=== PATIENT | male | born 1930 | race Caucasian/White ===

== ENCOUNTER 2017-01-04 14:17 | Emergency (ER) | payer MEDICARE, BC, OTHER ==
[2017-01-04] MEDS ORDERED: Sodium Chloride 0.9% 10 ML Syringe FLUSH PRN (14:28)
[2017-01-04] MEDS ORDERED: Piperacillin/Tazobactam 4.5 GM in Sodium Chloride 0.9% 100 ML IV ONE (15:30)
--- NOTE | 2017-01-04 15:47 | EDM.PDOC ---
ED HISTORY OF PRESENT ILLNESS - General Chief Complaint: Respiratory Problem Stated Complaint: [facility] Time Seen by Provider: 01/04/17 14:25 Source of Information: Reports: Patient, RN notes reviewed - History of Present Illness INITIAL COMMENTS - FREE TEXT/NARRATIVE: 86-year-old gentleman has been brought in by ambulance for evaluation of cough fever chills hypoxia. He has history of a severe pneumonia back in October 2 months ago did require transferred to [facility]. He was on a ventilator for about 2-1/2 days. He had a bronchoscopy done in [place] last 4 days ago presumably to check for what sounds like abnormal findings still present on chest x-ray. He started coughing 2 days ago. The cough worsening yesterday and today. He started having fever chills shortness of breath just a few hours ago at home. Upon ambulance arrival his sats were only about 83% on 2 L nasal cannula. He was given an albuterol neb treatment in route and that did bring his sats up into the low 90s. Temp on arrival is 100.4. He denies chest pain he states his cough has been mostly nonproductive but at times he does get up some pinkish colored phlegm. Of note he is on home oxygen 24 7 at about 2 L nasal cannula. - Related Data Allergies/ADRs: Allergies Allergy/AdvReac Type Severity Reaction Status Date / Time iodine Allergy Hives Verified 01/04/17 14:32 iopamidol Allergy Rash Verified 01/04/17 14:32 diphenhydramine HCl AdvReac Confusion Verified 01/04/17 14:32 [From Benadryl] Home Meds: Home Meds Acetaminophen [Tylenol] 650 mg PO Q6HR PRN 09/30/14 [History] Aspirin [Adult Low Dose Aspirin EC] 81 mg PO DAILY 09/30/14 [History] Metoprolol Tartrate [Lopressor] 25 mg PO BID 09/30/14 [History] Nitroglycerin [Nitrostat] 0.4 mg SL ASDIRECTED PRN 09/30/14 [History] Furosemide [Lasix] 20 mg PO DAILY 09/27/15 [History] Losartan [Cozaar] 100 mg PO DAILY #30 10/01/15 [Rx] Gabapentin [Neurontin] 1,800 mg PO BEDTIME 04/20/16 [History] Docusate Sodium [Colace] 100 mg PO DAILY PRN 07/17/16 [History] Albuterol/Ipratropium [DuoNeb 3.0-0.5 MG/3 ML] 3 ml NEB TID #120 neb 07/21/16 [ Rx] Benzonatate [Tessalon Perles] 100 mg PO TID PRN #45 cap 07/21/16 [Rx] Lidocaine/Prilocaine [EMLA Crm] 0 gm TOP ASDIRECTED PRN 01/04/17 [History] Rivaroxaban [Xarelto] 20 mg PO DAILY 01/04/17 [History] Viscous Lidocaine 1 dose TOP ASDIRECTED PRN 01/04/17 [History] atorvaSTATin [Lipitor] 10 mg PO BEDTIME 01/04/17 [History] guaiFENesin/D-Methorphan Hb/Pe [Robitussin Cough-Cold Cf Liq] 10 ml PO ASDIRECTED PRN 01/04/17 [History] Past Medical History HEENT History: Reports: Cataract, Impaired vision Cardiovascular History: Reports: Afib, CAD, Hypertension, [place] Respiratory History: Reports: COPD, Pneumonia, recurrent, Sleep apnea Other Respiratory History: lung CA Gastrointestinal History: Reports: Colon polyp, GERD Genitourinary History: Reports: Chronic renal insuffiency Other Genitourinary History: bladder cancer Musculoskeletal History: Reports: Arthritis, Back pain, chronic Neurological History: Reports: Other (see below) Other Neuro History: 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 ), sciatica pain Endocrine/Metabolic History: Reports: None Hematologic History: Reports: None Oncologic (Cancer) History: Reports: Bladder, Lung, Squamous cell carcinoma - Infectious Disease History Infectious Disease History: Reports: Chicken pox, Measles, Shingles - Past Surgical History Head Surgeries/Procedures: Reports: None HEENT Surgical History: Reports: Cataract surgery Cardiovascular Surgical History: Reports: Coronary artery bypass Respiratory Surgical History: Reports: Lung Resection GI Surgical History: Reports: Hernia, inguinal Male Surgical History: Reports: Cystectomy, Prostatectomy Neurological Surgical History: Reports: Lumbar spine Musculoskeletal Surgical History: Reports: Hip replacement, Shoulder surgery Oncologic Surgical History: Reports: Lobectomy, Other (see below) Other Oncologic Surgeries/Procedures: Right lower lobe Dermatological Surgical History: Reports: None Social & Family History - Family History Family Medical History: Noncontributory Cardiac: Reports: Bypass, Heart failure, [place], Pacemaker Other Cardiac Family History: few brothers from [place]. OBGYN: Reports: Oncologic: Reports: Liver, Pancreatic, Prostate Other Oncologic Family History: brother prostate, Brother-pancreatic cancer, sister- liver cancer - Tobacco Use Smoking Status *Q: Former Smoker Years of Tobacco use: 45 Packs/Tins Daily: 1 Used Tobacco, but Quit: No Month Tobacco Last Used: 2007 or 2008 Second Hand Smoke Exposure: No - Caffeine Use Caffeine Use: Reports: None - Alcohol Use Days Per Week of Alcohol Use: 3 Number of Drinks Per Day: 3 Total Drinks Per Week: 9 - Recreational Drug Use Recreational Drug Use: No - Living Situation & Occupation Living situation: Reports: , with spouse, with family (daughter) Occupation: retired ED ROS GENERAL - Review of Systems Review Of Systems: See Below Constitutional: Reports: fever, chills, weakness. Denies: diaphoresis HEENT: Denies: Rhinitis, Sinus problem, Throat pain Respiratory: Reports: Shortness of Breath, Wheezing, Cough, Sputum Cardiovascular: Denies: Chest pain GI/Abdominal: Denies: Abdominal pain, Nausea, Vomiting Musculoskeletal: Denies: shoulder pain, arm pain Skin: Denies: rash Neurological: Reports: Dizziness ED EXAM, GENERAL - Physical Exam Exam: See Below General Appearance: alert, moderate distress Eye Exam: bilateral eye: PERRL Nose: normal inspection Throat/Mouth: Normal inspection, Normal oropharynx Head: atraumatic. No: facial swelling Neck: supple, full range of motion, other (No JVD). No: lymphadenopathy (L), lymphadenopathy (R) Respiratory/Chest: respiratory distress (Moderate tachypnea), rhonchi (Mild right-sided). No: wheezing, retractions Cardiovascular: regular rate, rhythm GI/Abdominal: soft, non tender. No: guarding Back Exam: No: CVA tenderness (L), CVA tenderness (R) Extremities: normal inspection, pedal edema (Right greater than left). No: leg pain, increased warmth, redness Neurological: alert, oriented, no motor/sensory deficits Skin Exam: Warm, Dry, Normal color EKG INTERPRETATION EKG Date: 01/04/17 Rhythm: a-fib Rate (beats/min): 80 ST-T: other (T-wave flattening inferior leads) Course - Vital Signs Last Recorded V/S: Last Vital Signs Temp 100.3 F 01/04/17 14:20 Pulse 83 01/04/17 14:20 Resp 28 H 01/04/17 14:20 BP 139/56 L 01/04/17 14:20 Pulse Ox 93 L 01/04/17 14:20 - Orders/Labs/Meds Orders: Active Orders 24 hr Category Date Time Status EKG 12 Lead [EKG Documentation Completion] [RC] STAT Care 01/04/17 14:29 Active Peripheral IV Care [RC] . DIRECTED Care 01/04/17 14:29 Active RT Aerosol Therapy [RC] ASDIRECTED Care 01/04/17 15:55 Active Chest 1V Frontal [CR] Stat Exams 01/04/17 14:29 Taken CULTURE BLOOD [BC] Stat Lab 01/04/17 14:48 Received CULTURE BLOOD [BC] Stat Lab 01/04/17 14:58 Received Piperacillin/Tazobactam [Zosyn] 4.5 gm Med 01/04/17 15:30 Active Sodium Chloride 0.9% [Normal Saline] 100 ml IV ONETIME Sodium Chloride 0.9% [Saline Flush] Med 01/04/17 14:28 Active 10 ml FLUSH ASDIRECTED PRN Peripheral IV Insertion Adult [OM.PC] Stat Oth 01/04/17 14:29 Ordered Medication Orders Piperacillin Sod/Tazobactam (Sod 4.5 gm/ Sodium Chloride) 100 mls @ 200 mls/hr IV ONETIME ONE Stop: 01/04/17 15:59 Last Admin: 01/04/17 15:45 Dose: 200 mls/hr Sodium Chloride (Saline Flush) 10 ml FLUSH ASDIRECTED PRN PRN Reason: Keep Vein Open Last Admin: 01/04/17 14:45 Dose: 10 ml Labs: Laboratory Tests 01/04/17 01/04/17 01/04/17 Range/Units 14:48 14:48 14:48 WBC 11.92 H (4.23-9.07) K/mm3 RBC 4.21 L (4.63-6.08) M/mm3 Hgb 12.9 L (13.7-17.5) gm/L Hct 42.7 (40.1-51.0) % MCV 101.4 H (79.0-92.2) fl MCH 30.6 (25.7-32.2) pg MCHC 30.2 L (32.2-35.5) g/dl RDW Std Deviation 61.3 H (35.1-43.9) fL Plt Count 243 (163-337) K/mm3 MPV 10.3 (9.4-12.3) fl Neut % (Auto) 74.0 H (34.0-67.9) % Lymph % (Auto) 9.5 L (21.8-53.1) % Stephenson % (Auto) 9.4 (5.3-12.2) % Eos % (Auto) 6.0 (0.8-7.0) Baso % (Auto) 0.8 (0.1-1.2) % Neut # (Auto) 8.82 H (1.78-5.38) K/mm3 Lymph # (Auto) 1.13 L (1.32-3.57) K/mm3 Stephenson # (Auto) 1.12 H (0.30-0.82) K/mm3 Eos # (Auto) 0.72 H (0.04-0.54) K/mm3 Baso # (Auto) 0.09 H (0.01-0.08) K/mm3 Manual Slide Review Abnormal smear Sodium 145 (136-145) mEq/L Potassium 3.9 (3.5-5.1) mEq/L Chloride 104 (98-107) mEq/L Carbon Dioxide 34 H (21-32) mEq/L Anion Gap 10.9 (5-15) BUN 18 (7-18) mg/dL Creatinine 1.2 (0.7-1.3) mg/dL Est Cr Clr Drug Dosing 48.81 mL/min Estimated GFR (MDRD) 58 (>60) mL/min BUN/Creatinine Ratio 15.0 (14-18) Glucose 114 (83-115) mg/dL Lactic Acid 2.3 H (0.4-2.0) mmol/L Calcium 9.2 (8.5-10.1) mg/dL Total Bilirubin 1.1 H (0.2-1.0) mg/dL AST 16 (15-37) U/L ALT 23 (16-63) U/L Alkaline Phosphatase 103 (46-116) U/L C-Reactive Protein 1.6 H* (<1.0) mg/dL B-Natriuretic Peptide (0-100) pg/mL Total Protein 6.7 (6.4-8.2) g/dl Albumin 3.4 (3.4-5.0) g/dl Globulin 3.3 gm/dL Albumin/Globulin Ratio 1.0 (1-2) 01/04/17 Range/Units 14:48 WBC (4.23-9.07) K/mm3 RBC (4.63-6.08) M/mm3 Hgb (13.7-17.5) gm/L Hct (40.1-51.0) % MCV (79.0-92.2) fl MCH (25.7-32.2) pg MCHC (32.2-35.5) g/dl RDW Std Deviation (35.1-43.9) fL Plt Count (163-337) K/mm3 MPV (9.4-12.3) fl Neut % (Auto) (34.0-67.9) % Lymph % (Auto) (21.8-53.1) % Stephenson % (Auto) (5.3-12.2) % Eos % (Auto) (0.8-7.0) Baso % (Auto) (0.1-1.2) % Neut # (Auto) (1.78-5.38) K/mm3 Lymph # (Auto) (1.32-3.57) K/mm3 Stephenson # (Auto) (0.30-0.82) K/mm3 Eos # (Auto) (0.04-0.54) K/mm3 Baso # (Auto) (0.01-0.08) K/mm3 Manual Slide Review Sodium (136-145) mEq/L Potassium (3.5-5.1) mEq/L Chloride (98-107) mEq/L Carbon Dioxide (21-32) mEq/L Anion Gap (5-15) BUN (7-18) mg/dL Creatinine (0.7-1.3) mg/dL Est Cr Clr Drug Dosing mL/min Estimated GFR (MDRD) (>60) mL/min BUN/Creatinine Ratio (14-18) Glucose (83-115) mg/dL Lactic Acid (0.4-2.0) mmol/L Calcium (8.5-10.1) mg/dL Total Bilirubin (0.2-1.0) mg/dL AST (15-37) U/L ALT (16-63) U/L Alkaline Phosphatase (46-116) U/L C-Reactive Protein (<1.0) mg/dL B-Natriuretic Peptide 465 H (0-100) pg/mL Total Protein (6.4-8.2) g/dl Albumin (3.4-5.0) g/dl Globulin gm/dL Albumin/Globulin Ratio (1-2) Meds: Medications Generic Name Dose Route Start Last Admin Trade Name Freq PRN Reason Stop Dose Admin Piperacillin Sod/Tazobactam 100 mls @ 200 mls/hr 01/04/17 15:30 01/04/17 15: 45 Sod 4.5 gm/ Sodium Chloride IV 01/04/17 15:59 200 mls/hr ONETIME ONE Administration Sodium Chloride 10 ml 01/04/17 14:28 01/04/17 14:45 Saline Flush FLUSH 10 ml ASDIRECTED PRN Administration Keep Vein Open Discontinued Medications Generic Name Dose Route Start Last Admin Trade Name Freq PRN Reason Stop Dose Admin Albuterol/Ipratropium 3 ml 01/04/17 15:54 Duoneb 3.0-0.5 Mg/3 Ml NEB 01/04/17 15:55 ONETIME ONE - Re-Assessments/Exams Free Text/Narrative Re-Assessment/Exam: 01/04/17 16:05. Patient has right-sided infiltrate on his chest x-ray. As noted temp on arrival 100.4. He had shaking chills at home prior to arrival. His cough has been worsening over the past 2 days and now productive of occasional in his words pinkish brown sputum, white blood count is elevated at around 12,000. He was cachectic on arrival with respirations of about 28. He was hypoxic upon ambulance arrival at his residence with PO2 of only 83%. With all of that he did need sepsis criteria. Lactic acid is come back at 2.3. But cultures x2 were obtained. He does have history of congestive heart failure, BNP is elevated at 465. Anion gap is only 10.3. He is not seriously dehydrated at this time. He has a good blood pressure, normal heart rate, fluid boluses at this time are not clinically indicated and at this time will not be given. I discussed this with our hospitalist Dr. Loya. She is not comfortable admitting him here to this facility at this time with consideration that in October he progressed very quickly respiratory failure requiring intubation and being on a ventilator for 2-1/2 days. Pulmonology backup not available at our facility. He just had bronchoscopy as noted by his Metal Roofing Mechanic, Dr. Campos 4 days ago. Family has been given a choice and they do choose to go to [facility] at this time. Zosyn 4.5 g IV has been started. I discussed this with Dr. Wayne, Hospitalist for [facility] August[facility], accepting Phys. 01/04/17 16:17 Departure - Departure Time of Disposition: 16:00 Disposition: DC/Tfer to [facility] 02 Condition: serious Clinical Impression: Hypoxia Pneumonia Qualifiers: Pneumonia type: due to unspecified organism Laterality: right Lung location: unspecified part of lung Qualified Code(s): J18.9 - Pneumonia, unspecified organism COPD (chronic obstructive pulmonary disease) Qualifiers: COPD type: unspecified COPD Qualified Code(s): J44.9 - Chronic obstructive pulmonary disease, unspecified Forms: ED Department Discharge - My Orders Last 24 Hours: My Active Orders 01/04/17 14:28 Sodium Chloride 0.9% [Saline Flush] 10 ml FLUSH ASDIRECTED PRN 01/04/17 14:29 EKG 12 Lead [EKG Documentation Completion] [RC] STAT Peripheral IV Care [RC] . DIRECTED Chest 1V Frontal [CR] Stat Peripheral IV Insertion Adult [OM.PC] Stat 01/04/17 14:48 CULTURE BLOOD [BC] Stat 01/04/17 14:58 CULTURE BLOOD [BC] Stat 01/04/17 15:30 Piperacillin/Tazobactam [Zosyn] 4.5 gm Sodium Chloride 0.9% [Normal Saline] 100 ml IV ONETIME 01/04/17 15:55 RT Aerosol Therapy [RC] ASDIRECTED - Assessment/Plan Last 24 Hours: My Active Orders 01/04/17 14:28 Sodium Chloride 0.9% [Saline Flush] 10 ml FLUSH ASDIRECTED PRN 01/04/17 14:29 EKG 12 Lead [EKG Documentation Completion] [RC] STAT Peripheral IV Care [RC] . DIRECTED Chest 1V Frontal [CR] Stat Peripheral IV Insertion Adult [OM.PC] Stat 01/04/17 14:48 CULTURE BLOOD [BC] Stat 01/04/17 14:58 CULTURE BLOOD [BC] Stat 01/04/17 15:30 Piperacillin/Tazobactam [Zosyn] 4.5 gm Sodium Chloride 0.9% [Normal Saline] 100 ml IV ONETIME 01/04/17 15:55 RT Aerosol Therapy [RC] ASDIRECTED
[2017-01-04] MEDS ORDERED: Albuterol/Ipratropium 3.0-0.5 MG/3 ML Neb Soln NEB ONE (15:54)
[2017-01-04 16:31] VITALS: BP 114/49
--- NOTE | 2017-01-05 08:54 | CR ---
Chest: Frontal view of the chest was obtained. Comparison: Previous chest x-ray of 11/02/[address] of 10/19/16. Mass noted within the left side of the chest which is seen on prior chest CT. Pleural thickening/fluid seen around the right chest which is fairly stable from prior chest CT. Increased parenchymal density within the right mid and right lower lung is seen which is more prominent currently than on prior exam and uncertain how much of this represents possible treated neoplasm, chronic change versus superimposed acute pneumonia. Previous CABG is noted. Heart size does not appear enlarged. Previous right shoulder surgery is noted. Impression: 1. Mass within the left side of the chest. This is noted on prior CT exam. 2. Parenchymal density within the right mid and lower lung more prominent than on prior chest CT. Differential as described above. 3. Pleural thickening/fluid around the right chest which appears stable. Diagnostic code #9
== END 2017-01-04 16:28 ==
LOC: JD.ED 14:17
DX: J18.9 Pneumonia, unspecified organism (principal); J44.9 Chronic obstructive pulmonary disease, unspecified; I25.10 Atherosclerotic heart disease of native coronary artery without angina pectoris; I25.2 Old myocardial infarction; I48.91 Unspecified atrial fibrillation; K21.9 Gastro-esophageal reflux disease without esophagitis; N18.9 Chronic kidney disease, unspecified; I12.9 Hypertensive chronic kidney disease with stage 1 through stage 4 chronic kidney disease, or unspecified chronic kidney disease; M19.90 Unspecified osteoarthritis, unspecified site; Z98.49 Cataract extraction status, unspecified eye; Z98.890 Other specified postprocedural states; Z87.891 Personal history of nicotine dependence; Z88.8 Allergy status to other drugs, medicaments and biological substances; Z79.82 Long term (current) use of aspirin; Z79.899 Other long term (current) drug therapy; R06.02 Shortness of breath
CPT/HCPCS: 36415; 71010; 80053; 83605; 83880; 85025; 86140; 87040; 87070; 87205; 93005; 94664; 96365; 99285; J2543; J7030; J7050

== ENCOUNTER 2017-04-05 21:02 | Inpatient (IN) | payer MEDICARE, BC ==
[2017-04-05] MEDS ORDERED: Sodium Chloride 0.9% 10 ML Syringe FLUSH PRN (21:18)
[2017-04-05] MEDS ORDERED: Acetaminophen 325 MG Tab PO ONE (21:20)
[2017-04-05] MEDS ORDERED: Levofloxacin/Dextrose 5%-Water 750 MG in Premix Bag 1 BAG IV ONE (21:21)
[2017-04-05] MEDS ORDERED: Albuterol/Ipratropium 3.0-0.5 MG/3 ML Neb Soln NEB ONE (21:21)
--- NOTE | 2017-04-05 22:08 | EDM.PDOC ---
ED HPI GENERAL MEDICAL PROBLEM - General Chief Complaint: Gastrointestinal Problem Stated Complaint: [facility] ambulance Time Seen by Provider: 04/05/17 21:10 Source of Information: Reports: Patient, EMS, Family History Limitations: Reports: No Limitations - History of Present Illness INITIAL COMMENTS - FREE TEXT/NARRATIVE: The patient presents by ambulance for generalized weakness, fever, cough, chest tightness and abdominal pain. The abdominal pain is generalized. He has no nausea with it or vomiting. He has a urostomy bag. He has a history of frequent UTIs. He also has lung cancer and finished radiation February 24. He had a productive cough. Onset: Gradual Duration: Day(s): Location: Reports: Abdomen Quality: Reports: Ache Severity: Mild Improves with: Reports: None Worsens with: Reports: None Associated Symptoms: Reports: Chest Pain, Cough, Fever/Chills, Shortness of Breath. Denies: Nausea/Vomiting - Related Data Allergies Allergy/AdvReac Type Severity Reaction Status Date / Time iodine Allergy Hives Verified 04/05/17 21:08 iopamidol Allergy Rash Verified 04/05/17 21:08 diphenhydramine HCl AdvReac Confusion Verified 04/05/17 21:08 [From Benadryl] Home Meds: Home Meds Metoprolol Tartrate [Lopressor] 25 mg PO BID 09/30/14 [History] Nitroglycerin [Nitrostat] 0.4 mg SL ASDIRECTED PRN 09/30/14 [History] Furosemide [Lasix] 20 mg PO DAILY 09/27/15 [History] Gabapentin [Neurontin] 3 tab PO BEDTIME 01/08/16 [History] Rivaroxaban [Xarelto] 20 mg PO BEDTIME 01/04/17 [History] atorvaSTATin [Lipitor] 10 mg PO BEDTIME 01/04/17 [History] Albuterol/Ipratropium [DuoNeb 3.0-0.5 MG/3 ML] 3 ml NEB BID 04/05/17 [History] Losartan [Cozaar] 50 mg PO DAILY 04/05/17 [History] Omeprazole 20 mg PO DAILY 04/05/17 [History] Past Medical History HEENT History: Reports: Cataract, Impaired Vision Cardiovascular History: Reports: Afib Respiratory History: Reports: COPD, Pneumonia, Recurrent, Sleep Apnea Other Respiratory History: lung CA Gastrointestinal History: Reports: Colon Polyp, GERD Genitourinary History: Reports: Chronic Renal Insuffiency, Urostomy Other Genitourinary History: bladder cancer Musculoskeletal History: Reports: Arthritis, Back Pain, Chronic 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 ), sciatica pain Endocrine/Metabolic History: Reports: None Hematologic History: Reports: None Oncologic (Cancer) History: Reports: Bladder, Lung, Squamous Cell Carcinoma - Infectious Disease History Infectious Disease History: Reports: Chicken Pox, Measles, Shingles - Past Surgical History Head Surgeries/Procedures: Reports: None HEENT Surgical History: Reports: Cataract Surgery Cardiovascular Surgical History: Reports: Coronary Artery Bypass GI Surgical History: Reports: Hernia, Inguinal Neurological Surgical History: Reports: Lumbar Spine Musculoskeletal Surgical History: Reports: Hip Replacement, Shoulder Surgery Oncologic Surgical History: Reports: Lobectomy Dermatological Surgical History: Reports: None Social & Family History - Family History Family Medical History: Noncontributory Cardiac: Reports: Bypass, Heart Failure, [place], Pacemaker Other Cardiac Family History: few brothers from [place]. OBGYN: Reports: Oncologic: Reports: Liver, Pancreatic, Prostate Other Oncologic Family History: brother prostate, Brother-pancreatic cancer, sister- liver cancer - Tobacco Use Smoking Status *Q: Never Smoker Years of Tobacco use: 45 Packs/Tins Daily: 1 Used Tobacco, but Quit: No Month Tobacco Last Used: 2007 or 2008 Second Hand Smoke Exposure: No - Caffeine Use Caffeine Use: Reports: None - Alcohol Use Days Per Week of Alcohol Use: 3 Number of Drinks Per Day: 3 Total Drinks Per Week: 9 - Recreational Drug Use Recreational Drug Use: No - Living Situation & Occupation Living situation: Reports: , with Spouse, with Family Occupation: Retired ED ROS GENERAL - Review of Systems Review Of Systems: See Below Constitutional: Reports: Fever, Chills HEENT: Reports: No Symptoms Respiratory: Reports: Shortness of Breath, Cough Cardiovascular: Reports: Chest Pain Endocrine: Reports: No Symptoms GI/Abdominal: Reports: Abdominal Pain. Denies: Nausea, Vomiting : Reports: No Symptoms Musculoskeletal: Reports: No Symptoms ED EXAM, GI/ABD - Physical Exam Exam: See Below Exam Limited By: No Limitations General Appearance: Alert, No Apparent Distress Ears: Normal External Exam Nose: Normal Inspection Head: Atraumatic, Normocephalic Neck: Normal Inspection Respiratory/Chest: No Respiratory Distress, Decreased Breath Sounds Cardiovascular: Regular Rate, Rhythm, No Edema, No Murmur GI/Abdominal: Soft, Non-Tender, No Organomegaly, No Mass Back Exam: Normal Inspection Extremities: Normal Inspection Skin Exam: Warm, Dry Course - Vital Signs Last Recorded V/S: Last Vital Signs Temp 98.3 F 04/05/17 21:04 Pulse 78 04/05/17 21:04 Resp 26 H 04/05/17 21:04 BP 173/71 H 04/05/17 21:04 Pulse Ox 97 04/05/17 21:47 - Orders/Labs/Meds Orders: Active Orders 24 hr Category Date Time Status Cardiac Monitoring [RC] . DIRECTED Care 04/05/17 21:19 Active EKG Documentation Completion [RC] STAT Care 04/05/17 21:20 Active Oxygen Therapy [RC] PRN Care 04/05/17 21:19 Active Peripheral IV Care [RC] . DIRECTED Care 04/05/17 21:20 Active RT Aerosol Therapy [RC] ASDIRECTED Care 04/05/17 21:21 Active Chest 1V Frontal [CR] Stat Exams 04/05/17 21:20 Taken CULTURE BLOOD [BC] Stat Lab 04/05/17 20:00 Received CULTURE BLOOD [BC] Stat Lab 04/05/17 21:40 Received CULTURE URINE [RM] Stat Lab 04/05/17 20:08 Received Sodium Chloride 0.9% [Saline Flush] Med 04/05/17 21:18 Active 10 ml FLUSH ASDIRECTED PRN Blood Culture x2 Reflex Set [OM.PC] Stat Oth 04/05/17 21:20 Ordered Peripheral IV Insertion Adult [OM.PC] Stat Oth 04/05/17 21:18 Ordered Medication Orders Acetaminophen (Tylenol) 650 mg PO Q4H PRN PRN Reason: Pain (Mild 1-3)/fever Hydrocodone Bitart/Acetaminophen ([place] 325-5 Mg) 1 tab PO Q4H PRN PRN Reason: Pain (moderate 4-6) Albuterol/Ipratropium (Duoneb 3.0-0.5 Mg/3 Ml) 3 ml NEB Q4H PRN PRN Reason: Shortness Of Breath/wheezing Albuterol/Ipratropium (Duoneb 3.0-0.5 Mg/3 Ml) 3 ml NEB BID [facility] Bisacodyl (Dulcolax) 5 mg PO DAILY PRN PRN Reason: Constipation Docusate Sodium (Colace) 100 mg PO BID PRN PRN Reason: Constipation Furosemide (Lasix) 20 mg PO DAILY [facility] Gabapentin (Neurontin) mg PO BEDTIME [facility] Hydralazine HCl (Apresoline) 20 mg IVPUSH Q4H PRN PRN Reason: Hypertension Levofloxacin/Dextrose 750 mg/ (Premix) 150 mls @ 100 mls/hr IV Q24H [facility] Promethazine HCl 12.5 mg/ (Sodium Chloride) 50.5 mls @ 100 mls/hr IV Q6H PRN PRN Reason: Nausea/Vomiting Vancomycin HCl 1 gm/Vancomycin HCl 500 mg/ Sodium Chloride 500 mls @ 125 mls/ hr IV Q24H [facility] Lorazepam (Ativan) 0.25 mg IV Q6H PRN PRN Reason: Anxiety Magnesium Sulfate (Pharmacy To Dose - Magnesium Replacement) 1 dose .XX ASDIRECTED [facility] Metoprolol Tartrate (Lopressor) 25 mg PO BID [facility] Metoprolol Tartrate (Lopressor) 5 mg IVPUSH Q4H PRN PRN Reason: Tachycardia Morphine Sulfate (Morphine) 1 mg IVPUSH Q4H PRN PRN Reason: Other Stop: 04/09/17 23:03 Nitroglycerin (Nitrostat) 0.4 mg SL ASDIRECTED PRN PRN Reason: Chest Pain Non-Formulary Medication (Losartan) 50 mg PO DAILY [facility] Non-Formulary Medication (Omeprazole) 20 mg PO DAILY [facility] Non-Formulary Medication (Rivaroxaban [Xarelto]) 20 mg PO BEDTIME [facility] Non-Formulary Medication (Atorvastatin) 10 mg PO BEDTIME [facility] Ondansetron HCl (Zofran) 4 mg IV Q6H PRN PRN Reason: Nausea/Vomiting Polyethylene Glycol (Miralax) 17 gm PO DAILY PRN PRN Reason: Constipation Potassium Chloride (Pharmacy To Dose - Potassium Replacement) 1 dose .XX ASDIRECTED [facility] Senna/Docusate Sodium (Senna Plus) 1 tab PO BID PRN PRN Reason: Constipation Sodium Chloride (Saline Flush) 10 ml FLUSH ASDIRECTED PRN PRN Reason: Keep Vein Open Last Admin: 04/05/17 22:08 Dose: 10 ml Temazepam (Restoril) 7.5 mg PO BEDTIME PRN PRN Reason: Sleep Vancomycin HCl (Pharmacy To Dose - Vancomycin) 1 dose .XX ASDIRECTED [facility] Labs: Laboratory Tests 04/05/17 04/05/17 04/05/17 Range/Units 20:08 21:25 21:25 WBC 6.04 (4.23-9.07) K/mm3 RBC 3.57 L (4.63-6.08) M/mm3 Hgb 12.0 L (13.7-17.5) gm/L Hct 36.9 L (40.1-51.0) % MCV 103.4 H (79.0-92.2) fl MCH 33.6 H (25.7-32.2) pg MCHC 32.5 (32.2-35.5) g/dl RDW Std Deviation 60.0 H (35.1-43.9) fL Plt Count 152 L (163-337) K/mm3 MPV 10.4 (9.4-12.3) fl Neut % (Auto) 56.0 (34.0-67.9) % Lymph % (Auto) 12.7 L (21.8-53.1) % Cavalier % (Auto) 19.7 H (5.3-12.2) % Eos % (Auto) 9.9 H (0.8-7.0) Baso % (Auto) 1.0 (0.1-1.2) % Neut # (Auto) 3.38 (1.78-5.38) K/mm3 Lymph # (Auto) 0.77 L (1.32-3.57) K/mm3 [place]alier # (Auto) 1.19 H (0.30-0.82) K/mm3 Eos # (Auto) 0.60 H (0.04-0.54) K/mm3 Baso # (Auto) 0.06 (0.01-0.08) K/mm3 Manual Slide Review Abnormal smear Sodium 140 (136-145) mEq/L Potassium 4.0 (3.5-5.1) mEq/L Chloride 104 (98-107) mEq/L Carbon Dioxide 35 H (21-32) mEq/L Anion Gap 5.0 (5-15) BUN 15 (7-18) mg/dL Creatinine 1.1 (0.7-1.3) mg/dL Est Cr Clr Drug Dosing 52.29 mL/min Estimated GFR (MDRD) > 60 (>60) mL/min BUN/Creatinine Ratio 13.6 L (14-18) Glucose 140 H (83-115) mg/dL Lactic Acid (0.4-2.0) mmol/L Calcium 8.9 (8.5-10.1) mg/dL Total Bilirubin 0.8 (0.2-1.0) mg/dL AST 20 (15-37) U/L ALT 21 (16-63) U/L Alkaline Phosphatase 76 (46-116) U/L Troponin I 0.036 (0.00-0.056) ng/mL Total Protein 6.6 (6.4-8.2) g/dl Albumin 3.2 L (3.4-5.0) g/dl Globulin 3.4 gm/dL Albumin/Globulin Ratio 0.9 L (1-2) Urine Color Yellow (Yellow) Urine Appearance Clear (Clear) Urine pH 7.0 (5.0-8.0) Ur Specific [place] 1.025 (1.005-1.030) Urine Protein 1+ H (Negative) Urine Glucose (UA) Negative (Negative) Urine Ketones Negative (Negative) Urine Occult Blood Trace-intact H (Negative) Urine Nitrite Positive H (Negative) Urine Bilirubin Negative (Negative) Urine Urobilinogen 2.0 H (0.2-1.0) Ur Leukocyte Esterase Trace H (Negative) Urine RBC 0-5 (0-5) /hpf Urine WBC 10-20 H (0-5) /hpf Ur Epithelial Cells 5-10 H (0-5) /hpf Urine Bacteria Moderate H (FEW) /hpf Urine Mucus Not seen (FEW) /hpf 04/05/17 Range/Units 21:40 WBC (4.23-9.07) K/mm3 RBC (4.63-6.08) M/mm3 Hgb (13.7-17.5) gm/L Hct (40.1-51.0) % MCV (79.0-92.2) fl MCH (25.7-32.2) pg MCHC (32.2-35.5) g/dl RDW Std Deviation (35.1-43.9) fL Plt Count (163-337) K/mm3 MPV (9.4-12.3) fl Neut % (Auto) (34.0-67.9) % Lymph % (Auto) (21.8-53.1) % [place]ier % (Auto) (5.3-12.2) % Eos % (Auto) (0.8-7.0) Baso % (Auto) (0.1-1.2) % Neut # (Auto) (1.78-5.38) K/mm3 Lymph # (Auto) (1.32-3.57) K/mm3 [place]ier # (Auto) (0.30-0.82) K/mm3 Eos # (Auto) (0.04-0.54) K/mm3 Baso # (Auto) (0.01-0.08) K/mm3 Manual Slide Review Sodium (136-145) mEq/L Potassium (3.5-5.1) mEq/L Chloride (98-107) mEq/L Carbon Dioxide (21-32) mEq/L Anion Gap (5-15) BUN (7-18) mg/dL Creatinine (0.7-1.3) mg/dL Est Cr Clr Drug Dosing mL/min Estimated GFR (MDRD) (>60) mL/min BUN/Creatinine Ratio (14-18) Glucose (83-115) mg/dL Lactic Acid 0.8 (0.4-2.0) mmol/L Calcium (8.5-10.1) mg/dL Total Bilirubin (0.2-1.0) mg/dL AST (15-37) U/L ALT (16-63) U/L Alkaline Phosphatase (46-116) U/L Troponin I (0.00-0.056) ng/mL Total Protein (6.4-8.2) g/dl Albumin (3.4-5.0) g/dl Globulin gm/dL Albumin/Globulin Ratio (1-2) Urine Color (Yellow) Urine Appearance (Clear) Urine pH (5.0-8.0) Ur Specific [place] (1.005-1.030) Urine Protein (Negative) Urine Glucose (UA) (Negative) Urine Ketones (Negative) Urine Occult Blood (Negative) Urine Nitrite (Negative) Urine Bilirubin (Negative) Urine Urobilinogen (0.2-1.0) Ur Leukocyte Esterase (Negative) Urine RBC (0-5) /hpf Urine WBC (0-5) /hpf Ur Epithelial Cells (0-5) /hpf Urine Bacteria (FEW) /hpf Urine Mucus (FEW) /hpf Meds: Medications Generic Name Dose Route Start Last Admin Trade Name Freq PRN Reason Stop Dose Admin Acetaminophen 650 mg 04/05/17 23:02 Tylenol PO Q4H PRN Pain (Mild 1-3)/fever Hydrocodone Bitart/Acetaminophen 1 tab 04/05/17 23:02 [place] 325-5 Mg PO Q4H PRN Pain (moderate 4-6) Albuterol/Ipratropium 3 ml 04/05/17 23:03 Duoneb 3.0-0.5 Mg/3 Ml NEB Q4H PRN Shortness Of Breath/wheezing Albuterol/Ipratropium 3 ml 04/06/17 09:00 Duoneb 3.0-0.5 Mg/3 Ml NEB BID [facility] Bisacodyl 5 mg 04/05/17 23:03 Dulcolax PO DAILY PRN Constipation Docusate Sodium 100 mg 04/05/17 23:03 Colace PO BID PRN Constipation Furosemide 20 mg 04/06/17 09:00 Lasix PO DAILY [facility] Gabapentin mg 04/06/17 21:00 Neurontin PO BEDTIME [facility] Hydralazine HCl 20 mg 04/05/17 23:10 Apresoline IVPUSH Q4H PRN Hypertension Levofloxacin/Dextrose 750 mg/ 150 mls @ 100 mls/hr 04/06/17 09:00 Premix IV Q24H [facility] Promethazine HCl 12.5 mg/ 50.5 mls @ 100 mls/hr 04/05/17 23:03 Sodium Chloride IV Q6H PRN Nausea/Vomiting Vancomycin HCl 1 gm/ 500 mls @ 125 mls/hr 04/05/17 23:15 Vancomycin HCl 500 mg/ Sodium IV Chloride Q24H [facility] Lorazepam 0.25 mg 04/05/17 23:03 Ativan IV Q6H PRN Anxiety Magnesium Sulfate 1 dose 04/05/17 23:15 Pharmacy To Dose - Magnesium Replacement .XX ASDIRECTED [facility] Metoprolol Tartrate 25 mg 04/06/17 09:00 Lopressor PO BID [facility] Metoprolol Tartrate 5 mg 04/05/17 23:10 Lopressor IVPUSH Q4H PRN Tachycardia Morphine Sulfate 1 mg 04/05/17 23:02 Morphine IVPUSH 04/09/17 23:03 Q4H PRN Other Nitroglycerin 0.4 mg 04/05/17 23:09 Nitrostat SL ASDIRECTED PRN Chest Pain Non-Formulary Medication 50 mg 04/06/17 09:00 Losartan PO DAILY [facility] Non-Formulary Medication 20 mg 04/06/17 09:00 Omeprazole PO DAILY [facility] Non-Formulary Medication 20 mg 04/06/17 21:00 Rivaroxaban [Xarelto] PO BEDTIME [facility] Non-Formulary Medication 10 mg 04/06/17 21:00 Atorvastatin PO BEDTIME [facility] Ondansetron HCl 4 mg 04/05/17 23:03 Zofran IV Q6H PRN Nausea/Vomiting Polyethylene Glycol 17 gm 04/05/17 23:03 Miralax PO DAILY PRN Constipation Potassium Chloride 1 dose 04/05/17 23:15 Pharmacy To Dose - Potassium Replacement .XX ASDIRECTED [facility] Senna/Docusate Sodium 1 tab 04/05/17 23:03 Senna Plus PO BID PRN Constipation Sodium Chloride 10 ml 04/05/17 21:18 04/05/17 22:08 Saline Flush FLUSH 10 ml ASDIRECTED PRN Administration Keep Vein Open Temazepam 7.5 mg 04/05/17 23:03 Restoril PO BEDTIME PRN Sleep Vancomycin HCl 1 dose 04/05/17 23:15 Pharmacy To Dose - Vancomycin .XX ASDIRECTED [facility] Discontinued Medications Generic Name Dose Route Start Last Admin Trade Name Freq PRN Reason Stop Dose Admin Acetaminophen 975 mg 04/05/17 21:20 04/05/17 22:05 Tylenol PO 04/05/17 21:21 975 mg NOW ONE Administration Albuterol/Ipratropium 3 ml 04/05/17 21:21 04/05/17 21:47 Duoneb 3.0-0.5 Mg/3 Ml NEB 04/05/17 21:22 3 ml ONETIME ONE Administration Levofloxacin/Dextrose 750 mg/ 150 mls @ 100 mls/hr 04/05/17 21:21 04/05/17 22 :08 Premix IV 04/05/17 22:50 100 mls/hr ONETIME ONE Administration - Re-Assessments/Exams Free Text/Narrative Re-Assessment/Exam: 04/05/17 23:23 I ordered oxygen, labs, CXR, EKG, duoneb, blood cultures and urine culture. His EKG shows no acute changes. His CXR shows stable changes of a mass on both sides. His WBC was normal. His Hgb was a little low at 12. His CMP was negative. His UA shows a UTI. I ordered urine cultures and I also ordered levaquin 750mg IV. I called Dr Garcia and he agreed to the admission. Departure - Departure Time of Disposition: 23:30 Disposition: Admitted As Inpatient 68 Condition: Fair Clinical Impression: UTI, Urinary tract infectious disease, Pneumonia, Hypoxemia Metastatic lung cancer (metastasis from lung to other site) Qualifiers: Laterality: right Qualified Code(s): C34.91 - Malignant neoplasm of unspecified part of right bronchus or lung - Discharge Information - My Orders Last 24 Hours: My Active Orders 04/05/17 20:00 CULTURE BLOOD [BC] Stat 04/05/17 20:08 CULTURE URINE [RM] Stat 04/05/17 21:18 Sodium Chloride 0.9% [Saline Flush] 10 ml FLUSH ASDIRECTED PRN Peripheral IV Insertion Adult [OM.PC] Stat 04/05/17 21:19 Cardiac Monitoring [RC] . DIRECTED Oxygen Therapy [RC] PRN 04/05/17 21:20 EKG Documentation Completion [RC] STAT Peripheral IV Care [RC] . DIRECTED Chest 1V Frontal [CR] Stat Blood Culture x2 Reflex Set [OM.PC] Stat 04/05/17 21:21 RT Aerosol Therapy [RC] ASDIRECTED 04/05/17 21:40 CULTURE BLOOD [BC] Stat - Assessment/Plan Last 24 Hours: My Active Orders 04/05/17 20:00 CULTURE BLOOD [BC] Stat 04/05/17 20:08 CULTURE URINE [RM] Stat 04/05/17 21:18 Sodium Chloride 0.9% [Saline Flush] 10 ml FLUSH ASDIRECTED PRN Peripheral IV Insertion Adult [OM.PC] Stat 04/05/17 21:19 Cardiac Monitoring [RC] . DIRECTED Oxygen Therapy [RC] PRN 04/05/17 21:20 EKG Documentation Completion [RC] STAT Peripheral IV Care [RC] . DIRECTED Chest 1V Frontal [CR] Stat Blood Culture x2 Reflex Set [OM.PC] Stat 04/05/17 21:21 RT Aerosol Therapy [RC] ASDIRECTED 04/05/17 21:40 CULTURE BLOOD [BC] Stat
--- NOTE | 2017-04-05 22:52 | PCM.HP ---
H&P History of Present Illness - General Date of Service: 04/05/17 Admit Problem/Dx: CAP and UTI Source of Information: Patient, Family, Old Records, Provider, RN Notes Reviewed , Significant Other History Limitations: Reports: No Limitations - History of Present Illness Initial Comments - Free Text/Narative: This is an 87 year old elderly white male with past medical history of coronary artery disease, hypertension, heart failure with reduced EF, COPD, chronic right pleural effusion, GERD, osteoporosis, chronic back pain secondary to lumbar stenosis, history of sciatica, history of PE on xarelto who presents to the emergency department with complaints of generalized weakness associated with fever, chills, cough, chest tightness, and abdominal pain. He denies any nausea or vomiting or any other GI complaints. Patient is known to me from previous admissions. 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 His initial workup in emergency department shows a CBC remarkable for hemoglobin of 12.0, hematocrit of 36.9, MCV of 102.4, MCH of 32.6, and platelet count of 152. His chemistry is remarkable for carbon dioxide of 35, glucose of 140, and albumin of 3.2. Her UA is positive for urinary tract infection. Chest x -ray shows right middle lobe pulmonary opacification with possible right sided pleural effusion. Patient is being admitted for pneumonia and urinary tract infection. He is DNR/ DNI. Pain Pain Score (Numeric/FACES): 7 - Related Data Allergies/Adverse Reactions: Allergies Allergy/AdvReac Type Severity Reaction Status Date / Time iodine Allergy Hives Verified 04/06/17 01:00 iopamidol Allergy Rash Verified 04/06/17 01:00 diphenhydramine HCl AdvReac Confusion Verified 04/06/17 01:00 [From Benadryl] Home Medications: Home Meds Metoprolol Tartrate [Lopressor] 25 mg PO BID 09/30/14 [History] Nitroglycerin [Nitrostat] 0.4 mg SL ASDIRECTED PRN 09/30/14 [History] Furosemide [Lasix] 20 mg PO DAILY 09/27/15 [History] Gabapentin [Neurontin] 3 tab PO BEDTIME 01/08/16 [History] Rivaroxaban [Xarelto] 20 mg PO BEDTIME 01/04/17 [History] atorvaSTATin [Lipitor] 10 mg PO BEDTIME 01/04/17 [History] Albuterol/Ipratropium [DuoNeb 3.0-0.5 MG/3 ML] 3 ml NEB BID 04/05/17 [History] Losartan [Cozaar] 50 mg PO DAILY 04/05/17 [History] Omeprazole 20 mg PO DAILY 04/05/17 [History] Past Medical History HEENT History: Reports: Cataract, Impaired Vision Cardiovascular History: Reports: Afib Respiratory History: Reports: COPD, Pneumonia, Recurrent, Sleep Apnea Other Respiratory History: lung CA Gastrointestinal History: Reports: Colon Polyp, GERD Genitourinary History: Reports: Chronic Renal Insuffiency, Urostomy Other Genitourinary History: bladder cancer Musculoskeletal History: Reports: Arthritis, Back Pain, Chronic 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 ), sciatica pain Endocrine/Metabolic History: Reports: None Hematologic History: Reports: None Oncologic (Cancer) History: Reports: Bladder, Lung, Squamous Cell Carcinoma - Infectious Disease History Infectious Disease History: Reports: Chicken Pox, Measles, Shingles - Past Surgical History Head Surgeries/Procedures: Reports: None HEENT Surgical History: Reports: Cataract Surgery Cardiovascular Surgical History: Reports: Coronary Artery Bypass GI Surgical History: Reports: Hernia, Inguinal Neurological Surgical History: Reports: Lumbar Spine Musculoskeletal Surgical History: Reports: Hip Replacement, Shoulder Surgery Oncologic Surgical History: Reports: Lobectomy Dermatological Surgical History: Reports: None Social & Family History - Family History Family Medical History: Noncontributory Cardiac: Reports: Bypass, Heart Failure, CT, Pacemaker Other Cardiac Family History: few brothers from [place]. OBGYN: Reports: Oncologic: Reports: Liver, Pancreatic, Prostate Other Oncologic Family History: brother prostate, Brother-pancreatic cancer, sister- liver cancer - Tobacco Use Smoking Status *Q: Never Smoker Years of Tobacco use: 45 Packs/Tins Daily: 1 Used Tobacco, but Quit: No Month Tobacco Last Used: 2007 or 2008 Second Hand Smoke Exposure: No - Caffeine Use Caffeine Use: Reports: None - Alcohol Use Days Per Week of Alcohol Use: 3 Number of Drinks Per Day: 3 Total Drinks Per Week: 9 - Recreational Drug Use Recreational Drug Use: No - Living Situation & Occupation Living situation: Reports: , with Spouse, with Family Occupation: Retired H&P Review of Systems - Review of Systems: Review Of Systems: See Below General: Reports: Fever, Chills HEENT: Reports: No Symptoms Pulmonary: Reports: Shortness of Breath, Cough Cardiovascular: Reports: Chest Pain. Denies: Palpitations, Dyspnea on Exertion , Lightheadedness Gastrointestinal: Reports: Abdominal Pain. Denies: Constipation, Diarrhea, Decreased Appetite, Nausea, Vomiting Genitourinary: Reports: No Symptoms Musculoskeletal: Reports: Back Pain Skin: Denies: No Symptoms Psychiatric: Reports: Suicidal Ideation. Denies: Depression, Anxiety, Hallucinations Neurological: Reports: Difficulty Walking, Gait Disturbance. Denies: Confusion , Weakness Hematologic/Lymphatic: Reports: No Symptoms Immunologic: Reports: No Symptoms Exam - Exam Exam: See Below - Vital Signs Vital Signs: Last Vital Signs Temp 36.8 C 04/05/17 21:04 Pulse 78 04/05/17 21:04 Resp 26 H 04/05/17 21:04 BP 173/71 H 04/05/17 21:04 Pulse Ox 97 04/05/17 21:47 Weight: 88.904 kg - Exam Quality Assessment: Supplemental Oxygen General: Alert, Oriented, Cooperative. No: Mild Distress HEENT: Conjunctiva Clear, EACs Clear, EOMI, Hearing Intact, Mucosa Moist & [place] , Nares Patent, Normal Nasal Septum, Posterior Pharynx Clear, Pupils Equal Neck: Supple, Trachea Midline, Full Range of Motion. No: JVD Lungs: Normal Respiratory Effort, Decreased Breath Sounds, Rhonchi Cardiovascular: Irregular Rhythm Abdomen: Normal Bowel Sounds, Soft, Other (Urostomy bag). No: Organomegaly, Peritoneal Signs, Distention, Rigidity, Rebound, Tenderness (Male) Exam: Deferred Rectal (Males) Exam: Deferred Back Exam: Normal Inspection, Decreased Range of Motion Extremities: Normal Inspection, Normal Pulses, Edema (right lower extremity). No: Cyanosis Peripheral Pulses: 1+: Posterior Tibial (R), Dorsalis Pedis (R), 2+: Posterior Tibial (L), Dorsalis Pedis (L) Skin: Warm, Dry, Intact Neuro Extensive - Mental Status: Oriented x3, Normal Cognition, Memory Intact Neuro Extensive - Motor, Sensory, Reflexes: CN II-XII Intact (limited but fairly intact), Abnormal Gait Psychiatric: Alert, Normal Affect, Normal Mood - Patient Data Lab Results Last 24 hrs: Laboratory Results - last 24 hr 04/05/17 04/05/17 04/05/17 Range/Units 20:08 21:25 21:25 WBC 6.04 (4.23-9.07) K/mm3 RBC 3.57 L (4.63-6.08) M/mm3 Hgb 12.0 L (13.7-17.5) gm/L Hct 36.9 L (40.1-51.0) % MCV 103.4 H (79.0-92.2) fl MCH 33.6 H (25.7-32.2) pg MCHC 32.5 (32.2-35.5) g/dl RDW Std Deviation 60.0 H (35.1-43.9) fL Plt Count 152 L (163-337) K/mm3 MPV 10.4 (9.4-12.3) fl Neut % (Auto) 56.0 (34.0-67.9) % Lymph % (Auto) 12.7 L (21.8-53.1) % [place] % (Auto) 19.7 H (5.3-12.2) % Eos % (Auto) 9.9 H (0.8-7.0) Baso % (Auto) 1.0 (0.1-1.2) % Neut # (Auto) 3.38 (1.78-5.38) K/mm3 Lymph # (Auto) 0.77 L (1.32-3.57) K/mm3 [place] # (Auto) 1.19 H (0.30-0.82) K/mm3 Eos # (Auto) 0.60 H (0.04-0.54) K/mm3 Baso # (Auto) 0.06 (0.01-0.08) K/mm3 Manual Slide Review Abnormal smear Sodium 140 (136-145) mEq/L Potassium 4.0 (3.5-5.1) mEq/L Chloride 104 (98-107) mEq/L Carbon Dioxide 35 H (21-32) mEq/L Anion Gap 5.0 (5-15) BUN 15 (7-18) mg/dL Creatinine 1.1 (0.7-1.3) mg/dL Est Cr Clr Drug Dosing 52.29 mL/min Estimated GFR (MDRD) > 60 (>60) mL/min BUN/Creatinine Ratio 13.6 L (14-18) Glucose 140 H (83-115) mg/dL Lactic Acid (0.4-2.0) mmol/L Calcium 8.9 (8.5-10.1) mg/dL Total Bilirubin 0.8 (0.2-1.0) mg/dL AST 20 (15-37) U/L ALT 21 (16-63) U/L Alkaline Phosphatase 76 (46-116) U/L Troponin I 0.036 (0.00-0.056) ng/mL Total Protein 6.6 (6.4-8.2) g/dl Albumin 3.2 L (3.4-5.0) g/dl Globulin 3.4 gm/dL Albumin/Globulin Ratio 0.9 L (1-2) Urine Color Yellow (Yellow) Urine Appearance Clear (Clear) Urine pH 7.0 (5.0-8.0) Ur Specific [place] 1.025 (1.005-1.030) Urine Protein 1+ H (Negative) Urine Glucose (UA) Negative (Negative) Urine Ketones Negative (Negative) Urine Occult Blood Trace-intact H (Negative) Urine Nitrite Positive H (Negative) Urine Bilirubin Negative (Negative) Urine Urobilinogen 2.0 H (0.2-1.0) Ur Leukocyte Esterase Trace H (Negative) Urine RBC 0-5 (0-5) /hpf Urine WBC 10-20 H (0-5) /hpf Ur Epithelial Cells 5-10 H (0-5) /hpf Urine Bacteria Moderate H (FEW) /hpf Urine Mucus Not seen (FEW) /hpf 04/05/17 Range/Units 21:40 WBC (4.23-9.07) K/mm3 RBC (4.63-6.08) M/mm3 Hgb (13.7-17.5) gm/L Hct (40.1-51.0) % MCV (79.0-92.2) fl MCH (25.7-32.2) pg MCHC (32.2-35.5) g/dl RDW Std Deviation (35.1-43.9) fL Plt Count (163-337) K/mm3 MPV (9.4-12.3) fl Neut % (Auto) (34.0-67.9) % Lymph % (Auto) (21.8-53.1) % [place] % (Auto) (5.3-12.2) % Eos % (Auto) (0.8-7.0) Baso % (Auto) (0.1-1.2) % Neut # (Auto) (1.78-5.38) K/mm3 Lymph # (Auto) (1.32-3.57) K/mm3 [place] # (Auto) (0.30-0.82) K/mm3 Eos # (Auto) (0.04-0.54) K/mm3 Baso # (Auto) (0.01-0.08) K/mm3 Manual Slide Review Sodium (136-145) mEq/L Potassium (3.5-5.1) mEq/L Chloride (98-107) mEq/L Carbon Dioxide (21-32) mEq/L Anion Gap (5-15) BUN (7-18) mg/dL Creatinine (0.7-1.3) mg/dL Est Cr Clr Drug Dosing mL/min Estimated GFR (MDRD) (>60) mL/min BUN/Creatinine Ratio (14-18) Glucose (83-115) mg/dL Lactic Acid 0.8 (0.4-2.0) mmol/L Calcium (8.5-10.1) mg/dL Total Bilirubin (0.2-1.0) mg/dL AST (15-37) U/L ALT (16-63) U/L Alkaline Phosphatase (46-116) U/L Troponin I (0.00-0.056) ng/mL Total Protein (6.4-8.2) g/dl Albumin (3.4-5.0) g/dl Globulin gm/dL Albumin/Globulin Ratio (1-2) Urine Color (Yellow) Urine Appearance (Clear) Urine pH (5.0-8.0) Ur Specific [place] (1.005-1.030) Urine Protein (Negative) Urine Glucose (UA) (Negative) Urine Ketones (Negative) Urine Occult Blood (Negative) Urine Nitrite (Negative) Urine Bilirubin (Negative) Urine Urobilinogen (0.2-1.0) Ur Leukocyte Esterase (Negative) Urine RBC (0-5) /hpf Urine WBC (0-5) /hpf Ur Epithelial Cells (0-5) /hpf Urine Bacteria (FEW) /hpf Urine Mucus (FEW) /hpf Result Diagrams: 04/06/17 06:15 04/06/17 06:15 *Q Meaningful Use (ADM) - VTE *Q VTE Criteria *Q: - Stroke *Q Stroke Criteria *Q: - AMI *Q AMI Criteria *Q: Problem List Initiated/Reviewed/Updated: Yes Orders Last 24hrs: Active Orders 24 hr Category Date Time Status Cardiac Monitoring [RC] . DIRECTED Care 04/05/17 21:19 Active EKG Documentation Completion [RC] STAT Care 04/05/17 21:20 Active Oxygen Therapy [RC] PRN Care 04/05/17 21:19 Active Peripheral IV Care [RC] . DIRECTED Care 04/05/17 21:20 Active RT Aerosol Therapy [RC] ASDIRECTED Care 04/05/17 21:21 Active Chest 1V Frontal [CR] Stat Exams 04/05/17 21:20 Taken CULTURE BLOOD [BC] Stat Lab 04/05/17 20:00 Received CULTURE BLOOD [BC] Stat Lab 04/05/17 21:40 Received CULTURE URINE [RM] Stat Lab 04/05/17 22:43 Ordered Sodium Chloride 0.9% [Saline Flush] Med 04/05/17 21:18 Active 10 ml FLUSH ASDIRECTED PRN Blood Culture x2 Reflex Set [OM.PC] Stat Oth 04/05/17 21:20 Ordered Peripheral IV Insertion Adult [OM.PC] Stat Oth 04/05/17 21:18 Ordered Medication Orders Sodium Chloride (Saline Flush) 10 ml FLUSH ASDIRECTED PRN PRN Reason: Keep Vein Open Last Admin: 04/05/17 22:08 Dose: 10 ml Assessment/Plan Comment:: Assessment/Plan: Acute: RML PNA - Risk Factors: Chronic Right Sided Pleural Effusion and Hx/o Lung Resection - Sputum Cx/Sx, Mycoplasma and Strep pneumonia Ag tests - Received IV Levaquin in ED - IS q2 awake - Serial CXR - CT scan w/o contrast Chronic Respiratory Failure-2L NC baseline O2 - 2/2 COPD and 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 Mass (Hx/o Lung Resection: Right Lower Lobe Lobectomy with Radiation Therapy) - Continue Bronchodilators - Supplemental O2 UTI - UA Pos - Hx/o Recurrent UTI - Risk factor: Hx/o Bladder Cancer S/p Cystectomy, Urostomy - UA Hx/o: Staphylococcus simulans, strep pneumonia, pseudomonas aeruginosa, enterococcus faecalis, enterococcus casselifalvus, Proteus mirabilis and Citrobacter koseri - IV Levaquin and Vancomycin for pharmacy to dose Hyperglycemia - Likely 2/2 to chronic steroid use - He is pre diabetes with A1C 6.30 03/27/2016 - Repeat A1C in AM - Accu-check and ISS Abdominal Pain - Has Urostomy - Abdominal/Pelvic CT scan r/o intra-abdominal/peritoneal infections Hx/o Right Sided Pleural Effusion - Likely 2/2 Malignancy - CT scan to assess - Continue diuretic Chronic: HTN HLD CAD w/ Hx/o CT HF with Reduced EF 53% 07/16/2016 GERD Osteoporosis Hx/o Afib CKD Stage 3 Chronic Pain COPD Peripheral Edema Lumbar Stenosis with Radiculopathy Sciatica Hx/o Bladder cancer S/p Cystectomy Recurrent with Urostomy Hx/o PE on xarelto Hx/o Lung CA S/p Lung Resection TEREZA on CPAP Plan: Admit to Med-Surg w/ Tele Routine AM Labs Resume Home Meds PT/OT consult SW/CM for d/c planning Fall Precautions Additional orders as above Code status: DNR/DNI
[2017-04-05] MEDS ORDERED: Morphine 2 MG/ML Syringe IVPUSH PRN (23:02)
[2017-04-05] MEDS ORDERED: Polyethylene Glycol 3350 Powder 17 GM Packet PO PRN (23:03)
[2017-04-05] MEDS ORDERED: Docusate Sodium 100 MG Cap PO PRN (23:03)
[2017-04-05] MEDS ORDERED: Albuterol/Ipratropium 3.0-0.5 MG/3 ML Neb Soln NEB PRN (23:03)
[2017-04-05] MEDS ORDERED: Promethazine 12.5 MG in Sodium Chloride 0.9% 50 ML IV PRN (23:03)
[2017-04-05] MEDS ORDERED: LORazepam 2 MG/ML MDV IV PRN (23:03)
[2017-04-05] MEDS ORDERED: Ondansetron 4 MG/2 ML SDV IV PRN (23:03)
[2017-04-05] MEDS ORDERED: Bisacodyl 5 MG Tab PO PRN (23:03)
[2017-04-05] MEDS ORDERED: Nitroglycerin 0.4 MG Tab.SL SL PRN (23:09)
[2017-04-05] MEDS ORDERED: Metoprolol Tartrate 5 MG/5 ML SDV IVPUSH PRN (23:10)
[2017-04-05] MEDS ORDERED: Vancomycin 1 GM, Vancomycin 500 MG in Sodium Chloride 0.9% 500 ML IV SCH (23:15)
[2017-04-05] MEDS ORDERED: 50% Dextrose in Water 50 ML Syringe IVPUSH PRN (23:28)
[2017-04-06] MEDS ORDERED: Vancomycin 1 GM, Vancomycin 250 MG in Sodium Chloride 0.9% 500 ML IV SCH ×3
[2017-04-06] MEDS ORDERED: Bumetanide 1 MG/4 ML MDV IVPUSH ONE (00:07)
[2017-04-06] MEDS: Temazepam 7.5 MG Cap PO PRN ×2 (01:05→20:56)
[2017-04-06] MEDS: Insulin Aspart 100 Units/ML 3 ML Pen SUBCUT SCH ×3 (01:05→21:03)
[2017-04-06] MEDS ORDERED: Albuterol/Ipratropium 3.0-0.5 MG/3 ML Neb Soln NEB SCH (06:00)
[2017-04-06] MEDS: Pantoprazole 40 MG Tab.CR PO SCH (06:18)
[2017-04-06] MEDS: Acetaminophen 325 MG Tab PO PRN (07:30)
--- NOTE | 2017-04-06 07:53 | PCM.PN ---
- General Info Date of Service: 04/06/17 Admission Dx/Problem (Free Text): CAP and UTI Subjective Update: Follow Up Functional Status: Reports: pain controlled, tolerating diet, ambulating, urinating. Denies: new symptoms - Review of Systems General: Denies: Fever, Weakness, Fatigue, Malaise, Chills HEENT: Reports: no symptoms Pulmonary: Reports: shortness of breath, cough Cardiovascular: Denies: Chest Pain, Palpitations, Dyspnea on Exertion Gastrointestinal: Denies: Abdominal pain, Nausea, Vomiting Genitourinary: Reports: no symptoms Musculoskeletal: Reports: no symptoms Skin: Denies: pruritis, rash Neurological: Denies: Confusion, Difficulty Walking, Weakness, Gait Disturbance Psychiatric: Denies: depression, hallucinations, suicidal ideation Systems Review Comment:: No overnight or acute issues. He feels much better. He has no new complaints. UA is positive for Pseudomonas species and gram-positive cocci. He remains afebrile. - Patient Data Vitals - most recent: Last Vital Signs Temp 36.7 C 04/06/17 03:35 Pulse 80 04/06/17 03:35 Resp 18 04/06/17 03:35 BP 140/82 04/06/17 03:35 Pulse Ox 97 04/06/17 03:35 Weight - most recent: 88.904 kg I&O - last 24 hours: Intake & Output 04/05/17 04/06/17 04/06/17 22:59 06:59 14:59 Intake Total 700 Output Total 1300 Balance -600 Lab Results last 24 hrs: Laboratory Results - last 24 hr 04/06/17 04/06/17 04/06/17 Range/Units 01:04 01:20 06:15 WBC 4.45 (4.23-9.07) K/mm3 RBC 3.39 L (4.63-6.08) M/mm3 Hgb 11.3 L (13.7-17.5) gm/L Hct 35.4 L (40.1-51.0) % MCV 104.4 H (79.0-92.2) fl MCH 33.3 H (25.7-32.2) pg MCHC 31.9 L (32.2-35.5) g/dl RDW Std Deviation 59.3 H (35.1-43.9) fL Plt Count 139 L (163-337) K/mm3 MPV 10.0 (9.4-12.3) fl Neut % (Auto) 53.8 (34.0-67.9) % Lymph % (Auto) 14.4 L (21.8-53.1) % Jackson % (Auto) 20.2 H (5.3-12.2) % Eos % (Auto) 9.9 H (0.8-7.0) Baso % (Auto) 1.3 H (0.1-1.2) % Neut # (Auto) 2.39 (1.78-5.38) K/mm3 Lymph # (Auto) 0.64 L (1.32-3.57) K/mm3 Jackson # (Auto) 0.90 H (0.30-0.82) K/mm3 Eos # (Auto) 0.44 (0.04-0.54) K/mm3 Baso # (Auto) 0.06 (0.01-0.08) K/mm3 Manual Slide Review Abnormal smear Sodium (136-145) mEq/L Potassium (3.5-5.1) mEq/L Chloride (98-107) mEq/L Carbon Dioxide (21-32) mEq/L Anion Gap (5-15) BUN (7-18) mg/dL Creatinine (0.7-1.3) mg/dL Est Cr Clr Drug Dosing mL/min Estimated GFR (MDRD) (>60) mL/min BUN/Creatinine Ratio (14-18) Glucose (83-115) mg/dL POC Glucose 125 H (83-110) mg/dL Hemoglobin A1c (4.50-6.20) % Calcium (8.5-10.1) mg/dL Magnesium (1.8-2.4) mg/dl C-Reactive Protein (<1.0) mg/dL MRSA (PCR) Negative 04/06/17 04/06/17 04/06/17 Range/Units 06:15 06:15 06:16 WBC (4.23-9.07) K/mm3 RBC (4.63-6.08) M/mm3 Hgb (13.7-17.5) gm/L Hct (40.1-51.0) % MCV (79.0-92.2) fl MCH (25.7-32.2) pg MCHC (32.2-35.5) g/dl RDW Std Deviation (35.1-43.9) fL Plt Count (163-337) K/mm3 MPV (9.4-12.3) fl Neut % (Auto) (34.0-67.9) % Lymph % (Auto) (21.8-53.1) % Jackson % (Auto) (5.3-12.2) % Eos % (Auto) (0.8-7.0) Baso % (Auto) (0.1-1.2) % Neut # (Auto) (1.78-5.38) K/mm3 Lymph # (Auto) (1.32-3.57) K/mm3 Jackson # (Auto) (0.30-0.82) K/mm3 Eos # (Auto) (0.04-0.54) K/mm3 Baso # (Auto) (0.01-0.08) K/mm3 Manual Slide Review Sodium 143 (136-145) mEq/L Potassium 3.7 (3.5-5.1) mEq/L Chloride 104 (98-107) mEq/L Carbon Dioxide 37 H (21-32) mEq/L Anion Gap 5.7 (5-15) BUN 13 (7-18) mg/dL Creatinine 1.1 (0.7-1.3) mg/dL Est Cr Clr Drug Dosing 52.29 mL/min Estimated GFR (MDRD) > 60 (>60) mL/min BUN/Creatinine Ratio 11.8 L (14-18) Glucose 117 H (83-115) mg/dL POC Glucose 111 H (83-110) mg/dL Hemoglobin A1c 6.40 H (4.50-6.20) % Calcium 8.9 (8.5-10.1) mg/dL Magnesium 1.8 (1.8-2.4) mg/dl C-Reactive Protein 3.7 H* (<1.0) mg/dL MRSA (PCR) Med Orders - Current: Current Medications Acetaminophen (Tylenol) 650 mg PO Q4H PRN PRN Reason: Pain (Mild 1-3)/fever Last Admin: 04/06/17 07:30 Dose: 650 mg Hydrocodone Bitart/Acetaminophen (Wynne 325-5 Mg) 1 tab PO Q4H PRN PRN Reason: Pain (moderate 4-6) Albuterol/Ipratropium (Duoneb 3.0-0.5 Mg/3 Ml) 3 ml NEB Q4H PRN PRN Reason: Shortness Of Breath/wheezing Albuterol/Ipratropium (Duoneb 3.0-0.5 Mg/3 Ml) 3 ml NEB BIDRT [facility] Bisacodyl (Dulcolax) 5 mg PO DAILY PRN PRN Reason: Constipation Dextrose/Water (Dextrose 50% In Water) 50 ml IVPUSH ASDIRECTED PRN PRN Reason: Hypoglycemia Docusate Sodium (Colace) 100 mg PO BID PRN PRN Reason: Constipation Furosemide (Lasix) 20 mg PO DAILY [facility] Gabapentin (Neurontin) 1,800 mg PO BEDTIME [facility] Hydralazine HCl (Apresoline) 20 mg IVPUSH Q4H PRN PRN Reason: Hypertension Levofloxacin/Dextrose 750 mg/ (Premix) 150 mls @ 100 mls/hr IV Q24H [facility] Promethazine HCl 12.5 mg/ (Sodium Chloride) 50.5 mls @ 100 mls/hr IV Q6H PRN PRN Reason: Nausea/Vomiting Vancomycin HCl 1 gm/Vancomycin HCl 250 mg/ Sodium Chloride 500 mls @ 333 mls/ hr IV Q12H [facility] Last Admin: 04/06/17 01:03 Dose: 333 mls/hr Insulin Aspart (Novolog) 0 unit SUBCUT ACBREAKFASTANDBED [facility] PRN Reason: Protocol Last Admin: 04/06/17 06:31 Dose: Not Given Lorazepam (Ativan) 0.25 mg IV Q6H PRN PRN Reason: Anxiety Losartan Potassium (Cozaar) 50 mg PO DAILY [facility] Magnesium Oxide (Magnesium Oxide) 400 mg PO ONETIME ONE Stop: 04/06/17 08:01 Magnesium Sulfate (Pharmacy To Dose - Magnesium Replacement) 1 dose .XX ASDIRECTED [facility] Metoprolol Tartrate (Lopressor) 25 mg PO BID [facility] Metoprolol Tartrate (Lopressor) 5 mg IVPUSH Q4H PRN PRN Reason: Tachycardia Morphine Sulfate (Morphine) 1 mg IVPUSH Q4H PRN PRN Reason: Other Stop: 04/09/17 23:03 Nitroglycerin (Nitrostat) 0.4 mg SL ASDIRECTED PRN PRN Reason: Chest Pain Ondansetron HCl (Zofran) 4 mg IV Q6H PRN PRN Reason: Nausea/Vomiting Pantoprazole Sodium (Protonix) 40 mg PO DAILY@0700 [facility] Last Admin: 04/06/17 06:18 Dose: 40 mg Polyethylene Glycol (Miralax) 17 gm PO DAILY PRN PRN Reason: Constipation Potassium Chloride (Pharmacy To Dose - Potassium Replacement) 1 dose .XX ASDIRECTED [facility] Rivaroxaban (Xarelto) 20 mg PO BEDTIME [facility] Senna/Docusate Sodium (Senna Plus) 1 tab PO BID PRN PRN Reason: Constipation Simvastatin (Zocor) 10 mg PO BEDTIME [facility] Sodium Chloride (Saline Flush) 10 ml FLUSH ASDIRECTED PRN PRN Reason: Keep Vein Open Last Admin: 04/05/17 22:08 Dose: 10 ml Temazepam (Restoril) 7.5 mg PO BEDTIME PRN PRN Reason: Sleep Last Admin: 04/06/17 01:05 Dose: 7.5 mg Vancomycin HCl (Pharmacy To Dose - Vancomycin) 1 dose .XX ASDIRECTED [facility] Discontinued Medications Acetaminophen (Tylenol) 975 mg PO NOW ONE Stop: 04/05/17 21:21 Last Admin: 04/05/17 22:05 Dose: 975 mg Albuterol/Ipratropium (Duoneb 3.0-0.5 Mg/3 Ml) 3 ml NEB ONETIME ONE Stop: 04/05/17 21:22 Last Admin: 04/05/17 21:47 Dose: 3 ml Albuterol/Ipratropium (Duoneb 3.0-0.5 Mg/3 Ml) 3 ml NEB BIDRT [facility] Last Admin: 04/06/17 07:02 Dose: Not Given Bumetanide (Bumex) 0.5 mg IVPUSH ONETIME ONE Stop: 04/06/17 00:08 Last Admin: 04/06/17 01:04 Dose: 0.5 mg Levofloxacin/Dextrose 750 mg/ (Premix) 150 mls @ 100 mls/hr IV ONETIME ONE Stop: 04/05/17 22:50 Last Admin: 04/05/17 22:08 Dose: 100 mls/hr - Exam Quality Assessment: supplemental oxygen General: alert, oriented, cooperative, no acute distress HEENT: Pupils equal, Pupils reactive, EOMI, Mucous membr. moist/pink Neck: supple, trachea midline, no JVD Lungs: Normal respiratory effort, Decreased breath sounds, Rales Cardiovascular: Irregular Rhythm GI/Abdominal Exam: Normal Bowel Sounds, Soft, Non-Tender, No Organomegaly, No Distention, No Abnormal Bruit, Other (Urostomy bag) (Male) Exam: Deferred Back Exam: Normal Inspection, Decreased Range of Motion Extremities: Normal Inspection, Normal Range of Motion, Non-Tender, Pedal Edema (right lower extremity) Peripheral Pulses: 1+: Posterior Tibial (R), Dorsalis Pedis (R), 2+: Posterior Tibial (L), Dorsalis Pedis (L) Skin: warm, dry, intact Neurological: no new focal deficit Psy/Mental Status: alert, normal affect, normal mood - Problem List Review Problem List Initiated/Reviewed/Updated: Yes - My Orders Last 24 Hours: My Active Orders 04/05/17 20:08 STREP PNEUMONIAE ANTIGEN [MREF] Stat 04/05/17 23:02 Cardiac Monitoring [RC] CONTINUOUS Height and Weight [RC] 04 Intake and Output [RC] 04,16 Up With Assistance [RC] QSHIFT Up ad Diana [RC] QSHIFT VTE/DVT Education [RC] BID Vital Signs [RC] Q4HR Acetaminophen [Tylenol] 650 mg PO Q4H PRN Acetaminophen/HYDROcodone [Wynne 325-5 MG] 1 tab PO Q4H PRN Morphine 1 mg IVPUSH Q4H PRN Resuscitation Status Routine 04/05/17 23:03 Albuterol/Ipratropium [DuoNeb 3.0-0.5 MG/3 ML] 3 ml NEB Q4H PRN Bisacodyl [Dulcolax] 5 mg PO DAILY PRN Docusate Sodium [Colace] 100 mg PO BID PRN Docusate Sodium/Sennosides [Senna Plus] 1 tab PO BID PRN LORazepam [Ativan] 0.25 mg IV Q6H PRN Ondansetron [Zofran] 4 mg IV Q6H PRN Polyethylene Glycol 3350 [MiraLAX] 17 gm PO DAILY PRN Promethazine [Phenergan] 12.5 mg Sodium Chloride 0.9% [Normal Saline] 50 ml IV Q6H Temazepam [Restoril] 7.5 mg PO BEDTIME PRN 04/05/17 23:05 Consult to Case Management [CONS] Routine Consult to Cash Register Balancer [CONS] Routine Consult to Spiritual Care [CONS] Routine OT Evaluation and Treatment [CONS] Routine PT Evaluation and Treatment [CONS] Routine Respiratory Care Assess and Treatment [CONS] Routine 04/05/17 23:09 Nitroglycerin [Nitrostat] 0.4 mg SL ASDIRECTED PRN 04/05/17 23:10 Metoprolol Tartrate [Lopressor] 5 mg IVPUSH Q4H PRN hydrALAZINE [Apresoline] 20 mg IVPUSH Q4H PRN 04/05/17 23:15 Chest Abdomen Pelvis wo Cont [CT] Routine Magnesium Rep Pharmacy to Dose [Pharmacy to Dose - Magnesium Replacement] 1 dose .XX ASDIRECTED Potassium Rep Pharmacy to Dose [Pharmacy to Dose - Potassium Replacement] 1 dose .XX ASDIRECTED Vancomycin Pharmacy to Dose [Pharmacy to Dose - Vancomycin] 1 dose .XX ASDIRECTED 04/05/17 23:28 Blood Glucose Check, Bedside [RC] Dextrose 50% in Water 50 ml IVPUSH ASDIRECTED PRN 04/05/17 23:30 Insulin Aspart [NovoLOG] See Protocol SUBCUT ACBREAKFASTANDBED 04/06/17 00:00 Vancomycin 1 gm Vancomycin 250 mg Sodium Chloride 0.9% [Normal Saline] 500 ml IV Q12H 04/06/17 01:02 Antiembolic Devices [RC] BID Antiembolic Hose [OM.PC] Routine 04/06/17 01:43 MARIVEL Hose Substitution [Sequential Compression Device] [OM.PC] Routine 04/06/17 07:00 Pantoprazole [ProTONIX] 40 mg PO DAILY@0700 04/06/17 08:00 Magnesium Oxide 400 mg PO ONETIME ONE 04/06/17 09:00 Albuterol/Ipratropium [DuoNeb 3.0-0.5 MG/3 ML] 3 ml NEB BIDRT Furosemide [Lasix] 20 mg PO DAILY Losartan [Cozaar] 50 mg PO DAILY Metoprolol Tartrate [Lopressor] 25 mg PO BID 04/06/17 18:00 Levofloxacin/Dextrose 5%-Water [Levaquin in D5W 750 MG/150 ML] 750 mg Premix Bag 1 bag IV Q24H 04/06/17 21:00 Gabapentin [Neurontin] 1,800 mg PO BEDTIME Rivaroxaban [Xarelto] 20 mg PO BEDTIME Simvastatin [Zocor] 10 mg PO BEDTIME 04/06/17 Breakfast Heart Healthy Diet [DIET] 04/07/17 05:11 BASIC METABOLIC PANEL,BMP [CHEM] AM C-REACTIVE PROTEIN [CHEM] AM CBC WITH AUTO DIFF [HEME] AM MAGNESIUM [CHEM] AM 04/07/17 11:30 VANCOMYCIN TROUGH [CHEM] Timed 04/08/17 05:11 BASIC METABOLIC PANEL,BMP [CHEM] AM C-REACTIVE PROTEIN [CHEM] AM CBC WITH AUTO DIFF [HEME] AM MAGNESIUM [CHEM] AM 04/09/17 05:11 BASIC METABOLIC PANEL,BMP [CHEM] AM C-REACTIVE PROTEIN [CHEM] AM CBC WITH AUTO DIFF [HEME] AM MAGNESIUM [CHEM] AM - Plan Plan:: Assessment/Plan: Acute: RML PNA - Risk Factors: Chronic Right Sided Pleural Effusion and Lung Cancer S/p Lung Resection - Sputum Cx/Sx, Strep pneumonia Ag tests - Mycoplasma negative - Received IV Levaquin in ED - IS q2 awake - Serial CXR - CT scan w/o contrast:ill-defined patchy groundglass and airspace opacities in the bilateral upper lung lobes. Left upper lobe nodule has increased in size measuring 1.5 cm, previously 0.9 cm, and now has more ill-defined, almost a spiculated, borders. 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 (Hx/o Lung Resection: Right Lower Lobe Lobectomy with Radiation Therapy) - Continue Bronchodilators - Supplemental O2 UTI - UA Pos: Pseudomonas species and gram-positive cocci - Hx/o Recurrent UTI - Risk factor: Hx/o Bladder Cancer S/p Cystectomy, Urostomy - UA Hx/o: Staphylococcus simulans, strep pneumonia, pseudomonas aeruginosa, enterococcus faecalis, enterococcus casselifalvus, Proteus mirabilis and Citrobacter koseri - Continue IV Levaquin and Vancomycin for pharmacy to dose Hyperglycemia - Likely 2/2 chronic steroid use - He is pre diabetes with A1C 6.30 03/27/2016 - A1C this AM is 6.40 - Accu-check and ISS CT scan findings - Age indeterminate moderate compression deformities of T12 and L2 - Post cystectomy and prostatectomy. No definitive evidence for recurrence within the pelvis Resolved: Abdominal Pain - Has Urostomy - Abdominal/Pelvic CT scan r/o intra-abdominal/peritoneal infections: no acute abnormal findings Chronic: HTN HLD CAD w/ Hx/o NH HF with Reduced EF 53% 07/16/2016 GERD Osteoporosis Hx/o Afib CKD Stage 3 Chronic Pain COPD Peripheral Edema Lumbar Stenosis with Radiculopathy Sciatica Hx/o Bladder cancer S/p Cystectomy Recurrent with Urostomy Hx/o PE on xarelto Hx/o Lung CA S/p Lung Resection TEREZA on CPAP Plan: Admit to Med-Surg w/ Tele Routine AM Labs Resume Home Meds PT/OT consult SW/CM for d/c planning Fall Precautions Additional orders as above Code status: DNR/DNI Discussed CT findings results to patient and family at bedside.
[2017-04-06] MEDS ORDERED: Magnesium Oxide 400 MG Tab PO ONE (08:00)
[2017-04-06] MEDS ORDERED: Vancomycin 1 GM, Vancomycin 250 MG in Sodium Chloride 0.9% 250 ML IV SCH (08:07)
[2017-04-06] MEDS: Metoprolol Tartrate 25 MG Tab PO SCH ×2 (08:33→20:55)
[2017-04-06] MEDS: Losartan 25 MG Tab PO SCH (08:34)
[2017-04-06] MEDS: Furosemide 20 MG Tab PO SCH (08:35)
[2017-04-06] MEDS: Acetaminophen/HYDROcodone 325-5 MG Tab PO PRN ×2 (08:44→19:31)
[2017-04-06] MEDS: Albuterol/Ipratropium 3.0-0.5 MG/3 ML Neb Soln NEB SCH ×2 (08:56→20:20)
[2017-04-06] MEDS ORDERED: Non-Formulary Medication 1 Each (Omeprazole 20 MG) PO SCH (09:00)
--- NOTE | 2017-04-06 09:04 | CR ---
Chest: Portable view of the chest was obtained. Comparison: Previous chest x-ray of 01/04/17. Increased density within the right perihilar region is seen. This finding appears to be present on prior exam and may relate to previous surgery. Difficult to exclude recurrent tumor or even superimposed pneumonia. Slight nodular density noted within the left chest which has decreased in size from prior exam. Surgical clips are seen. Heart size is mildly enlarged. Widening of the paratracheal soft tissues is seen which is stable. Apical pleural chest thickening is seen which is stable. Previous right shoulder surgery is seen. Impression: 1. Decreased nodular density within the left chest from prior chest x-ray. 2. Parenchymal density within the right perihilar region which is seen on prior exam, please see above for further discussion. 3. Other findings which are felt to be stable. Diagnostic code #9
--- NOTE | 2017-04-06 10:13 | CT ---
CT chest Technique: Multiple axial sections through the chest were obtained. Intravenous contrast was not utilized which diminishes details. Comparison: Previous chest x-ray of 10/19/16. Findings: Parenchymal consolidation noted within the superior segment of the right lower lobe which abuts the right hilar region. Air bronchograms are seen. This finding is seen on prior exam and appears slightly less prominent. Uncertain how much of this could represent pneumonia, residual neoplasm or fibrosis/scarring. Nodule is identified within the left upper lung measuring about 1.5 cm. On most recent chest CT this measures about 1.6 cm in size and has diminished in prominence. Small nodule noted within the right upper lung measuring about 3 mm in size which remain stable from prior exam. Patchy airspace disease seen within the right upper lung which is an interval change from prior exam. Differential includes lymphangitic metastasis as well as pneumonia. Pleural thickening noted along the right lateral chest. Loculated pleural fluid seen within the right lung base. No pericardial thickening is seen. Coronary artery calcification noted. Multiple surgical clips are present. No axillary adenopathy is seen. Bone window settings were reviewed which shows compression deformities of T12 and L2 which are felt to be old. Impression: 1. Parenchymal consolidation slightly improved from most recent chest CT. Differential as described above. 2. New areas of increased density within the right upper chest with differential including lymphangitic metastasis and pneumonia. 3. Slightly decreased size of nodule within the left upper chest when compared to most recent chest CT. Diagnostic code #9 I agree with preliminary report issued by [facility] - although [facility] did not have the benefit of most recent chest CT for comparison ([facility] report finalized on 04/06/17, 3:07 AM Central Time) Groundskeeper Porter called report to Dr. Garcia and nurse at 0905 on 04/06/2017 CT abdomen and pelvis Technique: Multiple axial sections were obtained from above the dome of the diaphragm inferiorly through the pubic symphysis. Intravenous and oral contrast have not been given. This diminishes details of the exam. Comparison: No previous CT abdomen or pelvis exam is available. Findings: Noncontrast appearance of the liver and spleen appears within normal limits. Adrenal glands show no nodule. Pancreas appears within normal limits. Small soft tissue nodule noted off the spleen felt compatible with accessory splenic tissue. Gallbladder shows no calcified gallstones. Kidneys show no hydronephrosis. Several cortical calcifications are seen within both kidneys. Incidental cyst noted within the right kidney measuring 1.9 cm. Aorta shows atherosclerotic change. Aneurysm is seen distally within the aorta measuring 3.2 cm. Atherosclerotic change continues into the iliac vessels. Bladder not identified. Prostate gland also not seen. Ostomy noted within the right lower abdomen. No mesenteric abnormalities are seen. Degenerative change noted within the spine. Osteopenia is present. Left hip prosthesis is noted. Degenerative change noted within the right hip. Impression: 1. Previous cystectomy and prostatectomy. Ostomy noted within the right lower abdomen. 2. Lower abdominal aortic aneurysm measuring 3.2 cm. 3. Other incidental findings. Diagnostic code #3 I agree with preliminary report issued by [facility] ([facility] report finalized on 04/06/17, 3:07 AM Central Time)
[2017-04-06] MEDS: Vancomycin 1 GM, Vancomycin 250 MG in Sodium Chloride 0.9% 250 ML IV SCH (11:36)
[2017-04-06] MEDS: Levofloxacin/Dextrose 5%-Water 750 MG in Premix Bag 1 BAG IV SCH (17:12)
[2017-04-06] MEDS: Rivaroxaban 10 MG Tab PO SCH (20:55)
[2017-04-06] MEDS: Gabapentin 600 MG Tab PO SCH (20:56)
[2017-04-06] MEDS: Simvastatin 10 MG Tab PO SCH (20:57)
[2017-04-06] MEDS: hydrALAZINE 20 MG/ML SDV IVPUSH PRN (20:58)
[2017-04-06] MEDS ORDERED: Non-Formulary Medication 1 Each (Atorvastatin 10 MG) PO SCH (21:00)
[2017-04-07] MEDS: Vancomycin 1 GM, Vancomycin 250 MG in Sodium Chloride 0.9% 250 ML IV SCH ×2 (00:20→12:35)
[2017-04-07] MEDS: Pantoprazole 40 MG Tab.CR PO SCH (06:32)
[2017-04-07] MEDS: Insulin Aspart 100 Units/ML 3 ML Pen SUBCUT SCH ×2 (06:33→23:26)
--- NOTE | 2017-04-07 07:16 | PCM.PN ---
- General Info Date of Service: 04/07/17 Admission Dx/Problem (Free Text): CAP and UTI Subjective Update: Follow Up Functional Status: Reports: Pain Controlled, Tolerating Diet, Ambulating, Urinating. Denies: New Symptoms - Review of Systems General: Denies: Fever, Weakness, Fatigue, Malaise, Chills Pulmonary: Reports: Shortness of Breath, Cough Cardiovascular: Denies: Chest Pain, Edema Gastrointestinal: Denies: Abdominal Pain, Nausea, Vomiting Genitourinary: Reports: No Symptoms Musculoskeletal: Reports: No Symptoms Skin: Denies: Cyanosis, Pruritis Neurological: Denies: Confusion, Difficulty Walking, Weakness, Gait Disturbance Psychiatric: Denies: Depression, Anxiety, Agitation, Hallucinations Systems Review Comment:: He slept pretty good. However he had a one time episode of respiratory distress/ dyspnea which he immediately imrpved with administration of morphine. He has not had any since last night. He has no new complaints. - Patient Data Vitals - most recent: Last Vital Signs Temp 36.2 C 04/07/17 03:49 Pulse 72 04/07/17 03:49 Resp 20 04/07/17 03:49 BP 121/67 04/07/17 03:49 Pulse Ox 97 04/07/17 03:49 Weight - most recent: 90.764 kg I&O - last 24 hours: Intake & Output 04/06/17 04/07/17 04/07/17 22:59 06:59 14:59 Intake Total 1230 650 Output Total 1400 550 Balance -170 100 Lab Results last 24 hrs: Laboratory Results - last 24 hr 04/06/17 04/06/17 04/06/17 Range/Units 06:15 06:15 21:00 WBC 4.45 (4.23-9.07) K/mm3 RBC 3.39 L (4.63-6.08) M/mm3 Hgb 11.3 L (13.7-17.5) gm/L Hct 35.4 L (40.1-51.0) % MCV 104.4 H (79.0-92.2) fl MCH 33.3 H (25.7-32.2) pg MCHC 31.9 L (32.2-35.5) g/dl RDW Std Deviation 59.3 H (35.1-43.9) fL Plt Count 139 L (163-337) K/mm3 MPV 10.0 (9.4-12.3) fl Neut % (Auto) 53.8 (34.0-67.9) % Lymph % (Auto) 14.4 L (21.8-53.1) % Bath % (Auto) 20.2 H (5.3-12.2) % Eos % (Auto) 9.9 H (0.8-7.0) Baso % (Auto) 1.3 H (0.1-1.2) % Neut # (Auto) 2.39 (1.78-5.38) K/mm3 Lymph # (Auto) 0.64 L (1.32-3.57) K/mm3 Bath # (Auto) 0.90 H (0.30-0.82) K/mm3 Eos # (Auto) 0.44 (0.04-0.54) K/mm3 Baso # (Auto) 0.06 (0.01-0.08) K/mm3 Manual Slide Review Abnormal smear Sodium 143 (136-145) mEq/L Potassium 3.7 (3.5-5.1) mEq/L Chloride 104 (98-107) mEq/L Carbon Dioxide 37 H (21-32) mEq/L Anion Gap 5.7 (5-15) BUN 13 (7-18) mg/dL Creatinine 1.1 (0.7-1.3) mg/dL Est Cr Clr Drug Dosing 52.29 mL/min Estimated GFR (MDRD) > 60 (>60) mL/min BUN/Creatinine Ratio 11.8 L (14-18) Glucose 117 H (83-115) mg/dL POC Glucose 143 H (83-110) mg/dL Calcium 8.9 (8.5-10.1) mg/dL Magnesium 1.8 (1.8-2.4) mg/dl C-Reactive Protein 3.7 H* (<1.0) mg/dL 04/07/17 04/07/17 Range/Units 06:01 06:24 WBC 4.57 (4.23-9.07) K/mm3 RBC 3.36 L (4.63-6.08) M/mm3 Hgb 11.2 L (13.7-17.5) gm/L Hct 34.8 L (40.1-51.0) % MCV 103.6 H (79.0-92.2) fl MCH 33.3 H (25.7-32.2) pg MCHC 32.2 (32.2-35.5) g/dl RDW Std Deviation 59.2 H (35.1-43.9) fL Plt Count 149 L (163-337) K/mm3 MPV 10.1 (9.4-12.3) fl Neut % (Auto) 61.0 (34.0-67.9) % Lymph % (Auto) 11.2 L (21.8-53.1) % Bath % (Auto) 19.7 H (5.3-12.2) % Eos % (Auto) 6.3 (0.8-7.0) Baso % (Auto) 0.9 (0.1-1.2) % Neut # (Auto) 2.79 (1.78-5.38) K/mm3 Lymph # (Auto) 0.51 L (1.32-3.57) K/mm3 Bath # (Auto) 0.90 H (0.30-0.82) K/mm3 Eos # (Auto) 0.29 (0.04-0.54) K/mm3 Baso # (Auto) 0.04 (0.01-0.08) K/mm3 Manual Slide Review Sodium (136-145) mEq/L Potassium (3.5-5.1) mEq/L Chloride (98-107) mEq/L Carbon Dioxide (21-32) mEq/L Anion Gap (5-15) BUN (7-18) mg/dL Creatinine (0.7-1.3) mg/dL Est Cr Clr Drug Dosing mL/min Estimated GFR (MDRD) (>60) mL/min BUN/Creatinine Ratio (14-18) Glucose (83-115) mg/dL POC Glucose 102 (83-110) mg/dL Calcium (8.5-10.1) mg/dL Magnesium (1.8-2.4) mg/dl C-Reactive Protein (<1.0) mg/dL Med Orders - Current: Current Medications Acetaminophen (Tylenol) 650 mg PO Q4H PRN PRN Reason: Pain (Mild 1-3)/fever Last Admin: 04/06/17 07:30 Dose: 650 mg Hydrocodone Bitart/Acetaminophen ([place] 325-5 Mg) 1 tab PO Q4H PRN PRN Reason: Pain (moderate 4-6) Last Admin: 04/06/17 19:31 Dose: 1 tab Albuterol/Ipratropium (Duoneb 3.0-0.5 Mg/3 Ml) 3 ml NEB Q4H PRN PRN Reason: Shortness Of Breath/wheezing Albuterol/Ipratropium (Duoneb 3.0-0.5 Mg/3 Ml) 3 ml NEB BIDRT [facility] Last Admin: 04/06/17 20:20 Dose: 3 ml Bisacodyl (Dulcolax) 5 mg PO DAILY PRN PRN Reason: Constipation Dextrose/Water (Dextrose 50% In Water) 50 ml IVPUSH ASDIRECTED PRN PRN Reason: Hypoglycemia Docusate Sodium (Colace) 100 mg PO BID PRN PRN Reason: Constipation Furosemide (Lasix) 20 mg PO DAILY [facility] Last Admin: 04/06/17 08:35 Dose: 20 mg Gabapentin (Neurontin) 1,800 mg PO BEDTIME [facility] Last Admin: 04/06/17 20:56 Dose: 1,800 mg Hydralazine HCl (Apresoline) 20 mg IVPUSH Q4H PRN PRN Reason: Hypertension Last Admin: 04/06/17 20:58 Dose: 20 mg Levofloxacin/Dextrose 750 mg/ (Premix) 150 mls @ 100 mls/hr IV Q24H [facility] Last Admin: 04/06/17 17:12 Dose: 100 mls/hr Promethazine HCl 12.5 mg/ (Sodium Chloride) 50.5 mls @ 100 mls/hr IV Q6H PRN PRN Reason: Nausea/Vomiting Vancomycin HCl 1 gm/Vancomycin HCl 250 mg/ Sodium Chloride 250 mls @ 166.512 mls/hr IV Q12H [facility] Last Admin: 04/07/17 00:20 Dose: 166.512 mls/hr Insulin Aspart (Novolog) 0 unit SUBCUT ACBREAKFASTANDBED [facility] PRN Reason: Protocol Last Admin: 04/07/17 06:33 Dose: Not Given Lorazepam (Ativan) 0.25 mg IV Q6H PRN PRN Reason: Anxiety Losartan Potassium (Cozaar) 50 mg PO DAILY [facility] Last Admin: 04/06/17 08:34 Dose: 50 mg Magnesium Sulfate (Pharmacy To Dose - Magnesium Replacement) 1 dose .XX ASDIRECTED [facility] Metoprolol Tartrate (Lopressor) 25 mg PO BID [facility] Last Admin: 04/06/17 20:55 Dose: 25 mg Metoprolol Tartrate (Lopressor) 5 mg IVPUSH Q4H PRN PRN Reason: Tachycardia Morphine Sulfate (Morphine) 1 mg IVPUSH Q4H PRN PRN Reason: Other Stop: 04/09/17 23:03 Last Admin: 04/06/17 21:39 Dose: 1 mg Nitroglycerin (Nitrostat) 0.4 mg SL ASDIRECTED PRN PRN Reason: Chest Pain Ondansetron HCl (Zofran) 4 mg IV Q6H PRN PRN Reason: Nausea/Vomiting Pantoprazole Sodium (Protonix) 40 mg PO DAILY@0700 [facility] Last Admin: 04/07/17 06:32 Dose: 40 mg Polyethylene Glycol (Miralax) 17 gm PO DAILY PRN PRN Reason: Constipation Potassium Chloride (Pharmacy To Dose - Potassium Replacement) 1 dose .XX ASDIRECTED [facility] Rivaroxaban (Xarelto) 20 mg PO BEDTIME [facility] Last Admin: 04/06/17 20:55 Dose: 20 mg Senna/Docusate Sodium (Senna Plus) 1 tab PO BID PRN PRN Reason: Constipation Simvastatin (Zocor) 10 mg PO BEDTIME [facility] Last Admin: 04/06/17 20:57 Dose: 10 mg Sodium Chloride (Saline Flush) 10 ml FLUSH ASDIRECTED PRN PRN Reason: Keep Vein Open Last Admin: 04/05/17 22:08 Dose: 10 ml Temazepam (Restoril) 7.5 mg PO BEDTIME PRN PRN Reason: Sleep Last Admin: 04/06/17 20:56 Dose: 7.5 mg Vancomycin HCl (Pharmacy To Dose - Vancomycin) 1 dose .XX ASDIRECTED [facility] Discontinued Medications Acetaminophen (Tylenol) 975 mg PO NOW ONE Stop: 04/05/17 21:21 Last Admin: 04/05/17 22:05 Dose: 975 mg Albuterol/Ipratropium (Duoneb 3.0-0.5 Mg/3 Ml) 3 ml NEB ONETIME ONE Stop: 04/05/17 21:22 Last Admin: 04/05/17 21:47 Dose: 3 ml Albuterol/Ipratropium (Duoneb 3.0-0.5 Mg/3 Ml) 3 ml NEB BIDRT [facility] Last Admin: 04/06/17 07:02 Dose: Not Given Bumetanide (Bumex) 0.5 mg IVPUSH ONETIME ONE Stop: 04/06/17 00:08 Last Admin: 04/06/17 01:04 Dose: 0.5 mg Levofloxacin/Dextrose 750 mg/ (Premix) 150 mls @ 100 mls/hr IV ONETIME ONE Stop: 04/05/17 22:50 Last Admin: 04/05/17 22:08 Dose: 100 mls/hr Vancomycin HCl 1 gm/Vancomycin HCl 250 mg/ Sodium Chloride 500 mls @ 333 mls/ hr IV Q12H [facility] Last Admin: 04/06/17 01:03 Dose: 333 mls/hr Vancomycin HCl 1 gm/Vancomycin HCl 250 mg/ Sodium Chloride 250 mls @ 166.512 mls/hr IV Q12H [facility] Last Admin: 04/06/17 09:58 Dose: Not Given Magnesium Oxide (Magnesium Oxide) 400 mg PO ONETIME ONE Stop: 04/06/17 08:01 Last Admin: 04/06/17 08:33 Dose: 400 mg - Exam Quality Assessment: supplemental oxygen General: alert, oriented, cooperative, no acute distress HEENT: Pupils equal, Pupils reactive, EOMI, Mucous membr. moist/pink Neck: supple, trachea midline, no JVD Lungs: Normal Respiratory Effort, Decreased Breath Sounds, Wheezing (prolonged expiratory) Cardiovascular: Regular Rate, Regular Rhythm GI/Abdominal Exam: Normal Bowel Sounds, Soft, Non-Tender, No Organomegaly, No Distention, Other (Urostomy) (Male) Exam: Deferred Back Exam: Normal Inspection, Decreased Range of Motion Extremities: Normal Inspection, Normal Range of Motion, Non-Tender, No Pedal Edema, Normal Capillary Refill Peripheral Pulses: 2+: Dorsalis Pedis (L), Dorsalis Pedis (R) Skin: warm, dry, intact Neurological: no new focal deficit Psy/Mental Status: alert, normal affect, normal mood - Problem List Review Problem List Initiated/Reviewed/Updated: Yes - My Orders Last 24 Hours: My Active Orders 04/06/17 07:00 Pantoprazole [ProTONIX] 40 mg PO DAILY@0700 04/06/17 09:00 Albuterol/Ipratropium [DuoNeb 3.0-0.5 MG/3 ML] 3 ml NEB BIDRT Furosemide [Lasix] 20 mg PO DAILY Losartan [Cozaar] 50 mg PO DAILY Metoprolol Tartrate [Lopressor] 25 mg PO BID 04/06/17 12:00 Vancomycin 1 gm Vancomycin 250 mg Sodium Chloride 0.9% [Normal Saline] 250 ml IV Q12H 04/06/17 18:00 Levofloxacin/Dextrose 5%-Water [Levaquin in D5W 750 MG/150 ML] 750 mg Premix Bag 1 bag IV Q24H 04/06/17 21:00 Gabapentin [Neurontin] 1,800 mg PO BEDTIME Rivaroxaban [Xarelto] 20 mg PO BEDTIME Simvastatin [Zocor] 10 mg PO BEDTIME 04/06/17 Breakfast Heart Healthy Diet [DIET] 04/07/17 06:01 BASIC METABOLIC PANEL,BMP [CHEM] AM C-REACTIVE PROTEIN [CHEM] AM CBC WITH AUTO DIFF [HEME] AM MAGNESIUM [CHEM] AM 04/07/17 11:30 VANCOMYCIN TROUGH [CHEM] Timed 04/08/17 05:11 BASIC METABOLIC PANEL,BMP [CHEM] AM C-REACTIVE PROTEIN [CHEM] AM CBC WITH AUTO DIFF [HEME] AM MAGNESIUM [CHEM] AM 04/09/17 05:11 BASIC METABOLIC PANEL,BMP [CHEM] AM C-REACTIVE PROTEIN [CHEM] AM CBC WITH AUTO DIFF [HEME] AM MAGNESIUM [CHEM] AM - Plan Plan:: Assessment/Plan: Acute: RML PNA - Risk Factors: Chronic Right Sided Pleural Effusion and Lung Cancer S/p Lung Resection - Sputum Cx/Sx, Strep pneumonia Ag tests: has not been able to provide us sample - Mycoplasma negative - Continue IV Levaquin - IS q2 awake - CT scan w/o contrast:ill-defined patchy groundglass and airspace opacities in the bilateral upper lung lobes. Left upper lobe nodule has increased in size measuring 1.5 cm, previously 0.9 cm, and now has more ill-defined, almost a spiculated, borders. 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 (Hx/o Lung Resection: Right Lower Lobe Lobectomy with Radiation Therapy) - Continue Bronchodilators - Supplemental O2 UTI - UA Pos: Pseudomonas species and gram-positive cocci - Hx/o Recurrent UTI - Risk factor: Hx/o Bladder Cancer S/p Cystectomy, Urostomy - UA Hx/o: Staphylococcus simulans, strep pneumonia, pseudomonas aeruginosa, enterococcus faecalis, enterococcus casselifalvus, Proteus mirabilis and Citrobacter koseri - Continue IV Vancomycin for pharmacy to dose Hyperglycemia - Likely 2/2 chronic steroid use - He is pre diabetes with A1C 6.30 03/27/2016 - A1C this AM is 6.40 - Accu-check and ISS Hypomagnesemia - Mg 09/26 - Pharmacy to replete and monitor CT scan findings - Age indeterminate moderate compression deformities of T12 and L2 - Post cystectomy and prostatectomy. No definitive evidence for recurrence within the pelvis Adjustment Disorder/Situational Depression - Recently lost his - He is not suicidal at all - SW consult - Support/Emotional Care Resolved: Abdominal Pain - Has Urostomy - Abdominal/Pelvic CT scan r/o intra-abdominal/peritoneal infections: no acute abnormal findings Chronic: HTN HLD CAD w/ Hx/o IL HF with Reduced EF 53% 07/16/2016 GERD Osteoporosis Hx/o Afib CKD Stage 3 Chronic Pain COPD Peripheral Edema Lumbar Stenosis with Radiculopathy Sciatica Hx/o Bladder cancer S/p Cystectomy Recurrent with Urostomy Hx/o PE on xarelto Hx/o Lung CA S/p Lung Resection TEREZA on CPAP Plan: He continues to improve clinically Routine AM Labs Continue PT/OT SW/CM for d/c planning Fall Precautions Additional orders as above Code status: DNR/DNI Possible d/c in 1-2 days
[2017-04-07] MEDS ORDERED: Magnesium Oxide 400 MG Tab PO ONE (08:00)
[2017-04-07] MEDS: Metoprolol Tartrate 25 MG Tab PO SCH ×2 (08:27→20:22)
[2017-04-07] MEDS: Furosemide 20 MG Tab PO SCH (08:27)
[2017-04-07] MEDS: Losartan 25 MG Tab PO SCH (08:27)
[2017-04-07] MEDS: Acetaminophen 325 MG Tab PO PRN (08:30)
[2017-04-07] MEDS: Albuterol/Ipratropium 3.0-0.5 MG/3 ML Neb Soln NEB SCH ×2 (09:07→20:14)
[2017-04-07] MEDS ORDERED: Hypromellose 0.5% Ophth Soln 15 ML Bottle EYEBOTH PRN (11:20)
[2017-04-07] MEDS: Levofloxacin/Dextrose 5%-Water 750 MG in Premix Bag 1 BAG IV SCH (18:46)
[2017-04-07] MEDS: Gabapentin 600 MG Tab PO SCH (20:20)
[2017-04-07] MEDS: Acetaminophen/HYDROcodone 325-5 MG Tab PO PRN (20:20)
[2017-04-07] MEDS: Simvastatin 10 MG Tab PO SCH (20:21)
[2017-04-07] MEDS: Rivaroxaban 10 MG Tab PO SCH (20:21)
[2017-04-07] MEDS: hydrALAZINE 20 MG/ML SDV IVPUSH PRN (20:22)
[2017-04-08] MEDS: Albuterol/Ipratropium 3.0-0.5 MG/3 ML Neb Soln NEB SCH (05:38)
[2017-04-08] MEDS: Pantoprazole 40 MG Tab.CR PO SCH (06:16)
[2017-04-08] MEDS: Insulin Aspart 100 Units/ML 3 ML Pen SUBCUT SCH (06:33)
[2017-04-08] MEDS: Magnesium Oxide 400 MG Tab PO SCH ×2 (07:52→12:10)
[2017-04-08] MEDS: Losartan 25 MG Tab PO SCH (08:10)
[2017-04-08] MEDS: Furosemide 20 MG Tab PO SCH (08:10)
[2017-04-08] MEDS: Metoprolol Tartrate 25 MG Tab PO SCH (08:10)
--- NOTE | 2017-04-08 12:30 | PCM.DCSUM1 ---
Discharge Summary - Hospital Course Brief History: This is an 87 year old elderly white male with past medical history of coronary artery disease, hypertension, heart failure with reduced EF , COPD, chronic right pleural effusion, GERD, osteoporosis, chronic back pain secondary to lumbar stenosis, history of sciatica, history of PE on xarelto who presents to the emergency department with complaints of generalized weakness associated with fever, chills, cough, chest tightness, and abdominal pain. He was admitted for medical management of PNA and UTI. - Discharge Data Discharge Date: 04/08/17 Discharge Disposition: Home, Self-Care 01 Condition: Good - Patient Summary/Data Operative Procedure(s) Performed: None Complications: None Consults: Consultations 04/05/17 23:05 Consult to Case Management [CONS] Routine Consult to Transcriber [CONS] Routine Consult to Spiritual Care [CONS] Routine OT Evaluation and Treatment [CONS] Routine PT Evaluation and Treatment [CONS] Routine Respiratory Care Assess and Treatment [CONS] Routine Labs Pending at D/C: None Hospital Course: Patient was primarily admitted for medical management of pneumonia and urinary tract infection. He was known to me from multiple previous admissions related to same presenting illness. On this admission, he was provided appropriate intravenous antibiotics along with supportive care to improve his symptoms. His blood culture showed no organismal growth. Sputum culture was not obtained for evaluation. However her UA showed pseudomonas aeruginosa, enterococcus fatalities, and enterococcus faeciuym VRE sensitive to both Levaquin and Linezolid. Her hospital course was fairly uncomplicated but he did have a one-time episode of respiratory distress which resolved immediately with administration of intravenous morphine. The rest of her of his chronic medical illness remained stable during admission. During this admission, he was diagnosed with situational depression. Patient recently lost his due to colon cancer status post surgery about a couple of months ago. However patient was still able to function at least normally to his baseline. No telemetry psych consult was pursued and no psychotropic medication was started for his depression. Patient is now stable for discharge. He will have additional course of 750 mg levaquin to complete his pneumonia treatment. He will be started on Zyvox 600 mg by mouth twice a day #20 pills his UTI treatment. Any other discharge medications have been called in to his local pharmacy for pick up operator sometime today after discharge. Patient will be provided with morphine sublingual to use as needed for respiratory distress and or dyspnea. He will also be provided with narcan in any event that he overdose on morphine. Patient was advised to follow-up with his primary care after discharge. His primary care doctor was called and updated regarding his discharge care plans. - Patient Instructions Diet: Usual Diet as Tolerated Activity: As Tolerated Driving: Do Not Drive Showering/Bathing: May Shower Notify Provider of: Fever, Increased Pain, Nausea and/or Vomiting Other/Special Instructions: - Please take all medications as directed. - Complete both antibiotics. - Use sublingual morphine carefully as needed for dyspnea/SOB. - If you use too much of it, use narcan to reverse it as directed. - Call your family doctor for any questions or concerns. - Follow up with your doctor in 1-2 weeks - Discharge Plan Prescriptions/Med Rec: Lactobac Cmb #3/Fos/Pantethine [Probiotic & Acidophilus] 1 each PO BID #20 capsule Levofloxacin [Levaquin] 750 mg PO DAILY #3 tablet Linezolid [Zyvox] 600 mg PO Q12H #20 tablet Magnesium Oxide 250 mg PO BIDM #10 tablet Morphine [Morphine 10 MG/5 ML] 5 mg PO Q4H #3 cup Naloxone [Narcan] 0.4 mg IM ASDIRECTED PRN #2 syringe PRN Reason: Oversedation Home Medications: Home Meds Metoprolol Tartrate [Lopressor] 25 mg PO BID 09/30/14 [History] Nitroglycerin [Nitrostat] 0.4 mg SL ASDIRECTED PRN 09/30/14 [History] Furosemide [Lasix] 20 mg PO DAILY 09/27/15 [History] Gabapentin [Neurontin] 3 tab PO BEDTIME 01/08/16 [History] Rivaroxaban [Xarelto] 20 mg PO BEDTIME 01/04/17 [History] atorvaSTATin [Lipitor] 10 mg PO BEDTIME 01/04/17 [History] Albuterol/Ipratropium [DuoNeb 3.0-0.5 MG/3 ML] 3 ml NEB BID 04/05/17 [History] Losartan [Cozaar] 50 mg PO DAILY 04/05/17 [History] Omeprazole 20 mg PO DAILY 04/05/17 [History] Lactobac Cmb #3/Fos/Pantethine [Probiotic & Acidophilus] 1 each PO BID #20 capsule 04/08/17 [Rx] Levofloxacin [Levaquin] 750 mg PO DAILY #3 tablet 04/08/17 [Rx] Linezolid [Zyvox] 600 mg PO Q12H #20 tablet 04/08/17 [Rx] Magnesium Oxide 250 mg PO BIDM #10 tablet 04/08/17 [Rx] Morphine [Morphine 10 MG/5 ML] 5 mg PO Q4H #3 cup 04/08/17 [Rx] Naloxone [Narcan] 0.4 mg IM ASDIRECTED PRN #2 syringe 04/08/17 [Rx] Referrals: Wolfgang Estrada MD [Primary Care Provider] - 04/15/17 2:30 pm (Please follow-up with your primary care doctor, Dr. Estrada, on , April 15 at 2:30pm. If this time does not work for you, please call and reschedule the appointment. ) - Discharge Summary/Plan Comment DC Time >30 min.: Yes (45 mins) Discharge Summary/Plan Comment: Discharge to Home - General Info Date of Service: 04/08/17 Admission Dx/Problem (Free Text: CAP and UTI Subjective Update: Follow Up Functional Status: Reports: Pain Controlled, Tolerating Diet. Denies: New Symptoms - Review of Systems General: Denies: Fever, Weakness, Fatigue, Malaise, Chills HEENT: Reports: No Symptoms Pulmonary: Reports: Shortness of Breath (baseline). Denies: Cough Cardiovascular: Denies: Chest Pain Gastrointestinal: Denies: Abdominal Pain, Nausea, Vomiting Genitourinary: Reports: No Symptoms Musculoskeletal: Reports: No Symptoms Skin: Denies: Cyanosis Neurological: Denies: Confusion, Difficulty Walking, Weakness, Gait Disturbance Psychiatric: Denies: Depression, Anxiety, Agitation, Hallucinations, Suicidal Ideation Systems Review Comment: NO overnight or acute issues. He is doing relatively well. He has no new complaints. - Patient Data Vitals - Most Recent: Last Vital Signs Temp 36.9 C 04/08/17 04:59 Pulse 89 04/08/17 08:10 Resp 16 04/08/17 04:59 BP 121/90 04/08/17 08:10 Pulse Ox 92 L 04/08/17 05:38 Weight - Most Recent: 90.809 kg I&O - Last 24 hours: Intake & Output 04/07/17 04/08/1704/08/17 22:59 06:59 14:59 Intake Total 1240 950 30 Output Total 550 800 Balance 690 150 30 Lab Results - Last 24 hrs: Laboratory Results - last 24 hr 04/07/17 04/08/17 04/08/17 Range/Units 21:13 05:56 05:56 WBC 5.27 (4.23-9.07) K/mm3 RBC 3.49 L (4.63-6.08) M/mm3 Hgb 11.4 L (13.7-17.5) gm/L Hct 36.4 L (40.1-51.0) % MCV 104.3 H (79.0-92.2) fl MCH 32.7 H (25.7-32.2) pg MCHC 31.3 L (32.2-35.5) g/dl RDW Std Deviation 61.8 H (35.1-43.9) fL Plt Count 168 (163-337) K/mm3 MPV 10.0 (9.4-12.3) fl Neut % (Auto) 56.2 (34.0-67.9) % Lymph % (Auto) 16.5 L (21.8-53.1) % Emery % (Auto) 18.0 H (5.3-12.2) % Eos % (Auto) 7.8 H (0.8-7.0) Baso % (Auto) 0.6 (0.1-1.2) % Neut # (Auto) 2.96 (1.78-5.38) K/mm3 Lymph # (Auto) 0.87 L (1.32-3.57) K/mm3 Emery # (Auto) 0.95 H (0.30-0.82) K/mm3 Eos # (Auto) 0.41 (0.04-0.54) K/mm3 Baso # (Auto) 0.03 (0.01-0.08) K/mm3 Manual Slide Review Abnormal smear Sodium 141 (136-145) mEq/L Potassium 3.8 (3.5-5.1) mEq/L Chloride 103 (98-107) mEq/L Carbon Dioxide 32 (21-32) mEq/L Anion Gap 9.8 (5-15) BUN 13 (7-18) mg/dL Creatinine 1.2 (0.7-1.3) mg/dL Est Cr Clr Drug Dosing 47.93 mL/min Estimated GFR (MDRD) 58 (>60) mL/min BUN/Creatinine Ratio 10.8 L (14-18) Glucose 108 (83-115) mg/dL POC Glucose 122 H (83-110) mg/dL Calcium 9.2 (8.5-10.1) mg/dL Magnesium 1.7 L (1.8-2.4) mg/dl C-Reactive Protein 4.0 H* (<1.0) mg/dL 04/08/17 Range/Units 06:18 WBC (4.23-9.07) K/mm3 RBC (4.63-6.08) M/mm3 Hgb (13.7-17.5) gm/L Hct (40.1-51.0) % MCV (79.0-92.2) fl MCH (25.7-32.2) pg MCHC (32.2-35.5) g/dl RDW Std Deviation (35.1-43.9) fL Plt Count (163-337) K/mm3 MPV (9.4-12.3) fl Neut % (Auto) (34.0-67.9) % Lymph % (Auto) (21.8-53.1) % Emery % (Auto) (5.3-12.2) % Eos % (Auto) (0.8-7.0) Baso % (Auto) (0.1-1.2) % Neut # (Auto) (1.78-5.38) K/mm3 Lymph # (Auto) (1.32-3.57) K/mm3 Emery # (Auto) (0.30-0.82) K/mm3 Eos # (Auto) (0.04-0.54) K/mm3 Baso # (Auto) (0.01-0.08) K/mm3 Manual Slide Review Sodium (136-145) mEq/L Potassium (3.5-5.1) mEq/L Chloride (98-107) mEq/L Carbon Dioxide (21-32) mEq/L Anion Gap (5-15) BUN (7-18) mg/dL Creatinine (0.7-1.3) mg/dL Est Cr Clr Drug Dosing mL/min Estimated GFR (MDRD) (>60) mL/min BUN/Creatinine Ratio (14-18) Glucose (83-115) mg/dL POC Glucose 108 (83-110) mg/dL Calcium (8.5-10.1) mg/dL Magnesium (1.8-2.4) mg/dl C-Reactive Protein (<1.0) mg/dL Med Orders - Current: Current Medications Acetaminophen (Tylenol) 650 mg PO Q4H PRN PRN Reason: Pain (Mild 1-3)/fever Last Admin: 04/07/17 08:30 Dose: 650 mg Hydrocodone Bitart/Acetaminophen ([place] 325-5 Mg) 1 tab PO Q4H PRN PRN Reason: Pain (moderate 4-6) Last Admin: 04/07/17 20:20 Dose: 1 tab Albuterol/Ipratropium (Duoneb 3.0-0.5 Mg/3 Ml) 3 ml NEB Q4H PRN PRN Reason: Shortness Of Breath/wheezing Albuterol/Ipratropium (Duoneb 3.0-0.5 Mg/3 Ml) 3 ml NEB BIDRT [facility] Last Admin: 04/08/17 05:38 Dose: 3 ml Artificial Tears (Isopto Tears 0.5% Ophth Soln) 0 ml EYEBOTH Q4H PRN PRN Reason: EYE IRRITATION Last Admin: 04/08/17 07:51 Dose: 1 drop Bisacodyl (Dulcolax) 5 mg PO DAILY PRN PRN Reason: Constipation Dextrose/Water (Dextrose 50% In Water) 50 ml IVPUSH ASDIRECTED PRN PRN Reason: Hypoglycemia Docusate Sodium (Colace) 100 mg PO BID PRN PRN Reason: Constipation Furosemide (Lasix) 20 mg PO DAILY [facility] Last Admin: 04/08/17 08:10 Dose: 20 mg Gabapentin (Neurontin) 1,800 mg PO BEDTIME [facility] Last Admin: 04/07/17 20:20 Dose: 1,800 mg Hydralazine HCl (Apresoline) 20 mg IVPUSH Q4H PRN PRN Reason: Hypertension Last Admin: 04/07/17 20:22 Dose: 20 mg Levofloxacin/Dextrose 750 mg/ (Premix) 150 mls @ 100 mls/hr IV Q24H [facility] Last Admin: 04/07/17 18:46 Dose: 100 mls/hr Promethazine HCl 12.5 mg/ (Sodium Chloride) 50.5 mls @ 100 mls/hr IV Q6H PRN PRN Reason: Nausea/Vomiting Vancomycin HCl 1 gm/ Sodium (Chloride) 250 mls @ 166.512 mls/hr IV Q12H [facility] Last Admin: 04/08/17 12:10 Dose: 166.512 mls/hr Insulin Aspart (Novolog) 0 unit SUBCUT ACBREAKFASTANDBED [facility] PRN Reason: Protocol Last Admin: 04/08/17 06:33 Dose: Not Given Lorazepam (Ativan) 0.25 mg IV Q6H PRN PRN Reason: Anxiety Losartan Potassium (Cozaar) 50 mg PO DAILY [facility] Last Admin: 04/08/17 08:10 Dose: 50 mg Magnesium Sulfate (Pharmacy To Dose - Magnesium Replacement) 1 dose .XX ASDIRECTED [facility] Metoprolol Tartrate (Lopressor) 25 mg PO BID [facility] Last Admin: 04/08/17 08:10 Dose: 25 mg Metoprolol Tartrate (Lopressor) 5 mg IVPUSH Q4H PRN PRN Reason: Tachycardia Morphine Sulfate (Morphine) 1 mg IVPUSH Q4H PRN PRN Reason: Other Stop: 04/09/17 23:03 Last Admin: 04/06/17 21:39 Dose: 1 mg Nitroglycerin (Nitrostat) 0.4 mg SL ASDIRECTED PRN PRN Reason: Chest Pain Ondansetron HCl (Zofran) 4 mg IV Q6H PRN PRN Reason: Nausea/Vomiting Pantoprazole Sodium (Protonix) 40 mg PO DAILY@0700 [facility] Last Admin: 04/08/17 06:16 Dose: 40 mg Polyethylene Glycol (Miralax) 17 gm PO DAILY PRN PRN Reason: Constipation Potassium Chloride (Pharmacy To Dose - Potassium Replacement) 1 dose .XX ASDIRECTED [facility] Rivaroxaban (Xarelto) 20 mg PO BEDTIME [facility] Last Admin: 04/07/17 20:21 Dose: 20 mg Senna/Docusate Sodium (Senna Plus) 1 tab PO BID PRN PRN Reason: Constipation Simvastatin (Zocor) 10 mg PO BEDTIME [facility] Last Admin: 04/07/17 20:21 Dose: 10 mg Sodium Chloride (Saline Flush) 10 ml FLUSH ASDIRECTED PRN PRN Reason: Keep Vein Open Last Admin: 04/05/17 22:08 Dose: 10 ml Temazepam (Restoril) 7.5 mg PO BEDTIME PRN PRN Reason: Sleep Last Admin: 04/06/17 20:56 Dose: 7.5 mg Vancomycin HCl (Pharmacy To Dose - Vancomycin) 1 dose .XX ASDIRECTED NORMA Discontinued Medications Acetaminophen (Tylenol) 975 mg PO NOW ONE Stop: 04/05/17 21:21 Last Admin: 04/05/17 22:05 Dose: 975 mg Albuterol/Ipratropium (Duoneb 3.0-0.5 Mg/3 Ml) 3 ml NEB ONETIME ONE Stop: 04/05/17 21:22 Last Admin: 04/05/17 21:47 Dose: 3 ml Albuterol/Ipratropium (Duoneb 3.0-0.5 Mg/3 Ml) 3 ml NEB BIDRT [facility] Last Admin: 04/06/17 07:02 Dose: Not Given Bumetanide (Bumex) 0.5 mg IVPUSH ONETIME ONE Stop: 04/06/17 00:08 Last Admin: 04/06/17 01:04 Dose: 0.5 mg Levofloxacin/Dextrose 750 mg/ (Premix) 150 mls @ 100 mls/hr IV ONETIME ONE Stop: 04/05/17 22:50 Last Admin: 04/05/17 22:08 Dose: 100 mls/hr Vancomycin HCl 1 gm/Vancomycin HCl 250 mg/ Sodium Chloride 500 mls @ 333 mls/ hr IV Q12H [facility] Last Admin: 04/06/17 01:03 Dose: 333 mls/hr Vancomycin HCl 1 gm/Vancomycin HCl 250 mg/ Sodium Chloride 250 mls @ 166.512 mls/hr IV Q12H [facility] Last Admin: 04/06/17 09:58 Dose: Not Given Vancomycin HCl 1 gm/Vancomycin HCl 250 mg/ Sodium Chloride 250 mls @ 166.512 mls/hr IV Q12H [facility] Last Admin: 04/07/17 12:35 Dose: Not Given Magnesium Oxide (Magnesium Oxide) 400 mg PO ONETIME ONE Stop: 04/06/17 08:01 Last Admin: 04/06/17 08:33 Dose: 400 mg Magnesium Oxide (Magnesium Oxide) 400 mg PO ONETIME ONE Stop: 04/07/17 08:01 Last Admin: 04/07/17 08:26 Dose: 400 mg Magnesium Oxide (Magnesium Oxide) 400 mg PO Q4H [facility]MA Stop: 04/08/17 11:46 Last Admin: 04/08/17 12:10 Dose: 400 mg - Exam Quality Assessment: Reports: supplemental oxygen General: Reports: alert, oriented, cooperative, no acute distress HEENT: Reports: Pupils equal, Pupils reactive, EOMI, Mucous membr. moist/pink Neck: Reports: supple, trachea midline, no JVD, no thyromegaly Lungs: Reports: Normal Respiratory Effort, Decreased Breath Sounds, Wheezing GI/Abdominal Exam: Normal Bowel Sounds, Soft, Non-Tender, No Organomegaly, No Distention, No Abnormal Bruit, No Mass, Other (Urostomy bag) (Male) Exam: Deferred Rectal (Males) Exam: Deferred Extremities: Normal Inspection, Normal Range of Motion, Non-Tender, Normal Capillary Refill, Pedal Edema (right lower extremity) Skin: Reports: warm, dry, intact Neurological: Reports: no new focal deficit Psy/Mental Status: Reports: alert, normal affect, normal mood *Q Meaningful Use (DIS) - VTE *Q VTE Criteria *Q: - Stroke *Q Stroke Criteria *Q: - AMI *Q AMI Criteria *Q:
[2017-04-08 16:11] VITALS: BP 127/71
== END 2017-04-08 18:00 | disposition home or self-care (01) | DRG 194 ==
LOC: JD.ED 21:02 → JD.MS 22:55
PROVIDERS: ADMIT Internal Medicine; ATTEND Internal Medicine
DX: J18.9 Pneumonia, unspecified organism (principal); R09.02 Hypoxemia; J96.11 Chronic respiratory failure with hypoxia; N39.0 Urinary tract infection, site not specified; C34.91 Malignant neoplasm of unspecified part of right bronchus or lung; I25.810 Atherosclerosis of coronary artery bypass graft(s) without angina pectoris; G47.30 Sleep apnea, unspecified; I13.0 Hypertensive heart and chronic kidney disease with heart failure and stage 1 through stage 4 chronic kidney disease, or unspecified chronic kidney disease; N18.9 Chronic kidney disease, unspecified; B96.5 Pseudomonas (aeruginosa) (mallei) (pseudomallei) as the cause of diseases classified elsewhere; B95.2 Enterococcus as the cause of diseases classified elsewhere; M54.9 Dorsalgia, unspecified; Z95.1 Presence of aortocoronary bypass graft; Z96.649 Presence of unspecified artificial hip joint; E83.42 Hypomagnesemia; R10.9 Unspecified abdominal pain; N18.3 Chronic kidney disease, stage 3 (moderate); I50.9 Heart failure, unspecified; I48.91 Unspecified atrial fibrillation; J44.9 Chronic obstructive pulmonary disease, unspecified; G47.33 Obstructive sleep apnea (adult) (pediatric); Z93.6 Other artificial openings of urinary tract status; Z85.51 Personal history of malignant neoplasm of bladder; M19.90 Unspecified osteoarthritis, unspecified site; G89.29 Other chronic pain; M48.06 Spinal stenosis, lumbar region; M54.16 Radiculopathy, lumbar region; K21.9 Gastro-esophageal reflux disease without esophagitis; R73.9 Hyperglycemia, unspecified; E78.5 Hyperlipidemia, unspecified; I25.2 Old myocardial infarction; M81.0 Age-related osteoporosis without current pathological fracture; Z86.711 Personal history of pulmonary embolism; Z79.01 Long term (current) use of anticoagulants; Z66 Do not resuscitate; F43.21 Adjustment disorder with depressed mood; Z88.8 Allergy status to other drugs, medicaments and biological substances; Z79.899 Other long term (current) drug therapy
CPT/HCPCS: 36415; 71010; 80053; 81001; 83605; 84484; 85025; 86140; 86738; 87040 ×2; 87086; 87899; 93005; 94664; 96365; 99285; A9270; J1956; J7050; 71250; 71250-26; 74176; 74176-26; 80048; 80202; 82962; 83036; 83735; 87088; 87186; 87641; 94640-76; 94760; 97110-GO; 97110-GP; 97116-GP; 97162-GP; 97166-GO; 97530-GO; 99284; J0360; J2270; J3370; J7040

== ENCOUNTER 2017-07-12 08:21 | Emergency (ER) | payer MEDICARE, BC ==
[2017-07-12 08:40] VITALS: BP 154/63
[2017-07-12] MEDS ORDERED: Albuterol/Ipratropium 3.0-0.5 MG/3 ML Neb Soln NEB ONE (08:54)
[2017-07-12] MEDS ORDERED: Sodium Chloride 0.9% 10 ML Syringe FLUSH PRN (08:54)
[2017-07-12] MEDS ORDERED: methylPREDNISolone Sodium Succinate 125 MG/2 ML SDV IVPUSH ONE (08:55)
--- NOTE | 2017-07-12 08:55 | EDM.PDOC ---
ED HPI GENERAL MEDICAL PROBLEM - General Chief Complaint: Respiratory Problem Stated Complaint: COUGH/WHEEZING Time Seen by Provider: 07/12/17 08:43 Source of Information: Reports: Patient, RN Notes Reviewed - History of Present Illness INITIAL COMMENTS - FREE TEXT/NARRATIVE: 87-year-old male comes in with cough, shortness of breath. He does have history of COPD, has history of previously diagnosed lung cancer last treated with radiation last summer about 4-5 months ago. He's had worsening cough and shortness of breath with exertion the past 3 or 4 days. Not had fever or chills. States his cough is productive of various types of clear and colored phlegm with occasional blood streaks as well. He does find it hard to get "anything". He has had bouts of severe repetitive coughing. He does have some anterior chest discomfort with coughing. His have chronic swelling of both legs right greater than left. No abdominal pain nausea or vomiting. - Related Data Allergies Allergy/AdvReac Type Severity Reaction Status Date / Time iodine Allergy Hives Verified 04/06/17 01:00 iopamidol Allergy Rash Verified 04/06/17 01:00 Home Meds: Home Meds Metoprolol Tartrate [Lopressor] 25 mg PO BID 09/30/14 [History] Nitroglycerin [Nitrostat] 0.4 mg SL ASDIRECTED PRN 09/30/14 [History] Furosemide [Lasix] 20 mg PO DAILY 09/27/15 [History] Gabapentin [Neurontin] 3 tab PO BEDTIME 01/08/16 [History] Rivaroxaban [Xarelto] 20 mg PO BEDTIME 01/04/17 [History] atorvaSTATin [Lipitor] 10 mg PO BEDTIME 01/04/17 [History] Albuterol/Ipratropium [DuoNeb 3.0-0.5 MG/3 ML] 3 ml NEB BID 04/05/17 [History] Losartan [Cozaar] 50 mg PO DAILY 04/05/17 [History] Omeprazole 20 mg PO DAILY 04/05/17 [History] Lactobac Cmb #3/Fos/Pantethine [Probiotic & Acidophilus] 1 each PO BID #20 capsule 04/08/17 [Rx] Levofloxacin [Levaquin] 750 mg PO DAILY #3 tablet 04/08/17 [Rx] Linezolid [Zyvox] 600 mg PO Q12H #20 tablet 04/08/17 [Rx] Magnesium Oxide 250 mg PO BIDM #10 tablet 04/08/17 [Rx] Morphine [Morphine 10 MG/5 ML] 5 mg PO Q4H #3 cup 04/08/17 [Rx] Naloxone [Narcan] 0.4 mg IM ASDIRECTED PRN #2 syringe 04/08/17 [Rx] Levofloxacin [Levaquin] 500 mg PO Q24H #10 tablet 07/12/17 [Rx] Prednisone [IJD: predniSONE] 20 mg PO WITHBREAKFAST #6 tab 07/12/17 [Rx] Past Medical History HEENT History: Reports: Cataract, Impaired Vision Other HEENT History: wears Glasses Cardiovascular History: Reports: Afib Respiratory History: Reports: COPD, Pneumonia, Recurrent, Sleep Apnea Other Respiratory History: lung CA Gastrointestinal History: Reports: Colon Polyp, GERD Genitourinary History: Reports: Chronic Renal Insuffiency, Urostomy Other Genitourinary History: bladder cancer Musculoskeletal History: Reports: Arthritis, Back Pain, Chronic 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 ), sciatica pain Endocrine/Metabolic History: Reports: None Hematologic History: Reports: None Immunologic History: Reports: None Oncologic (Cancer) History: Reports: Bladder, Lung, Squamous Cell Carcinoma Dermatologic History: Reports: None - Infectious Disease History Infectious Disease History: Reports: Chicken Pox, Measles, Shingles - Past Surgical History Head Surgeries/Procedures: Reports: None HEENT Surgical History: Reports: Cataract Surgery Cardiovascular Surgical History: Reports: Coronary Artery Bypass Respiratory Surgical History: Reports: Other (See Below) Other Respiratory Surgeries/Procedures: Lobectomy GI Surgical History: Reports: Hernia, Inguinal Neurological Surgical History: Reports: Lumbar Spine Musculoskeletal Surgical History: Reports: Hip Replacement, Shoulder Surgery Oncologic Surgical History: Reports: Lobectomy Dermatological Surgical History: Reports: None Social & Family History - Family History Family Medical History: Noncontributory Cardiac: Reports: Bypass, Heart Failure, [place], Pacemaker Other Cardiac Family History: few brothers from [place]. OBGYN: Reports: Oncologic: Reports: Liver, Pancreatic, Prostate Other Oncologic Family History: brother prostate, Brother-pancreatic cancer, sister- liver cancer - Tobacco Use Smoking Status *Q: Former Smoker Years of Tobacco use: 45 Packs/Tins Daily: 1 Used Tobacco, but Quit: Yes Month Tobacco Last Used: 24 Second Hand Smoke Exposure: No - Caffeine Use Caffeine Use: Reports: Coffee Other Caffeine Use: 1 cup daily - Alcohol Use Days Per Week of Alcohol Use: 3 Number of Drinks Per Day: 3 Total Drinks Per Week: 9 - Recreational Drug Use Recreational Drug Use: No - Living Situation & Occupation Living situation: Reports: , with Spouse, with Family Occupation: Retired ED ROS GENERAL - Review of Systems Review Of Systems: See Below Constitutional: Denies: Fever, Chills, Diaphoresis HEENT: Reports: Sinus Problem. Denies: Throat Pain Respiratory: Reports: Shortness of Breath (He has had some nasal and sinus congestion), Wheezing, Cough, Sputum, Hemoptysis (Mild). Denies: Pleuritic Chest Pain Cardiovascular: Reports: Chest Pain (With coughing) Endocrine: Reports: Fatigue GI/Abdominal: Denies: Nausea, Vomiting Musculoskeletal: Reports: Other (He's had some generalized achiness) Skin: Reports: No Symptoms Neurological: Reports: Dizziness. Denies: Trouble Speaking ED EXAM, GENERAL - Physical Exam Exam: See Below General Appearance: Alert, No Apparent Distress Eye Exam: Bilateral Eye: PERRL Throat/Mouth: Normal Inspection, Normal Oropharynx Head: Atraumatic. No: Facial Swelling Neck: Supple, Full Range of Motion, Other (No JVD) Respiratory/Chest: Respiratory Distress (Very mild tachypnea), Wheezing (Mild). No: Rales, Rhonchi, Accessory Muscle Use Cardiovascular: Regular Rate, Rhythm GI/Abdominal: Soft, Non-Tender Extremities: Pedal Edema (Mild right lower extremity minimal left lower extremity). No: Leg Pain, Increased Warmth, Redness Neurological: Alert, Oriented, No Motor/Sensory Deficits Skin Exam: Warm, Dry, Normal Color Course - Vital Signs Last Recorded V/S: Last Vital Signs Temp 98.7 F 07/12/17 08:35 Pulse 69 07/12/17 08:35 Resp 18 07/12/17 08:35 BP 154/63 H 07/12/17 08:35 Pulse Ox 92 L 07/12/17 09:08 - Orders/Labs/Meds Orders: Active Orders 24 hr Category Date Time Status Oxygen Therapy [RC] ASDIRECTED Care 07/12/17 08:53 Active Peripheral IV Care [RC] . DIRECTED Care 07/12/17 08:54 Active RT Aerosol Therapy [RC] ASDIRECTED Care 07/12/17 08:54 Active Peripheral IV Insertion Adult [OM.PC] Stat Oth 07/12/17 08:53 Ordered Labs: Laboratory Tests 07/12/17 07/12/17 07/12/17 Range/Units 09:09 09:09 09:09 WBC 7.48 (4.23-9.07) K/mm3 RBC 3.66 L (4.63-6.08) M/mm3 Hgb 11.9 L (13.7-17.5) gm/L Hct 38.5 L (40.1-51.0) % MCV 105.2 H (79.0-92.2) fl MCH 32.5 H (25.7-32.2) pg MCHC 30.9 L (32.2-35.5) g/dl RDW Std Deviation 54.8 H (35.1-43.9) fL Plt Count 188 (163-337) K/mm3 MPV 9.3 L (9.4-12.3) fl Neut % (Auto) 61.0 (34.0-67.9) % Lymph % (Auto) 12.4 L (21.8-53.1) % [place] % (Auto) 13.8 H (5.3-12.2) % Eos % (Auto) 10.7 H (0.8-7.0) Baso % (Auto) 1.7 H (0.1-1.2) % Neut # (Auto) 4.56 (1.78-5.38) K/mm3 Lymph # (Auto) 0.93 L (1.32-3.57) K/mm3 [place] # (Auto) 1.03 H (0.30-0.82) K/mm3 Eos # (Auto) 0.80 H (0.04-0.54) K/mm3 Baso # (Auto) 0.13 H (0.01-0.08) K/mm3 Manual Slide Review Abnormal smear C-Reactive Protein 3.9 H* (<1.0) mg/dL NT-Pro-B Natriuret Pep 2014 H (0-450) pg/mL Meds: Medications Discontinued Medications Generic Name Dose Route Start Last Admin Trade Name Lynne PRN Reason Stop Dose Admin Albuterol/Ipratropium 3 ml 07/12/17 08:54 07/12/17 09:07 Duoneb 3.0-0.5 Mg/3 Ml NEB 07/12/17 08:55 3 ml ONETIME ONE Administration Methylprednisolone Sodium Succinate 125 mg 07/12/17 08:55 07/12/17 09:14 Solu-Medrol IVPUSH 07/12/17 08:56 125 mg ONETIME ONE Administration Sodium Chloride 10 ml 07/12/17 08:54 07/12/17 09:20 Saline Flush FLUSH 10 ml ASDIRECTED PRN Administration Keep Vein Open - Re-Assessments/Exams Free Text/Narrative Re-Assessment/Exam: 07/12/17 12:26 Chest x-ray shows increased parenchymal density right hilar area which is similar, slightly larger than prior study back in March. See radiology report for details. Could be pneumonia in this area, no other acute infiltrate visible. White blood count is normal. C-reactive protein very mildly elevated. We have given him a DuoNeb treatment and also Solu-Medrol 125 mg IV. At this point he is not ill enough that he needs to be in the hospital. We'll start him on Levaquin 500 mg daily. He does have an appointment with his regular medical provider very early next week. Does have an appointment with his oncologist sometime in the next 10-14 days. He's only been doing nebs twice daily, will have him increase to 3-4 times daily we'll also start him on low-dose prednisone 20 mg daily for the next 6 days. Discharge instructions as documented Departure - Departure Time of Disposition: 10:21 Disposition: Home, Self-Care 01 Condition: Fair Clinical Impression: Bronchitis - Discharge Information Prescriptions: Levofloxacin [Levaquin] 500 mg PO Q24H #10 tablet Prednisone [IJD: predniSONE] 20 mg PO WITHBREAKFAST #6 tab Instructions: Acute Bronchitis, [id number] Referrals: Wolfgang Estrada MD [Primary Care Provider] - Forms: ED Department Discharge Additional Instructions: You may safely increase your nebulizer treatments up to albuterol 4 times daily as discussed, vaporizer or steam as needed, Levaquin antibiotic 500 mg daily for 10 days, prednisone 20 mg every morning for 6 days, follow-up with your oncologist as planned, return to ED as needed if symptoms worsening. - My Orders Last 24 Hours: My Active Orders 07/12/17 08:53 Oxygen Therapy [RC] ASDIRECTED Peripheral IV Insertion Adult [OM.PC] Stat 07/12/17 08:54 Peripheral IV Care [RC] . DIRECTED RT Aerosol Therapy [RC] ASDIRECTED - Assessment/Plan Last 24 Hours: My Active Orders 07/12/17 08:53 Oxygen Therapy [RC] ASDIRECTED Peripheral IV Insertion Adult [OM.PC] Stat 07/12/17 08:54 Peripheral IV Care [RC] . DIRECTED RT Aerosol Therapy [RC] ASDIRECTED
--- NOTE | 2017-07-12 10:44 | CR ---
Chest: Frontal view of the chest was obtained utilizing portable technique. Comparison: Previous CT chest of 04/06/17 as well as chest x-ray of 04/05/17. Pleural thickening and paratracheal soft tissue prominence is seen along the right side. This is believed to be fairly stable. Increasing density within the left midlung is seen from prior study. Pleural thickening is seen along the right lateral costophrenic angle. Increased density noted within the right lung base overlying the heart which is chronic. Impression: 1. Parenchymal density within the left midlung in area of previous nodule. This could represent neoplastic mass which is increased in size from previous study. Findings could also represent superimposed pneumonia over the previous nodule. 2. Other findings are felt to be without definite change from previous study. Diagnostic code #3
== END 2017-07-12 10:48 | disposition home or self-care (01) ==
LOC: JD.ED 08:21
DX: J40 Bronchitis, not specified as acute or chronic (principal); J44.9 Chronic obstructive pulmonary disease, unspecified; Z79.899 Other long term (current) drug therapy; Z88.8 Allergy status to other drugs, medicaments and biological substances
CPT/HCPCS: 36415; 71010; 83880; 85025; 86140; 94640; 96374; 99284; J2930; J7050

== ENCOUNTER 2017-08-04 09:45 | Inpatient (IN) | payer MEDICARE, BC ==
[2017-08-04] MEDS ORDERED: Furosemide 40 MG/4 ML VIAL IVPUSH ONE (10:24)
[2017-08-04] MEDS ORDERED: Levofloxacin/Dextrose 5%-Water 750 MG in Premix Bag 1 BAG IV SCH (11:00)
--- NOTE | 2017-08-04 11:06 | EDM.PDOC ---
ED HPI GENERAL MEDICAL PROBLEM - General Chief Complaint: Respiratory Problem Stated Complaint: [facility] Time Seen by Provider: 08/04/17 10:07 Source of Information: Reports: Patient, Family (Latrice, son-in-law), RN Notes Reviewed History Limitations: Reports: Physical Impairment - History of Present Illness INITIAL COMMENTS - FREE TEXT/NARRATIVE: According to the patient's daughter, who provided the vast majority of the history, the patient has been gurgling for the past 2-3 days, and reported low back pain and chills this morning, as the paramedics were preparing him for transport. No fever, vomiting, or diarrhea. He has had these symptoms many times in the past, due either to pneumonia or a UTI. The patient has a history of COPD and right lung cancer. He is on oxygen 2 L per nasal cannula continuously. Here in the emergency department, his oxygen saturation was found to be under 70% by pulse oximeter, therefore a nonrebreather mask was placed, raising his oxygen saturation to 98%. Temperature is about 99. The patient has chronic right lower extremity edema. He has recently developed left lower extremity edema. The patient's PCP is Dr. Estrada. He last saw him last week, and was prescribed prednisone and an antibiotic (name unknown). Bilateral Lower Back Pain Score (Numeric/FACES): 10 - Related Data Allergies Allergy/AdvReac Type Severity Reaction Status Date / Time diphenhydramine Allergy Hallucinati Verified 08/04/17 11:53 [From Benadryl] ons iodine Allergy Hives Verified 08/04/17 11:53 iopamidol Allergy Rash Verified 08/04/17 11:53 Home Meds: Home Meds Metoprolol Tartrate [Lopressor] 25 mg PO BID 09/30/14 [History] Furosemide [Lasix] 20 mg PO BID 09/27/15 [History] Gabapentin [Neurontin] 3 tab PO BEDTIME 01/08/16 [History] Rivaroxaban [Xarelto] 20 mg PO BEDTIME 01/04/17 [History] atorvaSTATin [Lipitor] 10 mg PO BEDTIME 01/04/17 [History] Albuterol/Ipratropium [DuoNeb 3.0-0.5 MG/3 ML] 3 ml NEB BID 04/05/17 [History] Losartan [Cozaar] 50 mg PO DAILY 04/05/17 [History] Omeprazole 20 mg PO DAILY 04/05/17 [History] Albuterol [Proventil HFA] 2 puff INH Q6HR PRN 08/04/17 [History] Budesonide [Pulmicort] 1 puff INH BID 08/04/17 [History] L Acidophil/B Lactis/B Longum [Florajen3] 1 tab PO BID 08/04/17 [History] Past Medical History HEENT History: Reports: Impaired Vision Other HEENT History: wears eyeglasses Cardiovascular History: Reports: Afib, CAD, Heart Failure, Hypertension, NM (x 1 ) Respiratory History: Reports: COPD (Home O2 2L per N/C continuously) Musculoskeletal History: Reports: Other (See Below) (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) Oncologic (Cancer) History: Reports: Bladder, Lung - Past Surgical History HEENT Surgical History: Reports: Cataract Surgery Cardiovascular Surgical History: Reports: Coronary Artery Bypass (x 4 vessel, 1990) Respiratory Surgical History: Reports: Lung Resection (right) GI Surgical History: Reports: Hernia, Inguinal (left) Male Surgical History: Reports: Cystectomy, Other (See Below) (Urostomy) Musculoskeletal Surgical History: Reports: Hip Replacement (left), Shoulder Surgery (arthroscopic rotator cuff repair) Social & Family History - Tobacco Use Smoking Status *Q: Former Smoker Years of Tobacco use: 58 Packs/Tins Daily: 1 Month Tobacco Last Used: Quit 2006 - Caffeine Use Caffeine Use: Reports: Coffee - Alcohol Use Alcohol Use History: Yes Alcohol Use Frequency: Socially - Recreational Drug Use Recreational Drug Use: No - Living Situation & Occupation Living situation: Reports: , with Family (Daughter) Occupation: Retired ED ROS GENERAL - Review of Systems Review Of Systems: ROS reveals no pertinent complaints other than HPI. Constitutional: Reports: No Symptoms HEENT: Reports: No Symptoms Respiratory: Reports: No Symptoms Cardiovascular: Reports: No Symptoms Endocrine: Reports: No Symptoms GI/Abdominal: Reports: No Symptoms : Reports: No Symptoms Musculoskeletal: Reports: No Symptoms Skin: Reports: No Symptoms Neurological: Reports: No Symptoms Psychiatric: Reports: No Symptoms Hematologic/Lymphatic: Reports: No Symptoms Immunologic: Reports: No Symptoms ED EXAM, GENERAL - Physical Exam Exam: See Below Exam Limited By: No Limitations General Appearance: WD/WN, Lethargic, Mild Distress Eye Exam: Bilateral Eye: Normal Inspection Ears: Normal External Exam, Hearing Grossly Normal Nose: Normal Inspection, No Blood Throat/Mouth: Normal Inspection, Normal Lips, Normal Voice, No Airway Compromise Head: Atraumatic, Normocephalic Neck: Normal Inspection, Full Range of Motion Respiratory/Chest: No Respiratory Distress, Normal Breath Sounds, No Accessory Muscle Use, Decreased Breath Sounds (Right >> left), Rhonchi (LEft >> right). No: Crackles, Wheezing Cardiovascular: Normal Peripheral Pulses, No Gallop, No JVD, No Murmur, No Rub, Irregularly Irregular Peripheral Pulses: 4+: Radial (L), Radial (R) GI/Abdominal: Normal Bowel Sounds, Soft, Non-Tender, No Organomegaly, No Distention, No Abnormal Bruit, No Mass (Male) Exam: Deferred Rectal (Males) Exam: Deferred Back Exam: Normal Inspection, Full Range of Motion, NT Extremities: Normal Inspection, Normal Range of Motion, Normal Capillary Refill , Other (2+ pretibial pitting edema on the right, 1+ pretibial pitting edema on the left. Left hand congenital deformities.) Neurological: Oriented, Normal Cognition, No Motor/Sensory Deficits, Other ( Somnolent but arousable) Psychiatric: Normal Affect Skin Exam: Warm, Dry, Intact, Normal Color, No Rash EKG INTERPRETATION EKG Date: 08/04/17 Time: 09:57 Rhythm: A-Fib Rate (Beats/Min): 97 [place]: Normal P-Wave: Absent QRS: Other (Nonspecific intraventricular conduction delay) ST-T: Normal QT: Normal Comparison: No Change (04/05/2017) Course - Vital Signs Last Recorded V/S: Last Vital Signs Temp 37.7 C 08/04/17 09:45 Pulse 107 H 08/04/17 09:45 Resp 38 H 08/04/17 09:45 BP 143/98 H 08/04/17 09:45 Pulse Ox 68 L 08/04/17 09:45 - Orders/Labs/Meds Orders: Active Orders 24 hr Category Date Time Status EKG Documentation Completion [RC] STAT Care 08/04/17 10:22 Active Ang Chest [CT] Stat Exams 08/04/17 11:45 Taken CULTURE BLOOD [BC] Stat Lab 08/04/17 10:50 Received CULTURE BLOOD [BC] Stat Lab 08/04/17 10:50 Received CULTURE URINE [RM] Stat Lab 08/04/17 10:30 Received Sodium Chloride 0.9% [Normal Saline] 100 ml Med 08/04/17 12:15 Active IV ASDIRECTED Blood Culture x2 Reflex Set [OM.PC] Stat Oth 08/04/17 10:22 Ordered Medication Orders Sodium Chloride (Normal Saline) 100 mls @ 60 mls/hr IV ASDIRECTED NORMA Last Admin: 08/04/17 12:31 Dose: 60 mls/hr Labs: Laboratory Tests 08/04/17 08/04/17 08/04/17 Range/Units 09:55 09:55 09:55 WBC 22.70 H (4.23-9.07) K/mm3 RBC 4.16 L (4.63-6.08) M/mm3 Hgb 13.6 L (13.7-17.5) gm/L Hct 43.3 (40.1-51.0) % MCV 104.1 H (79.0-92.2) fl MCH 32.7 H (25.7-32.2) pg MCHC 31.4 L (32.2-35.5) g/dl RDW Std Deviation 58.2 H (35.1-43.9) fL Plt Count 295 (163-337) K/mm3 MPV 10.5 (9.4-12.3) fl Neutrophils % (Manual) 57 (40-60) % Band Neutrophils % 6 (0-10) % Lymphocytes % (Manual) 29 (20-40) % Atypical Lymphs % 0 % Monocytes % (Manual) 6 (2-10) % Eosinophils % (Manual) 2 (0.8-7.0) % Basophils % (Manual) 0 L (0.2-1.2) Differential Comment See note Toxic Granulation 1+ slight Platelet Estimate Adequate Anisocytosis 1+ slight Macrocytosis 1+ slight RBC Morph Comment Not Reportable PT 13.7 H (8.0-13.0) SECONDS INR 1.24 APTT 28 (22-36) SECONDS D-Dimer, Quantitative 0.87 H (0.19-0.59) mg/L Puncture Site ABG pH (7.35-7.45) ABG pCO2 (35.0-45.0) mmHg ABG pO2 (80.0-100.0) mmHg ABG HCO3 (22.0-26.0) meq/L ABG O2 Saturation (96.0-97.0) % ABG Base Excess (-2-2.0) Alexandre Test A-a Gradient mmHg O2 Delivery Device Oxygen Flow Rate FiO2 (21.00-100.00) % Sodium 146 H (136-145) mEq/L Potassium 4.2 (3.5-5.1) mEq/L Chloride 103 (98-107) mEq/L Carbon Dioxide 33 H (21-32) mEq/L Anion Gap 14.2 (5-15) BUN 35 H (7-18) mg/dL Creatinine 1.4 H (0.7-1.3) mg/dL Est Cr Clr Drug Dosing 41.09 mL/min Estimated GFR (MDRD) 48 (>60) mL/min BUN/Creatinine Ratio 25.0 H (14-18) Glucose 129 H (83-115) mg/dL Lactic Acid (0.4-2.0) mmol/L Calcium 10.0 (8.5-10.1) mg/dL Total Bilirubin 0.9 (0.2-1.0) mg/dL AST 16 (15-37) U/L ALT 22 (16-63) U/L Alkaline Phosphatase 65 (46-116) U/L Troponin I 0.020 (0.00-0.056) ng/mL NT-Pro-B Natriuret Pep 2511 H (0-450) pg/mL Total Protein 6.9 (6.4-8.2) g/dl Albumin 3.4 (3.4-5.0) g/dl Globulin 3.5 gm/dL Albumin/Globulin Ratio 1.0 (1-2) Urine Color (Yellow) Urine Appearance (Clear) Urine pH (5.0-8.0) Ur Specific [place] (1.005-1.030) Urine Protein (Negative) Urine Glucose (UA) (Negative) Urine Ketones (Negative) Urine Occult Blood (Negative) Urine Nitrite (Negative) Urine Bilirubin (Negative) Urine Urobilinogen (0.2-1.0) Ur Leukocyte Esterase (Negative) Urine RBC (0-5) /hpf Urine WBC (0-5) /hpf Ur Epithelial Cells (0-5) /hpf Urine Bacteria (FEW) /hpf Urine Mucus (FEW) /hpf 11/15/17 11/15/17 11/15/17 Range/Units 09:55 10:30 10:53 WBC (4.23-9.07) K/mm3 RBC (4.63-6.08) M/mm3 Hgb (13.7-17.5) gm/L Hct (40.1-51.0) % MCV (79.0-92.2) fl MCH (25.7-32.2) pg MCHC (32.2-35.5) g/dl RDW Std Deviation (35.1-43.9) fL Plt Count (163-337) K/mm3 MPV (9.4-12.3) fl Neutrophils % (Manual) (40-60) % Band Neutrophils % (0-10) % Lymphocytes % (Manual) (20-40) % Atypical Lymphs % % Monocytes % (Manual) (2-10) % Eosinophils % (Manual) (0.8-7.0) % Basophils % (Manual) (0.2-1.2) Differential Comment Toxic Granulation Platelet Estimate Anisocytosis Macrocytosis RBC Morph Comment PT (8.0-13.0) SECONDS INR APTT (22-36) SECONDS D-Dimer, Quantitative (0.19-0.59) mg/L Puncture Site Lt radial ABG pH 7.36 (7.35-7.45) ABG pCO2 58.0 H (35.0-45.0) mmHg ABG pO2 56.0 L (80.0-100.0) mmHg ABG HCO3 32.0 H (22.0-26.0) meq/L ABG O2 Saturation 88.0 L (96.0-97.0) % ABG Base Excess 5.5 H (-2-2.0) Alexandre Test Positive A-a Gradient 128 mmHg O2 Delivery Device Nasal cannula Oxygen Flow Rate 5.0 FiO2 40.00 (21.00-100.00) % Sodium (136-145) mEq/L Potassium (3.5-5.1) mEq/L Chloride (98-107) mEq/L Carbon Dioxide (21-32) mEq/L Anion Gap (5-15) BUN (7-18) mg/dL Creatinine (0.7-1.3) mg/dL Est Cr Clr Drug Dosing mL/min Estimated GFR (MDRD) (>60) mL/min BUN/Creatinine Ratio (14-18) Glucose (83-115) mg/dL Lactic Acid 2.7 H (0.4-2.0) mmol/L Calcium (8.5-10.1) mg/dL Total Bilirubin (0.2-1.0) mg/dL AST (15-37) U/L ALT (16-63) U/L Alkaline Phosphatase (46-116) U/L Troponin I (0.00-0.056) ng/mL NT-Pro-B Natriuret Pep (0-450) pg/mL Total Protein (6.4-8.2) g/dl Albumin (3.4-5.0) g/dl Globulin gm/dL Albumin/Globulin Ratio (1-2) Urine Color Yellow (Yellow) Urine Appearance Slt cloudy H (Clear) Urine pH 6.0 (5.0-8.0) Ur Specific [place] 1.015 (1.005-1.030) Urine Protein Negative (Negative) Urine Glucose (UA) Negative (Negative) Urine Ketones Negative (Negative) Urine Occult Blood Negative (Negative) Urine Nitrite Negative (Negative) Urine Bilirubin Negative (Negative) Urine Urobilinogen 0.2 (0.2-1.0) Ur Leukocyte Esterase Trace H (Negative) Urine RBC Not seen (0-5) /hpf Urine WBC 5-10 H (0-5) /hpf Ur Epithelial Cells Not seen (0-5) /hpf Urine Bacteria Few (FEW) /hpf Urine Mucus Not seen (FEW) /hpf Meds: Medications Generic Name Dose Route Start Last Admin Trade Name Freq PRN Reason Stop Dose Admin Sodium Chloride 100 mls @ 60 mls/hr 08/04/17 12:15 08/04/17 12:31 Normal Saline IV 60 mls/hr ASDIRECTED NORMA Administration Discontinued Medications Generic Name Dose Route Start Last Admin Trade Name Freq PRN Reason Stop Dose Admin Furosemide 40 mg 08/04/17 10:24 08/04/17 10:28 Lasix IVPUSH 08/04/17 10:25 40 mg NOW ONE Administration Levofloxacin/Dextrose 750 mg/ 150 mls @ 100 mls/hr 08/04/17 11:45 08/04/17 12 :00 Premix IV 08/04/17 13:14 100 mls/hr ONETIME ONE Administration Iopamidol 100 ml 08/04/17 12:10 08/04/17 12:31 Isovue-370 (76%) IVPUSH 08/04/17 12:11 100 ml ONETIME ONE Administration Loratadine 10 mg 08/04/17 11:55 08/04/17 12:06 Claritin PO 08/04/17 11:56 10 mg ONETIME ONE Administration Methylprednisolone Sodium Succinate 125 mg 08/04/17 11:54 08/04/17 12:08 Solu-Medrol IVPUSH 08/04/17 11:55 125 mg ONETIME ONE Administration Sodium Chloride 10 ml 08/04/17 12:10 08/04/17 12:31 Saline Flush FLUSH 08/04/17 12:11 10 ml ONETIME ONE Administration - Re-Assessments/Exams Free Text/Narrative Re-Assessment/Exam: 08/04/17 10:52 Portable chest radiograph reviewed. There appears to be substantial atelectasis on the right, with near-complete opacity of the lower 3/4 of the right lung field. Pleural effusion can't be ruled out, however, there is deviation of the trachea to the right, consistent with atelectasis. This is substantially increased from prior portable chest radiograph dated 07/12/2017. Cardiac silhouette appears to be within normal limits. No obvious pulmonary vascular congestion. There is a rectangle-shaped opacity in the left mid lung field, unchanged from prior chest radiograph 07/12/2017. No pneumothorax. Multiple surgical clips incidentally noted. Formal read per the Radiologist pending. 08/04/17 11:48 The patient's to be BC count has returned as substantially elevated at 22.70 with 6% bandemia. I cannot rule out pneumonia, therefore have ordered Levaquin 750 mg IV. His d-dimer has returned elevated at 0.87, down from 2.21 on 2016, however, the chest radiograph alone does not explain the significant opacity on the right side of his lung, therefore I have ordered a CT angiogram of the chest. The patient's urinalysis demonstrates 5-10 WBCs and few bacteria, not an unexpected result from a urostomy source, however, I have ordered a urine culture. 08/04/17 11:55 Notified that the patient has had a reaction to iodinated contrast the past. I asked the patient and his daughter about this. Apparently the patient had a rash following his coronary angiogram many years ago, although the patient himself does not remember. They also reported an allergy to Benadryl, and that it makes him confused. I have therefore ordered Solu-Medrol 125 mg IVP and 10 mg of oral Claritin. 08/04/17 12:51 Portable chest radiograph is read by Dr. Smith as: 1. Slightly decreased density within the left mid chest from prior exam. 2. Increasing right sided pleural effusion is seen from previous study. 3. Other stable findings as noted above. 08/04/17 13:30 CT angiogram of the chest is read by [facility] as "Right lung pneumonia , possible bilateral pneumonia. Postoperative changes." 08/04/17 13:44 Test results discussed with the patient and his daughter. Today's workup indicates that the patient has right-sided pneumonia and acute kidney injury. I' m recommending admission to the hospital, as I believe the patient is too frail to be discharged home. They are agreeable. 08/04/17 14:[address] Garcia at 14:17. He agrees to admit the patient to Med/ Surg with telemetry. Departure - Departure Time of Disposition: 14:19 Disposition: Admitted As Inpatient 68 Condition: Fair Clinical Impression: Acute kidney injury, Atrial fibrillation with controlled ventricular rate Pneumonia Qualifiers: Pneumonia type: due to unspecified organism Laterality: right Lung location: unspecified part of lung Qualified Code(s): J18.9 - Pneumonia, unspecified organism Lung cancer Qualifiers: Laterality: right Lung location: lower lobe of lung Qualified Code(s): C34.31 - Malignant neoplasm of lower lobe, right bronchus or lung - Discharge Information - My Orders Last 24 Hours: My Active Orders 08/04/17 10:22 EKG Documentation Completion [RC] STAT Blood Culture x2 Reflex Set [OM.PC] Stat 08/04/17 10:30 CULTURE URINE [RM] Stat 08/04/17 10:50 CULTURE BLOOD [BC] Stat CULTURE BLOOD [BC] Stat 08/04/17 11:45 Ang Chest [CT] Stat 08/04/17 12:15 Sodium Chloride 0.9% [Normal Saline] 100 ml IV ASDIRECTED - Assessment/Plan Last 24 Hours: My Active Orders 08/04/17 10:22 EKG Documentation Completion [RC] STAT Blood Culture x2 Reflex Set [OM.PC] Stat 08/04/17 10:30 CULTURE URINE [RM] Stat 08/04/17 10:50 CULTURE BLOOD [BC] Stat CULTURE BLOOD [BC] Stat 08/04/17 11:45 Ang Chest [CT] Stat 08/04/17 12:15 Sodium Chloride 0.9% [Normal Saline] 100 ml IV ASDIRECTED
[2017-08-04] MEDS ORDERED: Levofloxacin/Dextrose 5%-Water 750 MG in Premix Bag 1 BAG IV ONE (11:45)
[2017-08-04] MEDS ORDERED: methylPREDNISolone Sodium Succinate 125 MG/2 ML SDV IVPUSH ONE (11:54)
[2017-08-04] MEDS ORDERED: Loratadine 10 MG Tab PO ONE (11:55)
--- NOTE | 2017-08-04 12:02 | CR ---
Chest: Portable view of the chest was obtained. Comparison: Parenchymal density within the left midlung is seen which appears slightly smaller currently than on previous exam. Increasing opacification of the right chest most likely due to increasing pleural effusion. Soft tissue prominence is noted within the superior mediastinum which is stable. Previous right shoulder surgery is noted. Previous CABG is also noted. Bony structures are osteopenic. Impression: 1. Slightly decreased density within the left mid chest from prior exam. 2. Increasing right sided pleural effusion is seen from previous study. 3. Other stable findings as noted above. Diagnostic code #3
[2017-08-04] MEDS ORDERED: Iopamidol 755 Mg/ML 100 ML Bottle IVPUSH ONE (12:10)
[2017-08-04] MEDS ORDERED: Sodium Chloride 0.9% 10 ML Syringe FLUSH ONE (12:10)
[2017-08-04] MEDS ORDERED: Sodium Chloride 0.9% 100 ML IV SCH (12:15)
[2017-08-04] MEDS ORDERED: Polyethylene Glycol 3350 Powder 17 GM Packet PO PRN (14:48)
[2017-08-04] MEDS ORDERED: Morphine 2 MG/ML Syringe IVPUSH PRN (14:48)
[2017-08-04] MEDS ORDERED: Acetaminophen 325 MG Tab PO PRN (14:48)
[2017-08-04] MEDS ORDERED: Bisacodyl 5 MG Tab PO PRN (14:48)
[2017-08-04] MEDS ORDERED: LORazepam 2 MG/ML MDV IV PRN (14:48)
[2017-08-04] MEDS ORDERED: Ondansetron 4 MG/2 ML SDV IV PRN (14:48)
[2017-08-04] MEDS ORDERED: Temazepam 7.5 MG Cap PO PRN (14:48)
[2017-08-04] MEDS ORDERED: Promethazine 6.25 MG in Sodium Chloride 0.9% 50 ML IV PRN (14:48)
[2017-08-04] MEDS ORDERED: Docusate Sodium 100 MG Cap PO PRN (14:48)
[2017-08-04] MEDS ORDERED: Acetaminophen/HYDROcodone 325-5 MG Tab PO PRN (14:48)
[2017-08-04] MEDS ORDERED: Metoprolol Tartrate 5 MG/5 ML SDV IVPUSH PRN (15:06)
[2017-08-04] MEDS ORDERED: hydrALAZINE 20 MG/ML SDV IVPUSH PRN (15:06)
--- NOTE | 2017-08-04 15:16 | CT ---
CT chest Technique: Multiple axial sections through the chest were obtained. Intravenous contrast was utilized. Study has been performed as a pulmonary angiogram protocol. Comparison: Previous CT chest of 04/05/17. Recent chest x-ray performed on the same day was also utilized for comparison. Findings: Diffuse consolidation is seen throughout a large portion of the right lung. Smaller parenchymal density density is noted within the left upper lung. Pulmonary arteries are well-opacified. No filling defects are seen to indicate pulmonary embolism. Aorta shows atherosclerotic change without aneurysmal dilatation. Previous surgery is seen with surgical clips being seen within the mediastinum. No pericardial thickening is seen. Scattered degenerative change is noted within the spine. Small portion of the upper abdominal structures are within normal limits. Small right sided pleural effusion is seen within the right lung base. Impression: 1. No findings of pulmonary embolism. 2. Diffuse consolidation throughout a large portion of the right lung. Small right sided pleural effusion is seen. 3. Additional density within the left upper lung. Areas of parenchymal density most likely representing pneumonia. 4. Other incidental findings. Diagnostic code #3 Agree with preliminary report issued by [facility] ([facility] preliminary report dictated on 08/04/17, 2:10 PM Central Time)
[2017-08-04] MEDS ORDERED: Piperacillin/Tazobactam 4.5 GM in Sodium Chloride 0.9% 100 ML IV ONE (16:00)
--- NOTE | 2017-08-04 17:48 | PCM.HP ---
H&P History of Present Illness - General Date of Service: 08/04/17 Admit Problem/Dx: Admission Diagnosis/Problem Admission Diagnosis/Problem Pneumonia Source of Information: Patient, Family, Old Records, Provider, RN History Limitations: Reports: No Limitations - History of Present Illness Initial Comments - Free Text/Narative: Melecio Hussein is an 87 yo male who presented to our ED today via ambulance with shortness of breath. Daughter reports patient has had a gurgling sound for the past 2-3 days. He also reports low back pain and chills this morning. Denies fever, vomiting, diarrhea. He has frequent UTIs and multiple prior pneumonia diagnosis. His history of COPD and right lung cancer. He is chronically on 2 L per nasal cannula. Upon arrival he was found to have sats under 70% and an RNB was applied, which raised his saturations to 90%. Temperature on ED presentation is around 99. His chronic right lower extremity edema. Recently developed left lower sternal ED edema. He recently seen his PCP Dr. Estrada and was prescribed prednisone and an antibiotic, although he does not know which antibiotic. In the ED pulses are 7. Respirations were elevated at 38. Blood pressure 143/98. Pulse ox was low at 68% as noted earlier. Labs are obtained: The CBC is high at 22.70, although does noted that he is on prednisone currently. Hemoglobin was low at 13.6. Hematocrit 43.3. Platelets 295,000. Neutrophils were at 57%. Band neutrophils 6%. PT was 13.7. INR 1.24. APTT 28. D-dimer elevated at 0.87. ABG was obtained and the left radial. PH low end of normal at 7.36. PCO2 58. PO2 56. HCO3 32. ABG O2 saturation 80%. Base excess 5.5. A-a gradient 128. This was obtained on 5 L of oxygen via nasal cannula. FiO2 is 40%. Sodium was at elevated at 146. Potassium 4.2. Chloride 103. Carbon dioxide slightly high at 33. Anion gap 14.2. BUN 35. Creatinine 1.4. EGFR 48. Glucose 129. Lactic acid high at 2.7. Calcium 0.9. AST 16 ALT 22 alkaline phosphatase 65. Troponin 0.020 BNP was elevated at 20/5/11. Albumin low end of good at 3.4. UA was negative. Urine culture was ordered and is pending. In the ED he was given 40 mg of Lasix. 7 and 50 mg Levaquin drip was started. Claritin 10 mg was given. Solu- Medrol 125 mg IV push was given. Total chest x-ray interpreted by Dr. Smith reads 1. Slight decreased density within the left mid chest from prior exam. 2. Increased right-sided pleural effusion seen from previous study. 3. Other stable findings as noted above. CT angiogram of the chest was also obtained and interpreted per Dr. Smith as: 1. No findings of pulmonary embolism. 2. Diffuse consolidation throughout a large portion of the right lung. Small right-sided pleural effusion is seen. 3. Additional density within the left upper lung. There is a parenchymal density most likely representing pneumonia. 4. Other incidental findings. EKG was obtained noting A. fib at 97 bpm. There is a nonspecific intraventricular conduction delay noted. This was compared to an EKG from with no changes. He carries a history of A. fib on Xarelto, CAD, CHF, HTN, SC 1 with 4 vessel CABG in 1990, COPD, chronic oxygen use at 2 L, right lung resection, prior lung and bladder cancer. He is a prior 58 -pack-year smoker who quit in 2017. He was subsequently admitted to the medical floor with telemetry. His PCP is Dr. Estrada at [facility]. Bilateral Lower Back Pain Score (Numeric/FACES): 5 - Related Data Allergies/Adverse Reactions: Allergies Allergy/AdvReac Type Severity Reaction Status Date / Time diphenhydramine Allergy Hallucinati Verified 08/04/17 11:53 [From Benadryl] ons iodine Allergy Hives Verified 08/04/17 11:53 iopamidol Allergy Rash Verified 08/04/17 11:53 Home Medications: Home Meds Metoprolol Tartrate [Lopressor] 25 mg PO BID 09/30/14 [History] Furosemide [Lasix] 20 mg PO BID 09/27/15 [History] Gabapentin [Neurontin] 3 tab PO BEDTIME 01/08/16 [History] Rivaroxaban [Xarelto] 20 mg PO BEDTIME 01/04/17 [History] atorvaSTATin [Lipitor] 10 mg PO BEDTIME 01/04/17 [History] Albuterol/Ipratropium [DuoNeb 3.0-0.5 MG/3 ML] 3 ml NEB BID 04/05/17 [History] Losartan [Cozaar] 50 mg PO DAILY 04/05/17 [History] Omeprazole 20 mg PO DAILY 04/05/17 [History] Albuterol [Proventil HFA] 2 puff INH Q6HR PRN 08/04/17 [History] Budesonide [Pulmicort] 1 puff INH BID 08/04/17 [History] L Acidophil/B Lactis/B Longum [Florajen3] 1 tab PO BID 08/04/17 [History] Past Medical History HEENT History: Reports: Impaired Vision Other HEENT History: wears eyeglasses Cardiovascular History: Reports: Afib, CAD, Heart Failure, Hypertension, SC (x 1 ) Respiratory History: Reports: COPD (Home O2 2L per N/C continuously) Other Respiratory History: 09/22 R) lung removed, lung CA. Wears O2 round the clock, uses CPAP at noct. Gastrointestinal History: Reports: Colon Polyp, GERD Genitourinary History: Reports: UTI, Recurrent, Other (See Below) Other Genitourinary History: had bladder CA, bladder removed--urostomy. 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 ), sciatica pain Psychiatric History: Reports: Depression Endocrine/Metabolic History: Reports: None Hematologic History: Reports: None Immunologic History: Reports: None Oncologic (Cancer) History: Reports: Bladder, Lung Dermatologic History: Reports: None - Infectious Disease History Infectious Disease History: Reports: Chicken Pox, Measles, Shingles - Past Surgical History HEENT Surgical History: Reports: Cataract Surgery Cardiovascular Surgical History: Reports: Coronary Artery Bypass (x 4 vessel, 1990) Respiratory Surgical History: Reports: Lung Resection (right) GI Surgical History: Reports: Hernia, Inguinal (left) Male Surgical History: Reports: Cystectomy, Other (See Below) (Urostomy) Musculoskeletal Surgical History: Reports: Hip Replacement (left), Shoulder Surgery (arthroscopic rotator cuff repair) Social & Family History - Family History Family Medical History: Noncontributory Cardiac: Reports: Bypass, Heart Failure, SC, Pacemaker Other Cardiac Family History: few brothers from [place]. OBGYN: Reports: Oncologic: Reports: Liver, Pancreatic, Prostate Other Oncologic Family History: brother prostate, Brother-pancreatic cancer, sister- liver cancer - Tobacco Use Smoking Status *Q: Former Smoker Years of Tobacco use: 58 Packs/Tins Daily: 1 Used Tobacco, but Quit: No Month Tobacco Last Used: Quit 2006 Second Hand Smoke Exposure: No - Caffeine Use Caffeine Use: Reports: Coffee Other Caffeine Use: 1 cup daily - Alcohol Use Days Per Week of Alcohol Use: 3 Number of Drinks Per Day: 3 Total Drinks Per Week: 9 - Recreational Drug Use Recreational Drug Use: No - Living Situation & Occupation Living situation: Reports: , with Family (Daughter) Occupation: Retired H&P Review of Systems - Review of Systems: Review Of Systems: See Below General: Reports: Weakness. Denies: Fever, Chills, Malaise, Fatigue, Decreased Appetite HEENT: Reports: No Symptoms. Denies: Ear Pain, Eye Pain, Headaches, Hearing Changes, Post Nasal Drip, Sore Throat, Visual Changes Pulmonary: Reports: Shortness of Breath, Wheezing, Cough, Sputum. Denies: Pleuritic Chest Pain, Hemoptysis Cardiovascular: Reports: Dyspnea on Exertion, Edema. Denies: Chest Pain, Palpitations, Lightheadedness, Syncope Gastrointestinal: Reports: No Symptoms. Denies: Abdominal Pain, Constipation, Diarrhea, Nausea, Vomiting Genitourinary: Reports: No Symptoms, Other (urostomy in place ). Denies: Dysuria, Frequency, Burning, Pain, Urgency Musculoskeletal: Reports: Back Pain (chronic ). Denies: Neck Pain, Shoulder Pain, Arm Pain, Hand Pain, Leg Pain, Foot Pain, Joint Pain, Joint Swelling, Muscle Pain, Muscle Stiffness Skin: Reports: No Symptoms Psychiatric: Reports: No Symptoms. Denies: Confusion, Depression, Mood Lability , Anxiety, Hallucinations Neurological: Reports: No Symptoms, Pre-Existing Deficit (Right leg paralysis). Denies: Confusion, Dizziness, Headache, Numbness, Tingling, Trouble Speaking Hematologic/Lymphatic: Reports: No Symptoms Immunologic: Reports: No Symptoms Exam - Exam Exam: See Below - Vital Signs Vital Signs: Last Vital Signs Temp 99.8 F 08/04/17 09:45 Pulse 73 08/04/17 15:45 Resp 23 H 08/04/17 15:45 BP 143/98 H 08/04/17 09:45 Pulse Ox 96 08/04/17 15:45 Weight: 196 lb - Exam Quality Assessment: Supplemental Oxygen, DVT Prophylaxis General: Alert, Oriented, Cooperative. No: Mild Distress HEENT: Conjunctiva Clear, EACs Clear, EOMI, Hearing Intact, Mucosa Moist & Teague , Nares Patent, Normal Nasal Septum, Posterior Pharynx Clear, PERRLA Neck: Supple, Trachea Midline. No: Lymphadenopathy, JVD, Thyromegaly Lungs: Normal Respiratory Effort, Decreased Breath Sounds, Rhonchi. No: Wheezing Cardiovascular: Regular Rate, Irregular Rhythm GI/Abdominal Exam: Normal Bowel Sounds, Soft, Non-Tender, No Organomegaly, No Distention, No Abnormal Bruit, No Mass, Pelvis Stable (Male) Exam: Deferred Rectal (Males) Exam: Deferred Back Exam: Normal Inspection, Decreased Range of Motion Extremities: Normal Inspection, Normal Range of Motion, Non-Tender, Normal Capillary Refill, Pedal Edema (1-2+ ) Peripheral Pulses: 1+: Posterior Tibial (L), Posterior Tibial (R), Dorsalis Pedis (L), Dorsalis Pedis (R), 4+: Radial (L), Radial (R) Skin: Warm, Dry, Intact Neurological: Cranial Nerves Intact (Grossly), Abnormal Gait (From Right leg paralysis) Neuro Extensive - Mental Status: Alert, Oriented x3, Normal Mood/Affect, Normal Cognition Neuro Extensive - Motor, Sensory, Reflexes: CN II-XII Intact (Grossly) Psychiatric: Alert, Normal Affect, Normal Mood - Patient Data Result Diagrams: 08/04/17 09:55 08/04/17 09:55 *Q Meaningful Use (ADM) - VTE *Q VTE Criteria *Q: - Stroke *Q Stroke Criteria *Q: - AMI *Q AMI Criteria *Q: - Problem List (1) Pneumonia SNOMED Code(s): 315168620 ICD Code: J18.9 - PNEUMONIA, UNSPECIFIED ORGANISM Status: Acute Priority : High Current Visit: Yes Qualifiers: Pneumonia type: due to unspecified organism Laterality: bilateral Lung location: unspecified part of lung Qualified Code(s): J18.9 - Pneumonia, unspecified organism (2) Acute kidney injury SNOMED Code(s): 62989121 ICD Code: N17.9 - ACUTE KIDNEY FAILURE, UNSPECIFIED Status: Acute Priority: Medium Current Visit: Yes (3) Atrial fibrillation with controlled ventricular rate SNOMED Code(s): 69438897 ICD Code: I48.91 - UNSPECIFIED ATRIAL FIBRILLATION Status: Chronic Priority: Low Current Visit: Yes (4) COPD (chronic obstructive pulmonary disease) SNOMED Code(s): 29278458 ICD Code: J44.9 - CHRONIC OBSTRUCTIVE PULMONARY DISEASE, UNSPECIFIED Status : Chronic Priority: Medium Current Visit: Yes Qualifiers: COPD type: unspecified COPD Qualified Code(s): J44.9 - Chronic obstructive pulmonary disease, unspecified (5) Congestive heart failure SNOMED Code(s): 13603097 ICD Code: I50.9 - HEART FAILURE, UNSPECIFIED Status: Chronic Priority: High Current Visit: Yes Qualifiers: Congestive heart failure type: diastolic Congestive heart failure chronicity: acute on chronic Qualified Code(s): I50.33 - Acute on chronic diastolic (congestive) heart failure Problem List Initiated/Reviewed/Updated: Yes Orders Last 24hrs: Active Orders 24 hr Category Date Time Status Admission Status [Patient Status] [ADT] Routine ADT 08/04/17 17:02 Active Acapella [RT Chest Physiotherapy] [RC] ASDIRECTED Care 08/04/17 17:25 Active Cardiac Monitoring [RC] CONTINUOUS Care 08/04/17 15:01 Active Height and Weight [RC] DAILY Care 08/04/17 14:48 Active Intake and Output [RC] QSHIFT Care 08/04/17 15:01 Active Oxygen Therapy [RC] PRN Care 08/04/17 14:48 Active Pulse Oximetry [RC] PRN Care 08/04/17 15:01 Active RT Aerosol Therapy [RC] ASDIRECTED Care 08/04/17 15:03 Active Up With Assistance [RC] ASDIRECTED Care 08/04/17 14:48 Active Up ad Diana [RC] ASDIRECTED Care 08/04/17 14:48 Active VTE/DVT Education [RC] PER UNIT ROUTINE Care 08/04/17 14:48 Active Vital Signs [RC] Q4H Care 08/04/17 14:48 Active Consult to Case Management [CONS] Routine Cons 08/04/17 15:04 Active Consult to Pin Inserter Regulator [CONS] Routine Cons 08/04/17 15:04 Active Consult to Spiritual Care [CONS] Routine Cons 08/04/17 15:04 Active OT Evaluation and Treatment [CONS] Routine Cons 08/04/17 15:04 Active PT Evaluation and Treatment [CONS] Routine Cons 08/04/17 15:04 Active Respiratory Care Assess and Treatment [CONS] Routine Cons 08/04/17 15:04 Active Regular Diet [DIET] Diet 08/04/17 Dinner Active Chest 1V Frontal [CR] AM Exams 08/06/17 05:11 Ordered BASIC METABOLIC PANEL,BMP [CHEM] AM Lab 08/05/17 05:11 Ordered BASIC METABOLIC PANEL,BMP [CHEM] AM Lab 08/06/17 05:11 Ordered BASIC METABOLIC PANEL,BMP [CHEM] AM Lab 08/07/17 05:11 Ordered BASIC METABOLIC PANEL,BMP [CHEM] AM Lab 08/08/17 05:11 Ordered C-REACTIVE PROTEIN [CHEM] AM Lab 08/05/17 05:11 Ordered C-REACTIVE PROTEIN [CHEM] AM Lab 08/06/17 05:11 Ordered C-REACTIVE PROTEIN [CHEM] AM Lab 08/07/17 05:11 Ordered C-REACTIVE PROTEIN [CHEM] AM Lab 08/08/17 05:11 Ordered C-REACTIVE PROTEIN [CHEM] AM Lab 08/09/17 05:11 Ordered CBC WITH AUTO DIFF [HEME] AM Lab 08/05/17 05:11 Ordered CBC WITH AUTO DIFF [HEME] AM Lab 08/06/17 05:11 Ordered CBC WITH AUTO DIFF [HEME] AM Lab 08/07/17 05:11 Ordered CBC WITH AUTO DIFF [HEME] AM Lab 08/08/17 05:11 Ordered CBC WITH AUTO DIFF [HEME] AM Lab 08/09/17 05:11 Ordered CULTURE SPUTUM + SMEAR [RM] Stat Lab 08/04/17 15:04 Uncollected MAGNESIUM [CHEM] AM Lab 08/05/17 05:11 Ordered MAGNESIUM [CHEM] AM Lab 08/06/17 05:11 Ordered MAGNESIUM [CHEM] AM Lab 08/07/17 05:11 Ordered MAGNESIUM [CHEM] AM Lab 08/08/17 05:11 Ordered MAGNESIUM [CHEM] AM Lab 08/09/17 05:11 Ordered Acetaminophen [Tylenol] Med 08/04/17 14:48 Active 650 mg PO Q4H PRN Acetaminophen/HYDROcodone [[place] 325-5 MG] Med 08/04/17 14:48 Active 1 tab PO Q4H PRN Albuterol/Ipratropium [DuoNeb 3.0-0.5 MG/3 ML] Med 08/04/17 21:00 Active 3 ml NEB BID Albuterol/Ipratropium [DuoNeb 3.0-0.5 MG/3 ML] Med 08/04/17 14:48 Active 3 ml NEB Q4H PRN Bisacodyl [Dulcolax] Med 08/04/17 14:48 Active 5 mg PO DAILY PRN Docusate Sodium [Colace] Med 08/04/17 14:48 Active 100 mg PO BID PRN Docusate Sodium/Sennosides [Senna Plus] Med 08/04/17 14:48 Active 1 tab PO BID PRN Furosemide [Lasix] Med 08/04/17 21:00 Active 20 mg PO BID Gabapentin [Neurontin] Med 08/04/17 21:00 Active 1,800 mg PO BEDTIME LORazepam [Ativan] Med 08/04/17 14:48 Active 0.25 mg IV Q6H PRN Levofloxacin/Dextrose 5%-Water [Levaquin in D5W 750 MG/ Med 08/04/17 11:00 Active 150 ML] 750 mg Premix Bag 1 bag IV Q24H Magnesium Rep Pharmacy to Dose [Pharmacy to Dose - Med 08/04/17 15:15 Active Magnesium Replacement] 1 dose .XX ASDIRECTED Metoprolol Tartrate [Lopressor] Med 08/04/17 21:00 Active 25 mg PO BID Metoprolol Tartrate [Lopressor] Med 08/04/17 15:06 Active 5 mg IVPUSH Q4H PRN Morphine Med 08/04/17 14:48 Active 0.5 mg IVPUSH Q4H PRN Ondansetron [Zofran] Med 08/04/17 14:48 Active 4 mg IV Q6H PRN Pantoprazole [ProTONIX] Med 08/05/17 09:00 Active 40 mg PO DAILY Piperacillin/Tazobactam [Zosyn] 4.5 gm Med 08/04/17 22:00 Active Sodium Chloride 0.9% [Normal Saline] 100 ml IV Q6H Polyethylene Glycol 3350 [MiraLAX] Med 08/04/17 14:48 Active 17 gm PO DAILY PRN Potassium Rep Pharmacy to Dose [Pharmacy to Dose - Med 08/04/17 15:15 Active Potassium Replacement] 1 dose .XX ASDIRECTED Promethazine [Phenergan] 6.25 mg Med 08/04/17 14:48 Active Sodium Chloride 0.9% [Normal Saline] 50 ml IV Q6H Rivaroxaban [Xarelto] Med 08/04/17 21:00 Active 20 mg PO BEDTIME Saccharomyces Boulardii [Florastor] Med 08/04/17 21:00 Active 250 mg PO BID Simvastatin [Zocor] Med 08/04/17 21:00 Active 10 mg PO BEDTIME Temazepam [Restoril] Med 08/04/17 14:48 Active 7.5 mg PO BEDTIME PRN hydrALAZINE [Apresoline] Med 08/04/17 15:06 Active 10 mg IVPUSH Q4H PRN methylPREDNISolone Sod Succ [Solu-MEDROL] Med 08/04/17 21:00 Active 80 mg IVPUSH Q12H Resuscitation Status Routine Resus Stat 08/04/17 14:48 Ordered Medication Orders Acetaminophen (Tylenol) 650 mg PO Q4H PRN PRN Reason: Pain (Mild 1-3)/fever Hydrocodone Bitart/Acetaminophen ([place] 325-5 Mg) 1 tab PO Q4H PRN PRN Reason: Pain (moderate 4-6) Albuterol/Ipratropium (Duoneb 3.0-0.5 Mg/3 Ml) 3 ml NEB Q4H PRN PRN Reason: Shortness Of Breath/wheezing Albuterol/Ipratropium (Duoneb 3.0-0.5 Mg/3 Ml) 3 ml NEB BID [facility] Bisacodyl (Dulcolax) 5 mg PO DAILY PRN PRN Reason: Constipation Docusate Sodium (Colace) 100 mg PO BID PRN PRN Reason: Constipation Furosemide (Lasix) 20 mg PO BID [facility] Gabapentin (Neurontin) 1,800 mg PO BEDTIME [facility] Hydralazine HCl (Apresoline) 10 mg IVPUSH Q4H PRN PRN Reason: Hypertension Sodium Chloride (Normal Saline) 100 mls @ 60 mls/hr IV ASDIRECTED [facility] Last Admin: 08/04/17 12:31 Dose: 60 mls/hr Levofloxacin/Dextrose 750 mg/ (Premix) 150 mls @ 100 mls/hr IV Q24H [facility] Piperacillin Sod/Tazobactam (Sod 4.5 gm/ Sodium Chloride) 100 mls @ 33.333 mls/ hr IV Q6H [facility] Promethazine HCl 6.25 mg/ (Sodium Chloride) 50.25 mls @ 100 mls/hr IV Q6H PRN PRN Reason: Nausea/Vomiting Lorazepam (Ativan) 0.25 mg IV Q6H PRN PRN Reason: Anxiety Magnesium Sulfate (Pharmacy To Dose - Magnesium Replacement) 1 dose .XX ASDIRECTED [facility] Methylprednisolone Sodium Succinate (Solu-Medrol) 80 mg IVPUSH Q12H [facility] Metoprolol Tartrate (Lopressor) 5 mg IVPUSH Q4H PRN PRN Reason: Tachycardia Metoprolol Tartrate (Lopressor) 25 mg PO BID [facility] Morphine Sulfate (Morphine) 0.5 mg IVPUSH Q4H PRN PRN Reason: Other Stop: 08/05/17 15:02 Ondansetron HCl (Zofran) 4 mg IV Q6H PRN PRN Reason: Nausea/Vomiting Pantoprazole Sodium (Protonix) 40 mg PO DAILY [facility] Polyethylene Glycol (Miralax) 17 gm PO DAILY PRN PRN Reason: Constipation Potassium Chloride (Pharmacy To Dose - Potassium Replacement) 1 dose .XX ASDIRECTED [facility] Rivaroxaban (Xarelto) 20 mg PO BEDTIME [facility] Saccharomyces Boulardii (Florastor) 250 mg PO BID [facility] Senna/Docusate Sodium (Senna Plus) 1 tab PO BID PRN PRN Reason: Constipation Simvastatin (Zocor) 10 mg PO BEDTIME [facility] Temazepam (Restoril) 7.5 mg PO BEDTIME PRN PRN Reason: Sleep Assessment/Plan Comment:: I/P: Acute: Pneumonia -CTA along with CRX suggest right sides pneumonia, questionable left upper lobe as well -Productive cough -Rhonchi on physical exam -Low grade fever at 99 degrees F -WBC 22.70 although pt. is on steroid from prior clinic visit -Prescribed antibiotic due to possible pneumonia already - finishing up today \ -CRP 3.3 -Sputum culture ordered -Blood cultures pending -Hx/o COPD, Right lower lobe lung cancer, lobectomy, multiple prior episodes of pneumonia. -Right leg paralysis, therefore relatively sedentary lifestyle -Levaquin 750mg Q24hr -Zosyn 4.5gm Q6hr -Methylprednisolone 80mg Q12hr -Acapella -RT assess and treat -Duoneb BID -Morphine 0.5mg Q6Hr PRN -Oxygen as ordered Acute kidney injury -Baseline eGFR appears around 60 -eGFR 48 in ED -Creatinine 1.4 -BUN 35 -Given fluids in ED and for awhile on floor - will discontinue now and monitor labs for fear of worsening CHF Chronic: A-fib on Xarelto CAD HTN - stable, PRN meds as needed CHF - home meds as ordered SC (x1) with 4 vessel CABG in 1990 Right lung resection COPD with chronic oxygen use (2L) Lung cancer Bladder cancer Congenital left hand deformity Plan: Admit to medical floor on telemetry CM/SW for discharge planning PT/OT RT assess and treat DVT/PE prophylaxis - MARIVEL Hose and on Xarelto GI prophylaxis - Home Protonix Routine AM labs Other orders as indicated above Home medications as ordered He is a DNR/DNI. His PCP is Dr. Estrada at [facility].
[2017-08-04] MEDS: Albuterol/Ipratropium 3.0-0.5 MG/3 ML Neb Soln NEB SCH (21:21)
[2017-08-04] MEDS: Simvastatin 10 MG Tab PO SCH (21:57)
[2017-08-04] MEDS: Rivaroxaban 10 MG Tab PO SCH (21:57)
[2017-08-04] MEDS: Saccharomyces Boulardii (Probiotic) 250 MG Cap PO SCH (21:57)
[2017-08-04] MEDS: Gabapentin 600 MG Tab PO SCH (21:57)
[2017-08-04] MEDS: methylPREDNISolone Sodium Succinate 40 MG/1 ML SDV IVPUSH SCH (21:58)
[2017-08-04] MEDS: Furosemide 20 MG Tab PO SCH (21:58)
[2017-08-04] MEDS: Metoprolol Tartrate 25 MG Tab PO SCH (21:58)
[2017-08-04] MEDS: Piperacillin/Tazobactam 4.5 GM in Sodium Chloride 0.9% 100 ML IV SCH (21:59)
[2017-08-04] MEDS: Hypromellose 0.5% Ophth Soln 15 ML Bottle EYEBOTH PRN (22:45)
[2017-08-05] MEDS: Piperacillin/Tazobactam 4.5 GM in Sodium Chloride 0.9% 100 ML IV SCH ×4 (03:48→23:25)
[2017-08-05] MEDS: Albuterol/Ipratropium 3.0-0.5 MG/3 ML Neb Soln NEB PRN (06:26)
[2017-08-05] MEDS: Albuterol/Ipratropium 3.0-0.5 MG/3 ML Neb Soln NEB SCH ×2 (09:11→21:18)
[2017-08-05] MEDS: Benzonatate 100 MG Cap PO SCH ×4 (09:36→20:18)
[2017-08-05] MEDS: Furosemide 20 MG Tab PO SCH ×2 (09:37→20:18)
[2017-08-05] MEDS: Metoprolol Tartrate 25 MG Tab PO SCH ×2 (09:37→20:17)
[2017-08-05] MEDS: Pantoprazole 40 MG Tab.CR PO SCH (09:37)
[2017-08-05] MEDS: Saccharomyces Boulardii (Probiotic) 250 MG Cap PO SCH ×2 (09:37→20:19)
[2017-08-05] MEDS: methylPREDNISolone Sodium Succinate 40 MG/1 ML SDV IVPUSH SCH ×2 (09:38→20:19)
--- NOTE | 2017-08-05 12:03 | CR ---
Chest: Two views of the chest were obtained. Comparison: Previous chest x-ray of 08/04/17. Better aeration of the right chest is seen from prior study. Fluid is seen along the right lateral chest wall. Parenchymal density within left upper chest is stable. Heart is mildly enlarged. Previous surgery is noted. Right shoulder surgery also seen. Impression: 1. Improved aeration of the right chest. Pleural thickening along the right lateral chest compatible pleural effusion. 2. Stable parenchymal density within the left chest. Diagnostic code #3
[2017-08-05] MEDS: guaiFENesin/Dextromethorphan 100-10 MG/5 ML Soln 5 ML Cup PO SCH ×3 (14:22→23:24)
[2017-08-05] MEDS: Simvastatin 10 MG Tab PO SCH (20:17)
[2017-08-05] MEDS: Rivaroxaban 10 MG Tab PO SCH (20:17)
[2017-08-05] MEDS: Gabapentin 600 MG Tab PO SCH (20:18)
[2017-08-06] MEDS: guaiFENesin/Dextromethorphan 100-10 MG/5 ML Soln 5 ML Cup PO SCH ×4 (00:55→19:21)
[2017-08-06] MEDS: Piperacillin/Tazobactam 4.5 GM in Sodium Chloride 0.9% 100 ML IV SCH ×2 (04:09→09:53)
[2017-08-06] MEDS: Albuterol/Ipratropium 3.0-0.5 MG/3 ML Neb Soln NEB PRN ×2 (06:09→14:20)
--- NOTE | 2017-08-06 06:45 | PCM.PN ---
- General Info Date of Service: 08/05/17 Admission Dx/Problem (Free Text): Admission Diagnosis/Problem Admission Diagnosis/Problem Pneumonia Subjective Update: Follow Up Functional Status: Reports: Pain Controlled, Tolerating Diet, Ambulating, Urinating, New Symptoms (Hemoptysis) - Review of Systems General: Denies: Fever, Chills HEENT: Reports: No Symptoms Pulmonary: Reports: Shortness of Breath, Cough, Sputum, Hemoptysis Cardiovascular: Denies: Chest Pain, Palpitations, Dyspnea on Exertion, Lightheadedness Gastrointestinal: Denies: Abdominal Pain, Decreased Appetite, Difficulty Swallowing, Nausea, Vomiting Genitourinary: Reports: No Symptoms Musculoskeletal: Reports: No Symptoms Skin: Denies: Cyanosis, Jaundice, Mottled, Pallor, Diaphoresis, Pruritis Neurological: Reports: Weakness, Gait Disturbance. Denies: Confusion, Difficulty Walking Psychiatric: Denies: Mood Lability, Anxiety, Agitation, Hallucinations Systems Review Comment:: He was coughing up hemorrhagic sputum overnight. He is somewhat tired and could use more sleep today. His breathing is okay this am. His Hgb slightly dropped to 12.2 from 13.6. He has no complaints with his appetite. - Patient Data Vitals - Most Recent: Last Vital Signs Temp 36.3 C 08/06/17 03:36 Pulse 70 08/06/17 06:11 Resp 19 08/06/17 03:36 BP 129/57 L 08/06/17 03:36 Pulse Ox 96 08/06/17 03:36 Weight - Most Recent: 91.716 kg I&O - Last 24 Hours: Intake & Output 08/05/17 08/05/17 08/06/17 14:59 22:59 06:59 Intake Total 360 1280 600 Output Total 400 650 Balance 360 880 -50 Lab Results Last 24 Hours: Laboratory Results - last 24 hr 08/05/17 08/05/17 08/06/17 Range/Units 06:09 06:09 06:00 WBC 20.93 H 20.70 H (4.23-9.07) K/mm3 RBC 3.90 L 3.45 L (4.63-6.08) M/mm3 Hgb 12.2 L 11.2 L (13.7-17.5) gm/L Hct 40.2 35.3 L (40.1-51.0) % MCV 103.1 H 102.3 H (79.0-92.2) fl MCH 31.3 32.5 H (25.7-32.2) pg MCHC 30.3 L 31.7 L (32.2-35.5) g/dl RDW Std Deviation 56.5 H 56.0 H (35.1-43.9) fL Plt Count 169 185 (163-337) K/mm3 MPV 10.2 10.9 (9.4-12.3) fl Neut % (Auto) 94.1 H 95.4 H (34.0-67.9) % Lymph % (Auto) 2.0 L 1.4 L (21.8-53.1) % [place] % (Auto) 3.6 L 2.8 L (5.3-12.2) % Eos % (Auto) 0 L 0 L (0.8-7.0) Baso % (Auto) 0.0 L 0.0 L (0.1-1.2) % Neut # (Auto) 19.68 H 19.73 H (1.78-5.38) K/mm3 Lymph # (Auto) 0.42 L 0.29 L (1.32-3.57) K/mm3 [place] # (Auto) 0.75 0.57 (0.30-0.82) K/mm3 Eos # (Auto) 0.00 L 0.01 L (0.04-0.54) K/mm3 Baso # (Auto) 0.01 0.01 (0.01-0.08) K/mm3 Manual Slide Review Abnormal smear Sodium 144 (136-145) mEq/L Potassium 4.4 (3.5-5.1) mEq/L Chloride 101 (98-107) mEq/L Carbon Dioxide 34 H (21-32) mEq/L Anion Gap 13.4 (5-15) BUN 37 H (7-18) mg/dL Creatinine 1.5 H (0.7-1.3) mg/dL Est Cr Clr Drug Dosing 38.35 mL/min Estimated GFR (MDRD) 44 (>60) mL/min BUN/Creatinine Ratio 24.7 H (14-18) Glucose 237 H (83-115) mg/dL Calcium 9.7 (8.5-10.1) mg/dL Magnesium 2.0 (1.8-2.4) mg/dl C-Reactive Protein 17.9 H* (<1.0) mg/dL Med Orders - Current: Current Medications Acetaminophen (Tylenol) 650 mg PO Q4H PRN PRN Reason: Pain (Mild 1-3)/fever Hydrocodone Bitart/Acetaminophen ([place] 325-5 Mg) 1 tab PO Q4H PRN PRN Reason: Pain (moderate 4-6) Albuterol/Ipratropium (Duoneb 3.0-0.5 Mg/3 Ml) 3 ml NEB Q4H PRN PRN Reason: Shortness Of Breath/wheezing Last Admin: 08/06/17 06:09 Dose: 3 ml Albuterol/Ipratropium (Duoneb 3.0-0.5 Mg/3 Ml) 3 ml NEB BID [facility] Last Admin: 08/05/17 21:18 Dose: 3 ml Artificial Tears (Isopto Tears 0.5% Ophth Soln) 0 ml EYEBOTH BID PRN PRN Reason: Dry Eyes Last Admin: 08/04/17 22:45 Dose: 1 drop Benzonatate (Tessalon Perles) 100 mg PO TID [facility] Last Admin: 08/05/17 20:18 Dose: 100 mg Bisacodyl (Dulcolax) 5 mg PO DAILY PRN PRN Reason: Constipation Docusate Sodium (Colace) 100 mg PO BID PRN PRN Reason: Constipation Furosemide (Lasix) 20 mg PO BID [facility] Last Admin: 08/05/17 20:18 Dose: 20 mg Gabapentin (Neurontin) 1,800 mg PO BEDTIME [facility] Last Admin: 08/05/17 20:18 Dose: 1,800 mg Guaifenesin/Phenylephrine HCl (Robitussin Dm) 10 ml PO Q6H [facility] Last Admin: 08/06/17 00:55 Dose: Not Given Hydralazine HCl (Apresoline) 10 mg IVPUSH Q4H PRN PRN Reason: Hypertension Piperacillin Sod/Tazobactam (Sod 4.5 gm/ Sodium Chloride) 100 mls @ 33.333 mls/ hr IV Q6H [facility] Last Admin: 08/06/17 04:09 Dose: 33.333 mls/hr Promethazine HCl 6.25 mg/ (Sodium Chloride) 50.25 mls @ 100 mls/hr IV Q6H PRN PRN Reason: Nausea/Vomiting Levofloxacin/Dextrose 750 mg/ (Premix) 150 mls @ 100 mls/hr IV Q48H [facility] Lorazepam (Ativan) 0.25 mg IV Q6H PRN PRN Reason: Anxiety Magnesium Sulfate (Pharmacy To Dose - Magnesium Replacement) 1 dose .XX ASDIRECTED [facility] Methylprednisolone Sodium Succinate (Solu-Medrol) 80 mg IVPUSH Q12H [facility] Last Admin: 08/05/17 20:19 Dose: 80 mg Metoprolol Tartrate (Lopressor) 5 mg IVPUSH Q4H PRN PRN Reason: Tachycardia Metoprolol Tartrate (Lopressor) 25 mg PO BID [facility] Last Admin: 08/05/17 20:17 Dose: 25 mg Ondansetron HCl (Zofran) 4 mg IV Q6H PRN PRN Reason: Nausea/Vomiting Pantoprazole Sodium (Protonix) 40 mg PO DAILY [facility] Last Admin: 08/05/17 09:37 Dose: 40 mg Polyethylene Glycol (Miralax) 17 gm PO DAILY PRN PRN Reason: Constipation Potassium Chloride (Pharmacy To Dose - Potassium Replacement) 1 dose .XX ASDIRECTED [facility] Rivaroxaban (Xarelto) 20 mg PO BEDTIME [facility] Last Admin: 08/05/17 20:17 Dose: 20 mg Saccharomyces Boulardii (Florastor) 250 mg PO BID [facility] Last Admin: 08/05/17 20:19 Dose: 250 mg Senna/Docusate Sodium (Senna Plus) 1 tab PO BID PRN PRN Reason: Constipation Simvastatin (Zocor) 10 mg PO BEDTIME [facility] Last Admin: 08/05/17 20:17 Dose: 10 mg Temazepam (Restoril) 7.5 mg PO BEDTIME PRN PRN Reason: Sleep Discontinued Medications Furosemide (Lasix) 40 mg IVPUSH NOW ONE Stop: 08/04/17 10:25 Last Admin: 08/04/17 10:28 Dose: 40 mg Levofloxacin/Dextrose 750 mg/ (Premix) 150 mls @ 100 mls/hr IV ONETIME ONE Stop: 08/04/17 13:14 Last Admin: 08/04/17 12:00 Dose: 100 mls/hr Sodium Chloride (Normal Saline) 100 mls @ 60 mls/hr IV ASDIRECTED [facility] Last Admin: 08/04/17 12:31 Dose: 60 mls/hr Levofloxacin/Dextrose 750 mg/ (Premix) 150 mls @ 100 mls/hr IV Q24H [facility] Last Admin: 08/04/17 18:05 Dose: Not Given Piperacillin Sod/Tazobactam (Sod 4.5 gm/ Sodium Chloride) 100 mls @ 200 mls/hr IV ONETIME ONE Stop: 08/04/17 16:29 Last Admin: 08/04/17 17:15 Dose: 200 mls/hr Iopamidol (Isovue-370 (76%)) 100 ml IVPUSH ONETIME ONE Stop: 08/04/17 12:11 Last Admin: 08/04/17 12:31 Dose: 100 ml Loratadine (Claritin) 10 mg PO ONETIME ONE Stop: 08/04/17 11:56 Last Admin: 08/04/17 12:06 Dose: 10 mg Methylprednisolone Sodium Succinate (Solu-Medrol) 125 mg IVPUSH ONETIME ONE Stop: 08/04/17 11:55 Last Admin: 08/04/17 12:08 Dose: 125 mg Morphine Sulfate (Morphine) 0.5 mg IVPUSH Q4H PRN PRN Reason: Other Stop: 08/05/17 15:02 Sodium Chloride (Saline Flush) 10 ml FLUSH ONETIME ONE Stop: 08/04/17 12:11 Last Admin: 08/04/17 12:31 Dose: 10 ml - Exam Quality Assessment: Supplemental Oxygen General: Alert, Oriented, Cooperative, No Acute Distress HEENT: Pupils Equal, Pupils Reactive, EOMI, Mucous Membr. Moist/[place] Neck: Supple, Trachea Midline, No JVD Lungs: Normal Respiratory Effort, Decreased Breath Sounds, Wheezing GI/Abdominal Exam: Normal Bowel Sounds, Soft, Non-Tender, No Organomegaly, No Distention, No Abnormal Bruit, Other (Urostomy) (Male) Exam: Deferred Back Exam: Normal Inspection, Decreased Range of Motion Extremities: Normal Inspection, Normal Range of Motion, Non-Tender, No Pedal Edema, Normal Capillary Refill Peripheral Pulses: 2+: Dorsalis Pedis (L), Dorsalis Pedis (R) Skin: Warm, Dry, Intact Neurological: No New Focal Deficit Psy/Mental Status: Alert, Normal Affect, Other (Melancholic) - Problem List Review Problem List Initiated/Reviewed/Updated: Yes - My Orders Last 24 Hours: My Active Orders 08/05/17 08:00 Benzonatate [Tessalon Perles] 100 mg PO TID 08/05/17 12:45 Dextromethorphan/guaiFENesin [Robitussin DM] 10 ml PO Q6H 08/06/17 12:00 Levofloxacin/Dextrose 5%-Water [Levaquin in D5W 750 MG/150 ML] 750 mg Premix Bag 1 bag IV Q48H - Plan Plan:: I/P: Acute: Pneumonia - CTA along with CRX suggest right sides pneumonia, questionable left upper lobe as well: repeat CXR in AM - Productive cough; rhonchi on physical exam; low grade fever at 99 degrees F - WBC 22.70 although pt. is on steroid from prior clinic visit; 20.93--> now 20.70 - CRP 3.3--> now 17.9 - Sputum culture: pending; Blood cultures so far negative - Hx/o COPD, Right lower lobe lung cancer, lobectomy, multiple prior episodes of pneumonia. - Right leg paralysis, therefore relatively sedentary lifestyle - Continue Levaquin 750mg Q24hr/IV Zosyn 4.5gm Q6hr and Methylprednisolone 80mg Q12hr - Continue Acapella/RT assess and treat/Duoneb BID/Morphine 0.5mg Q6Hr PRN and Oxygen as ordered Hemoptysis, New - Started last night; he is on anti-coags - Start Oral Tessalon Perles - Isolation Precautions/Protective Measures - Continue IV antibiotic Acute Kidney Injury, Urine output is good - He has renal insufficiency by hx - Baseline eGFR appears around 60 - He has gotten diuretics in ED - eGFR 48 in ED --> 38 - Creatinine 1.4--> today 1.5 - BUN 35--> now 37 Chronic: A-fib on Xarelto CAD HTN - fairly stable, PRN meds as needed CHF - home meds as ordered [place] (x1) with 4 vessel CABG in 1990 Right lung resection COPD with chronic oxygen use (2L) Lung cancer Bladder cancer Congenital left hand deformity Plan: He is better clinically than yesterday Routine AM labs Continue PT/OT/RT assess and treat DVT/PE/GI prophylaxis - Xarelto/PPI Other orders as indicated above CM/SW for discharge planning He is a DNR/DNI. His PCP is Dr. Estrada at [facility]
--- NOTE | 2017-08-06 06:47 | PCM.PN ---
- General Info Date of Service: 08/06/17 Admission Dx/Problem (Free Text): Admission Diagnosis/Problem Admission Diagnosis/Problem Pneumonia Subjective Update: Follow Up Functional Status: Reports: Pain Controlled, Tolerating Diet, Ambulating, Urinating. Denies: New Symptoms - Review of Systems General: Denies: Fever, Chills HEENT: Reports: No Symptoms Pulmonary: Reports: Shortness of Breath, Cough, Sputum. Denies: Hemoptysis Cardiovascular: Denies: Palpitations, Lightheadedness Gastrointestinal: Denies: Abdominal Pain, Nausea, Vomiting Genitourinary: Reports: No Symptoms Musculoskeletal: Reports: No Symptoms Skin: Denies: Cyanosis, Pallor, Diaphoresis, Rash Neurological: Denies: Confusion, Difficulty Walking, Weakness, Gait Disturbance Psychiatric: Denies: Depression, Anxiety, Agitation, Hallucinations Systems Review Comment:: No significant overnight or acute issues. His cough is much better. He feels much better. He is afebrile but WBC was essentially the same. His Hgb level remains stable at 11.2. He has no new complaints. - Patient Data Vitals - Most Recent: Last Vital Signs Temp 36.3 C 08/06/17 03:36 Pulse 70 08/06/17 06:11 Resp 19 08/06/17 03:36 BP 129/57 L 08/06/17 03:36 Pulse Ox 96 08/06/17 03:36 Weight - Most Recent: 91.716 kg I&O - Last 24 Hours: Intake & Output 08/05/17 08/05/17 08/06/17 14:59 22:59 06:59 Intake Total 360 1280 600 Output Total 400 650 Balance 360 880 -50 Lab Results Last 24 Hours: Laboratory Results - last 24 hr 08/05/17 08/05/17 08/06/17 Range/Units 06:09 06:09 06:00 WBC 20.93 H 20.70 H (4.23-9.07) K/mm3 RBC 3.90 L 3.45 L (4.63-6.08) M/mm3 Hgb 12.2 L 11.2 L (13.7-17.5) gm/L Hct 40.2 35.3 L (40.1-51.0) % MCV 103.1 H 102.3 H (79.0-92.2) fl MCH 31.3 32.5 H (25.7-32.2) pg MCHC 30.3 L 31.7 L (32.2-35.5) g/dl RDW Std Deviation 56.5 H 56.0 H (35.1-43.9) fL Plt Count 169 185 (163-337) K/mm3 MPV 10.2 10.9 (9.4-12.3) fl Neut % (Auto) 94.1 H 95.4 H (34.0-67.9) % Lymph % (Auto) 2.0 L 1.4 L (21.8-53.1) % [place] % (Auto) 3.6 L 2.8 L (5.3-12.2) % Eos % (Auto) 0 L 0 L (0.8-7.0) Baso % (Auto) 0.0 L 0.0 L (0.1-1.2) % Neut # (Auto) 19.68 H 19.73 H (1.78-5.38) K/mm3 Lymph # (Auto) 0.42 L 0.29 L (1.32-3.57) K/mm3 [place] # (Auto) 0.75 0.57 (0.30-0.82) K/mm3 Eos # (Auto) 0.00 L 0.01 L (0.04-0.54) K/mm3 Baso # (Auto) 0.01 0.01 (0.01-0.08) K/mm3 Manual Slide Review Abnormal smear Sodium 144 (136-145) mEq/L Potassium 4.4 (3.5-5.1) mEq/L Chloride 101 (98-107) mEq/L Carbon Dioxide 34 H (21-32) mEq/L Anion Gap 13.4 (5-15) BUN 37 H (7-18) mg/dL Creatinine 1.5 H (0.7-1.3) mg/dL Est Cr Clr Drug Dosing 38.35 mL/min Estimated GFR (MDRD) 44 (>60) mL/min BUN/Creatinine Ratio 24.7 H (14-18) Glucose 237 H (83-115) mg/dL Calcium 9.7 (8.5-10.1) mg/dL Magnesium 2.0 (1.8-2.4) mg/dl C-Reactive Protein 17.9 H* (<1.0) mg/dL Med Orders - Current: Current Medications Acetaminophen (Tylenol) 650 mg PO Q4H PRN PRN Reason: Pain (Mild 1-3)/fever Hydrocodone Bitart/Acetaminophen ([place] 325-5 Mg) 1 tab PO Q4H PRN PRN Reason: Pain (moderate 4-6) Albuterol/Ipratropium (Duoneb 3.0-0.5 Mg/3 Ml) 3 ml NEB Q4H PRN PRN Reason: Shortness Of Breath/wheezing Last Admin: 08/06/17 06:09 Dose: 3 ml Albuterol/Ipratropium (Duoneb 3.0-0.5 Mg/3 Ml) 3 ml NEB BID [facility] Last Admin: 08/05/17 21:18 Dose: 3 ml Artificial Tears (Isopto Tears 0.5% Ophth Soln) 0 ml EYEBOTH BID PRN PRN Reason: Dry Eyes Last Admin: 08/04/17 22:45 Dose: 1 drop Benzonatate (Tessalon Perles) 100 mg PO TID [facility] Last Admin: 08/05/17 20:18 Dose: 100 mg Bisacodyl (Dulcolax) 5 mg PO DAILY PRN PRN Reason: Constipation Docusate Sodium (Colace) 100 mg PO BID PRN PRN Reason: Constipation Furosemide (Lasix) 20 mg PO BID [facility] Last Admin: 08/05/17 20:18 Dose: 20 mg Gabapentin (Neurontin) 1,800 mg PO BEDTIME [facility] Last Admin: 08/05/17 20:18 Dose: 1,800 mg Guaifenesin/Phenylephrine HCl (Robitussin Dm) 10 ml PO Q6H [facility] Last Admin: 08/06/17 00:55 Dose: Not Given Hydralazine HCl (Apresoline) 10 mg IVPUSH Q4H PRN PRN Reason: Hypertension Piperacillin Sod/Tazobactam (Sod 4.5 gm/ Sodium Chloride) 100 mls @ 33.333 mls/ hr IV Q6H [facility] Last Admin: 08/06/17 04:09 Dose: 33.333 mls/hr Promethazine HCl 6.25 mg/ (Sodium Chloride) 50.25 mls @ 100 mls/hr IV Q6H PRN PRN Reason: Nausea/Vomiting Levofloxacin/Dextrose 750 mg/ (Premix) 150 mls @ 100 mls/hr IV Q48H [facility] Lorazepam (Ativan) 0.25 mg IV Q6H PRN PRN Reason: Anxiety Magnesium Sulfate (Pharmacy To Dose - Magnesium Replacement) 1 dose .XX ASDIRECTED [facility] Methylprednisolone Sodium Succinate (Solu-Medrol) 80 mg IVPUSH Q12H [facility] Last Admin: 08/05/17 20:19 Dose: 80 mg Metoprolol Tartrate (Lopressor) 5 mg IVPUSH Q4H PRN PRN Reason: Tachycardia Metoprolol Tartrate (Lopressor) 25 mg PO BID [facility] Last Admin: 08/05/17 20:17 Dose: 25 mg Ondansetron HCl (Zofran) 4 mg IV Q6H PRN PRN Reason: Nausea/Vomiting Pantoprazole Sodium (Protonix) 40 mg PO DAILY [facility] Last Admin: 08/05/17 09:37 Dose: 40 mg Polyethylene Glycol (Miralax) 17 gm PO DAILY PRN PRN Reason: Constipation Potassium Chloride (Pharmacy To Dose - Potassium Replacement) 1 dose .XX ASDIRECTED [facility] Rivaroxaban (Xarelto) 20 mg PO BEDTIME [facility] Last Admin: 08/05/17 20:17 Dose: 20 mg Saccharomyces Boulardii (Florastor) 250 mg PO BID [facility] Last Admin: 08/05/17 20:19 Dose: 250 mg Senna/Docusate Sodium (Senna Plus) 1 tab PO BID PRN PRN Reason: Constipation Simvastatin (Zocor) 10 mg PO BEDTIME [facility] Last Admin: 08/05/17 20:17 Dose: 10 mg Temazepam (Restoril) 7.5 mg PO BEDTIME PRN PRN Reason: Sleep Discontinued Medications Furosemide (Lasix) 40 mg IVPUSH NOW ONE Stop: 08/04/17 10:25 Last Admin: 08/04/17 10:28 Dose: 40 mg Levofloxacin/Dextrose 750 mg/ (Premix) 150 mls @ 100 mls/hr IV ONETIME ONE Stop: 08/04/17 13:14 Last Admin: 08/04/17 12:00 Dose: 100 mls/hr Sodium Chloride (Normal Saline) 100 mls @ 60 mls/hr IV ASDIRECTED [facility] Last Admin: 08/04/17 12:31 Dose: 60 mls/hr Levofloxacin/Dextrose 750 mg/ (Premix) 150 mls @ 100 mls/hr IV Q24H [facility] Last Admin: 08/04/17 18:05 Dose: Not Given Piperacillin Sod/Tazobactam (Sod 4.5 gm/ Sodium Chloride) 100 mls @ 200 mls/hr IV ONETIME ONE Stop: 08/04/17 16:29 Last Admin: 08/04/17 17:15 Dose: 200 mls/hr Iopamidol (Isovue-370 (76%)) 100 ml IVPUSH ONETIME ONE Stop: 08/04/17 12:11 Last Admin: 08/04/17 12:31 Dose: 100 ml Loratadine (Claritin) 10 mg PO ONETIME ONE Stop: 08/04/17 11:56 Last Admin: 08/04/17 12:06 Dose: 10 mg Methylprednisolone Sodium Succinate (Solu-Medrol) 125 mg IVPUSH ONETIME ONE Stop: 08/04/17 11:55 Last Admin: 08/04/17 12:08 Dose: 125 mg Morphine Sulfate (Morphine) 0.5 mg IVPUSH Q4H PRN PRN Reason: Other Stop: 08/05/17 15:02 Sodium Chloride (Saline Flush) 10 ml FLUSH ONETIME ONE Stop: 08/04/17 12:11 Last Admin: 08/04/17 12:31 Dose: 10 ml - Exam Quality Assessment: Supplemental Oxygen General: Alert, Oriented, Cooperative, No Acute Distress HEENT: Pupils Equal, Pupils Reactive, EOMI, Mucous Membr. Moist/[place] Neck: Supple, Trachea Midline Lungs: Normal Respiratory Effort, Decreased Breath Sounds, Rhonchi (mild occasional) Cardiovascular: Irregular Rhythm GI/Abdominal Exam: Normal Bowel Sounds, Soft, Non-Tender, No Organomegaly, No Distention, No Abnormal Bruit, No Mass, Other (Urostomy ) (Male) Exam: Deferred Back Exam: Normal Inspection, Decreased Range of Motion Extremities: Normal Inspection, Normal Range of Motion, Non-Tender, No Pedal Edema, Normal Capillary Refill Peripheral Pulses: 2+: Dorsalis Pedis (L), Dorsalis Pedis (R) Skin: Warm, Dry, Intact Neurological: No New Focal Deficit Psy/Mental Status: Alert, Normal Affect, Normal Mood - Problem List Review Problem List Initiated/Reviewed/Updated: Yes - My Orders Last 24 Hours: My Active Orders 08/05/17 08:00 Benzonatate [Tessalon Perles] 100 mg PO TID 08/05/17 12:45 Dextromethorphan/guaiFENesin [Robitussin DM] 10 ml PO Q6H 08/06/17 12:00 Levofloxacin/Dextrose 5%-Water [Levaquin in D5W 750 MG/150 ML] 750 mg Premix Bag 1 bag IV Q48H - Plan Plan:: I/P: Acute: Pneumonia - CTA along with CRX suggest right sides pneumonia, questionable left upper lobe as well; repeat CXR 08/06/2017 reads stable continuing density within right chest and parenchymal density within the left midlung - Productive cough; rhonchi on physical exam; low grade fever at 99 degrees F - WBC 22.70 although pt. is on steroid from prior clinic visit; 20.93--> now 20.70 - CRP 3.3--> 17.9 --> now 12.6 - Sputum culture/Blood cultures: negative so far - Hx/o COPD, Right lower lobe lung cancer, lobectomy, multiple prior episodes of pneumonia. - Right leg paralysis, therefore relatively sedentary lifestyle - Continue Levaquin 750mg Q24hr - D/c Methylprednisolone 80mg Q12hr and IV Zosyn 4.5gm Q6hr - Continue Acapella/RT assess and treat/Duoneb BID/Morphine 0.5mg Q6Hr PRN and Oxygen as ordered Hemoptysis, Improved - Still coughs up blood but better; worse yesterday - Continue Cough suppressant/decongestant - Isolation Precautions/Protective Measures - Continue IV antibiotic and monitor Hgb Urinary Candidiasis, New - Stopped IV Steroids - Start oral anti-fungal for pharmacy to put in Acute Kidney Injury, Urine output is good - He has renal insufficiency by hx - Baseline eGFR appears around 60 - eGFR 48 in ED - Creatinine 1.4--> 1.5 --> 1.4 today - BUN 35--> 37--> now 39 Chronic: A-fib on Xarelto CAD HTN - stable, PRN meds as needed CHF - home meds as ordered [place] (x1) with 4 vessel CABG in 1990 Right lung resection COPD with chronic oxygen use (2L) Lung cancer Bladder cancer Congenital left hand deformity Plan: He remains stable Routine AM labs Continue PT/OT/RT assess and treat DVT/PE/GI prophylaxis - Xarelto/PPI Other orders as indicated above CM/SW for discharge planning He is a DNR/DNI. His PCP is Dr. Estrada at [facility]
[2017-08-06] MEDS: Albuterol/Ipratropium 3.0-0.5 MG/3 ML Neb Soln NEB SCH ×2 (08:43→20:07)
--- NOTE | 2017-08-06 09:42 | CR ---
Chest: Frontal view of the chest was obtained. Comparison: Previous chest x-ray of 08/05/17. Continuing increased density within right chest is seen. Findings are fairly stable from most recent exam. Parenchymal density within the left midlung remains which is also stable. Previous surgery is seen with surgical clips seen within the mediastinum as well as prior right shoulder surgery. Prominence of the mediastinum is seen which is stable. Scoliosis and degenerative change are seen within the spines. Impression: 1. Stable chest x-ray from most recent exam of 08/05/17. Diagnostic code #3
[2017-08-06] MEDS: Saccharomyces Boulardii (Probiotic) 250 MG Cap PO SCH ×2 (09:51→21:30)
[2017-08-06] MEDS: Pantoprazole 40 MG Tab.CR PO SCH (09:51)
[2017-08-06] MEDS: Benzonatate 100 MG Cap PO SCH ×3 (09:51→21:30)
[2017-08-06] MEDS: Metoprolol Tartrate 25 MG Tab PO SCH ×2 (09:52→21:33)
[2017-08-06] MEDS: Furosemide 20 MG Tab PO SCH ×2 (09:52→21:33)
[2017-08-06] MEDS: methylPREDNISolone Sodium Succinate 40 MG/1 ML SDV IVPUSH SCH (09:53)
[2017-08-06] MEDS: Levofloxacin/Dextrose 5%-Water 750 MG in Premix Bag 1 BAG IV SCH (13:05)
[2017-08-06] MEDS: Gabapentin 600 MG Tab PO SCH (21:31)
[2017-08-06] MEDS: Rivaroxaban 10 MG Tab PO SCH (21:31)
[2017-08-06] MEDS: Simvastatin 10 MG Tab PO SCH (21:33)
[2017-08-07] MEDS: guaiFENesin/Dextromethorphan 100-10 MG/5 ML Soln 5 ML Cup PO SCH ×4 (00:46→18:14)
[2017-08-07] MEDS: Albuterol/Ipratropium 3.0-0.5 MG/3 ML Neb Soln NEB PRN ×2 (06:26→15:09)
[2017-08-07] MEDS: Saccharomyces Boulardii (Probiotic) 250 MG Cap PO SCH ×2 (08:40→20:47)
[2017-08-07] MEDS: Pantoprazole 40 MG Tab.CR PO SCH (08:40)
[2017-08-07] MEDS: Furosemide 20 MG Tab PO SCH ×2 (08:41→20:43)
[2017-08-07] MEDS: Metoprolol Tartrate 25 MG Tab PO SCH ×2 (08:41→20:44)
[2017-08-07] MEDS: Benzonatate 100 MG Cap PO SCH ×3 (08:41→20:43)
[2017-08-07] MEDS: Albuterol/Ipratropium 3.0-0.5 MG/3 ML Neb Soln NEB SCH ×2 (09:00→21:05)
--- NOTE | 2017-08-07 10:01 | PCM.PN ---
- General Info Date of Service: 08/07/17 Functional Status: Reports: Tolerating Diet, Ambulating, Urinating - Review of Systems General: Reports: Weakness HEENT: Reports: No Symptoms Pulmonary: Reports: Shortness of Breath Cardiovascular: Reports: No Symptoms Gastrointestinal: Reports: No Symptoms Genitourinary: Reports: No Symptoms Musculoskeletal: Reports: No Symptoms Skin: Reports: No Symptoms Neurological: Reports: No Symptoms Psychiatric: Reports: No Symptoms - Patient Data Vitals - Most Recent: Last Vital Signs Temp 36.3 C 08/07/17 07:38 Pulse 58 L 08/07/17 08:41 Resp 16 08/07/17 07:38 BP 133/57 L 08/07/17 08:41 Pulse Ox 96 08/07/17 09:50 Weight - Most Recent: 91.716 kg I&O - Last 24 Hours: Intake & Output 08/06/17 08/07/17 08/07/17 22:59 06:59 14:59 Intake Total 1730 800 Output Total 350 1425 Balance 1380 -625 Lab Results Last 24 Hours: Laboratory Results - last 24 hr 08/07/17 08/07/17 Range/Units 06:27 06:27 WBC 18.16 H (4.23-9.07) K/mm3 RBC 3.60 L (4.63-6.08) M/mm3 Hgb 11.3 L (13.7-17.5) gm/L Hct 36.6 L (40.1-51.0) % MCV 101.7 H (79.0-92.2) fl MCH 31.4 (25.7-32.2) pg MCHC 30.9 L (32.2-35.5) g/dl RDW Std Deviation 56.0 H (35.1-43.9) fL Plt Count 197 (163-337) K/mm3 MPV 10.8 (9.4-12.3) fl Neut % (Auto) 92.4 H (34.0-67.9) % Lymph % (Auto) 2.1 L (21.8-53.1) % [place] % (Auto) 4.8 L (5.3-12.2) % Eos % (Auto) 0 L (0.8-7.0) Baso % (Auto) 0.1 (0.1-1.2) % Neut # (Auto) 16.77 H (1.78-5.38) K/mm3 Lymph # (Auto) 0.39 L (1.32-3.57) K/mm3 [place] # (Auto) 0.88 H (0.30-0.82) K/mm3 Eos # (Auto) 0.00 L (0.04-0.54) K/mm3 Baso # (Auto) 0.01 (0.01-0.08) K/mm3 Manual Slide Review Abnormal smear Sodium 141 (136-145) mEq/L Potassium 3.5 (3.5-5.1) mEq/L Chloride 104 (98-107) mEq/L Carbon Dioxide 30 (21-32) mEq/L Anion Gap 10.5 (5-15) BUN 41 H (7-18) mg/dL Creatinine 1.4 H (0.7-1.3) mg/dL Est Cr Clr Drug Dosing 41.09 mL/min Estimated GFR (MDRD) 48 (>60) mL/min BUN/Creatinine Ratio 29.3 H (14-18) Glucose 180 H (83-115) mg/dL Calcium 9.5 (8.5-10.1) mg/dL Magnesium 2.0 (1.8-2.4) mg/dl C-Reactive Protein 6.4 H* (<1.0) mg/dL Med Orders - Current: Current Medications Acetaminophen (Tylenol) 650 mg PO Q4H PRN PRN Reason: Pain (Mild 1-3)/fever Hydrocodone Bitart/Acetaminophen ([place] 325-5 Mg) 1 tab PO Q4H PRN PRN Reason: Pain (moderate 4-6) Albuterol/Ipratropium (Duoneb 3.0-0.5 Mg/3 Ml) 3 ml NEB Q4H PRN PRN Reason: Shortness Of Breath/wheezing Last Admin: 08/07/17 06:26 Dose: 3 ml Albuterol/Ipratropium (Duoneb 3.0-0.5 Mg/3 Ml) 3 ml NEB BID [facility] Last Admin: 08/07/17 09:00 Dose: 3 ml Artificial Tears (Isopto Tears 0.5% Ophth Soln) 0 ml EYEBOTH BID PRN PRN Reason: Dry Eyes Last Admin: 08/04/17 22:45 Dose: 1 drop Benzonatate (Tessalon Perles) 100 mg PO TID [facility] Last Admin: 08/07/17 08:41 Dose: 100 mg Bisacodyl (Dulcolax) 5 mg PO DAILY PRN PRN Reason: Constipation Docusate Sodium (Colace) 100 mg PO BID PRN PRN Reason: Constipation Fluconazole (Diflucan) 150 mg PO DAILY [facility] Furosemide (Lasix) 20 mg PO BID [facility] Last Admin: 08/07/17 08:41 Dose: 20 mg Gabapentin (Neurontin) 1,800 mg PO BEDTIME [facility] Last Admin: 08/06/17 21:31 Dose: 1,800 mg Guaifenesin/Phenylephrine HCl (Robitussin Dm) 10 ml PO Q6H [facility] Last Admin: 08/07/17 05:54 Dose: 10 ml Hydralazine HCl (Apresoline) 10 mg IVPUSH Q4H PRN PRN Reason: Hypertension Promethazine HCl 6.25 mg/ (Sodium Chloride) 50.25 mls @ 100 mls/hr IV Q6H PRN PRN Reason: Nausea/Vomiting Levofloxacin/Dextrose 750 mg/ (Premix) 150 mls @ 100 mls/hr IV Q48H [facility] Last Admin: 08/06/17 13:05 Dose: 100 mls/hr Lorazepam (Ativan) 0.25 mg IV Q6H PRN PRN Reason: Anxiety Magnesium Sulfate (Pharmacy To Dose - Magnesium Replacement) 1 dose .XX ASDIRECTED [facility] Metoprolol Tartrate (Lopressor) 5 mg IVPUSH Q4H PRN PRN Reason: Tachycardia Metoprolol Tartrate (Lopressor) 25 mg PO BID [facility] Last Admin: 08/07/17 08:41 Dose: 25 mg Ondansetron HCl (Zofran) 4 mg IV Q6H PRN PRN Reason: Nausea/Vomiting Pantoprazole Sodium (Protonix) 40 mg PO DAILY [facility] Last Admin: 08/07/17 08:40 Dose: 40 mg Polyethylene Glycol (Miralax) 17 gm PO DAILY PRN PRN Reason: Constipation Potassium Chloride (Pharmacy To Dose - Potassium Replacement) 1 dose .XX ASDIRECTED [facility] Potassium Chloride (Klor-Con M20) 40 meq PO Q4H [facility] Stop: 08/07/17 14:01 Rivaroxaban (Xarelto) 20 mg PO BEDTIME [facility] Last Admin: 08/06/17 21:31 Dose: 20 mg Saccharomyces Boulardii (Florastor) 250 mg PO BID [facility] Last Admin: 08/07/17 08:40 Dose: 250 mg Senna/Docusate Sodium (Senna Plus) 1 tab PO BID PRN PRN Reason: Constipation Simvastatin (Zocor) 10 mg PO BEDTIME [facility] Last Admin: 08/06/17 21:33 Dose: 10 mg Temazepam (Restoril) 7.5 mg PO BEDTIME PRN PRN Reason: Sleep Discontinued Medications Furosemide (Lasix) 40 mg IVPUSH NOW ONE Stop: 08/04/17 10:25 Last Admin: 08/04/17 10:28 Dose: 40 mg Levofloxacin/Dextrose 750 mg/ (Premix) 150 mls @ 100 mls/hr IV ONETIME ONE Stop: 08/04/17 13:14 Last Admin: 08/04/17 12:00 Dose: 100 mls/hr Sodium Chloride (Normal Saline) 100 mls @ 60 mls/hr IV ASDIRECTED [facility] Last Admin: 08/04/17 12:31 Dose: 60 mls/hr Levofloxacin/Dextrose 750 mg/ (Premix) 150 mls @ 100 mls/hr IV Q24H [facility] Last Admin: 08/04/17 18:05 Dose: Not Given Piperacillin Sod/Tazobactam (Sod 4.5 gm/ Sodium Chloride) 100 mls @ 33.333 mls/ hr IV Q6H [facility] Last Admin: 08/06/17 09:53 Dose: 33.333 mls/hr Piperacillin Sod/Tazobactam (Sod 4.5 gm/ Sodium Chloride) 100 mls @ 200 mls/hr IV ONETIME ONE Stop: 08/04/17 16:29 Last Admin: 08/04/17 17:15 Dose: 200 mls/hr Iopamidol (Isovue-370 (76%)) 100 ml IVPUSH ONETIME ONE Stop: 08/04/17 12:11 Last Admin: 08/04/17 12:31 Dose: 100 ml Loratadine (Claritin) 10 mg PO ONETIME ONE Stop: 08/04/17 11:56 Last Admin: 08/04/17 12:06 Dose: 10 mg Methylprednisolone Sodium Succinate (Solu-Medrol) 125 mg IVPUSH ONETIME ONE Stop: 08/04/17 11:55 Last Admin: 08/04/17 12:08 Dose: 125 mg Methylprednisolone Sodium Succinate (Solu-Medrol) 80 mg IVPUSH Q12H [facility] Last Admin: 08/06/17 09:53 Dose: 80 mg Morphine Sulfate (Morphine) 0.5 mg IVPUSH Q4H PRN PRN Reason: Other Stop: 08/05/17 15:02 Sodium Chloride (Saline Flush) 10 ml FLUSH ONETIME ONE Stop: 08/04/17 12:11 Last Admin: 08/04/17 12:31 Dose: 10 ml - Exam Quality Assessment: DVT Prophylaxis General: Alert, Oriented, No Acute Distress HEENT: Pupils Equal, Pupils Reactive, EOMI Neck: Supple, Trachea Midline, No JVD Lungs: Normal Respiratory Effort Cardiovascular: Regular Rate GI/Abdominal Exam: Normal Bowel Sounds, Soft, Non-Tender, No Organomegaly, No Distention (Male) Exam: Deferred Back Exam: Normal Inspection Extremities: Normal Inspection Skin: Warm, Dry Neurological: No New Focal Deficit, Normal Speech Psy/Mental Status: Alert, Normal Affect, Normal Mood - Problem List Review Problem List Initiated/Reviewed/Updated: Yes - Plan Plan:: I/P: Acute: Pneumonia - CTA along with CRX suggest right sides pneumonia, questionable left upper lobe as well; repeat CXR 08/06/2017 reads stable continuing density within right chest and parenchymal density within the left midlung - Productive cough; rhonchi on physical exam; low grade fever at 99 degrees F - WBC 22.70 although pt. is on steroid from prior clinic visit; 20.93--> now 20.70 - CRP 3.3--> 17.9 --> now 12.6 - Sputum culture/Blood cultures: negative so far - Hx/o COPD, Right lower lobe lung cancer, lobectomy, multiple prior episodes of pneumonia. - Right leg paralysis, therefore relatively sedentary lifestyle - Continue Levaquin 750mg Q24hr - D/c Methylprednisolone 80mg Q12hr and IV Zosyn 4.5gm Q6hr - Continue Acapella/RT assess and treat/Duoneb BID/Morphine 0.5mg Q6Hr PRN and Oxygen as ordered Hemoptysis, Improved - Still coughs up blood but better; worse yesterday - Continue Cough suppressant/decongestant - Isolation Precautions/Protective Measures - Continue IV antibiotic and monitor Hgb Urinary Candidiasis, New - Stopped IV Steroids - Start oral anti-fungal for pharmacy to put in Acute Kidney Injury, Urine output is good - He has renal insufficiency by hx - Baseline eGFR appears around 60 - eGFR 48 in ED - Creatinine 1.4--> 1.5 --> 1.4; greatly improved. - BUN 35--> 37--> now 39 Chronic: A-fib on Xarelto CAD HTN - stable, PRN meds as needed CHF - home meds as ordered [place] (x1) with 4 vessel CABG in 1990 Right lung resection COPD with chronic oxygen use (2L) Lung cancer Bladder cancer Congenital left hand deformity Plan: He remains stable Routine AM labs Continue PT/OT/RT assess and treat DVT/PE/GI prophylaxis - Xarelto/PPI Other orders as indicated above CM/SW for discharge planning He is a DNR/DNI. His PCP is Dr. Estrada at [facility] *LOS>96 hours with treatment and slow response
[2017-08-07] MEDS: Potassium Chloride 20 MEQ Tab.ER PO SCH ×2 (10:43→14:54)
[2017-08-07] MEDS: Fluconazole 150 MG Tab PO SCH (10:44)
[2017-08-07] MEDS: Hypromellose 0.5% Ophth Soln 15 ML Bottle EYEBOTH PRN (18:14)
[2017-08-07] MEDS: Gabapentin 600 MG Tab PO SCH (20:43)
[2017-08-07] MEDS: Rivaroxaban 10 MG Tab PO SCH (20:43)
[2017-08-07] MEDS: Simvastatin 10 MG Tab PO SCH (20:43)
[2017-08-08] MEDS: guaiFENesin/Dextromethorphan 100-10 MG/5 ML Soln 5 ML Cup PO SCH ×5 (00:52→23:50)
[2017-08-08] MEDS: Albuterol/Ipratropium 3.0-0.5 MG/3 ML Neb Soln NEB SCH ×2 (08:56→20:29)
[2017-08-08] MEDS: Furosemide 20 MG Tab PO SCH ×2 (09:41→20:04)
[2017-08-08] MEDS: Fluconazole 150 MG Tab PO SCH (09:41)
[2017-08-08] MEDS: Saccharomyces Boulardii (Probiotic) 250 MG Cap PO SCH ×2 (09:41→20:04)
[2017-08-08] MEDS: Benzonatate 100 MG Cap PO SCH ×3 (09:42→20:04)
[2017-08-08] MEDS: Metoprolol Tartrate 25 MG Tab PO SCH ×2 (09:42→20:04)
[2017-08-08] MEDS: Pantoprazole 40 MG Tab.CR PO SCH (09:42)
--- NOTE | 2017-08-08 11:15 | PCM.PN ---
- General Info Date of Service: 08/08/17 Functional Status: Reports: Tolerating Diet, Ambulating, Urinating - Review of Systems General: Reports: No Symptoms HEENT: Reports: No Symptoms Pulmonary: Reports: No Symptoms Cardiovascular: Reports: No Symptoms Gastrointestinal: Reports: No Symptoms Genitourinary: Reports: No Symptoms Musculoskeletal: Reports: No Symptoms Skin: Reports: No Symptoms Neurological: Reports: No Symptoms Psychiatric: Reports: No Symptoms - Patient Data Vitals - Most Recent: Last Vital Signs Temp 36.5 C 08/08/17 08:48 Pulse 68 08/08/17 09:42 Resp 19 08/08/17 08:48 BP 134/59 L 08/08/17 09:42 Pulse Ox 97 08/08/17 10:00 Weight - Most Recent: 91.716 kg I&O - Last 24 Hours: Intake & Output 08/07/17 08/08/17 08/08/17 22:59 06:59 14:59 Intake Total 600 1250 420 Output Total 850 1475 Balance -250 -225 420 Lab Results Last 24 Hours: Laboratory Results - last 24 hr 08/08/17 08/08/17 Range/Units 05:23 05:23 WBC 9.65 H (4.23-9.07) K/mm3 RBC 3.55 L (4.63-6.08) M/mm3 Hgb 11.2 L (13.7-17.5) gm/L Hct 37.0 L (40.1-51.0) % MCV 104.2 H (79.0-92.2) fl MCH 31.5 (25.7-32.2) pg MCHC 30.3 L (32.2-35.5) g/dl RDW Std Deviation 59.5 H (35.1-43.9) fL Plt Count 201 (163-337) K/mm3 MPV 10.5 (9.4-12.3) fl Neut % (Auto) 77.1 H (34.0-67.9) % Lymph % (Auto) 6.2 L (21.8-53.1) % [place] % (Auto) 9.2 (5.3-12.2) % Eos % (Auto) 5.0 (0.8-7.0) Baso % (Auto) 0.2 (0.1-1.2) % Neut # (Auto) 7.44 H (1.78-5.38) K/mm3 Lymph # (Auto) 0.60 L (1.32-3.57) K/mm3 [place] # (Auto) 0.89 H (0.30-0.82) K/mm3 Eos # (Auto) 0.48 (0.04-0.54) K/mm3 Baso # (Auto) 0.02 (0.01-0.08) K/mm3 Manual Slide Review Abnormal smear Sodium 143 (136-145) mEq/L Potassium 4.3 (3.5-5.1) mEq/L Chloride 106 (98-107) mEq/L Carbon Dioxide 33 H (21-32) mEq/L Anion Gap 8.3 (5-15) BUN 38 H (7-18) mg/dL Creatinine 1.3 (0.7-1.3) mg/dL Est Cr Clr Drug Dosing 44.25 mL/min Estimated GFR (MDRD) 52 (>60) mL/min BUN/Creatinine Ratio 29.2 H (14-18) Glucose 134 H (83-115) mg/dL Calcium 9.6 (8.5-10.1) mg/dL Magnesium 2.0 (1.8-2.4) mg/dl C-Reactive Protein 3.7 H* (<1.0) mg/dL Med Orders - Current: Current Medications Acetaminophen (Tylenol) 650 mg PO Q4H PRN PRN Reason: Pain (Mild 1-3)/fever Hydrocodone Bitart/Acetaminophen ([place] 325-5 Mg) 1 tab PO Q4H PRN PRN Reason: Pain (moderate 4-6) Albuterol/Ipratropium (Duoneb 3.0-0.5 Mg/3 Ml) 3 ml NEB Q4H PRN PRN Reason: Shortness Of Breath/wheezing Last Admin: 08/07/17 15:09 Dose: 3 ml Albuterol/Ipratropium (Duoneb 3.0-0.5 Mg/3 Ml) 3 ml NEB BID [facility] Last Admin: 08/08/17 08:56 Dose: 3 ml Artificial Tears (Isopto Tears 0.5% Ophth Soln) 0 ml EYEBOTH BID PRN PRN Reason: Dry Eyes Last Admin: 08/07/17 18:14 Dose: 1 drop Benzonatate (Tessalon Perles) 100 mg PO TID [facility] Last Admin: 08/08/17 09:42 Dose: 100 mg Bisacodyl (Dulcolax) 5 mg PO DAILY PRN PRN Reason: Constipation Docusate Sodium (Colace) 100 mg PO BID PRN PRN Reason: Constipation Fluconazole (Diflucan) 150 mg PO DAILY [facility] Last Admin: 08/08/17 09:41 Dose: 150 mg Furosemide (Lasix) 20 mg PO BID [facility] Last Admin: 08/08/17 09:41 Dose: 20 mg Gabapentin (Neurontin) 1,800 mg PO BEDTIME [facility] Last Admin: 08/07/17 20:43 Dose: 1,800 mg Guaifenesin/Phenylephrine HCl (Robitussin Dm) 10 ml PO Q6H [facility] Last Admin: 08/08/17 06:25 Dose: 10 ml Hydralazine HCl (Apresoline) 10 mg IVPUSH Q4H PRN PRN Reason: Hypertension Promethazine HCl 6.25 mg/ (Sodium Chloride) 50.25 mls @ 100 mls/hr IV Q6H PRN PRN Reason: Nausea/Vomiting Levofloxacin/Dextrose 750 mg/ (Premix) 150 mls @ 100 mls/hr IV Q48H [facility] Last Admin: 08/06/17 13:05 Dose: 100 mls/hr Lorazepam (Ativan) 0.25 mg IV Q6H PRN PRN Reason: Anxiety Metoprolol Tartrate (Lopressor) 5 mg IVPUSH Q4H PRN PRN Reason: Tachycardia Metoprolol Tartrate (Lopressor) 25 mg PO BID [facility] Last Admin: 08/08/17 09:42 Dose: 25 mg Ondansetron HCl (Zofran) 4 mg IV Q6H PRN PRN Reason: Nausea/Vomiting Pantoprazole Sodium (Protonix) 40 mg PO DAILY [facility] Last Admin: 08/08/17 09:42 Dose: 40 mg Polyethylene Glycol (Miralax) 17 gm PO DAILY PRN PRN Reason: Constipation Rivaroxaban (Xarelto) 20 mg PO BEDTIME [facility] Last Admin: 08/07/17 20:43 Dose: 20 mg Saccharomyces Boulardii (Florastor) 250 mg PO BID [facility] Last Admin: 08/08/17 09:41 Dose: 250 mg Senna/Docusate Sodium (Senna Plus) 1 tab PO BID PRN PRN Reason: Constipation Simvastatin (Zocor) 10 mg PO BEDTIME [facility] Last Admin: 08/07/17 20:43 Dose: 10 mg Temazepam (Restoril) 7.5 mg PO BEDTIME PRN PRN Reason: Sleep Discontinued Medications Furosemide (Lasix) 40 mg IVPUSH NOW ONE Stop: 08/04/17 10:25 Last Admin: 08/04/17 10:28 Dose: 40 mg Levofloxacin/Dextrose 750 mg/ (Premix) 150 mls @ 100 mls/hr IV ONETIME ONE Stop: 08/04/17 13:14 Last Admin: 08/04/17 12:00 Dose: 100 mls/hr Sodium Chloride (Normal Saline) 100 mls @ 60 mls/hr IV ASDIRECTED [facility] Last Admin: 08/04/17 12:31 Dose: 60 mls/hr Levofloxacin/Dextrose 750 mg/ (Premix) 150 mls @ 100 mls/hr IV Q24H [facility] Last Admin: 08/04/17 18:05 Dose: Not Given Piperacillin Sod/Tazobactam (Sod 4.5 gm/ Sodium Chloride) 100 mls @ 33.333 mls/ hr IV Q6H [facility] Last Admin: 08/06/17 09:53 Dose: 33.333 mls/hr Piperacillin Sod/Tazobactam (Sod 4.5 gm/ Sodium Chloride) 100 mls @ 200 mls/hr IV ONETIME ONE Stop: 08/04/17 16:29 Last Admin: 08/04/17 17:15 Dose: 200 mls/hr Iopamidol (Isovue-370 (76%)) 100 ml IVPUSH ONETIME ONE Stop: 08/04/17 12:11 Last Admin: 08/04/17 12:31 Dose: 100 ml Loratadine (Claritin) 10 mg PO ONETIME ONE Stop: 08/04/17 11:56 Last Admin: 08/04/17 12:06 Dose: 10 mg Magnesium Sulfate (Pharmacy To Dose - Magnesium Replacement) 1 dose .XX ASDIRECTED [facility] Methylprednisolone Sodium Succinate (Solu-Medrol) 125 mg IVPUSH ONETIME ONE Stop: 08/04/17 11:55 Last Admin: 08/04/17 12:08 Dose: 125 mg Methylprednisolone Sodium Succinate (Solu-Medrol) 80 mg IVPUSH Q12H [facility] Last Admin: 08/06/17 09:53 Dose: 80 mg Morphine Sulfate (Morphine) 0.5 mg IVPUSH Q4H PRN PRN Reason: Other Stop: 08/05/17 15:02 Potassium Chloride (Pharmacy To Dose - Potassium Replacement) 1 dose .XX ASDIRECTED [facility] Potassium Chloride (Klor-Con M20) 40 meq PO Q4H [facility] Stop: 08/07/17 14:01 Last Admin: 08/07/17 14:54 Dose: 40 meq Sodium Chloride (Saline Flush) 10 ml FLUSH ONETIME ONE Stop: 08/04/17 12:11 Last Admin: 08/04/17 12:31 Dose: 10 ml - Exam Quality Assessment: Supplemental Oxygen, DVT Prophylaxis General: Alert, Oriented, Cooperative, No Acute Distress HEENT: Pupils Equal, Pupils Reactive, EOMI Neck: Supple, Trachea Midline Lungs: Normal Respiratory Effort, Decreased Breath Sounds Cardiovascular: Regular Rate GI/Abdominal Exam: Normal Bowel Sounds, Soft, Non-Tender, No Organomegaly, No Distention (Male) Exam: Deferred Back Exam: Normal Inspection Extremities: Normal Inspection Skin: Warm Neurological: No New Focal Deficit Psy/Mental Status: Alert, Normal Affect, Normal Mood - Problem List Review Problem List Initiated/Reviewed/Updated: Yes - Plan Plan:: I/P: Acute: Pneumonia - CTA along with CRX suggest right sides pneumonia, questionable left upper lobe as well; repeat CXR 08/06/2017 reads stable continuing density within right chest and parenchymal density within the left midlung - Productive cough; rhonchi on physical exam; low grade fever at 99 degrees F - WBC 22.70 although pt. is on steroid from prior clinic visit; 20.93--> now 20.70 - CRP 3.3--> 17.9 -->12.6; improved - Sputum culture/Blood cultures: negative so far - Hx/o COPD, Right lower lobe lung cancer, lobectomy, multiple prior episodes of pneumonia. - Right leg paralysis, therefore relatively sedentary lifestyle - Continue Levaquin 750mg Q24hr - D/c Methylprednisolone 80mg Q12hr and IV Zosyn 4.5gm Q6hr - Continue Acapella/RT assess and treat/Duoneb BID/Morphine 0.5mg Q6Hr PRN and Oxygen as ordered Hemoptysis, Improved - Still coughs up blood but better; minimal - Continue Cough suppressant/decongestant - Isolation Precautions/Protective Measures - Continue IV antibiotic and monitor Hgb Urinary Candidiasis, New - Stopped IV Steroids - Start oral anti-fungal for pharmacy to put in Acute Kidney Injury, Urine output is good - He has renal insufficiency by hx - Baseline eGFR appears around 60 - eGFR 48 in ED - Creatinine 1.4--> 1.5 --> 1.4; greatly improved. - BUN 35--> 37--> now 39 Chronic: A-fib on Xarelto CAD HTN - stable, PRN meds as needed CHF - home meds as ordered [place] (x1) with 4 vessel CABG in 1990 Right lung resection COPD with chronic oxygen use (2L) Lung cancer Bladder cancer Congenital left hand deformity Plan: IS/aggressive pulmonary toilet Routine AM labs Continue PT/OT/RT assess and treat DVT/PE/GI prophylaxis - Xarelto/PPI Other orders as indicated above CM/SW for discharge planning He is a DNR/DNI. His PCP is Dr. Estrada at [facility] *LOS>96 hours with treatment and slow response; DC 08/10/17
[2017-08-08] MEDS: Levofloxacin/Dextrose 5%-Water 750 MG in Premix Bag 1 BAG IV SCH (12:19)
[2017-08-08] MEDS: Gabapentin 600 MG Tab PO SCH (20:04)
[2017-08-08] MEDS: Rivaroxaban 10 MG Tab PO SCH (20:04)
[2017-08-08] MEDS: Simvastatin 10 MG Tab PO SCH (20:05)
[2017-08-08] MEDS: Hypromellose 0.5% Ophth Soln 15 ML Bottle EYEBOTH PRN (20:12)
[2017-08-09] MEDS: guaiFENesin/Dextromethorphan 100-10 MG/5 ML Soln 5 ML Cup PO SCH ×3 (06:13→17:56)
[2017-08-09] MEDS: Hypromellose 0.5% Ophth Soln 15 ML Bottle EYEBOTH PRN (06:18)
[2017-08-09] MEDS: Albuterol/Ipratropium 3.0-0.5 MG/3 ML Neb Soln NEB PRN ×2 (06:24→16:24)
[2017-08-09] MEDS: Furosemide 20 MG Tab PO SCH ×2 (08:34→22:09)
[2017-08-09] MEDS: Benzonatate 100 MG Cap PO SCH ×3 (08:34→22:10)
[2017-08-09] MEDS: Fluconazole 150 MG Tab PO SCH (08:34)
[2017-08-09] MEDS: Saccharomyces Boulardii (Probiotic) 250 MG Cap PO SCH ×2 (08:34→22:06)
[2017-08-09] MEDS: Pantoprazole 40 MG Tab.CR PO SCH (08:34)
[2017-08-09] MEDS: Metoprolol Tartrate 25 MG Tab PO SCH ×2 (08:35→22:07)
[2017-08-09] MEDS: Albuterol/Ipratropium 3.0-0.5 MG/3 ML Neb Soln NEB SCH ×2 (09:12→20:06)
--- NOTE | 2017-08-09 10:08 | PCM.PN ---
- General Info Date of Service: 08/09/17 Admission Dx/Problem (Free Text): Admission Diagnosis/Problem Admission Diagnosis/Problem Pneumonia Manny is seen this morning. He is still coughing, still with hemoptysis but it is improved. No worsening of symptoms of cough or SOB, no CP or dyspnea. States "tired of coughing". Appetite is good. He slept well. He is up and ambulatory, working with PT/OT. Functional Status: Reports: Pain Controlled, Tolerating Diet, Ambulating, Urinating (urostomy catheter, draining clear yellow urine), Incentive Spirometry. Denies: New Symptoms - Review of Systems General: Denies: Fever HEENT: Reports: No Symptoms Pulmonary: Reports: Cough, Hemoptysis Cardiovascular: Reports: No Symptoms Gastrointestinal: Reports: No Symptoms Genitourinary: Reports: Other (urostomy ) Neurological: Reports: No Symptoms - Patient Data Vitals - Most Recent: Last Vital Signs Temp 98.1 F 08/09/17 07:30 Pulse 88 08/09/17 08:35 Resp 19 08/09/17 07:30 BP 123/64 08/09/17 08:35 Pulse Ox 96 08/09/17 09:14 Weight - Most Recent: 195 lb 9.6 oz I&O - Last 24 Hours: Intake & Output 08/08/17 08/09/17 08/09/17 22:59 06:59 14:59 Intake Total 1130 1250 Output Total 1450 2750 Balance -320 -1500 Lab Results Last 24 Hours: Laboratory Results - last 24 hr 08/09/17 08/09/17 Range/Units 06:00 06:00 WBC 12.20 H (4.23-9.07) K/mm3 RBC 3.90 L (4.63-6.08) M/mm3 Hgb 12.4 L (13.7-17.5) gm/L Hct 40.0 L (40.1-51.0) % MCV 102.6 H (79.0-92.2) fl MCH 31.8 (25.7-32.2) pg MCHC 31.0 L (32.2-35.5) g/dl RDW Std Deviation 58.0 H (35.1-43.9) fL Plt Count 205 (163-337) K/mm3 MPV 10.8 (9.4-12.3) fl Neut % (Auto) 68.7 H (34.0-67.9) % Lymph % (Auto) 6.6 L (21.8-53.1) % [place] % (Auto) 10.9 (5.3-12.2) % Eos % (Auto) 9.8 H (0.8-7.0) Baso % (Auto) 0.4 (0.1-1.2) % Neut # (Auto) 8.37 H (1.78-5.38) K/mm3 Lymph # (Auto) 0.81 L (1.32-3.57) K/mm3 [place] # (Auto) 1.33 H (0.30-0.82) K/mm3 Eos # (Auto) 1.20 H (0.04-0.54) K/mm3 Baso # (Auto) 0.05 (0.01-0.08) K/mm3 Manual Slide Review Abnormal smear Magnesium 2.0 (1.8-2.4) mg/dl C-Reactive Protein 2.5 H* (<1.0) mg/dL Med Orders - Current: Current Medications Acetaminophen (Tylenol) 650 mg PO Q4H PRN PRN Reason: Pain (Mild 1-3)/fever Hydrocodone Bitart/Acetaminophen ([place] 325-5 Mg) 1 tab PO Q4H PRN PRN Reason: Pain (moderate 4-6) Albuterol/Ipratropium (Duoneb 3.0-0.5 Mg/3 Ml) 3 ml NEB Q4H PRN PRN Reason: Shortness Of Breath/wheezing Last Admin: 08/09/17 06:24 Dose: 3 ml Albuterol/Ipratropium (Duoneb 3.0-0.5 Mg/3 Ml) 3 ml NEB BID [facility] Last Admin: 08/09/17 09:12 Dose: 3 ml Artificial Tears (Isopto Tears 0.5% Ophth Soln) 0 ml EYEBOTH BID PRN PRN Reason: Dry Eyes Last Admin: 08/09/17 06:18 Dose: 1 drop Benzonatate (Tessalon Perles) 100 mg PO TID [facility] Last Admin: 08/09/17 08:34 Dose: 100 mg Bisacodyl (Dulcolax) 5 mg PO DAILY PRN PRN Reason: Constipation Budesonide (Pulmicort) mg INH BID [facility] Docusate Sodium (Colace) 100 mg PO BID PRN PRN Reason: Constipation Fluconazole (Diflucan) 150 mg PO DAILY [facility] Last Admin: 08/09/17 08:34 Dose: 150 mg Furosemide (Lasix) 20 mg PO BID [facility] Last Admin: 08/09/17 08:34 Dose: 20 mg Gabapentin (Neurontin) 1,800 mg PO BEDTIME [facility] Last Admin: 08/08/17 20:04 Dose: 1,800 mg Guaifenesin/Phenylephrine HCl (Robitussin Dm) 10 ml PO Q6H [facility] Last Admin: 08/09/17 06:13 Dose: 10 ml Hydralazine HCl (Apresoline) 10 mg IVPUSH Q4H PRN PRN Reason: Hypertension Promethazine HCl 6.25 mg/ (Sodium Chloride) 50.25 mls @ 100 mls/hr IV Q6H PRN PRN Reason: Nausea/Vomiting Levofloxacin/Dextrose 750 mg/ (Premix) 150 mls @ 100 mls/hr IV Q48H [facility] Last Admin: 08/08/17 12:19 Dose: 100 mls/hr Lorazepam (Ativan) 0.25 mg IV Q6H PRN PRN Reason: Anxiety Metoprolol Tartrate (Lopressor) 5 mg IVPUSH Q4H PRN PRN Reason: Tachycardia Metoprolol Tartrate (Lopressor) 25 mg PO BID [facility] Last Admin: 08/09/17 08:35 Dose: 25 mg Non-Formulary Medication (L Acidophil/B Lactis/B Longum [Florajen3]) 1 tab PO BID [facility] Ondansetron HCl (Zofran) 4 mg IV Q6H PRN PRN Reason: Nausea/Vomiting Pantoprazole Sodium (Protonix) 40 mg PO DAILY [facility] Last Admin: 08/09/17 08:34 Dose: 40 mg Polyethylene Glycol (Miralax) 17 gm PO DAILY PRN PRN Reason: Constipation Rivaroxaban (Xarelto) 20 mg PO BEDTIME [facility] Last Admin: 08/08/17 20:04 Dose: 20 mg Saccharomyces Boulardii (Florastor) 250 mg PO BID [facility] Last Admin: 08/09/17 08:34 Dose: 250 mg Senna/Docusate Sodium (Senna Plus) 1 tab PO BID PRN PRN Reason: Constipation Simvastatin (Zocor) 10 mg PO BEDTIME [facility] Last Admin: 08/08/17 20:05 Dose: 10 mg Temazepam (Restoril) 7.5 mg PO BEDTIME PRN PRN Reason: Sleep Discontinued Medications Furosemide (Lasix) 40 mg IVPUSH NOW ONE Stop: 08/04/17 10:25 Last Admin: 08/04/17 10:28 Dose: 40 mg Levofloxacin/Dextrose 750 mg/ (Premix) 150 mls @ 100 mls/hr IV ONETIME ONE Stop: 08/04/17 13:14 Last Admin: 08/04/17 12:00 Dose: 100 mls/hr Sodium Chloride (Normal Saline) 100 mls @ 60 mls/hr IV ASDIRECTED [facility] Last Admin: 08/04/17 12:31 Dose: 60 mls/hr Levofloxacin/Dextrose 750 mg/ (Premix) 150 mls @ 100 mls/hr IV Q24H [facility] Last Admin: 08/04/17 18:05 Dose: Not Given Piperacillin Sod/Tazobactam (Sod 4.5 gm/ Sodium Chloride) 100 mls @ 33.333 mls/ hr IV Q6H [facility] Last Admin: 08/06/17 09:53 Dose: 33.333 mls/hr Piperacillin Sod/Tazobactam (Sod 4.5 gm/ Sodium Chloride) 100 mls @ 200 mls/hr IV ONETIME ONE Stop: 08/04/17 16:29 Last Admin: 08/04/17 17:15 Dose: 200 mls/hr Iopamidol (Isovue-370 (76%)) 100 ml IVPUSH ONETIME ONE Stop: 08/04/17 12:11 Last Admin: 08/04/17 12:31 Dose: 100 ml Loratadine (Claritin) 10 mg PO ONETIME ONE Stop: 08/04/17 11:56 Last Admin: 08/04/17 12:06 Dose: 10 mg Magnesium Sulfate (Pharmacy To Dose - Magnesium Replacement) 1 dose .XX ASDIRECTED [facility] Methylprednisolone Sodium Succinate (Solu-Medrol) 125 mg IVPUSH ONETIME ONE Stop: 08/04/17 11:55 Last Admin: 08/04/17 12:08 Dose: 125 mg Methylprednisolone Sodium Succinate (Solu-Medrol) 80 mg IVPUSH Q12H [facility] Last Admin: 08/06/17 09:53 Dose: 80 mg Morphine Sulfate (Morphine) 0.5 mg IVPUSH Q4H PRN PRN Reason: Other Stop: 08/05/17 15:02 Potassium Chloride (Pharmacy To Dose - Potassium Replacement) 1 dose .XX ASDIRECTED [facility] Potassium Chloride (Klor-Con M20) 40 meq PO Q4H [facility] Stop: 08/07/17 14:01 Last Admin: 08/07/17 14:54 Dose: 40 meq Sodium Chloride (Saline Flush) 10 ml FLUSH ONETIME ONE Stop: 08/04/17 12:11 Last Admin: 08/04/17 12:31 Dose: 10 ml - Exam Quality Assessment: Supplemental Oxygen, DVT Prophylaxis General: Alert, Oriented, Cooperative, No Acute Distress HEENT: Pupils Equal, EOMI, Mucous Membr. Moist/[place] Lungs: Normal Respiratory Effort, Rhonchi (rt sided, course- clears after coughing), Wheezing (right sided) Cardiovascular: Regular Rate, Regular Rhythm GI/Abdominal Exam: Normal Bowel Sounds, Soft, Non-Tender (Male) Exam: Deferred Extremities: Pedal Edema (trace to rt pedal/ankle) Peripheral Pulses: 2+: Dorsalis Pedis (L), Dorsalis Pedis (R) Neurological: No New Focal Deficit Psy/Mental Status: Alert, Normal Affect, Normal Mood - Problem List & Annotations (1) Pneumonia SNOMED Code(s): 473379137 Code(s): J18.9 - PNEUMONIA, UNSPECIFIED ORGANISM Status: Acute Priority: High Current Visit: Yes (2) UTI, Urinary tract infectious disease SNOMED Code(s): 97155599 Code(s): N39.0 - URINARY TRACT INFECTION, SITE NOT SPECIFIED Status: Acute Priority: High Current Visit: Yes Onset Date: 07/17/16 (3) Congestive heart failure SNOMED Code(s): 83771297 Code(s): I50.9 - HEART FAILURE, UNSPECIFIED Status: Chronic Priority: High Current Visit: Yes Qualifiers: Congestive heart failure type: diastolic Congestive heart failure chronicity: acute on chronic Qualified Code(s): I50.33 - Acute on chronic diastolic (congestive) heart failure (4) Febrile respiratory illness SNOMED Code(s): 21765473 Code(s): J98.9 - RESPIRATORY DISORDER, UNSPECIFIED; R50.9 - FEVER, UNSPECIFIED Status: Resolved Priority: High Current Visit: Yes (5) CKD (chronic kidney disease) stage 3, GFR 30-59 ml/min SNOMED Code(s): 437314130 Code(s): N18.3 - CHRONIC KIDNEY DISEASE, STAGE 3 (MODERATE) Status: Chronic Priority: Medium Current Visit: Yes (6) Hypoxemia SNOMED Code(s): 573844242 Code(s): R09.02 - HYPOXEMIA Status: Chronic Priority: High Current Visit: Yes (7) TEREZA on CPAP SNOMED Code(s): 88877022 Code(s): G47.33 - OBSTRUCTIVE SLEEP APNEA (ADULT) (PEDIATRIC) Status: Chronic Priority: Low Current Visit: No (8) Atrial fibrillation with controlled ventricular rate SNOMED Code(s): 22442164 Code(s): I48.91 - UNSPECIFIED ATRIAL FIBRILLATION Status: Chronic Priority: Medium Current Visit: Yes - Problem List Review Problem List Initiated/Reviewed/Updated: Yes - My Orders Last 24 Hours: My Active Orders 08/09/17 10:00 Chest 2V [CR] Routine 08/09/17 10:15 Budesonide [Pulmicort] 1 puff INH BID L Acidophil/B Lactis/B Longum [Florajen3] 1 tab PO BID - Plan Plan:: I/P: Acute: Pneumonia - CTA along with CRX suggest right sides pneumonia, questionable left upper lobe as well; repeat CXR 08/06/2017 reads stable continuing density within right chest and parenchymal density within the left midlung -Repeat CXR today - Sputum culture/Blood cultures- negative - Hx/o COPD, Right lower lobe lung cancer, lobectomy, multiple prior episodes of pneumonia. - Right leg paralysis, therefore relatively sedentary lifestyle - Continue Levaquin 750mg Q24hr; probiotic - D/c Methylprednisolone 80mg Q12hr and IV Zosyn 4.5gm Q6hr - Continue Acapella/RT assess and treat/Duoneb BID/Morphine 0.5mg Q6Hr PRN and Oxygen as ordered Hemoptysis, Improved - Still coughs up blood but better; minimal - Continue Cough suppressant/decongestant - Isolation Precautions/Protective Measures - Continue IV antibiotic and monitor Hgb - Negative CTA upon admit Urinary Candidiasis, New - Stopped IV Steroids - Diflucan daily PO Acute Kidney Injury, Urine output is good - He has renal insufficiency by hx - Baseline eGFR appears around 60 - eGFR 48 in ED - BUN/Creatinine; greatly improved. Chronic: A-fib on Xarelto- rate controlled CAD HTN - stable, PRN meds as needed CHF - home meds as ordered IN (x1) with 4 vessel CABG in 1990 Right lung resection d/t Lung cancer COPD with chronic oxygen use (2L) Bladder cancer by hx Congenital left hand deformity Plan: IS/RT - aggressive pulmonary toilet Routine AM labs Continue PT/OT/RT assess and treat--likely DC home with [facility] PT/OT within next 24 -48 hours; LOS >96 hours due to longer than expected course of improvement/ treatment of PNA- repeat CXR today. DVT/PE/GI prophylaxis - Xarelto/PPI Other orders as indicated above CM/SW for discharge planning He is a DNR/DNI. His PCP is Dr. Estrada at [facility]
[2017-08-09] MEDS ORDERED: ACIDOPHIL PO SCH (10:15)
[2017-08-09] MEDS ORDERED: B LONGUM PO SCH (10:15)
[2017-08-09] MEDS ORDERED: B LACTIS PO SCH (10:15)
--- NOTE | 2017-08-09 12:48 | CR ---
Chest: Two views of the chest were obtained. Comparison: Previous chest x-ray of 08/06/17. Stable parenchymal density within the left mid lung. Stable parenchymal density within the right perihilar region. Slightly improved aeration is noted within the right lung base from prior study. Blunting of the costophrenic angle as well as pleural thickening is seen within the right base which likely represent stable pleural effusion. Apical pleural thickening is noted on the right side which is stable. Previous CABG is noted. Previous right shoulder surgery is noted. Impression: 1. Slightly improved aeration within the right lung base. 2. Other portions of the two-view chest x-ray remain stable from previous study. Diagnostic code #3
[2017-08-09] MEDS: Budesonide 0.5 MG/2 ML Neb Susp INH SCH ×2 (13:22→20:06)
[2017-08-09] MEDS: Gabapentin 600 MG Tab PO SCH (22:06)
[2017-08-09] MEDS: Simvastatin 10 MG Tab PO SCH (22:08)
[2017-08-09] MEDS: Rivaroxaban 10 MG Tab PO SCH (22:10)
[2017-08-10] MEDS: guaiFENesin/Dextromethorphan 100-10 MG/5 ML Soln 5 ML Cup PO SCH ×3 (01:02→12:40)
--- NOTE | 2017-08-10 07:14 | PCM.DCSUM1 ---
<Jody Loya M - Last Filed: 08/10/17 19:03> Discharge Summary - Hospital Course Free Text/Narrative:: Comprehensive discussion as above. - Discharge Data Discharge Disposition: Home, W Home Health Agency 06 Condition: Fair - Discharge Plan Prescriptions/Med Rec: Albuterol/Ipratropium [DuoNeb 3.0-0.5 MG/3 ML] 3 ml NEB BID #120 neb Benzonatate [Tessalon Perles] 100 mg PO TID PRN #30 cap PRN Reason: Cough Fluconazole [IJD: Fluconazole] 150 mg PO DAILY #10 tablet Levofloxacin [Levaquin] 750 mg PO DAILY #7 tablet Spironolactone [Aldactone] 25 mg PO DAILY #30 tablet Home Medications: Home Meds Metoprolol Tartrate [Lopressor] 25 mg PO BID 09/30/14 [History] Furosemide [Lasix] 20 mg PO BID 09/27/15 [History] Gabapentin [Neurontin] 3 tab PO BEDTIME 01/08/16 [History] Rivaroxaban [Xarelto] 20 mg PO BEDTIME 01/04/17 [History] atorvaSTATin [Lipitor] 10 mg PO BEDTIME 01/04/17 [History] Omeprazole 20 mg PO DAILY 04/05/17 [History] Albuterol [Proventil HFA] 2 puff INH Q6HR PRN 08/04/17 [History] Budesonide [Pulmicort] 1 puff INH BID 08/04/17 [History] L Acidophil/B Lactis/B Longum [Florajen3] 1 tab PO BID 08/04/17 [History] Albuterol/Ipratropium [DuoNeb 3.0-0.5 MG/3 ML] 3 ml NEB Q4H PRN neb 08/10/17 [ Rx] Benzonatate [Tessalon Perles] 100 mg PO TID PRN #30 cap 08/10/17 [Rx] Fluconazole [IJD: Fluconazole] 150 mg PO DAILY #10 tablet 08/10/17 [Rx] Levofloxacin [Levaquin] 750 mg PO DAILY #7 tablet 08/10/17 [Rx] Spironolactone [Aldactone] 25 mg PO DAILY #30 tablet 08/10/17 [Rx] Albuterol/Ipratropium [DuoNeb 3.0-0.5 MG/3 ML] 3 ml NEB BID #120 neb 08/11/17 [ Rx] Patient Handouts: Chronic Obstructive Pulmonary Disease, [id number], Oxygen Use at Home, Heart Failure, [id number], Community-Acquired Pneumonia, Adult, [id number] Referrals: Wolfgang Estrada MD [Primary Care Provider] - 08/19/17 9:30 am (Please follow up with Dr. Estrada on at 0930.) - Patient Data Vitals - Most Recent: Last Vital Signs Temp 36.5 C 08/10/17 12:00 Pulse 62 08/10/17 12:00 Resp 20 08/10/17 12:00 BP 116/49 L 08/10/17 12:00 Pulse Ox 96 08/10/17 12:00 I&O - Last 24 hours: Intake & Output 08/10/17 08/10/17 08/10/17 06:59 14:59 22:59 Intake Total 1400 850 Output Total 400 850 Balance 1000 0 Lab Results - Last 24 hrs: Laboratory Results - last 24 hr 08/10/17 08/10/17 Range/Units 10:40 10:40 WBC 13.06 H (4.23-9.07) K/mm3 RBC 3.69 L (4.63-6.08) M/mm3 Hgb 11.7 L (13.7-17.5) gm/L Hct 37.9 L (40.1-51.0) % MCV 102.7 H (79.0-92.2) fl MCH 31.7 (25.7-32.2) pg MCHC 30.9 L (32.2-35.5) g/dl RDW Std Deviation 57.6 H (35.1-43.9) fL Plt Count 220 (163-337) K/mm3 MPV 10.2 (9.4-12.3) fl Neut % (Auto) 69.4 H (34.0-67.9) % Lymph % (Auto) 5.5 L (21.8-53.1) % Wilcox % (Auto) 9.3 (5.3-12.2) % Eos % (Auto) 9.6 H (0.8-7.0) Baso % (Auto) 0.5 (0.1-1.2) % Neut # (Auto) 9.05 H (1.78-5.38) K/mm3 Lymph # (Auto) 0.72 L (1.32-3.57) K/mm3 Wilcox # (Auto) 1.22 H (0.30-0.82) K/mm3 Eos # (Auto) 1.25 H (0.04-0.54) K/mm3 Baso # (Auto) 0.07 (0.01-0.08) K/mm3 Manual Slide Review Abnormal smear Sodium 142 (136-145) mEq/L Potassium 4.1 (3.5-5.1) mEq/L Chloride 102 (98-107) mEq/L Carbon Dioxide 38 H (21-32) mEq/L Anion Gap 6.1 (5-15) BUN 26 H (7-18) mg/dL Creatinine 1.2 (0.7-1.3) mg/dL Est Cr Clr Drug Dosing 47.93 mL/min Estimated GFR (MDRD) 58 (>60) mL/min BUN/Creatinine Ratio 21.7 H (14-18) Glucose 158 H (83-115) mg/dL Calcium 9.4 (8.5-10.1) mg/dL Magnesium 2.1 (1.8-2.4) mg/dl C-Reactive Protein 2.3 H* (<1.0) mg/dL Med Orders - Current: Current Medications Discontinued Medications Acetaminophen (Tylenol) 650 mg PO Q4H PRN PRN Reason: Pain (Mild 1-3)/fever Hydrocodone Bitart/Acetaminophen (Gorin 325-5 Mg) 1 tab PO Q4H PRN PRN Reason: Pain (moderate 4-6) Albuterol/Ipratropium (Duoneb 3.0-0.5 Mg/3 Ml) 3 ml NEB Q4H PRN PRN Reason: Shortness Of Breath/wheezing Last Admin: 08/09/17 16:24 Dose: 3 ml Albuterol/Ipratropium (Duoneb 3.0-0.5 Mg/3 Ml) 3 ml NEB BID [facility] Last Admin: 08/10/17 08:12 Dose: 3 ml Artificial Tears (Isopto Tears 0.5% Ophth Soln) 0 ml EYEBOTH BID PRN PRN Reason: Dry Eyes Last Admin: 08/09/17 06:18 Dose: 1 drop Benzonatate (Tessalon Perles) 100 mg PO TID [facility] Last Admin: 08/10/17 09:08 Dose: 100 mg Bisacodyl (Dulcolax) 5 mg PO DAILY PRN PRN Reason: Constipation Budesonide (Pulmicort) 0.5 mg INH BID [facility] Last Admin: 08/10/17 08:12 Dose: 0.5 mg Docusate Sodium (Colace) 100 mg PO BID PRN PRN Reason: Constipation Fluconazole (Diflucan) 150 mg PO DAILY [facility] Last Admin: 08/10/17 09:08 Dose: 150 mg Furosemide (Lasix) 40 mg IVPUSH NOW ONE Stop: 08/04/17 10:25 Last Admin: 08/04/17 10:28 Dose: 40 mg Furosemide (Lasix) 20 mg PO BID [facility] Last Admin: 08/10/17 09:07 Dose: 20 mg Gabapentin (Neurontin) 1,800 mg PO BEDTIME [facility] Last Admin: 08/09/17 22:06 Dose: 1,800 mg Guaifenesin/Phenylephrine HCl (Robitussin Dm) 10 ml PO Q6H [facility] Last Admin: 08/10/17 12:40 Dose: 10 ml Hydralazine HCl (Apresoline) 10 mg IVPUSH Q4H PRN PRN Reason: Hypertension Levofloxacin/Dextrose 750 mg/ (Premix) 150 mls @ 100 mls/hr IV ONETIME ONE Stop: 08/04/17 13:14 Last Admin: 08/04/17 12:00 Dose: 100 mls/hr Sodium Chloride (Normal Saline) 100 mls @ 60 mls/hr IV ASDIRECTED [facility] Last Admin: 08/04/17 12:31 Dose: 60 mls/hr Levofloxacin/Dextrose 750 mg/ (Premix) 150 mls @ 100 mls/hr IV Q24H [facility] Last Admin: 08/04/17 18:05 Dose: Not Given Piperacillin Sod/Tazobactam (Sod 4.5 gm/ Sodium Chloride) 100 mls @ 33.333 mls/ hr IV Q6H [facility] Last Admin: 08/06/17 09:53 Dose: 33.333 mls/hr Promethazine HCl 6.25 mg/ (Sodium Chloride) 50.25 mls @ 100 mls/hr IV Q6H PRN PRN Reason: Nausea/Vomiting Piperacillin Sod/Tazobactam (Sod 4.5 gm/ Sodium Chloride) 100 mls @ 200 mls/hr IV ONETIME ONE Stop: 08/04/17 16:29 Last Admin: 08/04/17 17:15 Dose: 200 mls/hr Levofloxacin/Dextrose 750 mg/ (Premix) 150 mls @ 100 mls/hr IV Q48H [facility] Last Admin: 08/10/17 13:32 Dose: 100 mls/hr Iopamidol (Isovue-370 (76%)) 100 ml IVPUSH ONETIME ONE Stop: 08/04/17 12:11 Last Admin: 08/04/17 12:31 Dose: 100 ml Loratadine (Claritin) 10 mg PO ONETIME ONE Stop: 08/04/17 11:56 Last Admin: 08/04/17 12:06 Dose: 10 mg Lorazepam (Ativan) 0.25 mg IV Q6H PRN PRN Reason: Anxiety Magnesium Sulfate (Pharmacy To Dose - Magnesium Replacement) 1 dose .XX ASDIRECTED [facility] Methylprednisolone Sodium Succinate (Solu-Medrol) 125 mg IVPUSH ONETIME ONE Stop: 08/04/17 11:55 Last Admin: 08/04/17 12:08 Dose: 125 mg Methylprednisolone Sodium Succinate (Solu-Medrol) 80 mg IVPUSH Q12H [facility] Last Admin: 08/06/17 09:53 Dose: 80 mg Metoprolol Tartrate (Lopressor) 5 mg IVPUSH Q4H PRN PRN Reason: Tachycardia Metoprolol Tartrate (Lopressor) 25 mg PO BID [facility] Last Admin: 08/10/17 09:08 Dose: 25 mg Morphine Sulfate (Morphine) 0.5 mg IVPUSH Q4H PRN PRN Reason: Other Stop: 08/05/17 15:02 Non-Formulary Medication (L Acidophil/B Lactis/B Longum [Florajen3]) 1 tab PO BID [facility] Last Admin: 08/09/17 12:34 Dose: Not Given Ondansetron HCl (Zofran) 4 mg IV Q6H PRN PRN Reason: Nausea/Vomiting Pantoprazole Sodium (Protonix) 40 mg PO DAILY [facility] Last Admin: 08/10/17 09:07 Dose: 40 mg Polyethylene Glycol (Miralax) 17 gm PO DAILY PRN PRN Reason: Constipation Potassium Chloride (Pharmacy To Dose - Potassium Replacement) 1 dose .XX ASDIRECTED [facility] Potassium Chloride (Klor-Con M20) 40 meq PO Q4H [facility] Stop: 08/07/17 14:01 Last Admin: 08/07/17 14:54 Dose: 40 meq Rivaroxaban (Xarelto) 20 mg PO BEDTIME [facility] Last Admin: 08/09/17 22:10 Dose: 20 mg Saccharomyces Boulardii (Florastor) 250 mg PO BID [facility] Last Admin: 08/10/17 09:07 Dose: 250 mg Senna/Docusate Sodium (Senna Plus) 1 tab PO BID PRN PRN Reason: Constipation Simvastatin (Zocor) 10 mg PO BEDTIME [facility] Last Admin: 08/09/17 22:08 Dose: 10 mg Sodium Chloride (Saline Flush) 10 ml FLUSH ONETIME ONE Stop: 08/04/17 12:11 Last Admin: 08/04/17 12:31 Dose: 10 ml Spironolactone (Aldactone) 25 mg PO DAILY [facility] Last Admin: 08/10/17 09:07 Dose: 25 mg Temazepam (Restoril) 7.5 mg PO BEDTIME PRN PRN Reason: Sleep *Q Meaningful Use (DIS) - VTE *Q VTE Criteria *Q: - Stroke *Q Stroke Criteria *Q: - AMI *Q AMI Criteria *Q: <Sandra Grimm M - Last Filed: 08/22/17 19:44> Discharge Summary - Hospital Course Free Text/Narrative:: Melecio Hussein is an 87 yo male who presented to our ED today via ambulance with shortness of breath. Daughter reports patient has had a gurgling sound for the past 2-3 days. He also reports low back pain and chills this morning. Denies fever, vomiting, diarrhea. He has frequent UTIs and multiple prior pneumonia diagnosis. His history of COPD and right lung cancer. He is chronically on 2 L per nasal cannula. Upon arrival he was found to have sats under 70% and an RNB was applied, which raised his saturations to 90%. Temperature on ED presentation is around 99. His chronic right lower extremity edema. Recently developed left lower sternal ED edema. He recently seen his PCP Dr. Estrada and was prescribed prednisone and an antibiotic, although he does not know which antibiotic. In the ED pulses are 7. Respirations were elevated at 38. Blood pressure 143/98. Pulse ox was low at 68% as noted earlier. Labs are obtained: The CBC is high at 22.70, although does noted that he is on prednisone currently. Hemoglobin was low at 13.6. Hematocrit 43.3. Platelets 295,000. Neutrophils were at 57%. Band neutrophils 6%. PT was 13.7. INR 1.24. APTT 28. D-dimer elevated at 0.87. ABG was obtained and the left radial. PH low end of normal at 7.36. PCO2 58. PO2 56. HCO3 32. ABG O2 saturation 80%. Base excess 5.5. A-a gradient 128. This was obtained on 5 L of oxygen via nasal cannula. FiO2 is 40%. Sodium was at elevated at 146. Potassium 4.2. Chloride 103. Carbon dioxide slightly high at 33. Anion gap 14.2. BUN 35. Creatinine 1.4. EGFR 48. Glucose 129. Lactic acid high at 2.7. Calcium 0.9. AST 16 ALT 22 alkaline phosphatase 65. Troponin 0.020 BNP was elevated at 06/02/11. Albumin low end of good at 3.4. UA was negative. Urine culture was ordered and is pending. In the ED he was given 40 mg of Lasix. 7 and 50 mg Levaquin drip was started. Claritin 10 mg was given. Solu- Medrol 125 mg IV push was given. Total chest x-ray interpreted by Dr. Smith reads 1. Slight decreased density within the left mid chest from prior exam. 2. Increased right-sided pleural effusion seen from previous study. 3. Other stable findings as noted above. CT angiogram of the chest was also obtained and interpreted per Dr. Smith as: 1. No findings of pulmonary embolism. 2. Diffuse consolidation throughout a large portion of the right lung. Small right-sided pleural effusion is seen. 3. Additional density within the left upper lung. There is a parenchymal density most likely representing pneumonia. 4. Other incidental findings. EKG was obtained noting A. fib at 97 bpm. There is a nonspecific intraventricular conduction delay noted. This was compared to an EKG from with no changes. He carries a history of A. fib on Xarelto, CAD, CHF, HTN, [place] 1 with 4 vessel CABG in 1990, COPD, chronic oxygen use at 2 L, right lung resection, prior lung and bladder cancer. He is a prior 58 -pack-year smoker who quit in 2017. He was subsequently admitted to the medical floor with telemetry for pneumonia. His PCP is Dr. Estrada at . Patient was treated with IV antibiotics for the duration of his stay. Serial CXR were obtained, x 3 during his stay with improvements noted. He was diuresed with improvement of saturations. BC and SC were negative. 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 Labs , WBC and CRP improved slowly. PT/OT worked with him, recommend outpatient PT/OT , C nursing. He was previously receiving HHC and this will resume with increased services. Face to face on day of discharge does reveal patient will benefit from HHC with PT/OT and nursing services for assist and education re: medications, IS/FV, respiratory treatments, care of ostomy site, PT/OT for weakness, strengthening and balance all relating to diagnosis of pneumonia and heart failure. He will follow up with Dr. Estrada after discharge, within one week, who will assume HHC following hospital discharge. - Discharge Data Discharge Date: 08/10/17 (admit date 08/04/17) - Discharge Diagnosis/Problem(s) (1) Pneumonia SNOMED Code(s): 903017810 ICD Code: J18.9 - PNEUMONIA, UNSPECIFIED ORGANISM Status: Acute Priority : High (2) UTI, Urinary tract infectious disease SNOMED Code(s): 74734534 ICD Code: N39.0 - URINARY TRACT INFECTION, SITE NOT SPECIFIED Status: Acute Priority: High Onset Date: 07/17/16 (3) Congestive heart failure SNOMED Code(s): 63305685 ICD Code: I50.9 - HEART FAILURE, UNSPECIFIED Status: Chronic Priority: High Qualifiers: Congestive heart failure type: diastolic Congestive heart failure chronicity: acute on chronic Qualified Code(s): I50.33 - Acute on chronic diastolic (congestive) heart failure (4) Febrile respiratory illness SNOMED Code(s): 94284312 ICD Code: J98.9 - RESPIRATORY DISORDER, UNSPECIFIED; R50.9 - FEVER, UNSPECIFIED Status: Resolved Priority: High (5) CKD (chronic kidney disease) stage 3, GFR 30-59 ml/min SNOMED Code(s): 046465723 ICD Code: N18.3 - CHRONIC KIDNEY DISEASE, STAGE 3 (MODERATE) Status: Chronic Priority: Medium (6) Hypoxemia SNOMED Code(s): 891292336 ICD Code: R09.02 - HYPOXEMIA Status: Chronic Priority: High (7) TEREZA on CPAP SNOMED Code(s): 91143074 ICD Code: G47.33 - OBSTRUCTIVE SLEEP APNEA (ADULT) (PEDIATRIC) Status: Chronic Priority: Low (8) Atrial fibrillation with controlled ventricular rate SNOMED Code(s): 83682813 ICD Code: I48.91 - UNSPECIFIED ATRIAL FIBRILLATION Status: Chronic Priority: Medium - Patient Summary/Data Operative Procedure(s) Performed: None Complications: None Consults: PT/OT Labs Pending at D/C: None Recommended Follow-up Testing/Procedures: Home Health Care with Physical Therapy and Occupational Therapy Follow up with Dr. Estrada within one week of discharge Planned Operative Procedure(s) after DC: None Hospital Course: As above - Patient Instructions Diet: Heart Healthy Diet, Low Sodium Activity: As Tolerated Driving: Do Not Drive Showering/Bathing: May Shower Notify Provider of: Fever, Increased Pain, Swelling and Redness, Nausea and/or Vomiting - Discharge Summary/Plan Comment DC Time >30 min.: Yes (45 min) - General Info Date of Service: 08/10/17 Admission Dx/Problem (Free Text: Admission Diagnosis/Problem Admission Diagnosis/Problem Pneumonia Manny is seen this morning. Still coughing but much improved and without worsening of symptoms of cough or SOB, no CP or dyspnea. States "tired of coughing". Appetite is good. He slept well. He is up and ambulatory, working with PT/OT. Plans for DC home with daughter today with [facility] PT/OT. Functional Status: Reports: Pain Controlled, Tolerating Diet, Ambulating, Urinating, Incentive Spirometry. Denies: New Symptoms - Review of Systems General: Reports: Fever, Fatigue (improved), Appetite (good) HEENT: Reports: No Symptoms Pulmonary: Reports: Shortness of Breath (improved), Cough (improved), Hemoptysis (improved to resolving). Denies: Pleuritic Chest Pain Cardiovascular: Reports: No Symptoms Gastrointestinal: Reports: No Symptoms. Denies: Nausea, Vomiting Genitourinary: Reports: No Symptoms Musculoskeletal: Reports: No Symptoms Neurological: Reports: No Symptoms - Patient Data Vitals - Most Recent: Last Vital Signs Temp 97.3 F 08/10/17 02:59 Pulse 74 08/10/17 02:59 Resp 17 08/10/17 02:59 BP 141/69 H 08/10/17 02:59 Pulse Ox 100 08/10/17 02:59 Weight - Most Recent: 195 lb 3.2 oz I&O - Last 24 hours: Intake & Output 08/09/17 08/10/17 08/10/17 22:59 06:59 14:59 Intake Total 840 1400 Output Total 400 Balance 840 1000 Lab Results - Last 24 hrs: Laboratory Results - last 24 hr 08/09/17 Range/Units 06:00 Manual Slide Review Abnormal smear Med Orders - Current: Current Medications Acetaminophen (Tylenol) 650 mg PO Q4H PRN PRN Reason: Pain (Mild 1-3)/fever Hydrocodone Bitart/Acetaminophen (Gorin 325-5 Mg) 1 tab PO Q4H PRN PRN Reason: Pain (moderate 4-6) Albuterol/Ipratropium (Duoneb 3.0-0.5 Mg/3 Ml) 3 ml NEB Q4H PRN PRN Reason: Shortness Of Breath/wheezing Last Admin: 08/09/17 16:24 Dose: 3 ml Albuterol/Ipratropium (Duoneb 3.0-0.5 Mg/3 Ml) 3 ml NEB BID [facility] Last Admin: 08/09/17 20:06 Dose: 3 ml Artificial Tears (Isopto Tears 0.5% Ophth Soln) 0 ml EYEBOTH BID PRN PRN Reason: Dry Eyes Last Admin: 08/09/17 06:18 Dose: 1 drop Benzonatate (Tessalon Perles) 100 mg PO TID [facility] Last Admin: 08/09/17 22:10 Dose: 100 mg Bisacodyl (Dulcolax) 5 mg PO DAILY PRN PRN Reason: Constipation Budesonide (Pulmicort) 0.5 mg INH BID [facility] Last Admin: 08/09/17 20:06 Dose: 0.5 mg Docusate Sodium (Colace) 100 mg PO BID PRN PRN Reason: Constipation Fluconazole (Diflucan) 150 mg PO DAILY [facility] Last Admin: 08/09/17 08:34 Dose: 150 mg Furosemide (Lasix) 20 mg PO BID [facility] Last Admin: 08/09/17 22:09 Dose: 20 mg Gabapentin (Neurontin) 1,800 mg PO BEDTIME [facility] Last Admin: 08/09/17 22:06 Dose: 1,800 mg Guaifenesin/Phenylephrine HCl (Robitussin Dm) 10 ml PO Q6H [facility] Last Admin: 08/10/17 06:44 Dose: 10 ml Hydralazine HCl (Apresoline) 10 mg IVPUSH Q4H PRN PRN Reason: Hypertension Promethazine HCl 6.25 mg/ (Sodium Chloride) 50.25 mls @ 100 mls/hr IV Q6H PRN PRN Reason: Nausea/Vomiting Levofloxacin/Dextrose 750 mg/ (Premix) 150 mls @ 100 mls/hr IV Q48H [facility] Last Admin: 08/08/17 12:19 Dose: 100 mls/hr Lorazepam (Ativan) 0.25 mg IV Q6H PRN PRN Reason: Anxiety Metoprolol Tartrate (Lopressor) 5 mg IVPUSH Q4H PRN PRN Reason: Tachycardia Metoprolol Tartrate (Lopressor) 25 mg PO BID [facility] Last Admin: 08/09/17 22:07 Dose: 25 mg Ondansetron HCl (Zofran) 4 mg IV Q6H PRN PRN Reason: Nausea/Vomiting Pantoprazole Sodium (Protonix) 40 mg PO DAILY [facility] Last Admin: 08/09/17 08:34 Dose: 40 mg Polyethylene Glycol (Miralax) 17 gm PO DAILY PRN PRN Reason: Constipation Rivaroxaban (Xarelto) 20 mg PO BEDTIME [facility] Last Admin: 08/09/17 22:10 Dose: 20 mg Saccharomyces Boulardii (Florastor) 250 mg PO BID [facility] Last Admin: 08/09/17 22:06 Dose: 250 mg Senna/Docusate Sodium (Senna Plus) 1 tab PO BID PRN PRN Reason: Constipation Simvastatin (Zocor) 10 mg PO BEDTIME [facility] Last Admin: 08/09/17 22:08 Dose: 10 mg Spironolactone (Aldactone) 25 mg PO DAILY [facility] Temazepam (Restoril) 7.5 mg PO BEDTIME PRN PRN Reason: Sleep Discontinued Medications Furosemide (Lasix) 40 mg IVPUSH NOW ONE Stop: 08/04/17 10:25 Last Admin: 08/04/17 10:28 Dose: 40 mg Levofloxacin/Dextrose 750 mg/ (Premix) 150 mls @ 100 mls/hr IV ONETIME ONE Stop: 08/04/17 13:14 Last Admin: 08/04/17 12:00 Dose: 100 mls/hr Sodium Chloride (Normal Saline) 100 mls @ 60 mls/hr IV ASDIRECTED [facility] Last Admin: 08/04/17 12:31 Dose: 60 mls/hr Levofloxacin/Dextrose 750 mg/ (Premix) 150 mls @ 100 mls/hr IV Q24H [facility] Last Admin: 08/04/17 18:05 Dose: Not Given Piperacillin Sod/Tazobactam (Sod 4.5 gm/ Sodium Chloride) 100 mls @ 33.333 mls/ hr IV Q6H [facility] Last Admin: 08/06/17 09:53 Dose: 33.333 mls/hr Piperacillin Sod/Tazobactam (Sod 4.5 gm/ Sodium Chloride) 100 mls @ 200 mls/hr IV ONETIME ONE Stop: 08/04/17 16:29 Last Admin: 08/04/17 17:15 Dose: 200 mls/hr Iopamidol (Isovue-370 (76%)) 100 ml IVPUSH ONETIME ONE Stop: 08/04/17 12:11 Last Admin: 08/04/17 12:31 Dose: 100 ml Loratadine (Claritin) 10 mg PO ONETIME ONE Stop: 08/04/17 11:56 Last Admin: 08/04/17 12:06 Dose: 10 mg Magnesium Sulfate (Pharmacy To Dose - Magnesium Replacement) 1 dose .XX ASDIRECTED [facility] Methylprednisolone Sodium Succinate (Solu-Medrol) 125 mg IVPUSH ONETIME ONE Stop: 08/04/17 11:55 Last Admin: 08/04/17 12:08 Dose: 125 mg Methylprednisolone Sodium Succinate (Solu-Medrol) 80 mg IVPUSH Q12H [facility] Last Admin: 08/06/17 09:53 Dose: 80 mg Morphine Sulfate (Morphine) 0.5 mg IVPUSH Q4H PRN PRN Reason: Other Stop: 08/05/17 15:02 Non-Formulary Medication (L Acidophil/B Lactis/B Longum [Florajen3]) 1 tab PO BID [facility] Last Admin: 08/09/17 12:34 Dose: Not Given Potassium Chloride (Pharmacy To Dose - Potassium Replacement) 1 dose .XX ASDIRECTED [facility] Potassium Chloride (Klor-Con M20) 40 meq PO Q4H [facility] Stop: 08/07/17 14:01 Last Admin: 08/07/17 14:54 Dose: 40 meq Sodium Chloride (Saline Flush) 10 ml FLUSH ONETIME ONE Stop: 08/04/17 12:11 Last Admin: 08/04/17 12:31 Dose: 10 ml - Exam Quality Assessment: Reports: Supplemental Oxygen, DVT Prophylaxis General: Reports: Alert, Oriented, Cooperative, No Acute Distress HEENT: Reports: Pupils Equal, EOMI, Mucous Membr. Moist/[place] Neck: Reports: Supple Lungs: Reports: Normal Respiratory Effort, Decreased Breath Sounds (bases), Rhonchi (to rt side; clear with coughing). Denies: Crackles, Wheezing Cardiovascular: Reports: Regular Rate, Regular Rhythm GI/Abdominal Exam: Normal Bowel Sounds, Soft, Non-Tender (Male) Exam: Deferred Rectal (Males) Exam: Deferred Back Exam: Reports: Normal Inspection Extremities: Normal Capillary Refill Skin: Reports: Warm, Dry Neurological: Reports: No New Focal Deficit Psy/Mental Status: Reports: Alert, Normal Affect, Normal Mood *Q Meaningful Use (DIS) - VTE *Q VTE Criteria *Q: - Stroke *Q Stroke Criteria *Q: - AMI *Q AMI Criteria *Q:
[2017-08-10] MEDS: Budesonide 0.5 MG/2 ML Neb Susp INH SCH (08:12)
[2017-08-10] MEDS: Albuterol/Ipratropium 3.0-0.5 MG/3 ML Neb Soln NEB SCH (08:12)
[2017-08-10] MEDS ORDERED: Spironolactone 25 MG Tab PO SCH (09:00)
[2017-08-10] MEDS: Pantoprazole 40 MG Tab.CR PO SCH (09:07)
[2017-08-10] MEDS: Saccharomyces Boulardii (Probiotic) 250 MG Cap PO SCH (09:07)
[2017-08-10] MEDS: Furosemide 20 MG Tab PO SCH (09:07)
[2017-08-10] MEDS: Fluconazole 150 MG Tab PO SCH (09:08)
[2017-08-10] MEDS: Metoprolol Tartrate 25 MG Tab PO SCH (09:08)
[2017-08-10] MEDS: Benzonatate 100 MG Cap PO SCH (09:08)
[2017-08-10 12:51] VITALS: BP 116/49
[2017-08-10] MEDS: Levofloxacin/Dextrose 5%-Water 750 MG in Premix Bag 1 BAG IV SCH (13:32)
== END 2017-08-10 16:07 | disposition home health service (06) | DRG 190 ==
LOC: SUPCPDRO 09:45 → EDSEX 09:45 → MERGE 09:45 → JD.ED 09:45 → UNDOADMIN 14:31 → JD.MS 14:31
PROVIDERS: ADMIT Internal Medicine; ATTEND Internal Medicine
DX: J44.0 Chronic obstructive pulmonary disease with (acute) lower respiratory infection (principal); C34.31 Malignant neoplasm of lower lobe, right bronchus or lung; J18.9 Pneumonia, unspecified organism; I50.33 Acute on chronic diastolic (congestive) heart failure; N17.9 Acute kidney failure, unspecified; N39.0 Urinary tract infection, site not specified; I13.0 Hypertensive heart and chronic kidney disease with heart failure and stage 1 through stage 4 chronic kidney disease, or unspecified chronic kidney disease; I48.91 Unspecified atrial fibrillation; I25.10 Atherosclerotic heart disease of native coronary artery without angina pectoris; I25.2 Old myocardial infarction; Z95.1 Presence of aortocoronary bypass graft; Z99.81 Dependence on supplemental oxygen; Z90.2 Acquired absence of lung [part of]; Z85.51 Personal history of malignant neoplasm of bladder; Z85.118 Personal history of other malignant neoplasm of bronchus and lung; N18.3 Chronic kidney disease, stage 3 (moderate); G47.33 Obstructive sleep apnea (adult) (pediatric)
CPT/HCPCS: 36415; 36600; 71010; 71275; 80053; 81001; 82803; 83605; 83880; 84484; 85025; 85379; 85610; 85730; 86140; 87040 ×2; 87086; 87106; 93005; 96365; 96366; 96375; 99285; A9270; J1940; J1956; J2930; J7030; J7050; Q9967; 71020; 71020-26; 80048; 83735; 87070; 87205; 93010; 94640; 94667; 94668; 94760; 94761; 97110-GO; 97110-GP; 97112-GP; 97116-GP; 97162-GP; 97166-GO; 97530-GO; 97530-GP; 97535-GO; J2543; J2920

== ENCOUNTER 2017-09-05 21:35 | Emergency (ER) | payer MEDICARE, BC ==
[2017-09-05 21:40] VITALS: BP 156/69
--- NOTE | 2017-09-05 22:23 | EDM.PDOC ---
ED HPI GENERAL MEDICAL PROBLEM - General Chief Complaint: Respiratory Problem Stated Complaint: [facility] Time Seen by Provider: 09/05/17 22:03 Source of Information: Reports: Patient History Limitations: Reports: No Limitations - History of Present Illness INITIAL COMMENTS - FREE TEXT/NARRATIVE: The patient is an 87-year-old male with a history of lung cancer, bladder cancer , requires continuous oxygen at 2 L nasal cannula, who called EMS due to having the chills. He was admitted here about a month ago with pneumonia. He did complete his course of antibiotics about a week ago. States that he's just been feeling poorly for the past few days with chills and back pain. Pain is located in the mid lower back area. It's sharp and worse with movement. Took Tylenol earlier this evening which helped. No fever. He has had a mild cough with clear sputum, no recent change in this. No new shortness of breath or chest pain. No abdominal pain or vomiting or diarrhea. He has a history of urostomy due to bladder removal for cancer. States he feels like he might have a urine infection. Treatments TRAIN OPERATIONS MANAGER: Reports: Other (see below) Other Treatments TRAIN OPERATIONS MANAGER: tylenol Neck Pain Score (Numeric/FACES): 7 - Related Data Allergies Allergy/AdvReac Type Severity Reaction Status Date / Time diphenhydramine Allergy Hallucinati Verified 08/04/17 11:53 [From Benadryl] ons iodine Allergy Hives Verified 08/04/17 11:53 iopamidol Allergy Rash Verified 08/04/17 11:53 Home Meds: Home Meds Metoprolol Tartrate [Lopressor] 25 mg PO BID 09/30/14 [History] Furosemide [Lasix] 20 mg PO BID 09/27/15 [History] Gabapentin [Neurontin] 1,800 mg PO BEDTIME 01/08/16 [History] Rivaroxaban [Xarelto] 20 mg PO BEDTIME 01/04/17 [History] atorvaSTATin [Lipitor] 10 mg PO BEDTIME 01/04/17 [History] Omeprazole 20 mg PO DAILY 04/05/17 [History] Albuterol [Proventil HFA] 2 puff INH Q6HR PRN 08/04/17 [History] Budesonide [Pulmicort] 0.5 mg INH BID 08/04/17 [History] L Acidophil/B Lactis/B Longum [Florajen3] 1 tab PO BID 08/04/17 [History] Benzonatate [Tessalon Perles] 100 mg PO TID PRN #30 cap 08/10/17 [Rx] Spironolactone [Aldactone] 25 mg PO DAILY #30 tablet 08/10/17 [Rx] Albuterol/Ipratropium [DuoNeb 3.0-0.5 MG/3 ML] 3 ml NEB BID 09/05/17 [History] Albuterol/Ipratropium [DuoNeb 3.0-0.5 MG/3 ML] 3 ml NEB Q4H PRN 09/05/17 [ History] Past Medical History HEENT History: Reports: Impaired Vision Other HEENT History: wears eyeglasses Cardiovascular History: Reports: Afib, CAD, Heart Failure, Hypertension, HI Respiratory History: Reports: Bronchitis, Recurrent, COPD, Pneumonia, Recurrent Other Respiratory History: 09/22 R) lung removed, lung CA. Wears O2 round the clock, uses CPAP at noc Gastrointestinal History: Reports: Colon Polyp, GERD Genitourinary History: Reports: Chronic Renal Insuffiency, Other (See Below), Urostomy, UTI, Recurrent Other Genitourinary History: had bladder CA, bladder removed--urostomy. 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 ), sciatica pain Psychiatric History: Reports: Depression Endocrine/Metabolic History: Reports: None Hematologic History: Reports: None Immunologic History: Reports: None Oncologic (Cancer) History: Reports: Bladder, Lung, Squamous Cell Carcinoma Dermatologic History: Reports: None - Infectious Disease History Infectious Disease History: Reports: Chicken Pox, Measles, Shingles - Past Surgical History Head Surgeries/Procedures: Reports: None HEENT Surgical History: Reports: Cataract Surgery Cardiovascular Surgical History: Reports: Coronary Artery Bypass Respiratory Surgical History: Reports: Lung Resection GI Surgical History: Reports: Hernia, Inguinal Social & Family History - Family History Family Medical History: Noncontributory Cardiac: Reports: Bypass, Heart Failure, [place], Pacemaker Other Cardiac Family History: few brothers from [place]. OBGYN: Reports: Oncologic: Reports: Liver, Pancreatic, Prostate Other Oncologic Family History: brother prostate, Brother-pancreatic cancer, sister- liver cancer - Tobacco Use Smoking Status *Q: Former Smoker Years of Tobacco use: 58 Packs/Tins Daily: 1 Used Tobacco, but Quit: Yes Month Tobacco Last Used: 10 yrs Second Hand Smoke Exposure: No - Caffeine Use Caffeine Use: Reports: Coffee Other Caffeine Use: 1 cup daily - Alcohol Use Days Per Week of Alcohol Use: 3 Number of Drinks Per Day: 3 Total Drinks Per Week: 9 - Recreational Drug Use Recreational Drug Use: No - Living Situation & Occupation Living situation: Reports: , with Family (Daughter) Occupation: Retired ED ROS GENERAL - Review of Systems Review Of Systems: See Below Constitutional: Reports: Chills, Malaise, Weakness, Fatigue HEENT: Reports: No Symptoms Respiratory: Reports: Cough Cardiovascular: Denies: Chest Pain Endocrine: Reports: Fatigue GI/Abdominal: Denies: Abdominal Pain, Diarrhea : Reports: Flank Pain. Denies: Dysuria, Hematuria Musculoskeletal: Reports: No Symptoms Skin: Denies: Rash Neurological: Reports: No Symptoms Psychiatric: Reports: No Symptoms ED EXAM, GENERAL - Physical Exam Exam: See Below Exam Limited By: No Limitations General Appearance: Alert, WD/WN, No Apparent Distress Eye Exam: Bilateral Eye: Normal Inspection Ears: Normal External Exam Nose: Normal Inspection Throat/Mouth: Normal Inspection, Normal Voice, No Airway Compromise Head: Atraumatic, Normocephalic Neck: Supple, Non-Tender Respiratory/Chest: No Respiratory Distress, Other (Diminished throughout, no wheezes) Cardiovascular: Normal Peripheral Pulses, Regular Rate, Rhythm, No Edema, No Murmur GI/Abdominal: Soft, Non-Tender, No Distention, Other (Urostomy site is clean, dry, intact) Back Exam: Normal Inspection, Other (Mild bilateral CVA tenderness) Neurological: Alert, Oriented, Normal Cognition, No Motor/Sensory Deficits Psychiatric: Normal Affect, Normal Mood Skin Exam: Warm, Dry, Intact, Normal Color, No Rash Course - Vital Signs Last Recorded V/S: Last Vital Signs Temp 36.7 C 09/05/17 21:38 Pulse 71 09/05/17 21:38 Resp 15 09/05/17 21:38 BP 156/69 H 09/05/17 21:38 Pulse Ox 98 09/05/17 21:38 - Orders/Labs/Meds Orders: Active Orders 24 hr Category Date Time Status Chest 1V Frontal [CR] Routine Exams 09/05/17 21:45 Taken CULTURE BLOOD [BC] Stat Lab 09/05/17 22:28 Received CULTURE BLOOD [BC] Stat Lab 09/05/17 22:36 Received CULTURE URINE [RM] Stat Lab 09/05/17 22:44 Received Blood Culture x2 Reflex Set [OM.PC] Stat Oth 09/05/17 22:12 Ordered Labs: Laboratory Tests 09/05/17 09/05/17 09/05/17 Range/Units 22:28 22:28 22:28 WBC 8.83 (4.23-9.07) K/mm3 RBC 3.98 L (4.63-6.08) M/mm3 Hgb 12.2 L (13.7-17.5) gm/L Hct 39.5 L (40.1-51.0) % MCV 99.2 H (79.0-92.2) fl MCH 30.7 (25.7-32.2) pg MCHC 30.9 L (32.2-35.5) g/dl RDW Std Deviation 54.0 H (35.1-43.9) fL Plt Count 202 (163-337) K/mm3 MPV 9.5 (9.4-12.3) fl Neut % (Auto) 66.0 (34.0-67.9) % Lymph % (Auto) 9.6 L (21.8-53.1) % [place] % (Auto) 12.9 H (5.3-12.2) % Eos % (Auto) 8.0 H (0.8-7.0) Baso % (Auto) 1.0 (0.1-1.2) % Neut # (Auto) 5.82 H (1.78-5.38) K/mm3 Lymph # (Auto) 0.85 L (1.32-3.57) K/mm3 [place] # (Auto) 1.14 H (0.30-0.82) K/mm3 Eos # (Auto) 0.71 H (0.04-0.54) K/mm3 Baso # (Auto) 0.09 H (0.01-0.08) K/mm3 Manual Slide Review Abnormal smear Sodium 143 (136-145) mEq/L Potassium 4.3 (3.5-5.1) mEq/L Chloride 105 (98-107) mEq/L Carbon Dioxide 32 (21-32) mEq/L Anion Gap 10.3 (5-15) BUN 23 H (7-18) mg/dL Creatinine 1.6 H (0.7-1.3) mg/dL Est Cr Clr Drug Dosing 35.95 mL/min Estimated GFR (MDRD) 41 (>60) mL/min BUN/Creatinine Ratio 14.4 (14-18) Glucose 138 H (83-115) mg/dL Lactic Acid 1.5 (0.4-2.0) mmol/L Calcium 9.9 (8.5-10.1) mg/dL Total Bilirubin 0.3 (0.2-1.0) mg/dL AST 19 (15-37) U/L ALT 20 (16-63) U/L Alkaline Phosphatase 82 (46-116) U/L Total Protein 6.8 (6.4-8.2) g/dl Albumin 3.0 L (3.4-5.0) g/dl Globulin 3.8 gm/dL Albumin/Globulin Ratio 0.8 L (1-2) Urine Color (Yellow) Urine Appearance (Clear) Urine pH (5.0-8.0) Ur Specific [place] (1.005-1.030) Urine Protein (Negative) Urine Glucose (UA) (Negative) Urine Ketones (Negative) Urine Occult Blood (Negative) Urine Nitrite (Negative) Urine Bilirubin (Negative) Urine Urobilinogen (0.2-1.0) Ur Leukocyte Esterase (Negative) Urine RBC (0-5) /hpf Urine WBC (0-5) /hpf Ur Epithelial Cells (0-5) /hpf Urine Bacteria (FEW) /hpf Urine Mucus (FEW) /hpf 09/05/17 Range/Units 22:44 WBC (4.23-9.07) K/mm3 RBC (4.63-6.08) M/mm3 Hgb (13.7-17.5) gm/L Hct (40.1-51.0) % MCV (79.0-92.2) fl MCH (25.7-32.2) pg MCHC (32.2-35.5) g/dl RDW Std Deviation (35.1-43.9) fL Plt Count (163-337) K/mm3 MPV (9.4-12.3) fl Neut % (Auto) (34.0-67.9) % Lymph % (Auto) (21.8-53.1) % [place] % (Auto) (5.3-12.2) % Eos % (Auto) (0.8-7.0) Baso % (Auto) (0.1-1.2) % Neut # (Auto) (1.78-5.38) K/mm3 Lymph # (Auto) (1.32-3.57) K/mm3 [place] # (Auto) (0.30-0.82) K/mm3 Eos # (Auto) (0.04-0.54) K/mm3 Baso # (Auto) (0.01-0.08) K/mm3 Manual Slide Review Sodium (136-145) mEq/L Potassium (3.5-5.1) mEq/L Chloride (98-107) mEq/L Carbon Dioxide (21-32) mEq/L Anion Gap (5-15) BUN (7-18) mg/dL Creatinine (0.7-1.3) mg/dL Est Cr Clr Drug Dosing mL/min Estimated GFR (MDRD) (>60) mL/min BUN/Creatinine Ratio (14-18) Glucose (83-115) mg/dL Lactic Acid (0.4-2.0) mmol/L Calcium (8.5-10.1) mg/dL Total Bilirubin (0.2-1.0) mg/dL AST (15-37) U/L ALT (16-63) U/L Alkaline Phosphatase (46-116) U/L Total Protein (6.4-8.2) g/dl Albumin (3.4-5.0) g/dl Globulin gm/dL Albumin/Globulin Ratio (1-2) Urine Color Yellow (Yellow) Urine Appearance Clear (Clear) Urine pH 6.0 (5.0-8.0) Ur Specific [place] 1.020 (1.005-1.030) Urine Protein Negative (Negative) Urine Glucose (UA) Negative (Negative) Urine Ketones Trace H (Negative) Urine Occult Blood Negative (Negative) Urine Nitrite Negative (Negative) Urine Bilirubin Negative (Negative) Urine Urobilinogen 0.2 (0.2-1.0) Ur Leukocyte Esterase Negative (Negative) Urine RBC 0-5 (0-5) /hpf Urine WBC 5-10 H (0-5) /hpf Ur Epithelial Cells 0-5 (0-5) /hpf Urine Bacteria Rare (FEW) /hpf Urine Mucus Not seen (FEW) /hpf - Re-Assessments/Exams Free Text/Narrative Re-Assessment/Exam: 09/05/17 23:29 Patient is actually quite well appearing and has normal vital signs. His labs show a normal CBC, mildly elevated at creatinine at 1.6 but chemistry otherwise normal. His chest x-ray shows density in the L middle lobe, no change compared to prior. R pleural effusion and R perihilar infiltrate, also not significantly changed compared to prior. UA shows no evidence of infection. Patient may have an early viral illness, but again is quite well appearing, has no fever, benign exam, and reassuring labs/cxr. Will dc home. Discussed strict return precautions for new or worsening symptoms. 09/05/17 23:31 Departure - Departure Time of Disposition: 23:26 Disposition: Home, Self-Care 01 Clinical Impression: Cough, Malaise - Discharge Information Referrals: Wolfgang Estrada MD [Primary Care Provider] - Forms: ED Department Discharge Additional Instructions: 1. Follow up with Dr. Estrada this week if not feeling better 2. Return to the ED for a recheck if significantly worse, especially if you have fever (temp 101 or higher), difficulty breathing, severe pain, vomiting, or other concerning symptoms - My Orders Last 24 Hours: My Active Orders 09/05/17 22:12 Blood Culture x2 Reflex Set [OM.PC] Stat 09/05/17 22:28 CULTURE BLOOD [BC] Stat 09/05/17 22:36 CULTURE BLOOD [BC] Stat 09/05/17 22:44 CULTURE URINE [RM] Stat - Assessment/Plan Last 24 Hours: My Active Orders 09/05/17 22:12 Blood Culture x2 Reflex Set [OM.PC] Stat 09/05/17 22:28 CULTURE BLOOD [BC] Stat 09/05/17 22:36 CULTURE BLOOD [BC] Stat 09/05/17 22:44 CULTURE URINE [RM] Stat
--- NOTE | 2017-09-06 08:32 | CR ---
Chest: Portable view of the chest was obtained. Comparison: Prior chest x-ray of 08/09/17. Stable parenchymal density within the left midlung is noted from prior study. Stable parenchymal density within the right upper lung also noted. Blunting of the right lateral costophrenic angle is seen which is stable. Apical pleural thickening is seen which is also stable. Surgical clips are seen within the left mediastinum and several surgical clips within the right side of the mediastinum. Previous right shoulder surgery is seen. Impression: 1. Multiple findings as noted above. Findings are felt to be fairly stable from prior chest x-ray of 08/09/17. Diagnostic code #3
== END 2017-09-05 23:47 | disposition home or self-care (01) ==
LOC: JD.ED 21:35 → SUPCPDRO 21:35 → JD.ED 23:47
DX: R05 Cough (principal); R53.81 Other malaise; Z88.8 Allergy status to other drugs, medicaments and biological substances; Z91.041 Radiographic dye allergy status; I13.0 Hypertensive heart and chronic kidney disease with heart failure and stage 1 through stage 4 chronic kidney disease, or unspecified chronic kidney disease; N18.9 Chronic kidney disease, unspecified; I50.9 Heart failure, unspecified; Z85.51 Personal history of malignant neoplasm of bladder; Z85.118 Personal history of other malignant neoplasm of bronchus and lung; Z79.899 Other long term (current) drug therapy; Z87.891 Personal history of nicotine dependence
CPT/HCPCS: 36415; 71010; 71010-26; 80053; 81001; 83605; 85025; 87040; 87086; 87088; 87186; 99283; 99285

== ENCOUNTER 2017-09-06 20:07 | Emergency (ER) | payer MEDICARE, BC ==
[2017-09-06 20:20] VITALS: BP 139/74
[2017-09-06] MEDS ORDERED: Sodium Chloride 0.9% 10 ML Syringe FLUSH PRN (20:33)
[2017-09-06] MEDS ORDERED: Albuterol/Ipratropium 3.0-0.5 MG/3 ML Neb Soln NEB ONE (20:34)
[2017-09-06] MEDS ORDERED: Piperacillin/Tazobactam 4.5 GM in Sodium Chloride 0.9% 100 ML IV ONE (20:46)
--- NOTE | 2017-09-06 20:56 | EDM.PDOC ---
ED HPI GENERAL MEDICAL PROBLEM - General Chief Complaint: Respiratory Problem Stated Complaint: [facility] Time Seen by Provider: 09/06/17 20:09 Source of Information: Reports: Patient, EMS History Limitations: Reports: No Limitations - History of Present Illness INITIAL COMMENTS - FREE TEXT/NARRATIVE: The patient is an 87-year-old male with an extensive past medical history including lung cancer status post lobectomy, recent admission for pneumonia, bladder cancer now with urostomy tube comes in with general malaise. He was seen yesterday in this emergency department and at that time his studies were unremarkable and he was sent home. Today he was started on Levaquin for a urinary tract infection. States that he is just feeling generally poor with chills and weakness and fatigue. No fever. Mild cough. No shortness of breath. No chest pain. No abdominal pain or vomiting. Took first dose of Levaquin this evening a couple of hours prior to coming in. Neck Pain Score (Numeric/FACES): 7 - Related Data Allergies Allergy/AdvReac Type Severity Reaction Status Date / Time diphenhydramine Allergy Hallucinati Verified 09/06/17 20:20 [From Benadryl] ons iodine Allergy Hives Verified 09/06/17 20:20 iopamidol Allergy Rash Verified 09/06/17 20:20 Home Meds: Home Meds Metoprolol Tartrate [Lopressor] 25 mg PO BID 09/30/14 [History] Furosemide [Lasix] 20 mg PO BID 09/27/15 [History] Gabapentin [Neurontin] 1,800 mg PO BEDTIME 01/08/16 [History] Rivaroxaban [Xarelto] 20 mg PO BEDTIME 01/04/17 [History] atorvaSTATin [Lipitor] 10 mg PO BEDTIME 01/04/17 [History] Omeprazole 20 mg PO DAILY 04/05/17 [History] Albuterol [Proventil HFA] 2 puff INH Q6HR PRN 08/04/17 [History] Budesonide [Pulmicort] 0.5 mg INH BID 08/04/17 [History] L Acidophil/B Lactis/B Longum [Florajen3] 1 tab PO BID 08/04/17 [History] Benzonatate [Tessalon Perles] 100 mg PO TID PRN #30 cap 08/10/17 [Rx] Spironolactone [Aldactone] 25 mg PO DAILY #30 tablet 08/10/17 [Rx] Albuterol/Ipratropium [DuoNeb 3.0-0.5 MG/3 ML] 3 ml NEB BID 09/05/17 [History] Albuterol/Ipratropium [DuoNeb 3.0-0.5 MG/3 ML] 3 ml NEB Q4H PRN 09/05/17 [ History] Past Medical History HEENT History: Reports: Impaired Vision Other HEENT History: wears eyeglasses Cardiovascular History: Reports: Afib, CAD, Heart Failure, Hypertension, HI Respiratory History: Reports: Bronchitis, Recurrent, COPD, Pneumonia, Recurrent Other Respiratory History: 09/22 R) lung removed, lung CA. Wears O2 round the clock, uses CPAP at noc Gastrointestinal History: Reports: Colon Polyp, GERD Genitourinary History: Reports: Chronic Renal Insuffiency, Other (See Below), Urostomy, UTI, Recurrent Other Genitourinary History: had bladder CA, bladder removed--urostomy. 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 ), sciatica pain Psychiatric History: Reports: Depression Endocrine/Metabolic History: Reports: None Hematologic History: Reports: None Immunologic History: Reports: None Oncologic (Cancer) History: Reports: Bladder, Lung, Squamous Cell Carcinoma Dermatologic History: Reports: None - Infectious Disease History Infectious Disease History: Reports: Chicken Pox, Measles, Shingles - Past Surgical History Head Surgeries/Procedures: Reports: None HEENT Surgical History: Reports: Cataract Surgery Cardiovascular Surgical History: Reports: Coronary Artery Bypass Respiratory Surgical History: Reports: Lung Resection GI Surgical History: Reports: Hernia, Inguinal Social & Family History - Family History Family Medical History: Noncontributory Cardiac: Reports: Bypass, Heart Failure, [place], Pacemaker Other Cardiac Family History: few brothers from [place]. OBGYN: Reports: Oncologic: Reports: Liver, Pancreatic, Prostate Other Oncologic Family History: brother prostate, Brother-pancreatic cancer, sister- liver cancer - Tobacco Use Smoking Status *Q: Former Smoker Years of Tobacco use: 58 Packs/Tins Daily: 1 Used Tobacco, but Quit: Yes Month Tobacco Last Used: 10 years ago Second Hand Smoke Exposure: No - Caffeine Use Caffeine Use: Reports: Coffee Other Caffeine Use: 1 cup daily - Alcohol Use Days Per Week of Alcohol Use: 3 Number of Drinks Per Day: 3 Total Drinks Per Week: 9 - Recreational Drug Use Recreational Drug Use: No - Living Situation & Occupation Living situation: Reports: , with Family (Daughter) Occupation: Retired ED ROS GENERAL - Review of Systems Review Of Systems: See Below Constitutional: Reports: Fever, Chills, Malaise, Weakness, Fatigue HEENT: Reports: No Symptoms Respiratory: Reports: Cough. Denies: Shortness of Breath Cardiovascular: Denies: Chest Pain Endocrine: Reports: Fatigue GI/Abdominal: Denies: Abdominal Pain Musculoskeletal: Reports: No Symptoms Skin: Reports: No Symptoms Neurological: Reports: No Symptoms Psychiatric: Reports: No Symptoms ED EXAM, GENERAL - Physical Exam Exam: See Below Exam Limited By: No Limitations General Appearance: Alert, WD/WN, No Apparent Distress Eye Exam: Bilateral Eye: Normal Inspection Ears: Normal External Exam Nose: Normal Inspection Throat/Mouth: Normal Inspection, Normal Oropharynx, Normal Voice Head: Atraumatic, Normocephalic Neck: Normal Inspection, Supple Respiratory/Chest: No Respiratory Distress, No Accessory Muscle Use, Chest Non- Tender, Other (few crackes at the R base) Cardiovascular: Normal Peripheral Pulses, Regular Rate, Rhythm, No Murmur GI/Abdominal: Soft, Non-Tender, No Distention. No: Rebound Back Exam: Normal Inspection, CVA Tenderness (L), CVA Tenderness (R) Extremities: Normal Inspection Neurological: Alert, Oriented, Normal Cognition, No Motor/Sensory Deficits Psychiatric: Normal Affect, Normal Mood Skin Exam: Warm, Dry, Intact, Normal Color, No Rash Course - Vital Signs Last Recorded V/S: Last Vital Signs Temp 36.7 C 09/06/17 20:16 Pulse 80 09/06/17 20:16 Resp 18 09/06/17 20:16 BP 139/74 09/06/17 20:16 Pulse Ox 98 09/06/17 20:51 - Orders/Labs/Meds Orders: Active Orders 24 hr Category Date Time Status EKG 12 Lead [EKG Documentation Completion] [RC] STAT Care 09/06/17 20:33 Active Peripheral IV Care [RC] . DIRECTED Care 09/06/17 20:34 Active RT Aerosol Therapy [RC] ASDIRECTED Care 09/06/17 20:34 Active Chest 1V Frontal [CR] Stat Exams 09/06/17 20:33 Taken CULTURE BLOOD [BC] Stat Lab 09/06/17 21:29 Received CULTURE BLOOD [BC] Stat Lab 09/06/17 21:45 Received UA W/MICROSCOPIC [URIN] Stat Lab 09/06/17 20:33 Uncollected Sodium Chloride 0.9% [Saline Flush] Med 09/06/17 20:33 Active 10 ml FLUSH ASDIRECTED PRN Vancomycin 1 gm Med 09/06/17 21:00 Active Vancomycin 500 mg Sodium Chloride 0.9% [Normal Saline] 500 ml IV Q24H Blood Culture x2 Reflex Set [OM.PC] Stat Oth 09/06/17 20:33 Ordered Peripheral IV Insertion Adult [OM.PC] Routine Oth 09/06/17 20:34 Ordered Medication Orders Vancomycin HCl 1 gm/Vancomycin HCl 500 mg/ Sodium Chloride 500 mls @ 333 mls/ hr IV Q24H NORMA Last Admin: 09/06/17 22:25 Dose: 333 mls/hr Sodium Chloride (Saline Flush) 10 ml FLUSH ASDIRECTED PRN PRN Reason: Keep Vein Open Labs: Laboratory Tests 09/06/17 09/06/17 09/06/17 Range/Units 20:30 20:30 21:45 WBC 10.61 H (4.23-9.07) K/mm3 RBC 3.85 L (4.63-6.08) M/mm3 Hgb 11.7 L (13.7-17.5) gm/L Hct 37.9 L (40.1-51.0) % MCV 98.4 H (79.0-92.2) fl MCH 30.4 (25.7-32.2) pg MCHC 30.9 L (32.2-35.5) g/dl RDW Std Deviation 52.8 H (35.1-43.9) fL Plt Count 212 (163-337) K/mm3 MPV 10.1 (9.4-12.3) fl Neut % (Auto) 70.9 H (34.0-67.9) % Lymph % (Auto) 8.3 L (21.8-53.1) % [place] % (Auto) 12.7 H (5.3-12.2) % Eos % (Auto) 5.6 (0.8-7.0) Baso % (Auto) 0.6 (0.1-1.2) % Neut # (Auto) 7.53 H (1.78-5.38) K/mm3 Lymph # (Auto) 0.88 L (1.32-3.57) K/mm3 [place] # (Auto) 1.35 H (0.30-0.82) K/mm3 Eos # (Auto) 0.59 H (0.04-0.54) K/mm3 Baso # (Auto) 0.06 (0.01-0.08) K/mm3 Manual Slide Review Abnormal smear Sodium 143 (136-145) mEq/L Potassium 4.5 (3.5-5.1) mEq/L Chloride 105 (98-107) mEq/L Carbon Dioxide 32 (21-32) mEq/L Anion Gap 10.5 (5-15) BUN 24 H (7-18) mg/dL Creatinine 1.5 H (0.7-1.3) mg/dL Est Cr Clr Drug Dosing 38.35 mL/min Estimated GFR (MDRD) 44 (>60) mL/min BUN/Creatinine Ratio 16.0 (14-18) Glucose 141 H (83-115) mg/dL Lactic Acid 1.2 (0.4-2.0) mmol/L Calcium 9.8 (8.5-10.1) mg/dL Total Bilirubin 0.4 (0.2-1.0) mg/dL AST 19 (15-37) U/L ALT 19 (16-63) U/L Alkaline Phosphatase 71 (46-116) U/L Troponin I 0.041 (0.00-0.056) ng/mL Total Protein 6.6 (6.4-8.2) g/dl Albumin 2.9 L (3.4-5.0) g/dl Globulin 3.7 gm/dL Albumin/Globulin Ratio 0.8 L (1-2) Meds: Medications Generic Name Dose Route Start Last Admin Trade Name Freq PRN Reason Stop Dose Admin Vancomycin HCl 1 gm/ 500 mls @ 333 mls/hr 09/06/17 21:00 09/06/17 22:25 Vancomycin HCl 500 mg/ Sodium IV 333 mls/hr Chloride Q24H NORMA Administration Sodium Chloride 10 ml 09/06/17 20:33 Saline Flush FLUSH ASDIRECTED PRN Keep Vein Open Discontinued Medications Generic Name Dose Route Start Last Admin Trade Name Julio Cq PRN Reason Stop Dose Admin Albuterol/Ipratropium 3 ml 09/06/17 20:34 09/06/17 20:51 Duoneb 3.0-0.5 Mg/3 Ml NEB 09/06/17 20:35 3 ml ONETIME ONE Administration Dexamethasone 10 mg 09/06/17 23:34 09/06/17 23:41 Dexamethasone PO 09/06/17 23:35 10 mg ONETIME ONE Administration Piperacillin Sod/Tazobactam 100 mls @ 200 mls/hr 09/06/17 20:46 09/06/17 21: 49 Sod 4.5 gm/ Sodium Chloride IV 09/06/17 21:15 200 mls/hr ONETIME ONE Administration Sodium Chloride Confirm 09/06/17 21:36 09/06/17 22:28 Normal Saline Administered 09/06/17 21:37 Not Given Dose 250 mls @ as directed .ROUTE .STK-MED ONE Vancomycin HCl Confirm 09/06/17 21:36 09/06/17 22:25 Vancocin Administered 09/06/17 21:37 Not Given Dose 1 gm .ROUTE .STK-MED ONE - Re-Assessments/Exams Free Text/Narrative Re-Assessment/Exam: 09/06/17 23:46 Influenza swab negative. CBC and chemistry are unremarkable with normal white cell count and creatinine at 1.5 which is similar to baseline. Urine culture from yesterday did grow enterococcus. Patient has already received a dose of Levaquin. I was initially concerned about a possible respiratory infection and did give the patient a dose of broad-spectrum antibiotics upon arrival as he was hypoxic and then later was informed that he is chronically on 2 L. On 2 L nasal cannula his oxygen saturations are actually in the high 90s. His chest x- ray is abnormal at baseline, with no significant change today. He does have a left sided opacity that is similar to prior. He also has right pleural scarring and a right pleural effusion that is also similar to prior. Suspect that he is feeling generally ill due to his urine infection. He is on appropriate antibiotics for this. Discussed return precautions. Departure - Departure Time of Disposition: 23:46 Disposition: Home, Self-Care 01 Clinical Impression: Acute pyelonephritis - Discharge Information Instructions: Pyelonephritis, Adult, [id number] Referrals: PCP,None [Primary Care Provider] - Forms: ED Department Discharge Additional Instructions: 1. Continue levaquin as prescribed 2. Follow up with your primary care provider as soon as possible 3. Return to the ED if you have fever (temp 101 or higher), difficulty breathing, vomiting without keeping liquids down, or worsening symptoms - My Orders Last 24 Hours: My Active Orders 09/06/17 20:33 EKG 12 Lead [EKG Documentation Completion] [RC] STAT Chest 1V Frontal [CR] Stat UA W/MICROSCOPIC [URIN] Stat Sodium Chloride 0.9% [Saline Flush] 10 ml FLUSH ASDIRECTED PRN Blood Culture x2 Reflex Set [OM.PC] Stat 09/06/17 20:34 Peripheral IV Care [RC] . DIRECTED RT Aerosol Therapy [RC] ASDIRECTED Peripheral IV Insertion Adult [OM.PC] Routine 09/06/17 21:00 Vancomycin 1 gm Vancomycin 500 mg Sodium Chloride 0.9% [Normal Saline] 500 ml IV Q24H 09/06/17 21:29 CULTURE BLOOD [BC] Stat 09/06/17 21:45 CULTURE BLOOD [BC] Stat - Assessment/Plan Last 24 Hours: My Active Orders 09/06/17 20:33 EKG 12 Lead [EKG Documentation Completion] [RC] STAT Chest 1V Frontal [CR] Stat UA W/MICROSCOPIC [URIN] Stat Sodium Chloride 0.9% [Saline Flush] 10 ml FLUSH ASDIRECTED PRN Blood Culture x2 Reflex Set [OM.PC] Stat 09/06/17 20:34 Peripheral IV Care [RC] . DIRECTED RT Aerosol Therapy [RC] ASDIRECTED Peripheral IV Insertion Adult [OM.PC] Routine 09/06/17 21:00 Vancomycin 1 gm Vancomycin 500 mg Sodium Chloride 0.9% [Normal Saline] 500 ml IV Q24H 09/06/17 21:29 CULTURE BLOOD [BC] Stat 09/06/17 21:45 CULTURE BLOOD [BC] Stat
[2017-09-06] MEDS ORDERED: Vancomycin 1 GM, Vancomycin 500 MG in Sodium Chloride 0.9% 500 ML IV SCH (21:00)
[2017-09-06] MEDS ORDERED: Vancomycin 1 GM AdvVial ONE (21:36)
[2017-09-06] MEDS ORDERED: Sodium Chloride 0.9% 250 ML ONE (21:36)
[2017-09-06] MEDS ORDERED: Dexamethasone 4 MG Tab PO ONE (23:34)
--- NOTE | 2017-09-08 08:38 | CR ---
Chest: Portable view of the chest was obtained. Comparison: Prior chest x-ray of 09/05/17. Parenchymal density is seen within the left midlung which appears stable. Pleural thickening noted around the right chest which is stable. Heart size and mediastinum are also stable. Mediastinal surgical clips are seen. Previous right shoulder surgery is again noted. Impression: 1. Multiple findings. No significant change is seen from prior study. Diagnostic code #3 MTDD
== END 2017-09-06 23:50 | disposition home or self-care (01) ==
LOC: JD.ED 20:07
DX: N12 Tubulo-interstitial nephritis, not specified as acute or chronic (principal); I13.0 Hypertensive heart and chronic kidney disease with heart failure and stage 1 through stage 4 chronic kidney disease, or unspecified chronic kidney disease; I50.9 Heart failure, unspecified; N18.9 Chronic kidney disease, unspecified; Z88.8 Allergy status to other drugs, medicaments and biological substances; Z79.899 Other long term (current) drug therapy; Z87.891 Personal history of nicotine dependence
CPT/HCPCS: 36415; 71010; 80053; 83605; 84484; 85025; 87040; 87804; 93005; 94640; 96365; 96367; 99284; J2543; J3370; J7030; J7040; J8540

== ENCOUNTER 2017-10-29 11:42 | Inpatient (IN) | payer MEDICARE, BC ==
--- NOTE | 2017-10-29 12:11 | EDM.PDOC ---
ED HPI GENERAL MEDICAL PROBLEM - General Chief Complaint: Respiratory Problem Stated Complaint: SOB Time Seen by Provider: 10/29/17 11:50 Source of Information: Reports: Patient, Family (spouse and daughter. ) History Limitations: Reports: Other (Can't stop coughing.) - History of Present Illness INITIAL COMMENTS - FREE TEXT/NARRATIVE: 87-year-old male presents to the ED at the request of his primary care care physician Dr. soliz. At presented to the clinic today with a fever and paroxysmal cough for the last 3 days. Coughing most of the night and not able to sleep. Is producing a mild amount of yellow-green sputum. He states he had chills while he is in the ED but not before that. Appetite is remained about half normal. Bowel function is normal. Is been no nausea vomiting or diarrhea. Cough is paroxysmal and uncontrollable. He on home oxygen at 3 L/m at all times. I will hear off of oxygen just from transfer from [place] over 910 minutes left in at 86%. He will placed on oxygen at 4 L/m by nasal cannula. Of note the patient has a known right-sided lung cancer with right lower lobectomy unclear if both lower lobe and the middle lobe resected when diagnosed for 3-1/ 2 years ago. Chest x-ray done at the clinic today shows white out of the right lung field. Unclear if this is fluid versus pneumonia. The fever suggests the latter. Onset: Gradual Onset Date: 10/26/17 Duration: Day(s):, Getting Worse Location: Reports: Chest (Paroxysmal cough with increasing dyspnea.) Quality: Reports: Other Severity: Moderate ([place] is mobile minimally productive cough) Improves with: Reports: None Worsens with: Reports: Other Context: Denies: Activity (Lying down or exposure to cool air.), Exercise, Lifting, Sick Contact, Trauma, Other Associated Symptoms: Reports: Chest Pain, Cough, cough w sputum, Fever/Chills, Loss of Appetite, Malaise, Shortness of Breath, Weakness. Denies: No Other Symptoms (From coughing so much particularly on the right mid chest.), Confusion , Diaphoresis, Headaches, Nausea/Vomiting, Rash, Seizure, Syncope (Decreased appetite.) Treatments SENIOR ADMINISTRATIVE ASSISTANT: Reports: Acetaminophen Chest Pain Score (Numeric/FACES): 9 - Related Data Allergies Allergy/AdvReac Type Severity Reaction Status Date / Time iodine Allergy Hives Verified 10/29/17 11:56 iopamidol Allergy Rash Verified 10/29/17 11:56 vancomycin Allergy Itching Verified 10/29/17 12:06 diphenhydramine AdvReac Hallucinati Verified 10/29/17 13:37 [From Beth] ons Home Meds: Home Meds Metoprolol Tartrate [Lopressor] 25 mg PO BID 09/30/14 [History] Furosemide [Lasix] 20 mg PO BID 09/27/15 [History] Gabapentin [Neurontin] 1,800 mg PO BEDTIME 01/08/16 [History] Rivaroxaban [Xarelto] 20 mg PO BEDTIME 01/04/17 [History] atorvaSTATin [Lipitor] 10 mg PO BEDTIME 01/04/17 [History] Omeprazole 20 mg PO DAILY 04/05/17 [History] Albuterol [Proventil HFA] 2 puff INH Q6HR PRN 08/04/17 [History] Budesonide [Pulmicort] 0.5 mg INH BID 08/04/17 [History] L Acidophil/B Lactis/B Longum [Florajen3] 1 tab PO BID 08/04/17 [History] Spironolactone [Aldactone] 25 mg PO DAILY #30 tablet 08/10/17 [Rx] Albuterol/Ipratropium [DuoNeb 3.0-0.5 MG/3 ML] 3 ml NEB BID 09/05/17 [History] Albuterol/Ipratropium [DuoNeb 3.0-0.5 MG/3 ML] 3 ml NEB Q4H PRN 09/05/17 [ History] Benzonatate [Tessalon Perles] 100 mg PO TID 10/29/17 [History] Losartan Potassium 50 mg PO DAILY 10/29/17 [History] Nitroglycerin 0.4 mg SL Q5M PRN 10/29/17 [History] guaiFENesin [Robitussin] 20 mg PO Q4H PRN 10/29/17 [History] Past Medical History HEENT History: Reports: Impaired Vision Other HEENT History: wears eyeglasses Cardiovascular History: Reports: Afib (is on Xarelto --20mg od.), CAD, Heart Failure, Hypertension, [place] Respiratory History: Reports: Bronchitis, Recurrent, COPD, Pneumonia, Recurrent Other Respiratory History: / R) lung removed, lung CA. Wears O2 round the clock, uses CPAP at noc Gastrointestinal History: Reports: Colon Polyp, GERD Genitourinary History: Reports: Chronic Renal Insuffiency, Other (See Below), Urostomy, UTI, Recurrent Other Genitourinary History: had bladder CA, bladder removed--urostomy. 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 ), sciatica pain Psychiatric History: Reports: Depression Endocrine/Metabolic History: Reports: None Hematologic History: Reports: None Immunologic History: Reports: None Oncologic (Cancer) History: Reports: Bladder, Lung, Squamous Cell Carcinoma Dermatologic History: Reports: None - Infectious Disease History Infectious Disease History: Reports: Chicken Pox, Measles, Shingles - Past Surgical History Head Surgeries/Procedures: Reports: None HEENT Surgical History: Reports: Cataract Surgery Cardiovascular Surgical History: Reports: Coronary Artery Bypass Respiratory Surgical History: Reports: Lung Resection GI Surgical History: Reports: Hernia, Inguinal Social & Family History - Family History Family Medical History: Noncontributory Cardiac: Reports: Bypass, Heart Failure, [place], Pacemaker Other Cardiac Family History: few brothers from [place]. OBGYN: Reports: Oncologic: Reports: Liver, Pancreatic, Prostate Other Oncologic Family History: brother prostate, Brother-pancreatic cancer, sister- liver cancer - Tobacco Use Smoking Status *Q: Former Smoker Years of Tobacco use: 58 Packs/Tins Daily: 1 Used Tobacco, but Quit: Yes Month Tobacco Last Used: 10 years ago Second Hand Smoke Exposure: No - Caffeine Use Caffeine Use: Reports: Coffee Other Caffeine Use: 1 cup daily - Alcohol Use Days Per Week of Alcohol Use: 3 Number of Drinks Per Day: 3 Total Drinks Per Week: 9 - Recreational Drug Use Recreational Drug Use: No - Living Situation & Occupation Living situation: Reports: , with Family (Daughter) Occupation: Retired ED ROS GENERAL - Review of Systems Review Of Systems: See Below Constitutional: Reports: Fever, Chills, Malaise, Weakness, Fatigue, Decreased Appetite, Weight Loss HEENT: Reports: Glasses, Hearing Loss (Mild hearing loss.) Respiratory: Reports: Shortness of Breath, Wheezing (Chronically and is on home oxygen at 3 L/m at all times.), Pleuritic Chest Pain ( Occasional wheezing), Cough ( he has started to develop some pleuritic right anterior chest pain today. ), Sputum ( severe paroxysmal cough ). Denies: Hemoptysis ( sputum is slightly yellow and green tinged. ) Cardiovascular: Reports: Chest Pain, Blood Pressure Problem (From coughing particularly right anterior chest.), Dyspnea on Exertion (Always has a little edema in his lower extremities chronically), Edema, Orthopnea ( Anicteric hypertension). Denies: Claudication, Lightheadedness, Palpitations Endocrine: Reports: Fatigue GI/Abdominal: Reports: Decreased Appetite. Denies: Constipation, Diarrhea, Difficulty Swallowing, Distension, Flatus, Hematemesis, Hematochezia, Melena, Mucous in Stool, Nausea, Stool Incontinence, Vomiting, Other : Reports: Frequency, Other (Nocturia usually 3. Known BPH.) Musculoskeletal: Reports: Back Pain, Joint Pain (Knees hips neck at times.) Skin: Reports: Bruising (Bruises easily since he is on Xarelto) Neurological: Reports: No Symptoms Psychiatric: Reports: No Symptoms Hematologic/Lymphatic: Reports: No Symptoms Immunologic: Reports: No Symptoms ED EXAM, GENERAL - Physical Exam Exam: See Below Exam Limited By: No Limitations General Appearance: Alert, Moderate Distress (Can't stop coughing. Tries to speak but ends up coughing a lot during the interview. Cough does sound productive.) Eye Exam: Bilateral Eye: Normal Inspection (No jaundice.), PERRL Ears: Normal TMs Throat/Mouth: Normal Inspection, Normal Lips, Normal Oropharynx Head: Atraumatic, Normocephalic Neck: Normal Inspection, Supple, Non-Tender, Full Range of Motion. No: Carotid Bruit, Lymphadenopathy (L), Lymphadenopathy (R) Respiratory/Chest: Respiratory Distress (Mild to moderate tachypnea 20-32/m. O2 sats was low 70% on arrival from the clinic without his oxygen. Laced on 4 L/m by nasal prongs. He is usually on 3 L/m at home.), Decreased Breath Sounds ( Decreased air entry to the lower 50% of the right lung field posteriorly dull to percussion in this area. He apparently had a right lower lobectomy question whether had a middle lobectomy as well. I can hear slight amount of air in the right upper lobe anteriorly and posteriorly.), Rhonchi (In the right upper lung. Left lung is clear.). No: Wheezing Cardiovascular: Regular Rate, Rhythm, No Gallop, No Murmur. No: Normal Peripheral Pulses, No Edema Peripheral Pulses: 1+: Posterior Tibial (L), Posterior Tibial (R), Dorsalis Pedis (L), Dorsalis Pedis (R) GI/Abdominal: Normal Bowel Sounds, Soft, Non-Tender, No Organomegaly, No Mass, Distended (Slightly distended intubated percussion upper abdomen compatible with some aerophagia.) Extremities: Normal Range of Motion, Pedal Edema (1-2+ pitting edema both lower extremities to mid tib-fib bilaterally.), Other Neurological: Alert, Oriented, CN II-XII Intact, Normal Cognition Psychiatric: Normal Affect, Normal Mood Skin Exam: Warm, Dry, Intact, Normal Color, No Rash, Other (Mildly warm to palpation.) EKG INTERPRETATION EKG Date: 10/29/17 Time: 12:45 Rhythm: A-Fib (With rate of 80-1 25/m) Rate (Beats/Min): 106 [place]: Normal P-Wave: Absent QRS: Other (Decreased voltage in both limb and precordial leads.) ST-T: Normal QT: Normal EKG Interpretation Comments: Abnormal ECG Course - Vital Signs Last Recorded V/S: Last Vital Signs Temp 36.7 C 10/29/17 11:57 Pulse 99 10/29/17 13:19 Resp 28 H 10/29/17 11:57 BP 136/71 10/29/17 13:41 Pulse Ox 94 L 10/29/17 13:16 - Orders/Labs/Meds Orders: Active Orders 24 hr Category Date Time Status EKG Documentation Completion [RC] STAT Care 10/29/17 12:05 Active Oxygen Therapy [RC] ASDIRECTED Care 10/29/17 12:05 Active RT Aerosol Therapy [RC] ASDIRECTED Care 10/29/17 13:02 Active CULTURE BLOOD [BC] Stat Lab 10/29/17 12:30 Received CULTURE BLOOD [BC] Stat Lab 10/29/17 12:45 Received CULTURE SPUTUM + SMEAR [RM] Stat Lab 10/29/17 13:40 Received Losartan [Cozaar] Med 10/30/17 13:31 Once 50 mg PO ONETIME ONE Sodium Chloride 0.9% [Normal Saline] 1,000 ml Med 10/29/17 12:15 Active IV ASDIRECTED Blood Culture x2 Reflex Set [OM.PC] Stat Oth 10/29/17 12:05 Ordered Medication Orders Sodium Chloride (Normal Saline) 1,000 mls @ 100 mls/hr IV ASDIRECTED NORMA Last Admin: 10/29/17 12:28 Dose: 100 mls/hr Losartan Potassium (Cozaar) 50 mg PO ONETIME ONE Stop: 10/30/17 13:32 Last Admin: 10/29/17 13:41 Dose: 50 mg Labs: Laboratory Tests 10/29/17 10/29/17 10/29/17 Range/Units 12:25 12:25 12:25 WBC 10.76 H (4.23-9.07) K/mm3 RBC 4.47 L (4.63-6.08) M/mm3 Hgb 13.5 L (13.7-17.5) gm/L Hct 44.3 (40.1-51.0) % MCV 99.1 H (79.0-92.2) fl MCH 30.2 (25.7-32.2) pg MCHC 30.5 L (32.2-35.5) g/dl RDW Std Deviation 59.5 H (35.1-43.9) fL Plt Count 218 (163-337) K/mm3 MPV 9.7 (9.4-12.3) fl Neutrophils % (Manual) 71 H (40-60) % Band Neutrophils % 4 (0-10) % Lymphocytes % (Manual) 6 L (20-40) % Atypical Lymphs % 0 % Monocytes % (Manual) 9 (2-10) % Eosinophils % (Manual) 7 (0.8-7.0) % Basophils % (Manual) 3 H (0.2-1.2) Toxic Granulation 1+ slight Platelet Estimate Adequate Plt Morphology Comment Normal Poikilocytosis 1+ slight Anisocytosis 2+ moderate Spherocytes Few Ovalocytes Few Acanthocytes (Spur) Few Rouleaux 1+ slight RBC Morph Comment Not Reportable PT 13.8 H (8.0-13.0) SECONDS INR 1.25 APTT 37 H (22-36) SECONDS Sodium 141 (136-145) mEq/L Potassium 4.1 (3.5-5.1) mEq/L Chloride 99 (98-107) mEq/L Carbon Dioxide 32 (21-32) mEq/L Anion Gap 14.1 (5-15) BUN 19 H (7-18) mg/dL Creatinine 1.4 H (0.7-1.3) mg/dL Est Cr Clr Drug Dosing 47.27 mL/min Estimated GFR (MDRD) 48 (>60) mL/min BUN/Creatinine Ratio 13.6 L (14-18) Glucose 140 H (83-115) mg/dL Lactic Acid (0.4-2.0) mmol/L Calcium 10.0 (8.5-10.1) mg/dL Total Bilirubin 0.9 (0.2-1.0) mg/dL AST 18 (15-37) U/L ALT 17 (16-63) U/L Alkaline Phosphatase 85 (46-116) U/L Troponin I < 0.017 (0.00-0.056) ng/mL C-Reactive Protein 3.0 H* (<1.0) mg/dL NT-Pro-B Natriuret Pep (0-450) pg/mL Total Protein 7.4 (6.4-8.2) g/dl Albumin 3.5 (3.4-5.0) g/dl Globulin 3.9 gm/dL Albumin/Globulin Ratio 0.9 L (1-2) Urine Color (Yellow) Urine Appearance (Clear) Urine pH (5.0-8.0) Ur Specific [place] (1.005-1.030) Urine Protein (Negative) Urine Glucose (UA) (Negative) Urine Ketones (Negative) Urine Occult Blood (Negative) Urine Nitrite (Negative) Urine Bilirubin (Negative) Urine Urobilinogen (0.2-1.0) Ur Leukocyte Esterase (Negative) Urine RBC (0-5) /hpf Urine WBC (0-5) /hpf Ur Epithelial Cells (0-5) /hpf Urine Bacteria (FEW) /hpf Urine Mucus (FEW) /hpf 10/29/17 10/29/17 10/29/17 Range/Units 12:25 12:30 14:00 WBC (4.23-9.07) K/mm3 RBC (4.63-6.08) M/mm3 Hgb (13.7-17.5) gm/L Hct (40.1-51.0) % MCV (79.0-92.2) fl MCH (25.7-32.2) pg MCHC (32.2-35.5) g/dl RDW Std Deviation (35.1-43.9) fL Plt Count (163-337) K/mm3 MPV (9.4-12.3) fl Neutrophils % (Manual) (40-60) % Band Neutrophils % (0-10) % Lymphocytes % (Manual) (20-40) % Atypical Lymphs % % Monocytes % (Manual) (2-10) % Eosinophils % (Manual) (0.8-7.0) % Basophils % (Manual) (0.2-1.2) Toxic Granulation Platelet Estimate Plt Morphology Comment Poikilocytosis Anisocytosis Spherocytes Ovalocytes Acanthocytes (Spur) Rouleaux RBC Morph Comment PT (8.0-13.0) SECONDS INR APTT (22-36) SECONDS Sodium (136-145) mEq/L Potassium (3.5-5.1) mEq/L Chloride (98-107) mEq/L Carbon Dioxide (21-32) mEq/L Anion Gap (5-15) BUN (7-18) mg/dL Creatinine (0.7-1.3) mg/dL Est Cr Clr Drug Dosing mL/min Estimated GFR (MDRD) (>60) mL/min BUN/Creatinine Ratio (14-18) Glucose (83-115) mg/dL Lactic Acid 2.3 H (0.4-2.0) mmol/L Calcium (8.5-10.1) mg/dL Total Bilirubin (0.2-1.0) mg/dL AST (15-37) U/L ALT (16-63) U/L Alkaline Phosphatase (46-116) U/L Troponin I (0.00-0.056) ng/mL C-Reactive Protein (<1.0) mg/dL NT-Pro-B Natriuret Pep 1707 H (0-450) pg/mL Total Protein (6.4-8.2) g/dl Albumin (3.4-5.0) g/dl Globulin gm/dL Albumin/Globulin Ratio (1-2) Urine Color Light yellow (Yellow) Urine Appearance Cloudy H (Clear) Urine pH 7.5 (5.0-8.0) Ur Specific [place] 1.020 (1.005-1.030) Urine Protein Trace H (Negative) Urine Glucose (UA) Negative (Negative) Urine Ketones Negative (Negative) Urine Occult Blood Negative (Negative) Urine Nitrite Negative (Negative) Urine Bilirubin Negative (Negative) Urine Urobilinogen 1.0 (0.2-1.0) Ur Leukocyte Esterase 1+ H (Negative) Urine RBC 0-5 (0-5) /hpf Urine WBC 0-5 (0-5) /hpf Ur Epithelial Cells 0-5 (0-5) /hpf Urine Bacteria Many H (FEW) /hpf Urine Mucus Few (FEW) /hpf Meds: Medications Generic Name Dose Route Start Last Admin Trade Name Freq PRN Reason Stop Dose Admin Sodium Chloride 1,000 mls @ 100 mls/hr 10/29/17 12:15 10/29/17 12:28 Normal Saline IV 100 mls/hr ASDIRECTED NORMA Administration Losartan Potassium 50 mg 10/30/17 13:31 10/29/17 13:41 Cozaar PO 10/30/17 13:32 50 mg ONETIME ONE Administration Discontinued Medications Generic Name Dose Route Start Last Admin Trade Name Freq PRN Reason Stop Dose Admin Acetaminophen 650 mg 10/29/17 12:27 10/29/17 12:38 Tylenol PO 10/29/17 12:28 650 mg NOW ONE Administration Albuterol/Ipratropium 3 ml 10/29/17 13:02 10/29/17 13:13 Duoneb 3.0-0.5 Mg/3 Ml NEB 10/29/17 13:03 3 ml ONETIME ONE Administration Fentanyl 50 mcg 10/29/17 12:50 10/29/17 13:05 Sublimaze IVPUSH 10/29/17 12:51 50 mcg ONETIME ONE Administration Furosemide 40 mg 10/29/17 13:49 10/29/17 13:55 Lasix IVPUSH 10/29/17 13:50 40 mg NOW ONE Administration Levofloxacin/Dextrose 750 mg/ 150 mls @ 100 mls/hr 10/29/17 12:35 10/29/17 13 :19 Premix IV 10/29/17 14:04 100 mls/hr ONETIME ONE Administration Losartan Potassium 50 mg 10/29/17 13:03 Cozaar PO 10/29/17 13:04 ONETIME ONE Metoprolol Tartrate 25 mg 10/29/17 13:03 10/29/17 13:19 Lopressor PO 10/29/17 13:04 25 mg ONETIME ONE Administration - Radiology Interpretation Free Text/Narrative:: 87-year-old male presents to the ED at the request of his primary care physician . He attended the clinic this morning due to paroxysmal cough for the last 3 days and develop an of fever overnight. Patient has had previous right lower lobectomy and possibly right middle lobectomy 3 and half years ago because of primary lung cancer. Chest x-ray today revealed white count of most of the right lung pa. It is unclear whether this represents fluid versus pneumonia. Suspect to be pneumonia because of fever and chills and productive cough. O2 sats were lower than normal and he required 4 L of oxygen per nasal cannula to keep them around 94% usually on 3 L he is 96% at home. He did have a flu shot. Low-grade fever only appreciated on exam. Plan CT of his chest to be done without contrast. Septic workup will be started. Will start him on antibiotics Levaquin 750 mg IV as soon as blood cultures 2 been collected. Will give Tylenol 650 mg per ora for fever relief. - Re-Assessments/Exams Free Text/Narrative Re-Assessment/Exam: 10/29/17 12:38 provided by the clinic indicate that he did have an influenza screen in the clinic this morning that was negative. Therefore I canceled the influenza screen from here. 10/29/17 12:50 complaining of worsening pleuritic chest pain. I will therefore give him fentanyl 50 g IV for pain relief. 10/29/17 13:05 will give dose of metoprolol 25 mg tartrate is now and losartan 50 mg once by mouth as well as he missed his meds this morning. 10/29/17 13:20 Labs reveal a total white count of 10.76 with 71% neutrophils and 4% bands. Hemoglobin is 13.5 with hematocrit of 44.3. Note MCV is elevated at 99.1. Platelet count is 218,000. There is 1+ slight toxic granulation suggesting an infective process. He has 1+ blood, iso-ptosis and 2+ anisocytosis. Also 1+ Rouleaux formation. PT is 13.8 with an INR of 1.25. PTT is 37. Sodium is 141 with potassium of 4.1 chloride is 99 bicarbonate is elevated at 32 suggesting he is a CO2 retainer. Anion gap is 14.1. BUN is 19 with a creatinine of 1.4. EGFR is 48. Glucose is 140. Calcium 10.0 troponin I is less than 0.017. C-reactive protein is elevated at 3.0. BNP is elevated at 1707. 10/29/17 13:51 CT chest reveals previous right lung surgery there is diffuse right perihilar consolidation identified. Pleural effusion is seen which appears loculated around the right chest and more prominent within the right lung base. Mediastinum is shifted to the right side small nodules noted within the lingula measuring 4.5 mm this was not noticed on previous CT done 08/04/17. There is minimal parenchymal density seen within the lingula next to the major fissure left lung is otherwise clear other than trace left-sided pleural effusion is coronary artery calcification present atherosclerotic calcination is within the thoracic aorta several small mediastinal lymph nodes are seen which may measure within normal limits. Evidence of previous right shoulder surgery and old healed right-sided rib fractures likely from previous thoracotomy. Therefore he is a combination of fluid and likely pneumonia in the pleural effusion on the right side. I will discuss case with our agronomy teacher hospitalist and see whether or not she feels this is something she would look after versus him having to travel to [place]. 10/29/17 14:09 Discussion with the family members and the patient indicate that he is known to have recurrence of carcinoma in his right long and no treatment options are essentially available. There were offered immunotherapy which would likely lower his immune system and potentially hasten his demise from another infection and make him quite ill which she has opted not to pursue. He has had all the radiotherapy that he can have. He is therefore decided to let nature take its course. He's been advised by oncology (slow growing tumor and they give him until around Thanksgiving of this year. He therefore has opted to be DO NOT RESUSCITATE DO NOT INTUBATE and is code level III. Case discussed with Dr. Loya and she is willing to admit him to the hospital for continued oxygen therapy antibiotics to clear up suspect pneumonia right lung. Absolutely did not want to go to back to [place] for any further treatment for management. Departure - Departure Time of Disposition: 15:11 Disposition: Admitted As Inpatient 68 Condition: Fair Clinical Impression: Carcinoma of right lung, Chronic renal insufficiency, stage II (mild) Congestive heart failure Qualifiers: Congestive heart failure type: diastolic Congestive heart failure chronicity: acute on chronic Qualified Code(s): I50.33 - Acute on chronic diastolic ( congestive) heart failure Fever Qualifiers: Encounter type: initial encounter Pneumonia involving right lung Qualifiers: Pneumonia type: due to unspecified organism - Discharge Information - My Orders Last 24 Hours: My Active Orders 10/29/17 12:05 EKG Documentation Completion [RC] STAT Oxygen Therapy [RC] ASDIRECTED Blood Culture x2 Reflex Set [OM.PC] Stat 10/29/17 12:15 Sodium Chloride 0.9% [Normal Saline] 1,000 ml IV ASDIRECTED 10/29/17 12:30 CULTURE BLOOD [BC] Stat 10/29/17 12:45 CULTURE BLOOD [BC] Stat 10/29/17 13:02 RT Aerosol Therapy [RC] ASDIRECTED 10/29/17 13:40 CULTURE SPUTUM + SMEAR [RM] Stat 10/30/17 13:31 Losartan [Cozaar] 50 mg PO ONETIME ONE - Assessment/Plan Last 24 Hours: My Active Orders 10/29/17 12:05 EKG Documentation Completion [RC] STAT Oxygen Therapy [RC] ASDIRECTED Blood Culture x2 Reflex Set [OM.PC] Stat 10/29/17 12:15 Sodium Chloride 0.9% [Normal Saline] 1,000 ml IV ASDIRECTED 10/29/17 12:30 CULTURE BLOOD [BC] Stat 10/29/17 12:45 CULTURE BLOOD [BC] Stat 10/29/17 13:02 RT Aerosol Therapy [RC] ASDIRECTED 10/29/17 13:40 CULTURE SPUTUM + SMEAR [RM] Stat 10/30/17 13:31 Losartan [Cozaar] 50 mg PO ONETIME ONE
[2017-10-29] MEDS ORDERED: Acetaminophen 325 MG Tab PO ONE (12:27)
[2017-10-29] MEDS: Sodium Chloride 0.9% 1,000 ML IV SCH ×2 (12:28→17:42)
[2017-10-29] MEDS ORDERED: Levofloxacin/Dextrose 5%-Water 750 MG in Premix Bag 1 BAG IV ONE (12:35)
[2017-10-29] MEDS ORDERED: fentaNYL 100 MCG/2 ML SDV IVPUSH ONE (12:50)
[2017-10-29] MEDS ORDERED: Albuterol/Ipratropium 3.0-0.5 MG/3 ML Neb Soln NEB ONE (13:02)
[2017-10-29] MEDS ORDERED: Losartan 100 MG Tab PO ONE (13:03)
[2017-10-29] MEDS ORDERED: Metoprolol Tartrate 25 MG Tab PO ONE (13:03)
[2017-10-29] MEDS ORDERED: Furosemide 40 MG/4 ML VIAL IVPUSH ONE (13:49)
--- NOTE | 2017-10-29 13:57 | CT ---
CT chest Technique: Multiple axial sections were obtained from above the lung apices inferiorly through the lung bases. Intravenous contrast was not utilized. Comparison: Prior chest x-ray of 09/06/[address] study of 08/04/17.. Findings: Previous right lung surgery is seen. Diffuse right perihilar consolidation is seen. Pleural effusion is seen which appears loculated around the right chest and more prominent within the right lung base. Multiple surgical clips are seen. Mediastinum is shifted to the right side. Small nodule is noted within the lingula measuring 4.5 mm. Minimal parenchymal density seen within the lingula next to the major fissure. Left lung is otherwise clear. Trace left-sided pleural effusion is seen. Coronary artery calcification is seen. Atherosclerotic calcification is noted within the thoracic aorta. Several small mediastinal lymph nodes are seen which measure within normal limits. Previous right shoulder surgery is noted. Old healed right-sided rib fractures are noted presumably from previous thoracotomy. Impression: 1. Prior right lung surgery. 2. Small loculated right sided pleural effusion. 3. Consolidation within the right perihilar region. Differential includes neoplastic change versus pneumonia. 4. Slight parenchymal density within the left lingula next to the major fissure. 5. 4.5 mm nodule within the lingula which shows no calcification and not seen on prior chest CT of 08/04/17. Diagnostic code #5
[2017-10-29] MEDS ORDERED: Nitroglycerin 0.4 MG Tab.SL SL PRN (16:26)
[2017-10-29] MEDS: Morphine 2 MG/ML Syringe IVPUSH PRN (16:40)
[2017-10-29] MEDS ORDERED: Albuterol/Ipratropium 3.0-0.5 MG/3 ML Neb Soln ONE (16:58)
[2017-10-29] MEDS ORDERED: Piperacillin/Tazobactam 4.5 GM in Sodium Chloride 0.9% 100 ML IV ONE (17:00)
[2017-10-29] MEDS: Albuterol/Ipratropium 3.0-0.5 MG/3 ML Neb Soln NEB SCH ×2 (17:05→22:16)
[2017-10-29] MEDS: methylPREDNISolone Sodium Succinate 125 MG/2 ML SDV IVPUSH SCH ×2 (17:32→21:36)
--- NOTE | 2017-10-29 17:39 | PCM.HP ---
H&P History of Present Illness - General Date of Service: 10/29/17 Admit Problem/Dx: Admission Diagnosis/Problem Admission Diagnosis/Problem Pneumonia Source of Information: Family, Provider History Limitations: Reports: No Limitations - History of Present Illness Initial Comments - Free Text/Narative: 87-year-old male sent from his PCP with a fever and paroxysmal cough for the last 3 days. He has had a productive cough of yellowish green sputum. He has had chills but no fever. Denies nausea or vomiting. At baseline, home O2 requirements, 3 L/m. He was sent from the office requiring 4l/m after a documented O2 saturation at 86%. PMH includes right-sided lung cancer with right lower lobectomy, diagnosed 3-1/ 2 years ago. Chest x-ray prior to presenting to the ED documented completely white right sided lung field suggestive of pneumonia. A septic work up was started in the ED, the patient has had blood cultures drawn. Lactic acid was 2.[address] of the chest diffuse right perihilar infiltrate, right sided loculated pleural effusion; the mediastinum has changed with a right sided shift. There are small nodules noted measuring 4.5 mm, this was not present in July 2017. A discussion occurred regarding the advantages of a facility where a bronchoscopy could be performed happened in the ED by the provider with the patient and family. The patient and family have elected to stay in the community for treatment. He has a history of recurrent lung CA. He has declined medical treatment such as immunotherapy; prognosis is probable demise by the end of the year as understood by the patient and family. This prognosis was discussed with their oncologist after further treatment was declined. Onset of Symptoms: Reports: Gradual Symptom Onset Date: 10/26/17 Duration of Symptoms: Reports: Day(s):, Getting Worse Location: Reports: Chest, Generalized Quality: Reports: Same as Previous Episode Severity: Moderate Improves with: Reports: Medication Worsens with: Reports: None Associated Symptoms: Reports: cough w sputum, Loss of Appetite, Malaise, Shortness of Breath, Weakness Chest Pain Score (Numeric/FACES): 9 - Related Data Allergies/Adverse Reactions: Allergies Allergy/AdvReac Type Severity Reaction Status Date / Time iodine Allergy Hives Verified 10/29/17 15:47 iopamidol Allergy Rash Verified 10/29/17 15:47 vancomycin Allergy Itching Verified 10/29/17 15:47 diphenhydramine AdvReac Hallucinati Verified 10/29/17 15:47 [From Beth] ons Home Medications: Home Meds Metoprolol Tartrate [Lopressor] 25 mg PO BID 09/30/14 [History] Furosemide [Lasix] 20 mg PO BID 09/27/15 [History] Gabapentin [Neurontin] 1,800 mg PO BEDTIME 01/08/16 [History] Rivaroxaban [Xarelto] 20 mg PO BEDTIME 01/04/17 [History] atorvaSTATin [Lipitor] 10 mg PO BEDTIME 01/04/17 [History] Omeprazole 20 mg PO DAILY 04/05/17 [History] Albuterol [Proventil HFA] 2 puff INH Q6HR PRN 08/04/17 [History] Budesonide [Pulmicort] 0.5 mg INH BID 08/04/17 [History] L Acidophil/B Lactis/B Longum [Florajen3] 1 tab PO BID 08/04/17 [History] Spironolactone [Aldactone] 25 mg PO DAILY #30 tablet 08/10/17 [Rx] Albuterol/Ipratropium [DuoNeb 3.0-0.5 MG/3 ML] 3 ml NEB BID 09/05/17 [History] Albuterol/Ipratropium [DuoNeb 3.0-0.5 MG/3 ML] 3 ml NEB Q4H PRN 09/05/17 [ History] Benzonatate [Tessalon Perles] 100 mg PO TID 10/29/17 [History] Fluticasone Propionate [Flonase] 1 spray NASBOTH BID 10/29/17 [History] Losartan Potassium 50 mg PO DAILY 10/29/17 [History] Nitroglycerin 0.4 mg SL Q5M PRN 10/29/17 [History] guaiFENesin [Mucinex] 600 mg PO BID PRN 10/29/17 [History] guaiFENesin [Robitussin] 20 mg PO Q4H PRN 10/29/17 [History] Past Medical History HEENT History: Reports: Impaired Vision Other HEENT History: wears eyeglasses Cardiovascular History: Reports: Afib (is on Xarelto --20mg od.), CAD, Heart Failure, Hypertension, [place] Respiratory History: Reports: Bronchitis, Recurrent, COPD, Pneumonia, Recurrent Other Respiratory History: 09/22 R) lung removed, lung CA. Wears O2 round the clock, uses CPAP at noc Gastrointestinal History: Reports: Colon Polyp, GERD Genitourinary History: Reports: Chronic Renal Insuffiency, Other (See Below), Urostomy, UTI, Recurrent Other Genitourinary History: had bladder CA, bladder removed--urostomy. 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 ), sciatica pain Psychiatric History: Reports: Depression Endocrine/Metabolic History: Reports: None Hematologic History: Reports: None Immunologic History: Reports: None Oncologic (Cancer) History: Reports: Bladder, Lung, Squamous Cell Carcinoma Dermatologic History: Reports: None - Infectious Disease History Infectious Disease History: Reports: Chicken Pox, Measles, Shingles - Past Surgical History Head Surgeries/Procedures: Reports: None HEENT Surgical History: Reports: Cataract Surgery Cardiovascular Surgical History: Reports: Coronary Artery Bypass Respiratory Surgical History: Reports: Lung Resection GI Surgical History: Reports: Hernia, Inguinal Social & Family History - Family History Family Medical History: Noncontributory Cardiac: Reports: Bypass, Heart Failure, [place], Pacemaker Other Cardiac Family History: few brothers from [place]. OBGYN: Reports: Oncologic: Reports: Liver, Pancreatic, Prostate Other Oncologic Family History: brother prostate, Brother-pancreatic cancer, sister- liver cancer - Tobacco Use Smoking Status *Q: Former Smoker Years of Tobacco use: 50 Packs/Tins Daily: 1 Used Tobacco, but Quit: Yes Month Tobacco Last Used: 15 years ago Tobacco Use Comment: quit 15 years ago Second Hand Smoke Exposure: No - Caffeine Use Caffeine Use: Reports: Coffee Other Caffeine Use: 1 cup/day - Alcohol Use Days Per Week of Alcohol Use: 2 Number of Drinks Per Day: 2 Total Drinks Per Week: 4 - Recreational Drug Use Recreational Drug Use: No - Living Situation & Occupation Living situation: Reports: , with Family (Daughter) Occupation: Retired H&P Review of Systems - Review of Systems: Review Of Systems: See Below General: Reports: Malaise, Weakness, Diaphoresis, Decreased Appetite HEENT: Reports: No Symptoms Pulmonary: Reports: Shortness of Breath, Wheezing Cardiovascular: Reports: No Symptoms Gastrointestinal: Reports: Decreased Appetite Genitourinary: Reports: No Symptoms Musculoskeletal: Reports: No Symptoms Skin: Reports: Diaphoresis Psychiatric: Reports: No Symptoms Neurological: Reports: No Symptoms Hematologic/Lymphatic: Reports: No Symptoms Immunologic: Reports: No Symptoms Exam - Exam Exam: See Below - Vital Signs Vital Signs: Last Vital Signs Temp 36.8 C 10/29/17 16:17 Pulse 56 L 10/29/17 16:17 Resp 28 H 10/29/17 11:57 BP 122/67 10/29/17 16:17 Pulse Ox 93 L 10/29/17 16:26 Weight: 86.545 kg - Exam Quality Assessment: Supplemental Oxygen, DVT Prophylaxis General: Alert, Oriented, Cooperative HEENT: Conjunctiva Clear, Nares Patent, Normal Nasal Septum, Pupils Equal, Pupils Reactive, PERRLA Neck: Trachea Midline Lungs: Normal Respiratory Effort, Decreased Breath Sounds, Rhonchi, Wheezing Cardiovascular: Regular Rate GI/Abdominal Exam: Normal Bowel Sounds, Soft, Non-Tender, No Organomegaly, No Distention (Male) Exam: Deferred Rectal (Males) Exam: Deferred Back Exam: Normal Inspection Extremities: Normal Inspection, Non-Tender Skin: Warm Neurological: Cranial Nerves Intact Neuro Extensive - Mental Status: Alert, Normal Mood/Affect, Normal Cognition Neuro Extensive - Motor, Sensory, Reflexes: CN II-XII Intact Psychiatric: Alert, Normal Affect, Normal Mood - Patient Data Result Diagrams: 10/29/17 12:25 10/29/17 12:25 *Q Meaningful Use (ADM) - VTE *Q VTE Criteria *Q: - Stroke *Q Stroke Criteria *Q: - AMI *Q AMI Criteria *Q: - Problem List (1) Pneumonia SNOMED Code(s): 244091963 ICD Code: J18.9 - PNEUMONIA, UNSPECIFIED ORGANISM Status: Acute Current Visit: Yes (2) Hypoxia SNOMED Code(s): 265007718 ICD Code: R09.02 - HYPOXEMIA Status: Acute Current Visit: Yes (3) Chronic kidney disease, stage 3, mod decreased GFR SNOMED Code(s): 926088083 ICD Code: N18.3 - CHRONIC KIDNEY DISEASE, STAGE 3 (MODERATE) Status: Acute Current Visit: Yes (4) Carcinoma of right lung SNOMED Code(s): 672719885 ICD Code: C34.91 - MALIGNANT NEOPLASM OF UNSP PART OF RIGHT BRONCHUS OR LUNG Status: Acute Current Visit: Yes (5) Congestive heart failure SNOMED Code(s): 51889707 ICD Code: I50.9 - HEART FAILURE, UNSPECIFIED Status: Chronic Priority: High Current Visit: Yes Qualifiers: Congestive heart failure type: diastolic Congestive heart failure chronicity: acute on chronic Qualified Code(s): I50.33 - Acute on chronic diastolic (congestive) heart failure Problem List Initiated/Reviewed/Updated: Yes Orders Last 24hrs: Active Orders 24 hr Category Date Time Status RT Aerosol Therapy [RC] ASDIRECTED Care 10/29/17 16:26 Active RT Aerosol Therapy [RC] ASDIRECTED Care 10/29/17 16:33 Active Albuterol [Proventil Neb Soln] Med 10/29/17 16:32 Active 2.5 mg NEB Q4HRRT PRN Albuterol/Ipratropium [DuoNeb 3.0-0.5 MG/3 ML] Med 10/29/17 21:00 Active 3 ml NEB QIDRT Benzonatate [Tessalon Perles] Med 10/29/17 21:00 Active 100 mg PO TID Budesonide [Pulmicort] Med 10/29/17 21:00 Active 0.5 mg INH BIDRT Flunisolide [Nasalide Nasal [place]] Med 10/29/17 21:00 Active 0 ml NASBOTH BID Gabapentin [Neurontin] Med 10/29/17 21:00 Active 1,800 mg PO BEDTIME Metoprolol Tartrate [Lopressor] Med 10/29/17 21:00 Active 25 mg PO BID Morphine Med 10/29/17 16:31 Active 1 mg IVPUSH Q4H PRN Nitroglycerin [Nitrostat] Med 10/29/17 16:26 Active 0.4 mg SL Q5M PRN Omeprazole Med 10/30/17 09:00 Ordered 20 mg PO DAILY Piperacillin/Tazobactam [Zosyn] 4.5 gm Med 10/30/17 01:00 Active Sodium Chloride 0.9% [Normal Saline] 100 ml IV Q8H Simvastatin [Zocor] Med 10/29/17 21:00 Active 10 mg PO BEDTIME guaiFENesin Med 10/29/17 16:26 Ordered 20 mg PO Q4H PRN methylPREDNISolone Sod Succ [Solu-MEDROL] Med 10/29/17 16:00 Active 125 mg IVPUSH Q6H Medication Orders Albuterol (Proventil Neb Soln) 2.5 mg NEB Q4HRRT PRN PRN Reason: Shortness of Breath Albuterol/Ipratropium (Duoneb 3.0-0.5 Mg/3 Ml) 3 ml NEB QIDRT [facility] Last Admin: 10/29/17 17:05 Dose: 3 ml Benzonatate (Tessalon Perles) 100 mg PO TID [place]MA Budesonide (Pulmicort) 0.5 mg INH BIDRT [facility] Flunisolide (Nasalide Nasal [place]) 0 ml NASBOTH BID [facility] Gabapentin (Neurontin) 1,800 mg PO BEDTIME [facility] Sodium Chloride (Normal Saline) 1,000 mls @ 100 mls/hr IV ASDIRECTED [facility] Last Admin: 10/29/17 12:28 Dose: 100 mls/hr Piperacillin Sod/Tazobactam (Sod 4.5 gm/ Sodium Chloride) 100 mls @ 25 mls/hr IV Q8H [facility] Losartan Potassium (Cozaar) 50 mg PO ONETIME ONE Stop: 10/30/17 13:32 Last Admin: 10/29/17 13:41 Dose: 50 mg Methylprednisolone Sodium Succinate (Solu-Medrol) 125 mg IVPUSH Q6H [facility] Last Admin: 10/29/17 17:32 Dose: 125 mg Metoprolol Tartrate (Lopressor) 25 mg PO BID [facility] Morphine Sulfate (Morphine) 1 mg IVPUSH Q4H PRN PRN Reason: Pain Last Admin: 10/29/17 16:40 Dose: 1 mg Nitroglycerin (Nitrostat) 0.4 mg SL Q5M PRN PRN Reason: Chest Pain Non-Formulary Medication (Guaifenesin) 20 mg PO Q4H PRN PRN Reason: Cough Non-Formulary Medication (Omeprazole) 20 mg PO DAILY [facility] Simvastatin (Zocor) 10 mg PO BEDTIME [facility] Assessment/Plan Comment:: Impression: Acute respiratory distress with hypoxia with a history of home O2 Right sided PNA with pleural effusion on Xarelto Lung Carcinoma s/p right sided lobectomy Sepsis protocol initiated with CHF baseline History of CAD with CABG A fib on Xarelto Chronic Hx of colon polyps Hx of bladder Cancer Hx of Squamous Cell Cancer Family Hx of prostate/pancreatic/liver Ca. GERD HTN Plan: IV ATB, add Zosyn to Levoquin IV steroids Scheduled/PRN Nebs Ischemic screen Daily labs Home meds DVT/GI prophylaxis Hold Xarelto, start UFH SQ q 8H Consult CM/PT/OT DNR/DNI
[2017-10-29] MEDS ORDERED: Non-Formulary Medication 1 Each (Rivaroxaban [Xarelto] 20 MG) PO SCH (21:00)
[2017-10-29] MEDS: Gabapentin 600 MG Tab PO SCH (21:35)
[2017-10-29] MEDS: Simvastatin 10 MG Tab PO SCH (21:36)
[2017-10-29] MEDS: Metoprolol Tartrate 25 MG Tab PO SCH (21:36)
[2017-10-29] MEDS: Benzonatate 100 MG Cap PO SCH (21:36)
[2017-10-29] MEDS: Budesonide 0.5 MG/2 ML Neb Susp INH SCH (22:16)
[2017-10-30] MEDS: Piperacillin/Tazobactam 4.5 GM in Sodium Chloride 0.9% 100 ML IV SCH ×3 (00:06→17:10)
[2017-10-30] MEDS: Sodium Chloride 0.9% 1,000 ML IV SCH ×2 (02:58→13:09)
[2017-10-30] MEDS: methylPREDNISolone Sodium Succinate 125 MG/2 ML SDV IVPUSH SCH ×4 (04:45→22:28)
[2017-10-30] MEDS: Albuterol/Ipratropium 3.0-0.5 MG/3 ML Neb Soln NEB SCH ×4 (06:48→20:43)
[2017-10-30] MEDS: Budesonide 0.5 MG/2 ML Neb Susp INH SCH ×2 (06:48→20:44)
[2017-10-30] MEDS: Metoprolol Tartrate 25 MG Tab PO SCH ×2 (09:00→22:16)
[2017-10-30] MEDS: Pantoprazole 40 MG Tab.CR PO SCH (09:00)
[2017-10-30] MEDS ORDERED: Omeprazole 20 MG Cap.CR PO SCH (09:00)
[2017-10-30] MEDS: Benzonatate 100 MG Cap PO SCH ×3 (09:00→20:33)
--- NOTE | 2017-10-30 11:27 | CR ---
Chest: Portable view of the chest was obtained. Comparison: Prior chest x-ray of 09/06/17 and chest x-ray of 10/29/17. Near complete opacification of the right chest is seen. This finding is due to right sided pleural effusion and diffuse right lung consolidation. Increased density is noted within the left midlung more prominent than on prior chest x-ray compatible with additional consolidation. Heart is enlarged. Previous CABG is noted. Previous right shoulder surgery is noted. Impression: 1. Findings as described above. No significant change is seen from recent chest CT. Diagnostic code #3
[2017-10-30] MEDS: guaiFENesin 100 MG/5 ML Soln 10 ML UD Cup PO PRN (12:09)
[2017-10-30] MEDS ORDERED: Losartan 25 MG Tab PO ONE (13:31)
--- NOTE | 2017-10-30 17:10 | PCM.PN ---
- General Info Date of Service: 10/30/17 Functional Status: Reports: Tolerating Diet, Urinating - Review of Systems General: Reports: Weakness HEENT: Reports: No Symptoms Pulmonary: Reports: Shortness of Breath Cardiovascular: Reports: No Symptoms Gastrointestinal: Reports: No Symptoms Genitourinary: Reports: No Symptoms Musculoskeletal: Reports: No Symptoms Skin: Reports: No Symptoms Neurological: Reports: No Symptoms Psychiatric: Reports: No Symptoms - Patient Data Vitals - Most Recent: Last Vital Signs Temp 37.2 C 10/30/17 16:00 Pulse 83 10/30/17 09:00 Resp 24 H 10/30/17 16:00 BP 107/36 L 10/30/17 16:00 Pulse Ox 94 L 10/30/17 16:18 Weight - Most Recent: 86.591 kg I&O - Last 24 Hours: Intake & Output 10/30/17 10/30/17 10/30/17 06:59 14:59 22:59 Intake Total 1577 3073 Output Total 500 275 Balance 1077 2798 Lab Results Last 24 Hours: Laboratory Results - last 24 hr 10/30/17 10/30/17 10/30/17 Range/Units 05:45 05:45 05:45 WBC 18.00 H (4.23-9.07) K/mm3 RBC 3.87 L (4.63-6.08) M/mm3 Hgb 12.0 L (13.7-17.5) gm/L Hct 38.8 L (40.1-51.0) % MCV 100.3 H (79.0-92.2) fl MCH 31.0 (25.7-32.2) pg MCHC 30.9 L (32.2-35.5) g/dl RDW Std Deviation 59.8 H (35.1-43.9) fL Plt Count 185 (163-337) K/mm3 MPV 9.7 (9.4-12.3) fl Neut % (Auto) 95.4 H (34.0-67.9) % Lymph % (Auto) 2.2 L (21.8-53.1) % [place] % (Auto) 1.7 L (5.3-12.2) % Eos % (Auto) 0.1 L (0.8-7.0) Baso % (Auto) 0.2 (0.1-1.2) % Neut # (Auto) 17.17 H (1.78-5.38) K/mm3 Lymph # (Auto) 0.40 L (1.32-3.57) K/mm3 [place] # (Auto) 0.31 (0.30-0.82) K/mm3 Eos # (Auto) 0.01 L (0.04-0.54) K/mm3 Baso # (Auto) 0.03 (0.01-0.08) K/mm3 Manual Slide Review Abnormal smear Sodium 137 (136-145) mEq/L Potassium 4.0 (3.5-5.1) mEq/L Chloride 98 (98-107) mEq/L Carbon Dioxide 25 (21-32) mEq/L Anion Gap 18.0 H (5-15) BUN 26 H (7-18) mg/dL Creatinine 2.1 H (0.7-1.3) mg/dL Est Cr Clr Drug Dosing 27.39 mL/min Estimated GFR (MDRD) 30 (>60) mL/min BUN/Creatinine Ratio 12.4 L (14-18) Glucose 343 H (83-115) mg/dL Lactic Acid 6.6 H (0.4-2.0) mmol/L Calcium 8.8 (8.5-10.1) mg/dL C-Reactive Protein 11.1 H* (<1.0) mg/dL Med Orders - Current: Current Medications Albuterol (Proventil Neb Soln) 2.5 mg NEB Q4HRRT PRN PRN Reason: Shortness of Breath Albuterol/Ipratropium (Duoneb 3.0-0.5 Mg/3 Ml) 3 ml NEB QIDRT [facility] Last Admin: 10/30/17 15:31 Dose: 3 ml Artificial Tears (Isopto Tears 0.5% Ophth Soln) 0 ml EYEBOTH Q4H PRN PRN Reason: Dry Eyes Benzonatate (Tessalon Perles) 100 mg PO TID [facility] Last Admin: 10/30/17 15:12 Dose: 100 mg Budesonide (Pulmicort) 0.5 mg INH BIDRT [facility] Last Admin: 10/30/17 06:48 Dose: 0.5 mg Flunisolide (Nasalide Nasal [place]) 0 ml NASBOTH BID [facility] Last Admin: 10/30/17 08:58 Dose: 2 spray Gabapentin (Neurontin) 1,800 mg PO BEDTIME [facility] Last Admin: 10/29/17 21:35 Dose: 1,800 mg Guaifenesin (Robitussin) 200 mg PO Q4H PRN PRN Reason: Cough Last Admin: 10/30/17 12:09 Dose: 200 mg Sodium Chloride (Normal Saline) 1,000 mls @ 100 mls/hr IV ASDIRECTED [facility] Last Admin: 10/30/17 13:09 Dose: 100 mls/hr Piperacillin Sod/Tazobactam (Sod 4.5 gm/ Sodium Chloride) 100 mls @ 25 mls/hr IV Q8H [facility] Last Admin: 10/30/17 09:07 Dose: 25 mls/hr Methylprednisolone Sodium Succinate (Solu-Medrol) 125 mg IVPUSH Q6H [facility] Last Admin: 10/30/17 15:13 Dose: 125 mg Metoprolol Tartrate (Lopressor) 25 mg PO BID [facility] Last Admin: 10/30/17 09:00 Dose: 25 mg Morphine Sulfate (Morphine) 1 mg IVPUSH Q4H PRN PRN Reason: Pain Last Admin: 10/29/17 16:40 Dose: 1 mg Nitroglycerin (Nitrostat) 0.4 mg SL Q5M PRN PRN Reason: Chest Pain Pantoprazole Sodium (Protonix) 40 mg PO DAILY@0700 [facility] Last Admin: 10/30/17 09:00 Dose: 40 mg Simvastatin (Zocor) 10 mg PO BEDTIME [facility] Last Admin: 10/29/17 21:36 Dose: 10 mg Discontinued Medications Acetaminophen (Tylenol) 650 mg PO NOW ONE Stop: 10/29/17 12:28 Last Admin: 10/29/17 12:38 Dose: 650 mg Albuterol/Ipratropium (Duoneb 3.0-0.5 Mg/3 Ml) 3 ml NEB ONETIME ONE Stop: 10/29/17 13:03 Last Admin: 10/29/17 13:13 Dose: 3 ml Albuterol/Ipratropium (Duoneb 3.0-0.5 Mg/3 Ml) Confirm Administered Dose 9 ml .ROUTE .STK-MED ONE Stop: 10/29/17 16:59 Last Admin: 10/29/17 17:12 Dose: 6 ml Fentanyl (Sublimaze) 50 mcg IVPUSH ONETIME ONE Stop: 10/29/17 12:51 Last Admin: 10/29/17 13:05 Dose: 50 mcg Furosemide (Lasix) 40 mg IVPUSH NOW ONE Stop: 10/29/17 13:50 Last Admin: 10/29/17 13:55 Dose: 40 mg Levofloxacin/Dextrose 750 mg/ (Premix) 150 mls @ 100 mls/hr IV ONETIME ONE Stop: 10/29/17 14:04 Last Admin: 10/29/17 13:19 Dose: 100 mls/hr Piperacillin Sod/Tazobactam (Sod 4.5 gm/ Sodium Chloride) 100 mls @ 200 mls/hr IV ONETIME ONE Stop: 10/29/17 17:29 Last Admin: 10/29/17 17:35 Dose: 200 mls/hr Losartan Potassium (Cozaar) 50 mg PO ONETIME ONE Stop: 10/29/17 13:04 Last Admin: 10/29/17 16:23 Dose: Not Given Losartan Potassium (Cozaar) 50 mg PO ONETIME ONE Stop: 10/30/17 13:32 Last Admin: 10/29/17 13:41 Dose: 50 mg Metoprolol Tartrate (Lopressor) 25 mg PO ONETIME ONE Stop: 10/29/17 13:04 Last Admin: 10/29/17 13:19 Dose: 25 mg Non-Formulary Medication (Rivaroxaban [Xarelto]) 20 mg PO BEDTIME [facility] Omeprazole (Omeprazole) 20 mg PO DAILY [facility]MA - Exam Quality Assessment: Supplemental Oxygen, DVT Prophylaxis General: Alert, Oriented, Cooperative, No Acute Distress HEENT: Pupils Equal, Pupils Reactive, EOMI Neck: Supple Lungs: Normal Respiratory Effort, Decreased Breath Sounds (R>L) Cardiovascular: Regular Rate GI/Abdominal Exam: Normal Bowel Sounds, Soft, No Organomegaly, No Distention (Male) Exam: Deferred Back Exam: Normal Inspection Extremities: Normal Inspection Skin: Warm Neurological: No New Focal Deficit Psy/Mental Status: Alert, Normal Affect, Normal Mood - Problem List & Annotations (1) Pneumonia SNOMED Code(s): 486886402 Code(s): J18.9 - PNEUMONIA, UNSPECIFIED ORGANISM Status: Acute Current Visit: Yes (2) Hypoxia SNOMED Code(s): 639031156 Code(s): R09.02 - HYPOXEMIA Status: Acute Current Visit: Yes (3) Chronic kidney disease, stage 3, mod decreased GFR SNOMED Code(s): 221238903 Code(s): N18.3 - CHRONIC KIDNEY DISEASE, STAGE 3 (MODERATE) Status: Acute Current Visit: Yes (4) Carcinoma of right lung SNOMED Code(s): 807644605 Code(s): C34.91 - MALIGNANT NEOPLASM OF UNSP PART OF RIGHT BRONCHUS OR LUNG Status: Acute Current Visit: Yes (5) Congestive heart failure SNOMED Code(s): 85115948 Code(s): I50.9 - HEART FAILURE, UNSPECIFIED Status: Chronic Priority: High Current Visit: Yes Qualifiers: Congestive heart failure type: diastolic Congestive heart failure chronicity: acute on chronic Qualified Code(s): I50.33 - Acute on chronic diastolic (congestive) heart failure - Problem List Review Problem List Initiated/Reviewed/Updated: Yes - My Orders Last 24 Hours: My Active Orders 10/29/17 16:26 RT Aerosol Therapy [RC] ASDIRECTED Nitroglycerin [Nitrostat] 0.4 mg SL Q5M PRN guaiFENesin [Robitussin] 200 mg PO Q4H PRN 10/29/17 16:31 Morphine 1 mg IVPUSH Q4H PRN 10/29/17 16:32 Albuterol [Proventil Neb Soln] 2.5 mg NEB Q4HRRT PRN 10/29/17 17:40 Admission Status [Patient Status] [ADT] Routine Cardiac Monitoring [RC] . DIRECTED 10/29/17 18:03 Hypromellose [Isopto Tears 0.5% Ophth Soln] 0 ml EYEBOTH Q4H PRN 10/29/17 18:35 INFLUENZA A,B, H1N1 BY PCR [MREF] Routine 10/29/17 19:21 Isolation [COMM] Routine 10/29/17 21:00 Albuterol/Ipratropium [DuoNeb 3.0-0.5 MG/3 ML] 3 ml NEB QIDRT Benzonatate [Tessalon Perles] 100 mg PO TID Budesonide [Pulmicort] 0.5 mg INH BIDRT Flunisolide [Nasalide Nasal [place]] 0 ml NASBOTH BID Gabapentin [Neurontin] 1,800 mg PO BEDTIME Metoprolol Tartrate [Lopressor] 25 mg PO BID Simvastatin [Zocor] 10 mg PO BEDTIME 10/29/17 21:30 CULTURE BLOOD [BC] Routine 10/30/17 01:00 Piperacillin/Tazobactam [Zosyn] 4.5 gm Sodium Chloride 0.9% [Normal Saline] 100 ml IV Q8H 10/30/17 08:15 Pantoprazole [ProTONIX] 40 mg PO DAILY@0700 10/30/17 12:46 Acapella [RT Chest Physiotherapy] [RC] ASDIRECTED 10/30/17 Lunch Full Liquid Diet [DIET] 10/31/17 05:00 BASIC METABOLIC PANEL,BMP [CHEM] DAILY CBC WITH AUTO DIFF [HEME] DAILY CRP [C-REACTIVE PROTEIN] [CHEM] DAILY LACTIC ACID [CHEM] DAILY 11/01/17 05:00 BASIC METABOLIC PANEL,BMP [CHEM] DAILY CBC WITH AUTO DIFF [HEME] DAILY CRP [C-REACTIVE PROTEIN] [CHEM] DAILY LACTIC ACID [CHEM] DAILY 11/02/17 05:00 BASIC METABOLIC PANEL,BMP [CHEM] DAILY CBC WITH AUTO DIFF [HEME] DAILY CRP [C-REACTIVE PROTEIN] [CHEM] DAILY LACTIC ACID [CHEM] DAILY - Plan Plan:: Impression: Acute respiratory distress with hypoxia with a history of home O2 Right sided PNA with small pleural effusion on Xarelto Lung Carcinoma s/p right sided lobectomy Sepsis protocol initiated with CHF baseline History of CAD with CABG A fib on Xarelto Chronic Hx of colon polyps Hx of bladder Cancer Hx of Squamous Cell Cancer Family Hx of prostate/pancreatic/liver Ca. GERD HTN Plan: IV ATB Zosyn/Levoquin IV steroids Scheduled/PRN Nebs Ischemic screen Daily labs Home meds DVT/GI prophylaxis Hold Xarelto, start UFH SQ q 8H Consult CM/PT/OT DNR/DNI
[2017-10-30] MEDS: Gabapentin 600 MG Tab PO SCH (20:33)
[2017-10-30] MEDS: Simvastatin 10 MG Tab PO SCH (20:33)
[2017-10-31] MEDS: Piperacillin/Tazobactam 4.5 GM in Sodium Chloride 0.9% 100 ML IV SCH ×3 (00:27→17:44)
[2017-10-31] MEDS: Sodium Chloride 0.9% 1,000 ML IV SCH ×2 (00:53→14:02)
[2017-10-31] MEDS: methylPREDNISolone Sodium Succinate 125 MG/2 ML SDV IVPUSH SCH ×4 (05:29→20:25)
[2017-10-31] MEDS: Albuterol/Ipratropium 3.0-0.5 MG/3 ML Neb Soln NEB SCH ×4 (06:01→20:45)
[2017-10-31] MEDS: Budesonide 0.5 MG/2 ML Neb Susp INH SCH ×2 (06:01→20:45)
[2017-10-31] MEDS: Pantoprazole 40 MG Tab.CR PO SCH (06:13)
[2017-10-31] MEDS: Metoprolol Tartrate 25 MG Tab PO SCH ×2 (08:41→20:19)
[2017-10-31] MEDS: guaiFENesin 100 MG/5 ML Soln 10 ML UD Cup PO PRN ×2 (08:41→21:33)
[2017-10-31] MEDS: Benzonatate 100 MG Cap PO SCH ×3 (08:42→20:24)
[2017-10-31] MEDS: Hypromellose 0.5% Ophth Soln 15 ML Bottle EYEBOTH PRN (08:51)
[2017-10-31] MEDS ORDERED: Magnesium Sulfate/Water 2 GM in Premix Bag 1 BAG IV ONE (09:50)
[2017-10-31] MEDS: Potassium Chloride 20 MEQ Tab.ER PO SCH ×2 (10:22→20:21)
[2017-10-31] MEDS: Levofloxacin/Dextrose 5%-Water 750 MG in Premix Bag 1 BAG IV SCH (13:18)
[2017-10-31] MEDS: Morphine 2 MG/ML Syringe IVPUSH PRN ×2 (15:38→20:35)
[2017-10-31] MEDS: Gabapentin 600 MG Tab PO SCH (20:20)
[2017-10-31] MEDS: Simvastatin 10 MG Tab PO SCH (20:24)
--- NOTE | 2017-10-31 20:30 | PCM.PN ---
- General Info Date of Service: 10/31/17 Functional Status: Reports: Tolerating Diet, Ambulating, Urinating - Review of Systems General: Reports: Weakness HEENT: Reports: No Symptoms Pulmonary: Reports: Shortness of Breath Cardiovascular: Reports: No Symptoms Gastrointestinal: Reports: No Symptoms Genitourinary: Reports: No Symptoms Musculoskeletal: Reports: No Symptoms Skin: Reports: No Symptoms Neurological: Reports: No Symptoms Psychiatric: Reports: No Symptoms - Patient Data Vitals - Most Recent: Last Vital Signs Temp 36.8 C 10/31/17 15:40 Pulse 91 10/31/17 20:19 Resp 28 H 10/31/17 15:40 BP 139/59 L 10/31/17 20:19 Pulse Ox 96 10/31/17 16:13 Weight - Most Recent: 90.265 kg I&O - Last 24 Hours: Intake & Output 10/31/17 10/31/17 10/31/17 06:59 14:59 22:59 Intake Total 0011 308 1569 Output Total 750 475 350 Balance 184 809 5414 Lab Results Last 24 Hours: Laboratory Results - last 24 hr 10/31/17 10/31/17 10/31/17 Range/Units 06:15 06:15 06:15 WBC 24.48 H (4.23-9.07) K/mm3 RBC 3.62 L (4.63-6.08) M/mm3 Hgb 11.0 L (13.7-17.5) gm/L Hct 35.5 L (40.1-51.0) % MCV 98.1 H (79.0-92.2) fl MCH 30.4 (25.7-32.2) pg MCHC 31.0 L (32.2-35.5) g/dl RDW Std Deviation 59.3 H (35.1-43.9) fL Plt Count 197 (163-337) K/mm3 MPV 10.4 (9.4-12.3) fl Neut % (Auto) 94.7 H (34.0-67.9) % Lymph % (Auto) 1.8 L (21.8-53.1) % [place] % (Auto) 3.1 L (5.3-12.2) % Eos % (Auto) 0 L (0.8-7.0) Baso % (Auto) 0.0 L (0.1-1.2) % Neut # (Auto) 23.19 H (1.78-5.38) K/mm3 Lymph # (Auto) 0.43 L (1.32-3.57) K/mm3 [place] # (Auto) 0.75 (0.30-0.82) K/mm3 Eos # (Auto) 0.00 L (0.04-0.54) K/mm3 Baso # (Auto) 0.01 (0.01-0.08) K/mm3 Manual Slide Review Abnormal smear Sodium 139 (136-145) mEq/L Potassium 3.4 L (3.5-5.1) mEq/L Chloride 101 (98-107) mEq/L Carbon Dioxide 28 (21-32) mEq/L Anion Gap 13.4 (5-15) BUN 32 H (7-18) mg/dL Creatinine 1.8 H (0.7-1.3) mg/dL Est Cr Clr Drug Dosing 31.96 mL/min Estimated GFR (MDRD) 36 (>60) mL/min BUN/Creatinine Ratio 17.8 (14-18) Glucose 216 H (83-115) mg/dL Lactic Acid 2.9 H (0.4-2.0) mmol/L Calcium 8.9 (8.5-10.1) mg/dL Magnesium (1.8-2.4) mg/dl C-Reactive Protein 8.7 H* (<1.0) mg/dL 10/31/17 Range/Units 06:15 WBC (4.23-9.07) K/mm3 RBC (4.63-6.08) M/mm3 Hgb (13.7-17.5) gm/L Hct (40.1-51.0) % MCV (79.0-92.2) fl MCH (25.7-32.2) pg MCHC (32.2-35.5) g/dl RDW Std Deviation (35.1-43.9) fL Plt Count (163-337) K/mm3 MPV (9.4-12.3) fl Neut % (Auto) (34.0-67.9) % Lymph % (Auto) (21.8-53.1) % [place] % (Auto) (5.3-12.2) % Eos % (Auto) (0.8-7.0) Baso % (Auto) (0.1-1.2) % Neut # (Auto) (1.78-5.38) K/mm3 Lymph # (Auto) (1.32-3.57) K/mm3 [place] # (Auto) (0.30-0.82) K/mm3 Eos # (Auto) (0.04-0.54) K/mm3 Baso # (Auto) (0.01-0.08) K/mm3 Manual Slide Review Sodium (136-145) mEq/L Potassium (3.5-5.1) mEq/L Chloride (98-107) mEq/L Carbon Dioxide (21-32) mEq/L Anion Gap (5-15) BUN (7-18) mg/dL Creatinine (0.7-1.3) mg/dL Est Cr Clr Drug Dosing mL/min Estimated GFR (MDRD) (>60) mL/min BUN/Creatinine Ratio (14-18) Glucose (83-115) mg/dL Lactic Acid (0.4-2.0) mmol/L Calcium (8.5-10.1) mg/dL Magnesium 1.7 L (1.8-2.4) mg/dl C-Reactive Protein (<1.0) mg/dL [place] Results Last 24 Hours: Microbiology 10/29/17 21:30 Aerobic Blood Culture - Preliminary Blood NO GROWTH AFTER 1 DAY Anaerobic Blood Culture - Preliminary NO GROWTH AFTER 1 DAY Med Orders - Current: Current Medications Albuterol (Proventil Neb Soln) 2.5 mg NEB Q4HRRT PRN PRN Reason: Shortness of Breath Albuterol/Ipratropium (Duoneb 3.0-0.5 Mg/3 Ml) 3 ml NEB QIDRT [facility] Last Admin: 10/31/17 16:09 Dose: 3 ml Artificial Tears (Isopto Tears 0.5% Ophth Soln) 0 ml EYEBOTH Q4H PRN PRN Reason: Dry Eyes Last Admin: 10/31/17 08:51 Dose: 1 drop Benzonatate (Tessalon Perles) 100 mg PO TID [facility] Last Admin: 10/31/17 20:24 Dose: 100 mg Budesonide (Pulmicort) 0.5 mg INH BIDRT [facility] Last Admin: 10/31/17 06:01 Dose: 0.5 mg Flunisolide (Nasalide Nasal [place]) 0 ml NASBOTH BID [facility] Last Admin: 10/31/17 20:24 Dose: 1 spray Gabapentin (Neurontin) 1,800 mg PO BEDTIME [facility] Last Admin: 10/31/17 20:20 Dose: 1,800 mg Guaifenesin (Robitussin) 200 mg PO Q4H PRN PRN Reason: Cough Last Admin: 10/31/17 08:41 Dose: 200 mg Sodium Chloride (Normal Saline) 1,000 mls @ 75 mls/hr IV ASDIRECTED [facility] Last Admin: 10/31/17 14:02 Dose: 75 mls/hr Piperacillin Sod/Tazobactam (Sod 4.5 gm/ Sodium Chloride) 100 mls @ 25 mls/hr IV Q8H [facility] Last Admin: 10/31/17 17:44 Dose: 25 mls/hr Levofloxacin/Dextrose 750 mg/ (Premix) 150 mls @ 100 mls/hr IV Q48H [facility] Last Admin: 10/31/17 13:18 Dose: 100 mls/hr Methylprednisolone Sodium Succinate (Solu-Medrol) 125 mg IVPUSH Q6H [facility] Last Admin: 10/31/17 20:25 Dose: 125 mg Metoprolol Tartrate (Lopressor) 25 mg PO BID [facility] Last Admin: 10/31/17 20:19 Dose: 25 mg Morphine Sulfate (Morphine) 1 mg IVPUSH Q4H PRN PRN Reason: Pain Last Admin: 10/31/17 15:38 Dose: 1 mg Nitroglycerin (Nitrostat) 0.4 mg SL Q5M PRN PRN Reason: Chest Pain Pantoprazole Sodium (Protonix) 40 mg PO DAILY@0700 [facility] Last Admin: 10/31/17 06:13 Dose: 40 mg Potassium Chloride (Klor-Con M20) 40 meq PO BID [facility] Last Admin: 10/31/17 20:21 Dose: 40 meq Simvastatin (Zocor) 10 mg PO BEDTIME [facility] Last Admin: 10/31/17 20:24 Dose: 10 mg Discontinued Medications Acetaminophen (Tylenol) 650 mg PO NOW ONE Stop: 10/29/17 12:28 Last Admin: 10/29/17 12:38 Dose: 650 mg Albuterol/Ipratropium (Duoneb 3.0-0.5 Mg/3 Ml) 3 ml NEB ONETIME ONE Stop: 10/29/17 13:03 Last Admin: 10/29/17 13:13 Dose: 3 ml Albuterol/Ipratropium (Duoneb 3.0-0.5 Mg/3 Ml) Confirm Administered Dose 9 ml .ROUTE .STK-MED ONE Stop: 10/29/17 16:59 Last Admin: 10/29/17 17:12 Dose: 6 ml Fentanyl (Sublimaze) 50 mcg IVPUSH ONETIME ONE Stop: 10/29/17 12:51 Last Admin: 10/29/17 13:05 Dose: 50 mcg Furosemide (Lasix) 40 mg IVPUSH NOW ONE Stop: 10/29/17 13:50 Last Admin: 10/29/17 13:55 Dose: 40 mg Levofloxacin/Dextrose 750 mg/ (Premix) 150 mls @ 100 mls/hr IV ONETIME ONE Stop: 10/29/17 14:04 Last Admin: 10/29/17 13:19 Dose: 100 mls/hr Piperacillin Sod/Tazobactam (Sod 4.5 gm/ Sodium Chloride) 100 mls @ 200 mls/hr IV ONETIME ONE Stop: 10/29/17 17:29 Last Admin: 10/29/17 17:35 Dose: 200 mls/hr Magnesium Sulfate 2 gm/ Premix 50 mls @ 25 mls/hr IV ONETIME ONE Stop: 10/31/17 11:49 Last Admin: 10/31/17 10:23 Dose: 25 mls/hr Losartan Potassium (Cozaar) 50 mg PO ONETIME ONE Stop: 10/29/17 13:04 Last Admin: 10/29/17 16:23 Dose: Not Given Losartan Potassium (Cozaar) 50 mg PO ONETIME ONE Stop: 10/30/17 13:32 Last Admin: 10/29/17 13:41 Dose: 50 mg Metoprolol Tartrate (Lopressor) 25 mg PO ONETIME ONE Stop: 10/29/17 13:04 Last Admin: 10/29/17 13:19 Dose: 25 mg Non-Formulary Medication (Rivaroxaban [Xarelto]) 20 mg PO BEDTIME [facility] Omeprazole (Omeprazole) 20 mg PO DAILY [facility] - Exam Quality Assessment: Supplemental Oxygen, DVT Prophylaxis General: Alert, Oriented, Cooperative, No Acute Distress HEENT: Pupils Equal, Pupils Reactive, EOMI Neck: Trachea Midline, No JVD Lungs: Normal Respiratory Effort, Decreased Breath Sounds Cardiovascular: Regular Rate GI/Abdominal Exam: Normal Bowel Sounds, Soft, Non-Tender, No Organomegaly, No Distention (Male) Exam: Deferred Back Exam: Normal Inspection Extremities: Normal Inspection Skin: Warm Neurological: No New Focal Deficit Psy/Mental Status: Alert, Normal Affect, Normal Mood - Problem List & Annotations (1) Pneumonia SNOMED Code(s): 956184618 Code(s): J18.9 - PNEUMONIA, UNSPECIFIED ORGANISM Status: Acute Current Visit: Yes (2) Hypoxia SNOMED Code(s): 534802442 Code(s): R09.02 - HYPOXEMIA Status: Acute Current Visit: Yes (3) Chronic kidney disease, stage 3, mod decreased GFR SNOMED Code(s): 419178349 Code(s): N18.3 - CHRONIC KIDNEY DISEASE, STAGE 3 (MODERATE) Status: Acute Current Visit: Yes (4) Carcinoma of right lung SNOMED Code(s): 656839486 Code(s): C34.91 - MALIGNANT NEOPLASM OF UNSP PART OF RIGHT BRONCHUS OR LUNG Status: Acute Current Visit: Yes (5) Congestive heart failure SNOMED Code(s): 42014206 Code(s): I50.9 - HEART FAILURE, UNSPECIFIED Status: Chronic Priority: High Current Visit: Yes Qualifiers: Congestive heart failure type: diastolic Congestive heart failure chronicity: acute on chronic Qualified Code(s): I50.33 - Acute on chronic diastolic (congestive) heart failure - Problem List Review Problem List Initiated/Reviewed/Updated: Yes - My Orders Last 24 Hours: My Active Orders 10/31/17 09:45 Potassium Chloride [Klor-Con M20] 40 meq PO BID 10/31/17 14:00 Levofloxacin/Dextrose 5%-Water [Levaquin in D5W 750 MG/150 ML] 750 mg Premix Bag 1 bag IV Q48H 10/31/17 17:57 Admission Status [Patient Status] [ADT] Routine 10/31/17 17:58 Cardiac Monitoring [RC] . DIRECTED 10/31/17 Lunch Soft Diet [DIET] 11/01/17 05:00 BASIC METABOLIC PANEL,BMP [CHEM] DAILY CBC WITH AUTO DIFF [HEME] DAILY CRP [C-REACTIVE PROTEIN] [CHEM] DAILY LACTIC ACID [CHEM] DAILY 11/01/17 08:00 CXR [Chest 2V] [CR] Routine 11/02/17 05:00 BASIC METABOLIC PANEL,BMP [CHEM] DAILY CBC WITH AUTO DIFF [HEME] DAILY CRP [C-REACTIVE PROTEIN] [CHEM] DAILY LACTIC ACID [CHEM] DAILY - Plan Plan:: Impression: Acute respiratory distress with hypoxia with a history of home O2 Right sided PNA with small pleural effusion on Xarelto Lung Carcinoma s/p right sided lobectomy Sepsis protocol initiated with CHF baseline History of CAD with CABG A fib on Xarelto Chronic Hx of colon polyps Hx of bladder Cancer Hx of Squamous Cell Cancer Family Hx of prostate/pancreatic/liver Ca. GERD HTN Plan: Transfer to [facility] [place], [place] for the floor IV ATB Zosyn/Levoquin IV steroids Scheduled/PRN Nebs Ischemic screen Daily labs Home meds DVT/GI prophylaxis Hold Xarelto, start UFH SQ q 8H Consult CM/PT/OT DNR/DNI
[2017-11-01] MEDS: Piperacillin/Tazobactam 4.5 GM in Sodium Chloride 0.9% 100 ML IV SCH ×3 (01:36→16:52)
[2017-11-01] MEDS: methylPREDNISolone Sodium Succinate 125 MG/2 ML SDV IVPUSH SCH ×5 (01:39→22:36)
[2017-11-01] MEDS: Sodium Chloride 0.9% 1,000 ML IV SCH ×2 (01:40→16:50)
[2017-11-01] MEDS: Morphine 2 MG/ML Syringe IVPUSH PRN ×4 (03:32→20:44)
[2017-11-01] MEDS: guaiFENesin 100 MG/5 ML Soln 10 ML UD Cup PO PRN (03:32)
[2017-11-01] MEDS: Budesonide 0.5 MG/2 ML Neb Susp INH SCH ×2 (05:14→20:18)
[2017-11-01] MEDS: Albuterol/Ipratropium 3.0-0.5 MG/3 ML Neb Soln NEB SCH ×4 (05:14→20:17)
[2017-11-01] MEDS: Pantoprazole 40 MG Tab.CR PO SCH (07:01)
[2017-11-01] MEDS: Benzonatate 100 MG Cap PO SCH ×3 (09:55→20:52)
[2017-11-01] MEDS: Potassium Chloride 20 MEQ Tab.ER PO SCH ×2 (09:56→20:59)
[2017-11-01] MEDS: Metoprolol Tartrate 25 MG Tab PO SCH ×2 (10:45→20:57)
--- NOTE | 2017-11-01 11:42 | CR ---
Chest: Two views of the chest were obtained. Comparison: Prior chest x-ray of 10/30/17. Better aeration of the right chest is seen compatible with improving parenchymal density. Pleural thickening again noted on the right side. Focal parenchymal density within the left midlung is stable. Heart is enlarged. Previous CABG is noted. Prior right shoulder surgery is noted. Impression: 1. Improved aeration of the right lung from prior exam. Diagnostic code #3
--- NOTE | 2017-11-01 12:08 | PCM.PN ---
- General Info Date of Service: 11/01/17 Admission Dx/Problem (Free Text): Admission Diagnosis/Problem Admission Diagnosis/Problem Pneumonia Subjective Update: In to see Ed today. He is sitting in the chair watching TV. I asked him how things are going and he says "horrible." We discussed his lung cancer and his current pneumonia. I discussed his plan of care and response thus far. He does have some edema noted bilaterally in his legs. Will order some lasix. He has been getting aggressive fluid therapy as his lactic acid has been high. It is 1.8 today. His CXR is improving. Awaiting cultures and sensitivities from sputum collection. Functional Status: Reports: Pain Controlled, Tolerating Diet, Ambulating, Urinating. Denies: New Symptoms - Review of Systems General: Reports: Weakness, Malaise. Denies: Fever, Fatigue, Chills HEENT: Reports: No Symptoms Pulmonary: Reports: Shortness of Breath, Cough, Wheezing. Denies: Pleuritic Chest Pain, Hemoptysis Cardiovascular: Reports: Dyspnea on Exertion, Edema. Denies: Chest Pain, Palpitations Gastrointestinal: Reports: No Symptoms Genitourinary: Reports: No Symptoms Musculoskeletal: Reports: No Symptoms Skin: Reports: No Symptoms Neurological: Reports: No Symptoms Psychiatric: Reports: No Symptoms - Patient Data Vitals - Most Recent: Last Vital Signs Temp 97.3 F 11/01/17 11:35 Pulse 88 11/01/17 11:35 Resp 19 11/01/17 11:35 BP 134/60 11/01/17 11:35 Pulse Ox 93 L 11/01/17 11:35 Weight - Most Recent: 202 lb 14.4 oz I&O - Last 24 Hours: Intake & Output 10/31/17 11/01/17 11/01/17 22:59 06:59 14:59 Intake Total 2552 2143 120 Output Total 350 900 Balance 2202 1243 120 Lab Results Last 24 Hours: Laboratory Results - last 24 hr 11/01/17 11/01/17 11/01/17 Range/Units 06:30 06:30 06:30 WBC 23.90 H (4.23-9.07) K/mm3 RBC 3.77 L (4.63-6.08) M/mm3 Hgb 11.6 L (13.7-17.5) gm/L Hct 37.4 L (40.1-51.0) % MCV 99.2 H (79.0-92.2) fl MCH 30.8 (25.7-32.2) pg MCHC 31.0 L (32.2-35.5) g/dl RDW Std Deviation 61.2 H (35.1-43.9) fL Plt Count 188 (163-337) K/mm3 MPV 10.2 (9.4-12.3) fl Neut % (Auto) 96.5 H (34.0-67.9) % Lymph % (Auto) 1.1 L (21.8-53.1) % [place] % (Auto) 1.9 L (5.3-12.2) % Eos % (Auto) 0 L (0.8-7.0) Baso % (Auto) 0.0 L (0.1-1.2) % Neut # (Auto) 23.04 H (1.78-5.38) K/mm3 Lymph # (Auto) 0.27 L (1.32-3.57) K/mm3 [place] # (Auto) 0.46 (0.30-0.82) K/mm3 Eos # (Auto) 0.00 L (0.04-0.54) K/mm3 Baso # (Auto) 0.01 (0.01-0.08) K/mm3 Manual Slide Review Abnormal smear Sodium 139 (136-145) mEq/L Potassium 4.4 (3.5-5.1) mEq/L Chloride 106 (98-107) mEq/L Carbon Dioxide 23 (21-32) mEq/L Anion Gap 14.4 (5-15) BUN 33 H (7-18) mg/dL Creatinine 1.5 H (0.7-1.3) mg/dL Est Cr Clr Drug Dosing 38.35 mL/min Estimated GFR (MDRD) 44 (>60) mL/min BUN/Creatinine Ratio 22.0 H (14-18) Glucose 215 H (83-115) mg/dL Lactic Acid 1.8 (0.4-2.0) mmol/L Calcium 9.0 (8.5-10.1) mg/dL C-Reactive Protein 3.8 H* (<1.0) mg/dL [place] Results Last 24 Hours: Microbiology 10/29/17 21:30 Aerobic Blood Culture - Preliminary Blood NO GROWTH AFTER 2 DAYS Anaerobic Blood Culture - Preliminary NO GROWTH AFTER 2 DAYS Med Orders - Current: Current Medications Albuterol (Proventil Neb Soln) 2.5 mg NEB Q4HRRT PRN PRN Reason: Shortness of Breath Albuterol/Ipratropium (Duoneb 3.0-0.5 Mg/3 Ml) 3 ml NEB QIDRT [facility] Last Admin: 11/01/17 09:00 Dose: 3 ml Artificial Tears (Isopto Tears 0.5% Ophth Soln) 0 ml EYEBOTH Q4H PRN PRN Reason: Dry Eyes Last Admin: 10/31/17 08:51 Dose: 1 drop Benzonatate (Tessalon Perles) 100 mg PO TID [facility] Last Admin: 11/01/17 09:55 Dose: 100 mg Budesonide (Pulmicort) 0.5 mg INH BIDRT [facility] Last Admin: 11/01/17 05:14 Dose: 0.5 mg Flunisolide (Nasalide Nasal [place]) 0 ml NASBOTH BID [facility] Last Admin: 11/01/17 10:09 Dose: 2 spray Gabapentin (Neurontin) 1,800 mg PO BEDTIME [facility] Last Admin: 10/31/17 20:20 Dose: 1,800 mg Guaifenesin (Robitussin) 200 mg PO Q4H PRN PRN Reason: Cough Last Admin: 11/01/17 03:32 Dose: 200 mg Sodium Chloride (Normal Saline) 1,000 mls @ 75 mls/hr IV ASDIRECTED [facility] Last Admin: 11/01/17 01:40 Dose: 75 mls/hr Piperacillin Sod/Tazobactam (Sod 4.5 gm/ Sodium Chloride) 100 mls @ 25 mls/hr IV Q8H [facility] Last Admin: 11/01/17 10:01 Dose: 25 mls/hr Levofloxacin/Dextrose 750 mg/ (Premix) 150 mls @ 100 mls/hr IV Q48H [facility] Last Admin: 10/31/17 13:18 Dose: 100 mls/hr Methylprednisolone Sodium Succinate (Solu-Medrol) 125 mg IVPUSH Q12H [facility] Metoprolol Tartrate (Lopressor) 25 mg PO BID [facility] Last Admin: 11/01/17 10:45 Dose: 25 mg Morphine Sulfate (Morphine) 1 mg IVPUSH Q4H PRN PRN Reason: Pain Last Admin: 11/01/17 10:45 Dose: 1 mg Nitroglycerin (Nitrostat) 0.4 mg SL Q5M PRN PRN Reason: Chest Pain Pantoprazole Sodium (Protonix) 40 mg PO DAILY@0700 [facility] Last Admin: 11/01/17 07:01 Dose: 40 mg Potassium Chloride (Klor-Con M20) 40 meq PO BID [facility] Last Admin: 11/01/17 09:56 Dose: 40 meq Simvastatin (Zocor) 10 mg PO BEDTIME [facility] Last Admin: 10/31/17 20:24 Dose: 10 mg Discontinued Medications Acetaminophen (Tylenol) 650 mg PO NOW ONE Stop: 10/29/17 12:28 Last Admin: 10/29/17 12:38 Dose: 650 mg Albuterol/Ipratropium (Duoneb 3.0-0.5 Mg/3 Ml) 3 ml NEB ONETIME ONE Stop: 10/29/17 13:03 Last Admin: 10/29/17 13:13 Dose: 3 ml Albuterol/Ipratropium (Duoneb 3.0-0.5 Mg/3 Ml) Confirm Administered Dose 9 ml .ROUTE .STK-MED ONE Stop: 10/29/17 16:59 Last Admin: 10/29/17 17:12 Dose: 6 ml Fentanyl (Sublimaze) 50 mcg IVPUSH ONETIME ONE Stop: 10/29/17 12:51 Last Admin: 10/29/17 13:05 Dose: 50 mcg Furosemide (Lasix) 40 mg IVPUSH NOW ONE Stop: 10/29/17 13:50 Last Admin: 10/29/17 13:55 Dose: 40 mg Levofloxacin/Dextrose 750 mg/ (Premix) 150 mls @ 100 mls/hr IV ONETIME ONE Stop: 10/29/17 14:04 Last Admin: 10/29/17 13:19 Dose: 100 mls/hr Piperacillin Sod/Tazobactam (Sod 4.5 gm/ Sodium Chloride) 100 mls @ 200 mls/hr IV ONETIME ONE Stop: 10/29/17 17:29 Last Admin: 10/29/17 17:35 Dose: 200 mls/hr Magnesium Sulfate 2 gm/ Premix 50 mls @ 25 mls/hr IV ONETIME ONE Stop: 10/31/17 11:49 Last Admin: 10/31/17 10:23 Dose: 25 mls/hr Losartan Potassium (Cozaar) 50 mg PO ONETIME ONE Stop: 10/29/17 13:04 Last Admin: 10/29/17 16:23 Dose: Not Given Losartan Potassium (Cozaar) 50 mg PO ONETIME ONE Stop: 10/30/17 13:32 Last Admin: 10/29/17 13:41 Dose: 50 mg Methylprednisolone Sodium Succinate (Solu-Medrol) 125 mg IVPUSH Q6H [facility] Last Admin: 11/01/17 10:05 Dose: 125 mg Metoprolol Tartrate (Lopressor) 25 mg PO ONETIME ONE Stop: 10/29/17 13:04 Last Admin: 10/29/17 13:19 Dose: 25 mg Non-Formulary Medication (Rivaroxaban [Xarelto]) 20 mg PO BEDTIME [facility] Omeprazole (Omeprazole) 20 mg PO DAILY [facility] - Exam Quality Assessment: Supplemental Oxygen, DVT Prophylaxis General: Alert, Oriented, Cooperative, No Acute Distress HEENT: Pupils Equal, Pupils Reactive, EOMI, Mucous Membr. Moist/[place] Neck: Supple, Trachea Midline, No JVD Lungs: Normal Respiratory Effort, Decreased Breath Sounds, Wheezing Cardiovascular: Regular Rate, Regular Rhythm GI/Abdominal Exam: Normal Bowel Sounds, Soft, Non-Tender, No Organomegaly, No Distention, No Abnormal Bruit, No Mass, Pelvis Stable (Male) Exam: Deferred Back Exam: Normal Inspection, Full Range of Motion Extremities: Normal Range of Motion, Non-Tender, Normal Capillary Refill, Pedal Edema (1+ bilaterally ) Peripheral Pulses: 1+: Posterior Tibial (L), Posterior Tibial (R), Dorsalis Pedis (L), Dorsalis Pedis (R), 3+: Radial (L), Radial (R) Skin: Warm, Dry, Intact Neurological: No New Focal Deficit Psy/Mental Status: Alert, Normal Affect, Normal Mood - Problem List & Annotations (1) Carcinoma of right lung SNOMED Code(s): 309258048 Code(s): C34.91 - MALIGNANT NEOPLASM OF UNSP PART OF RIGHT BRONCHUS OR LUNG Status: Chronic Priority: Low Current Visit: No (2) Chronic kidney disease, stage 3, mod decreased GFR SNOMED Code(s): 768459057 Code(s): N18.3 - CHRONIC KIDNEY DISEASE, STAGE 3 (MODERATE) Status: Chronic Priority: Medium Current Visit: Yes (3) Hypoxia SNOMED Code(s): 620208550 Code(s): R09.02 - HYPOXEMIA Status: Acute Priority: High Current Visit : Yes (4) Pneumonia involving right lung SNOMED Code(s): 802233643 Code(s): J18.9 - PNEUMONIA, UNSPECIFIED ORGANISM Status: Acute Priority: High Current Visit: Yes Qualifiers: Pneumonia type: due to other aerobic Gram-negative bacteria Lung location: unspecified part of lung Qualified Code(s): J15.6 - Pneumonia due to other Gram-negative bacteria - Problem List Review Problem List Initiated/Reviewed/Updated: Yes - Plan Plan:: Impression: Acute respiratory distress with hypoxia with a history of home O2 Right sided PNA with small pleural effusion on Xarelto - gram neg rods, Strep pneumo isolated; sensitivities pending -Repeat CXR shows improvement Lung Carcinoma s/p right sided lobectomy Sepsis protocol initiated with CHF baseline - lactic acid 1.8 today History of CAD with CABG A fib on Xarelto Chronic Hx of colon polyps Hx of bladder Cancer Hx of Squamous Cell Cancer Family Hx of prostate/pancreatic/liver Ca. GERD HTN Plan: Transfer to [facility] [place], stable for the floor IV ATB Zosyn/Levoquin IV steroids Scheduled/PRN Nebs Ischemic screen Daily labs Home meds DVT/GI prophylaxis Hold Xarelto, start UFH SQ q 8H Consult CM/PT/OT DNR/DNI LOS > 96 hr due to slow response to antibiotics, significant PNA, sepsis
[2017-11-01] MEDS ORDERED: Furosemide 40 MG/4 ML VIAL IVPUSH ONE (14:45)
[2017-11-01] MEDS: Hypromellose 0.5% Ophth Soln 15 ML Bottle EYEBOTH PRN (16:49)
[2017-11-01] MEDS ORDERED: Magnesium Sulfate/Water 2 GM in Premix Bag 1 BAG IV ONE (18:48)
[2017-11-01] MEDS ORDERED: Furosemide 20 MG/2 ML VIAL IVPUSH ONE (20:16)
[2017-11-01] MEDS: Simvastatin 10 MG Tab PO SCH (20:59)
[2017-11-01] MEDS: Gabapentin 600 MG Tab PO SCH (21:06)
[2017-11-01] MEDS: Albuterol 0.083% 2.5 MG/3 ML Neb Soln NEB PRN (23:47)
[2017-11-02] MEDS: Morphine 2 MG/ML Syringe IVPUSH PRN ×4 (00:40→18:38)
[2017-11-02] MEDS: Piperacillin/Tazobactam 4.5 GM in Sodium Chloride 0.9% 100 ML IV SCH ×3 (00:46→18:11)
[2017-11-02] MEDS: Hypromellose 0.5% Ophth Soln 15 ML Bottle EYEBOTH PRN ×2 (04:43→20:24)
[2017-11-02] MEDS: Albuterol/Ipratropium 3.0-0.5 MG/3 ML Neb Soln NEB SCH ×4 (06:01→20:12)
[2017-11-02] MEDS: Budesonide 0.5 MG/2 ML Neb Susp INH SCH ×2 (06:01→20:12)
[2017-11-02] MEDS: Pantoprazole 40 MG Tab.CR PO SCH (06:35)
[2017-11-02] MEDS ORDERED: Furosemide 20 MG/2 ML VIAL IVPUSH ONE (08:00)
[2017-11-02] MEDS: Benzonatate 100 MG Cap PO SCH ×3 (08:34→20:37)
[2017-11-02] MEDS: Metoprolol Tartrate 25 MG Tab PO SCH ×2 (08:34→20:38)
[2017-11-02] MEDS ORDERED: guaiFENesin 600 MG Tab.ER PO PRN (10:01)
--- NOTE | 2017-11-02 10:12 | PCM.PN ---
- General Info Date of Service: 11/02/17 Admission Dx/Problem (Free Text): Admission Diagnosis/Problem Admission Diagnosis/Problem Pneumonia Ed is seen this morning resting comfortably in the chair. He is very tired and weak today. He feels slight SOB at rest today but maybe improved from yesterday. He has minimal appetite. He did sleep well last night. VSS, afebrile. Continues at 3L/NC 99% Functional Status: Reports: Pain Controlled, Tolerating Diet, Ambulating, Urinating, Incentive Spirometry - Review of Systems General: Reports: Weakness, Fatigue. Denies: Fever HEENT: Reports: No Symptoms Pulmonary: Reports: Shortness of Breath, Cough Cardiovascular: Reports: No Symptoms. Denies: Chest Pain Gastrointestinal: Reports: No Symptoms, Decreased Appetite (minimal appetite). Denies: Abdominal Pain, Diarrhea, Nausea, Vomiting Genitourinary: Reports: No Symptoms Neurological: Reports: No Symptoms - Patient Data Vitals - Most Recent: Last Vital Signs Temp 97.7 F 11/02/17 04:28 Pulse 76 11/02/17 08:34 Resp 18 11/02/17 04:28 BP 158/73 H 11/02/17 08:34 Pulse Ox 99 11/02/17 09:07 Weight - Most Recent: 204 lb 1.6 oz I&O - Last 24 Hours: Intake & Output 11/01/17 11/02/17 11/02/17 22:59 06:59 14:59 Intake Total 2105 925 Output Total 200 1500 Balance 1905 -575 Lab Results Last 24 Hours: Laboratory Results - last 24 hr 11/02/17 11/02/17 11/02/17 Range/Units 06:35 06:35 06:35 WBC 17.64 H (4.23-9.07) K/mm3 RBC 3.81 L (4.63-6.08) M/mm3 Hgb 11.6 L (13.7-17.5) gm/L Hct 38.3 L (40.1-51.0) % MCV 100.5 H (79.0-92.2) fl MCH 30.4 (25.7-32.2) pg MCHC 30.3 L (32.2-35.5) g/dl RDW Std Deviation 62.9 H (35.1-43.9) fL Plt Count 200 (163-337) K/mm3 MPV 10.0 (9.4-12.3) fl Neut % (Auto) 94.6 H (34.0-67.9) % Lymph % (Auto) 1.5 L (21.8-53.1) % [place] % (Auto) 2.8 L (5.3-12.2) % Eos % (Auto) 0.1 L (0.8-7.0) Baso % (Auto) 0.2 (0.1-1.2) % Neut # (Auto) 16.70 H (1.78-5.38) K/mm3 Lymph # (Auto) 0.27 L (1.32-3.57) K/mm3 [place] # (Auto) 0.49 (0.30-0.82) K/mm3 Eos # (Auto) 0.01 L (0.04-0.54) K/mm3 Baso # (Auto) 0.03 (0.01-0.08) K/mm3 Manual Slide Review Abnormal smear Sodium 142 (136-145) mEq/L Potassium 4.9 (3.5-5.1) mEq/L Chloride 107 (98-107) mEq/L Carbon Dioxide 25 (21-32) mEq/L Anion Gap 14.9 (5-15) BUN 32 H (7-18) mg/dL Creatinine 1.5 H (0.7-1.3) mg/dL Est Cr Clr Drug Dosing 38.35 mL/min Estimated GFR (MDRD) 44 (>60) mL/min BUN/Creatinine Ratio 21.3 H (14-18) Glucose 206 H (83-115) mg/dL Lactic Acid 1.6 (0.4-2.0) mmol/L Calcium 9.6 (8.5-10.1) mg/dL C-Reactive Protein 1.7 H* (<1.0) mg/dL [place] Results Last 24 Hours: Microbiology 10/30/17 02:47 Influenza Types A & B (PCR) - Final Nasal, Right 10/29/17 21:30 Aerobic Blood Culture - Preliminary Blood NO GROWTH AFTER 3 DAYS Anaerobic Blood Culture - Preliminary NO GROWTH AFTER 3 DAYS Med Orders - Current: Current Medications Albuterol (Proventil Neb Soln) 2.5 mg NEB Q4HRRT PRN PRN Reason: Shortness of Breath Last Admin: 11/01/17 23:47 Dose: 2.5 mg Albuterol/Ipratropium (Duoneb 3.0-0.5 Mg/3 Ml) 3 ml NEB QIDRT [facility] Last Admin: 11/02/17 09:07 Dose: 3 ml Artificial Tears (Isopto Tears 0.5% Ophth Soln) 0 ml EYEBOTH Q4H PRN PRN Reason: Dry Eyes Last Admin: 11/02/17 04:43 Dose: 1 drop Benzonatate (Tessalon Perles) 100 mg PO TID [facility] Last Admin: 11/02/17 08:34 Dose: 100 mg Budesonide (Pulmicort) 0.5 mg INH BIDRT [facility] Last Admin: 11/02/17 06:01 Dose: 0.5 mg Flunisolide (Nasalide Nasal [place]) 0 ml NASBOTH BID [facility] Last Admin: 11/02/17 08:33 Dose: 2 spray Furosemide (Lasix) 20 mg PO BIDDIURETIC [facility] Gabapentin (Neurontin) 1,800 mg PO BEDTIME [facility] Last Admin: 11/01/17 21:06 Dose: Not Given Guaifenesin (Robitussin) 200 mg PO Q4H PRN PRN Reason: Cough Last Admin: 11/01/17 03:32 Dose: 200 mg Guaifenesin (Mucinex) 600 mg PO BID PRN PRN Reason: Cough Piperacillin Sod/Tazobactam (Sod 4.5 gm/ Sodium Chloride) 100 mls @ 25 mls/hr IV Q8H [facility] Last Admin: 11/02/17 08:34 Dose: 25 mls/hr Levofloxacin/Dextrose 750 mg/ (Premix) 150 mls @ 100 mls/hr IV Q48H [facility] Last Admin: 10/31/17 13:18 Dose: 100 mls/hr Methylprednisolone Sodium Succinate (Solu-Medrol) 125 mg IVPUSH Q12H [facility] Last Admin: 11/01/17 22:36 Dose: 125 mg Metoprolol Tartrate (Lopressor) 25 mg PO BID [facility] Last Admin: 11/02/17 08:34 Dose: 25 mg Morphine Sulfate (Morphine) 1 mg IVPUSH Q4H PRN PRN Reason: Pain Last Admin: 11/02/17 08:46 Dose: 1 mg Nitroglycerin (Nitrostat) 0.4 mg SL Q5M PRN PRN Reason: Chest Pain Non-Formulary Medication (L Acidophil/B Lactis/B Longum [Florajen3]) 1 tab PO BID [facility] Pantoprazole Sodium (Protonix) 40 mg PO DAILY@0700 [facility] Last Admin: 11/02/17 06:35 Dose: 40 mg Simvastatin (Zocor) 10 mg PO BEDTIME [facility] Last Admin: 11/01/17 20:59 Dose: 10 mg Spironolactone (Aldactone) 25 mg PO DAILY [facility] Discontinued Medications Acetaminophen (Tylenol) 650 mg PO NOW ONE Stop: 10/29/17 12:28 Last Admin: 10/29/17 12:38 Dose: 650 mg Albuterol/Ipratropium (Duoneb 3.0-0.5 Mg/3 Ml) 3 ml NEB ONETIME ONE Stop: 10/29/17 13:03 Last Admin: 10/29/17 13:13 Dose: 3 ml Albuterol/Ipratropium (Duoneb 3.0-0.5 Mg/3 Ml) Confirm Administered Dose 9 ml .ROUTE .STK-MED ONE Stop: 10/29/17 16:59 Last Admin: 10/29/17 17:12 Dose: 6 ml Fentanyl (Sublimaze) 50 mcg IVPUSH ONETIME ONE Stop: 10/29/17 12:51 Last Admin: 10/29/17 13:05 Dose: 50 mcg Furosemide (Lasix) 40 mg IVPUSH NOW ONE Stop: 10/29/17 13:50 Last Admin: 10/29/17 13:55 Dose: 40 mg Furosemide (Lasix) 20 mg IVPUSH NOW ONE Stop: 11/01/17 14:46 Last Admin: 11/01/17 14:57 Dose: 20 mg Furosemide (Lasix) 20 mg IVPUSH NOW ONE Stop: 11/01/17 20:17 Last Admin: 11/01/17 21:04 Dose: 20 mg Furosemide (Lasix) 20 mg IVPUSH ONETIME ONE Stop: 11/02/17 08:01 Last Admin: 11/02/17 08:34 Dose: 20 mg Sodium Chloride (Normal Saline) 1,000 mls @ 75 mls/hr IV ASDIRECTED [facility] Last Admin: 11/01/17 16:50 Dose: 75 mls/hr Levofloxacin/Dextrose 750 mg/ (Premix) 150 mls @ 100 mls/hr IV ONETIME ONE Stop: 10/29/17 14:04 Last Admin: 10/29/17 13:19 Dose: 100 mls/hr Piperacillin Sod/Tazobactam (Sod 4.5 gm/ Sodium Chloride) 100 mls @ 200 mls/hr IV ONETIME ONE Stop: 10/29/17 17:29 Last Admin: 10/29/17 17:35 Dose: 200 mls/hr Magnesium Sulfate 2 gm/ Premix 50 mls @ 25 mls/hr IV ONETIME ONE Stop: 10/31/17 11:49 Last Admin: 10/31/17 10:23 Dose: 25 mls/hr Magnesium Sulfate 2 gm/ Premix 50 mls @ 25 mls/hr IV ONETIME ONE Stop: 11/01/17 20:47 Last Admin: 11/01/17 21:08 Dose: 25 mls/hr Losartan Potassium (Cozaar) 50 mg PO ONETIME ONE Stop: 10/29/17 13:04 Last Admin: 10/29/17 16:23 Dose: Not Given Losartan Potassium (Cozaar) 50 mg PO ONETIME ONE Stop: 10/30/17 13:32 Last Admin: 10/29/17 13:41 Dose: 50 mg Methylprednisolone Sodium Succinate (Solu-Medrol) 125 mg IVPUSH Q6H [facility] Last Admin: 11/01/17 10:05 Dose: 125 mg Metoprolol Tartrate (Lopressor) 25 mg PO ONETIME ONE Stop: 10/29/17 13:04 Last Admin: 10/29/17 13:19 Dose: 25 mg Non-Formulary Medication (Rivaroxaban [Xarelto]) 20 mg PO BEDTIME [facility] Omeprazole (Omeprazole) 20 mg PO DAILY [facility] Potassium Chloride (Klor-Con M20) 40 meq PO BID [facility] Last Admin: 11/01/17 20:59 Dose: 40 meq - Exam Quality Assessment: Supplemental Oxygen, DVT Prophylaxis General: Alert, Cooperative, No Acute Distress HEENT: Pupils Equal, EOMI, Mucous Membr. Moist/[place] Neck: Supple Lungs: Normal Respiratory Effort, Decreased Breath Sounds, Wheezing Cardiovascular: Regular Rate, Regular Rhythm GI/Abdominal Exam: Normal Bowel Sounds, Soft, Non-Tender (Male) Exam: Deferred Back Exam: Normal Inspection Extremities: No Pedal Edema, Normal Capillary Refill Peripheral Pulses: 1+: Dorsalis Pedis (L), Dorsalis Pedis (R) Neurological: No New Focal Deficit Psy/Mental Status: Alert, Normal Affect, Normal Mood - Problem List & Annotations (1) Streptococcus pneumoniae pneumonia SNOMED Code(s): 190520581 Code(s): J13 - PNEUMONIA DUE TO STREPTOCOCCUS PNEUMONIAE Status: Acute Priority: High Current Visit: Yes Qualifiers: Laterality: left (2) Hypoxia SNOMED Code(s): 813673117 Code(s): R09.02 - HYPOXEMIA Status: Chronic Priority: High Current Visit: Yes (3) Chronic kidney disease, stage 3, mod decreased GFR SNOMED Code(s): 291218080 Code(s): N18.3 - CHRONIC KIDNEY DISEASE, STAGE 3 (MODERATE) Status: Chronic Priority: Medium Current Visit: Yes (4) Hypomagnesemia SNOMED Code(s): 610399759 Code(s): E83.42 - HYPOMAGNESEMIA Status: Acute Current Visit: No (5) TEREZA on CPAP SNOMED Code(s): 91900637 Code(s): G47.33 - OBSTRUCTIVE SLEEP APNEA (ADULT) (PEDIATRIC) Status: Chronic Priority: Low Current Visit: No - Problem List Review Problem List Initiated/Reviewed/Updated: Yes - My Orders Last 24 Hours: My Active Orders 11/02/17 09:59 MAGNESIUM [CHEM] Routine 11/02/17 10:01 guaiFENesin [Mucinex] 600 mg PO BID PRN 11/02/17 10:15 Furosemide [Lasix] 20 mg PO BIDDIURETIC L Acidophil/B Lactis/B Longum [Florajen3] 1 tab PO BID Spironolactone [Aldactone] 25 mg PO DAILY 11/03/17 05:11 BASIC METABOLIC PANEL,BMP [CHEM] AM C-REACTIVE PROTEIN [CHEM] AM CBC WITH AUTO DIFF [HEME] AM MAGNESIUM [CHEM] AM 11/04/17 05:11 BASIC METABOLIC PANEL,BMP [CHEM] AM C-REACTIVE PROTEIN [CHEM] AM CBC WITH AUTO DIFF [HEME] AM MAGNESIUM [CHEM] AM 11/04/17 07:00 Chest 2V [CR] Routine 11/05/17 05:11 BASIC METABOLIC PANEL,BMP [CHEM] AM C-REACTIVE PROTEIN [CHEM] AM CBC WITH AUTO DIFF [HEME] AM MAGNESIUM [CHEM] AM 11/06/17 05:11 BASIC METABOLIC PANEL,BMP [CHEM] AM C-REACTIVE PROTEIN [CHEM] AM CBC WITH AUTO DIFF [HEME] AM MAGNESIUM [CHEM] AM - Plan Plan:: Impression/Plan: Acute respiratory distress with hypoxia with a history of home O2-- 3L/NC is 99% . --Stable Right sided PNA with small pleural effusion on Xarelto - gram neg rods, Strep pneumo isolated in sputum culture; sensitivities pending -Repeat CXR shows improvement - will repeat CXR tomorrow -Labs slowly improving each day- CRP 1.7 today -RT/Nebs/FV/IS -Mucinex -Florastor -Cont Levaquin and Zosyn IV Lung Carcinoma s/p right sided lobectomy Sepsis protocol initiated with CHF baseline History of CAD with CABG A fib on Xarelto; rate controlled; cont home meds -small effusion noted on CXR -Diurese, IV lasix daily-- now transitioned back to home lasix dose 20mg BID -Locate most recent echo report Chronic Hx of colon polyps Hx of bladder Cancer Hx of Squamous Cell Cancer Family Hx of prostate/pancreatic/liver Ca. GERD HTN--stable cont home meds Other: Daily labs Home meds DVT/GI prophylaxis Hold Xarelto, start UFH SQ q 8H Consult CM/PT/OT DNR/DNI LOS > 96 hr due to slow response to antibiotics, significant PNA, sepsis --- LOS at least 2-3 more days.
[2017-11-02] MEDS: methylPREDNISolone Sodium Succinate 125 MG/2 ML SDV IVPUSH SCH ×2 (11:05→22:24)
[2017-11-02] MEDS: Saccharomyces Boulardii (Probiotic) 250 MG Cap PO SCH ×2 (11:10→20:36)
[2017-11-02] MEDS: Spironolactone 25 MG Tab PO SCH (11:10)
[2017-11-02] MEDS: Furosemide 20 MG Tab PO SCH ×2 (11:11→14:37)
[2017-11-02] MEDS: Levofloxacin/Dextrose 5%-Water 750 MG in Premix Bag 1 BAG IV SCH (14:58)
[2017-11-02] MEDS ORDERED: hydrALAZINE 20 MG/ML SDV IVPUSH PRN (17:26)
[2017-11-02] MEDS ORDERED: Heparin Sodium 5,000 Units/ML Vial SUBCUT SCH (18:00)
[2017-11-02] MEDS: Acetaminophen/HYDROcodone 325-5 MG Tab PO PRN (18:04)
[2017-11-02] MEDS: Albuterol 0.083% 2.5 MG/3 ML Neb Soln NEB PRN (18:34)
--- NOTE | 2017-11-02 19:24 | PCM.SN ---
- Free Text/Narrative Note: Notified by nursing that Ed has become restless and complains of increasing pain and SOB. ABG ordered as well as 12-lead as he does report some chest pain, along with "pain all over." Patient is diaphoretic and quite anxious. Family reports patient was shaking earlier. He reports pain all over body and requests a "shot to put him out." 12-lead shows a-fib with some PVC's. These do appear more frequently than on admission EKG. ICU reports no concerns as they have been watching his monitor. ABG shows pH of 7.42. pCO2 of 41.6 and pO2 of 54. Hgb was found to be 7.4 and stat CBC was ordered. CBC looked good and his Hgb has actually increased throughout the day. WBC has decreased. 0.5mg Ativan ordered and patient responded well to this. I discussed the possibility of a PE with Dr. Loya and she would like him placed on a novel anticoagulant. He is already on xarelto, which was held and I will resume this. Will discontinue his heparin injections. I discussed his plan of care and ultimate prognosis with the family, including his son who is his POA. They report he has a history of anxiety and has had similar episodes in the past similar to this. Family reports that they were recently in to see his oncologist and told they had nothing more to offer him with his lung cancer. Family reports they asked how much longer he has and were told "probably by thanksgiving." This has reportedly been on the patients mind. Family reports the patients child care supervisor did come visit and offer a blessing. Hospice has been consulted by CM/SEAN and family has contact information. It does appear some family members are still somewhat hesitant to approach this. I explained to them the end result for Ed will be , likely from cancer, but his pneumonia does appear to be responding. I told them we can fix the pneumonia while he is here, but ultimately there is nothing we can do for him with his cancer and we need to be concerned about his comfort level and using resources such as hospice for this. They voiced understanding. I returned to the patients room and he is resting however wakes up when I talked to him. He reports pain has improved and he feels less anxious. His oxygen saturations have improved. He was also recently given a breathing treatment by RT. His BP has come down and his HR is controlled. Will order PRN Ativan, PRN Lopressor, and consult spiritual care. Nursing aware of plan of care and changes to medications. Nursing discussed telemetry with family as patient is DNR/DNI/Comfort measures. They would like him to continue telemetry. This is reasonable.
[2017-11-02] MEDS ORDERED: LORazepam 2 MG/ML MDV IVPUSH ONE (20:01)
[2017-11-02] MEDS: Gabapentin 600 MG Tab PO SCH (20:37)
[2017-11-02] MEDS: Simvastatin 10 MG Tab PO SCH (20:39)
[2017-11-02] MEDS ORDERED: cefTRIAXone 2 GM in Sodium Chloride 0.9% 100 ML IV SCH (21:00)
[2017-11-02] MEDS ORDERED: Metoprolol Tartrate 5 MG/5 ML SDV IVPUSH PRN (21:36)
[2017-11-02] MEDS: Rivaroxaban 10 MG Tab PO SCH (22:24)
[2017-11-03] MEDS: Piperacillin/Tazobactam 4.5 GM in Sodium Chloride 0.9% 100 ML IV SCH ×3 (01:23→17:19)
[2017-11-03] MEDS: methylPREDNISolone Sodium Succinate 125 MG/2 ML SDV IVPUSH SCH ×4 (03:39→21:32)
[2017-11-03] MEDS: Albuterol/Ipratropium 3.0-0.5 MG/3 ML Neb Soln NEB SCH ×4 (05:56→21:00)
[2017-11-03] MEDS: Budesonide 0.5 MG/2 ML Neb Susp INH SCH ×2 (05:56→21:00)
[2017-11-03] MEDS: Furosemide 20 MG Tab PO SCH ×2 (06:59→13:52)
[2017-11-03] MEDS: Pantoprazole 40 MG Tab.CR PO SCH (06:59)
[2017-11-03] MEDS: Saccharomyces Boulardii (Probiotic) 250 MG Cap PO SCH ×2 (08:22→21:37)
[2017-11-03] MEDS: Metoprolol Tartrate 25 MG Tab PO SCH ×2 (08:23→21:37)
[2017-11-03] MEDS: Benzonatate 100 MG Cap PO SCH ×3 (08:23→21:38)
[2017-11-03] MEDS: Spironolactone 25 MG Tab PO SCH (08:23)
[2017-11-03] MEDS: Morphine 2 MG/ML Syringe IVPUSH PRN ×3 (08:49→17:18)
[2017-11-03] MEDS: Acetaminophen/HYDROcodone 325-5 MG Tab PO PRN ×2 (12:05→18:25)
[2017-11-03] MEDS: LORazepam 2 MG/ML MDV IVPUSH PRN (13:52)
[2017-11-03] MEDS ORDERED: Furosemide 20 MG/2 ML VIAL IVPUSH ONE ×2 (14:25→18:00)
--- NOTE | 2017-11-03 16:28 | PCM.PN ---
- General Info Date of Service: 11/03/17 Admission Dx/Problem (Free Text): Admission Diagnosis/Problem Admission Diagnosis/Problem Pneumonia Subjective Update: In to see Ed. He is sitting in the chair with family by his size. He was recently wheeled around the shepherd in a chair. He reports 3 BMs today. Complaining of pain in his neck and chest, which is not new. Family reports it seems like the pain is worse after movement or activity. He just recently was given pain medicaitons. Labs continue to improve. CXR ordered for tomorrow. Family requests a sponge bath as patient has not had one since being here. This was communicated to nursing. He is much more relaxed today. His BNP was elevated today and he did have some swelling so he was given some IVP lasix tonight. Will continue to monitor. Functional Status: Reports: Pain Controlled, Tolerating Diet, Ambulating, Urinating, Incentive Spirometry. Denies: New Symptoms - Review of Systems General: Reports: Weakness, Fatigue, Malaise HEENT: Reports: No Symptoms Pulmonary: Reports: Shortness of Breath, Pleuritic Chest Pain, Wheezing. Denies : Cough, Sputum Cardiovascular: Reports: Chest Pain, Dyspnea on Exertion, Edema Gastrointestinal: Reports: No Symptoms. Denies: Constipation, Diarrhea, Nausea , Vomiting Genitourinary: Reports: No Symptoms Musculoskeletal: Reports: Neck Pain, Shoulder Pain Skin: Reports: No Symptoms Neurological: Reports: No Symptoms Psychiatric: Reports: No Symptoms - Patient Data Vitals - Most Recent: Last Vital Signs Temp 97.9 F 11/03/17 04:55 Pulse 105 H 11/03/17 08:23 Resp 26 H 11/03/17 04:55 BP 123/68 11/03/17 08:23 Pulse Ox 95 11/03/17 09:44 Weight - Most Recent: 202 lb I&O - Last 24 Hours: Intake & Output 11/03/17 11/03/17 11/03/17 06:59 14:59 22:59 Intake Total 1100 120 Output Total 1125 Balance -25 120 Lab Results Last 24 Hours: Laboratory Results - last 24 hr 11/02/17 11/02/17 11/03/17 Range/Units 19:25 20:00 05:48 WBC 15.63 H 11.63 H (4.23-9.07) K/mm3 RBC 3.99 L 4.07 L (4.63-6.08) M/mm3 Hgb 12.2 L 12.3 L (13.7-17.5) gm/L Hct 39.4 L 40.2 (40.1-51.0) % MCV 98.7 H 98.8 H (79.0-92.2) fl MCH 30.6 30.2 (25.7-32.2) pg MCHC 31.0 L 30.6 L (32.2-35.5) g/dl RDW Std Deviation 61.5 H 62.7 H (35.1-43.9) fL Plt Count 209 187 (163-337) K/mm3 MPV 10.1 10.3 (9.4-12.3) fl Neut % (Auto) 93.4 H 94.3 H (34.0-67.9) % Lymph % (Auto) 1.3 L 2.1 L (21.8-53.1) % [place] % (Auto) 3.6 L 2.1 L (5.3-12.2) % Eos % (Auto) 0 L 0 L (0.8-7.0) Baso % (Auto) 0.2 0.2 (0.1-1.2) % Neut # (Auto) 14.59 H 10.97 H (1.78-5.38) K/mm3 Lymph # (Auto) 0.21 L 0.25 L (1.32-3.57) K/mm3 [place] # (Auto) 0.57 0.24 L (0.30-0.82) K/mm3 Eos # (Auto) 0.00 L 0.00 L (0.04-0.54) K/mm3 Baso # (Auto) 0.03 0.02 (0.01-0.08) K/mm3 Manual Slide Review Abnormal smear Abnormal smear Puncture Site Rt radial ABG pH 7.42 (7.35-7.45) ABG pCO2 41.6 (35.0-45.0) mmHg ABG pO2 54.0 L (80.0-100.0) mmHg ABG HCO3 26.2 H (22.0-26.0) meq/L ABG O2 Saturation 93.0 L (96.0-97.0) % ABG Base Excess 2.0 (-2-2.0) A-a Gradient 98 mmHg O2 Delivery Device Nasal cannula Oxygen Flow Rate 3.0 FiO2 0.00 L (21.00-100.00) % Sodium (136-145) mEq/L Potassium (3.5-5.1) mEq/L Chloride (98-107) mEq/L Carbon Dioxide (21-32) mEq/L Anion Gap (5-15) BUN (7-18) mg/dL Creatinine (0.7-1.3) mg/dL Est Cr Clr Drug Dosing mL/min Estimated GFR (MDRD) (>60) mL/min BUN/Creatinine Ratio (14-18) Glucose (83-115) mg/dL Calcium (8.5-10.1) mg/dL Magnesium (1.8-2.4) mg/dl C-Reactive Protein (<1.0) mg/dL NT-Pro-B Natriuret Pep (0-450) pg/mL 11/03/17 11/03/17 Range/Units 05:48 05:48 WBC (4.23-9.07) K/mm3 RBC (4.63-6.08) M/mm3 Hgb (13.7-17.5) gm/L Hct (40.1-51.0) % MCV (79.0-92.2) fl MCH (25.7-32.2) pg MCHC (32.2-35.5) g/dl RDW Std Deviation (35.1-43.9) fL Plt Count (163-337) K/mm3 MPV (9.4-12.3) fl Neut % (Auto) (34.0-67.9) % Lymph % (Auto) (21.8-53.1) % [place] % (Auto) (5.3-12.2) % Eos % (Auto) (0.8-7.0) Baso % (Auto) (0.1-1.2) % Neut # (Auto) (1.78-5.38) K/mm3 Lymph # (Auto) (1.32-3.57) K/mm3 [place] # (Auto) (0.30-0.82) K/mm3 Eos # (Auto) (0.04-0.54) K/mm3 Baso # (Auto) (0.01-0.08) K/mm3 Manual Slide Review Puncture Site ABG pH (7.35-7.45) ABG pCO2 (35.0-45.0) mmHg ABG pO2 (80.0-100.0) mmHg ABG HCO3 (22.0-26.0) meq/L ABG O2 Saturation (96.0-97.0) % ABG Base Excess (-2-2.0) A-a Gradient mmHg O2 Delivery Device Oxygen Flow Rate FiO2 (21.00-100.00) % Sodium 143 (136-145) mEq/L Potassium 4.4 (3.5-5.1) mEq/L Chloride 106 (98-107) mEq/L Carbon Dioxide 26 (21-32) mEq/L Anion Gap 15.4 H (5-15) BUN 33 H (7-18) mg/dL Creatinine 1.6 H (0.7-1.3) mg/dL Est Cr Clr Drug Dosing 35.95 mL/min Estimated GFR (MDRD) 41 (>60) mL/min BUN/Creatinine Ratio 20.6 H (14-18) Glucose 217 H (83-115) mg/dL Calcium 9.9 (8.5-10.1) mg/dL Magnesium 2.4 (1.8-2.4) mg/dl C-Reactive Protein 0.6 (<1.0) mg/dL NT-Pro-B Natriuret Pep 6059 H (0-450) pg/mL [place] Results Last 24 Hours: Microbiology 10/29/17 21:30 Aerobic Blood Culture - Preliminary Blood NO GROWTH AFTER 4 DAYS Anaerobic Blood Culture - Preliminary NO GROWTH AFTER 4 DAYS Med Orders - Current: Current Medications Hydrocodone Bitart/Acetaminophen (Cosmos 325-5 Mg) 1 tab PO Q4H PRN PRN Reason: Pain Last Admin: 11/03/17 12:05 Dose: 1 tab Albuterol (Proventil Neb Soln) 2.5 mg NEB Q4HRRT PRN PRN Reason: Shortness of Breath Last Admin: 11/02/17 18:34 Dose: 2.5 mg Albuterol/Ipratropium (Duoneb 3.0-0.5 Mg/3 Ml) 3 ml NEB QIDRT [place]MA Last Admin: 11/03/17 09:44 Dose: 3 ml Artificial Tears (Isopto Tears 0.5% Ophth Soln) 0 ml EYEBOTH Q4H PRN PRN Reason: Dry Eyes Last Admin: 11/02/17 20:24 Dose: 1 drop Benzonatate (Tessalon Perles) 100 mg PO TID [facility] Last Admin: 11/03/17 15:05 Dose: 100 mg Budesonide (Pulmicort) 0.5 mg INH BIDRT [facility] Last Admin: 11/03/17 05:56 Dose: 0.5 mg Flunisolide (Nasalide Nasal [place]) 0 ml NASBOTH BID [facility] Last Admin: 11/03/17 08:22 Dose: 2 spray Furosemide (Lasix) 20 mg PO BIDDIURETIC [facility] Last Admin: 11/03/17 13:52 Dose: 20 mg Furosemide (Lasix) 20 mg IVPUSH ONETIME ONE Stop: 11/03/17 18:01 Gabapentin (Neurontin) 1,800 mg PO BEDTIME [facility] Last Admin: 11/02/17 20:37 Dose: Not Given Guaifenesin (Robitussin) 200 mg PO Q4H PRN PRN Reason: Cough Last Admin: 11/01/17 03:32 Dose: 200 mg Guaifenesin (Mucinex) 600 mg PO BID PRN PRN Reason: Cough Hydralazine HCl (Apresoline) 10 mg IVPUSH Q6H PRN PRN Reason: Hypertension Last Admin: 11/02/17 18:05 Dose: 10 mg Piperacillin Sod/Tazobactam (Sod 4.5 gm/ Sodium Chloride) 100 mls @ 25 mls/hr IV Q8H [facility] Last Admin: 11/03/17 10:09 Dose: 25 mls/hr Levofloxacin/Dextrose 750 mg/ (Premix) 150 mls @ 100 mls/hr IV Q48H [facility] Last Admin: 11/02/17 14:58 Dose: 100 mls/hr Lorazepam (Ativan) 0.5 mg IVPUSH Q6H PRN PRN Reason: anxiety Last Admin: 11/03/17 13:52 Dose: 0.5 mg Methylprednisolone Sodium Succinate (Solu-Medrol) 125 mg IVPUSH Q6H [facility] Last Admin: 11/03/17 15:05 Dose: 125 mg Metoprolol Tartrate (Lopressor) 25 mg PO BID [facility] Last Admin: 11/03/17 08:23 Dose: 25 mg Metoprolol Tartrate (Lopressor) 5 mg IVPUSH Q4H PRN PRN Reason: Tachycardia Morphine Sulfate (Morphine) 1 mg IVPUSH Q4H PRN PRN Reason: Pain Last Admin: 11/03/17 12:07 Dose: 1 mg Nitroglycerin (Nitrostat) 0.4 mg SL Q5M PRN PRN Reason: Chest Pain Pantoprazole Sodium (Protonix) 40 mg PO DAILY@0700 [facility] Last Admin: 11/03/17 06:59 Dose: 40 mg Rivaroxaban (Xarelto) 20 mg PO BEDTIME [facility] Last Admin: 11/02/17 22:24 Dose: 20 mg Saccharomyces Boulardii (Florastor) 250 mg PO BID [facility] Last Admin: 11/03/17 08:22 Dose: 250 mg Simvastatin (Zocor) 10 mg PO BEDTIME [facility] Last Admin: 11/02/17 20:39 Dose: 10 mg Spironolactone (Aldactone) 25 mg PO DAILY [facility] Last Admin: 11/03/17 08:23 Dose: 25 mg Discontinued Medications Acetaminophen (Tylenol) 650 mg PO NOW ONE Stop: 10/29/17 12:28 Last Admin: 10/29/17 12:38 Dose: 650 mg Albuterol/Ipratropium (Duoneb 3.0-0.5 Mg/3 Ml) 3 ml NEB ONETIME ONE Stop: 10/29/17 13:03 Last Admin: 10/29/17 13:13 Dose: 3 ml Albuterol/Ipratropium (Duoneb 3.0-0.5 Mg/3 Ml) Confirm Administered Dose 9 ml .ROUTE .STK-MED ONE Stop: 10/29/17 16:59 Last Admin: 10/29/17 17:12 Dose: 6 ml Fentanyl (Sublimaze) 50 mcg IVPUSH ONETIME ONE Stop: 10/29/17 12:51 Last Admin: 10/29/17 13:05 Dose: 50 mcg Furosemide (Lasix) 40 mg IVPUSH NOW ONE Stop: 10/29/17 13:50 Last Admin: 10/29/17 13:55 Dose: 40 mg Furosemide (Lasix) 20 mg IVPUSH NOW ONE Stop: 11/01/17 14:46 Last Admin: 11/01/17 14:57 Dose: 20 mg Furosemide (Lasix) 20 mg IVPUSH NOW ONE Stop: 11/01/17 20:17 Last Admin: 11/01/17 21:04 Dose: 20 mg Furosemide (Lasix) 20 mg IVPUSH ONETIME ONE Stop: 11/02/17 08:01 Last Admin: 11/02/17 08:34 Dose: 20 mg Furosemide (Lasix) 20 mg IVPUSH NOW ONE Stop: 11/03/17 14:26 Heparin Sodium (Porcine) (Heparin Sodium) 5,000 units SUBCUT Q8H [facility] Last Admin: 11/02/17 19:55 Dose: 5,000 units Sodium Chloride (Normal Saline) 1,000 mls @ 75 mls/hr IV ASDIRECTED [facility] Last Admin: 11/01/17 16:50 Dose: 75 mls/hr Levofloxacin/Dextrose 750 mg/ (Premix) 150 mls @ 100 mls/hr IV ONETIME ONE Stop: 10/29/17 14:04 Last Admin: 10/29/17 13:19 Dose: 100 mls/hr Piperacillin Sod/Tazobactam (Sod 4.5 gm/ Sodium Chloride) 100 mls @ 200 mls/hr IV ONETIME ONE Stop: 10/29/17 17:29 Last Admin: 10/29/17 17:35 Dose: 200 mls/hr Magnesium Sulfate 2 gm/ Premix 50 mls @ 25 mls/hr IV ONETIME ONE Stop: 10/31/17 11:49 Last Admin: 10/31/17 10:23 Dose: 25 mls/hr Magnesium Sulfate 2 gm/ Premix 50 mls @ 25 mls/hr IV ONETIME ONE Stop: 11/01/17 20:47 Last Admin: 11/01/17 21:08 Dose: 25 mls/hr Ceftriaxone Sodium 2 gm/ (Sodium Chloride) 100 mls @ 200 mls/hr IV Q12H [facility] Last Admin: 11/02/17 22:24 Dose: 200 mls/hr Ceftriaxone Sodium 2 gm/ (Dextrose/Water) 100 mls @ 200 mls/hr IV Q12H [facility] Last Admin: 11/03/17 08:51 Dose: 200 mls/hr Lorazepam (Ativan) 0.5 mg IVPUSH ONETIME ONE Stop: 11/02/17 20:02 Last Admin: 11/02/17 20:28 Dose: 0.5 mg Losartan Potassium (Cozaar) 50 mg PO ONETIME ONE Stop: 10/29/17 13:04 Last Admin: 10/29/17 16:23 Dose: Not Given Losartan Potassium (Cozaar) 50 mg PO ONETIME ONE Stop: 10/30/17 13:32 Last Admin: 10/29/17 13:41 Dose: 50 mg Methylprednisolone Sodium Succinate (Solu-Medrol) 125 mg IVPUSH Q6H [facility] Last Admin: 11/01/17 10:05 Dose: 125 mg Methylprednisolone Sodium Succinate (Solu-Medrol) 125 mg IVPUSH Q12H [facility] Last Admin: 11/02/17 11:05 Dose: 125 mg Metoprolol Tartrate (Lopressor) 25 mg PO ONETIME ONE Stop: 10/29/17 13:04 Last Admin: 10/29/17 13:19 Dose: 25 mg Non-Formulary Medication (Rivaroxaban [Xarelto]) 20 mg PO BEDTIME [facility] Omeprazole (Omeprazole) 20 mg PO DAILY [facility] Potassium Chloride (Klor-Con M20) 40 meq PO BID [facility] Last Admin: 11/01/17 20:59 Dose: 40 meq - Exam Quality Assessment: Supplemental Oxygen, Urine Catheter (chronic ), DVT Prophylaxis General: Alert, Oriented, Cooperative, No Acute Distress HEENT: Pupils Equal, Pupils Reactive, EOMI, Mucous Membr. Moist/[place] Neck: Supple, Trachea Midline, No JVD Lungs: Normal Respiratory Effort, Decreased Breath Sounds, Wheezing Cardiovascular: Regular Rate, Regular Rhythm GI/Abdominal Exam: Normal Bowel Sounds, Soft, Non-Tender, No Organomegaly, No Distention, No Abnormal Bruit, No Mass, Pelvis Stable (Male) Exam: Deferred Back Exam: Normal Inspection, Full Range of Motion Extremities: Normal Inspection, Normal Range of Motion, Non-Tender, Normal Capillary Refill, Pedal Edema (1+) Peripheral Pulses: 1+: Posterior Tibial (L), Posterior Tibial (R), Dorsalis Pedis (L), Dorsalis Pedis (R), 2+: Radial (L), Radial (R) Skin: Warm, Dry, Intact Neurological: No New Focal Deficit Psy/Mental Status: Alert, Normal Affect, Depressed - Problem List & Annotations (1) Carcinoma of right lung SNOMED Code(s): 894732572 Code(s): C34.91 - MALIGNANT NEOPLASM OF UNSP PART OF RIGHT BRONCHUS OR LUNG Status: Chronic Priority: Low Current Visit: No (2) Chronic kidney disease, stage 3, mod decreased GFR SNOMED Code(s): 720233261 Code(s): N18.3 - CHRONIC KIDNEY DISEASE, STAGE 3 (MODERATE) Status: Chronic Priority: Medium Current Visit: Yes (3) Hypoxia SNOMED Code(s): 721805004 Code(s): R09.02 - HYPOXEMIA Status: Chronic Priority: High Current Visit: Yes (4) Pneumonia involving right lung SNOMED Code(s): 721366743 Code(s): J18.9 - PNEUMONIA, UNSPECIFIED ORGANISM Status: Acute Priority: High Current Visit: Yes Qualifiers: Pneumonia type: due to other aerobic Gram-negative bacteria Lung location: unspecified part of lung Qualified Code(s): J15.6 - Pneumonia due to other Gram-negative bacteria - Problem List Review Problem List Initiated/Reviewed/Updated: Yes - My Orders Last 24 Hours: My Active Orders 11/02/17 17:25 Acetaminophen/HYDROcodone [Cosmos 325-5 MG] 1 tab PO Q4H PRN 11/02/17 17:26 hydrALAZINE [Apresoline] 10 mg IVPUSH Q6H PRN 11/02/17 21:07 LORazepam [Ativan] 0.5 mg IVPUSH Q6H PRN 11/02/17 21:26 Consult to Spiritual Care [CONS] Routine 11/02/17 21:36 Metoprolol Tartrate [Lopressor] 5 mg IVPUSH Q4H PRN 11/02/17 21:45 Rivaroxaban [Xarelto] 20 mg PO BEDTIME 11/03/17 18:00 Furosemide [Lasix] 20 mg IVPUSH ONETIME ONE - Plan Plan:: Impression/Plan: Acute respiratory distress with hypoxia with a history of home O2-- 3L/NC is 99% . --Stable Right sided PNA with small pleural effusion on Xarelto - gram neg rods, Strep pneumo isolated in sputum culture; sensitivities show good coverage -Repeat CXR shows improvement - will repeat CXR tomorrow -Labs slowly improving each day- CRP 0.6 today; WBC improving -RT/Nebs/FV/IS -Mucinex -Florastor -Cont Levaquin and Zosyn IV Lung Carcinoma s/p right sided lobectomy Sepsis protocol initiated with CHF baseline History of CAD with CABG A fib on Xarelto; rate controlled; cont home meds -small effusion noted on CXR -Diurese, IV lasix daily-- now transitioned back to home lasix dose 20mg BID supplemented with IVP lasix -Locate most recent echo report Chronic Hx of colon polyps Hx of bladder Cancer Hx of Squamous Cell Cancer Family Hx of prostate/pancreatic/liver Ca. GERD HTN--stable cont home meds Other: Daily labs Home meds DVT/GI prophylaxis Resume Xarelto Consult CM/PT/OT DNR/DNI/Comfort measures; PCP Dr. Estrada LOS > 96 hr due to slow response to antibiotics, significant PNA, sepsis --- LOS at least 1-2 more days.
[2017-11-03] MEDS: Hypromellose 0.5% Ophth Soln 15 ML Bottle EYEBOTH PRN (21:32)
[2017-11-03] MEDS: Rivaroxaban 10 MG Tab PO SCH (21:37)
[2017-11-03] MEDS: Gabapentin 600 MG Tab PO SCH (21:38)
[2017-11-03] MEDS: Simvastatin 10 MG Tab PO SCH (21:39)
[2017-11-04] MEDS: Piperacillin/Tazobactam 4.5 GM in Sodium Chloride 0.9% 100 ML IV SCH ×3 (01:16→18:02)
[2017-11-04] MEDS: methylPREDNISolone Sodium Succinate 125 MG/2 ML SDV IVPUSH SCH ×4 (02:14→21:15)
[2017-11-04] MEDS: Acetaminophen/HYDROcodone 325-5 MG Tab PO PRN ×4 (02:46→20:47)
[2017-11-04] MEDS: Morphine 2 MG/ML Syringe IVPUSH PRN ×3 (02:54→18:03)
[2017-11-04] MEDS: Albuterol/Ipratropium 3.0-0.5 MG/3 ML Neb Soln NEB SCH ×4 (05:26→20:22)
[2017-11-04] MEDS: Budesonide 0.5 MG/2 ML Neb Susp INH SCH ×2 (05:26→20:22)
[2017-11-04] MEDS: Furosemide 20 MG Tab PO SCH ×2 (07:00→14:30)
[2017-11-04] MEDS: Pantoprazole 40 MG Tab.CR PO SCH (07:01)
--- NOTE | 2017-11-04 10:25 | CR ---
Chest: Two views of the chest were obtained. Comparison: Previous chest x-ray of 11/01/17. Mostly opacified right chest is seen. When allowing for differences in technique, findings are felt to be fairly stable from most recent study. Continuing left-sided parenchymal density is noted. Previous surgery is noted as described previously. Heart does not appear enlarged. Impression: 1. Findings as noted above. No significant change from prior chest x-ray of 11/01/17. Diagnostic code #3
[2017-11-04] MEDS: Spironolactone 25 MG Tab PO SCH (10:37)
[2017-11-04] MEDS: Metoprolol Tartrate 25 MG Tab PO SCH ×2 (10:37→20:50)
[2017-11-04] MEDS: Saccharomyces Boulardii (Probiotic) 250 MG Cap PO SCH ×2 (10:41→20:50)
[2017-11-04] MEDS: Benzonatate 100 MG Cap PO SCH ×3 (10:42→20:50)
[2017-11-04] MEDS: Levofloxacin/Dextrose 5%-Water 750 MG in Premix Bag 1 BAG IV SCH (14:34)
--- NOTE | 2017-11-04 15:00 | PCM.PN ---
- General Info Date of Service: 11/04/17 Admission Dx/Problem (Free Text): Admission Diagnosis/Problem Admission Diagnosis/Problem Pneumonia Subjective Update: In to see Ed today. His granddaughter is also in the room. He appears to be doing very well today. He had a shower and his hair is combed. He is sitting in the chair. He talks with me and even jokes around a bit. His pain has been pretty steady. Will try a fentanyl patch to relieve that and administer a more constant pattern of relief. He complains of some shortness of breath but reports it is around his baseline. He does have some swelling. His CRP is back to normal. His WBC increased slightly but this is likely due to his high dose steroids. His family has been looking into getting him into SNF for a short rehab stay and then possible hospice care after that. He had a few BMs and reports his abdomen feels quite good. Functional Status: Reports: Tolerating Diet, Ambulating, Urinating, Incentive Spirometry. Denies: New Symptoms - Review of Systems General: Reports: Weakness, Fatigue. Denies: Fever, Chills HEENT: Denies: Sinus Congestion, Sore Throat, Rhinitis Pulmonary: Reports: Shortness of Breath, Pleuritic Chest Pain, Cough, Wheezing Cardiovascular: Reports: Chest Pain, Dyspnea on Exertion, Edema Gastrointestinal: Denies: Constipation, Diarrhea, Nausea, Vomiting Genitourinary: Reports: No Symptoms Musculoskeletal: Reports: Neck Pain, Shoulder Pain, Other (generalized pain ) Skin: Reports: No Symptoms Neurological: Reports: No Symptoms Psychiatric: Reports: No Symptoms - Patient Data Vitals - Most Recent: Last Vital Signs Temp 98.2 F 11/04/17 07:44 Pulse 92 11/04/17 10:37 Resp 18 11/04/17 07:44 BP 133/74 11/04/17 10:37 Pulse Ox 94 L 11/04/17 09:13 Weight - Most Recent: 200 lb 9.6 oz I&O - Last 24 Hours: Intake & Output 11/04/17 11/04/17 11/04/17 06:59 14:59 22:59 Intake Total 800 0 Output Total 975 Balance -175 0 Lab Results Last 24 Hours: Laboratory Results - last 24 hr 11/04/17 11/04/17 11/04/17 Range/Units 05:36 05:36 05:36 WBC 13.53 H (4.23-9.07) K/mm3 RBC 4.04 L (4.63-6.08) M/mm3 Hgb 12.0 L (13.7-17.5) gm/L Hct 39.3 L (40.1-51.0) % MCV 97.3 H (79.0-92.2) fl MCH 29.7 (25.7-32.2) pg MCHC 30.5 L (32.2-35.5) g/dl RDW Std Deviation 61.0 H (35.1-43.9) fL Plt Count 193 (163-337) K/mm3 MPV 10.4 (9.4-12.3) fl Neut % (Auto) 93.9 H (34.0-67.9) % Lymph % (Auto) 1.7 L (21.8-53.1) % [place] % (Auto) 2.4 L (5.3-12.2) % Eos % (Auto) 0 L (0.8-7.0) Baso % (Auto) 0.1 (0.1-1.2) % Neut # (Auto) 12.69 H (1.78-5.38) K/mm3 Lymph # (Auto) 0.23 L (1.32-3.57) K/mm3 [place] # (Auto) 0.33 (0.30-0.82) K/mm3 Eos # (Auto) 0.00 L (0.04-0.54) K/mm3 Baso # (Auto) 0.02 (0.01-0.08) K/mm3 Manual Slide Review Abnormal smear Sodium 144 (136-145) mEq/L Potassium 3.9 (3.5-5.1) mEq/L Chloride 105 (98-107) mEq/L Carbon Dioxide 30 (21-32) mEq/L Anion Gap 12.9 (5-15) BUN 38 H (7-18) mg/dL Creatinine 1.7 H (0.7-1.3) mg/dL Est Cr Clr Drug Dosing 33.84 mL/min Estimated GFR (MDRD) 38 (>60) mL/min BUN/Creatinine Ratio 22.4 H (14-18) Glucose 195 H (83-115) mg/dL Calcium 9.1 (8.5-10.1) mg/dL Magnesium 2.2 (1.8-2.4) mg/dl C-Reactive Protein < 0.2 (<1.0) mg/dL NT-Pro-B Natriuret Pep 7048 H (0-450) pg/mL [place] Results Last 24 Hours: Microbiology 10/29/17 21:30 Aerobic Blood Culture - Preliminary Blood NO GROWTH AFTER 5 DAYS Anaerobic Blood Culture - Preliminary NO GROWTH AFTER 5 DAYS Med Orders - Current: Current Medications Hydrocodone Bitart/Acetaminophen ([place] 325-5 Mg) 1 tab PO Q4H PRN PRN Reason: Pain Last Admin: 11/04/17 14:31 Dose: 1 tab Albuterol (Proventil Neb Soln) 2.5 mg NEB Q4HRRT PRN PRN Reason: Shortness of Breath Last Admin: 11/02/17 18:34 Dose: 2.5 mg Albuterol/Ipratropium (Duoneb 3.0-0.5 Mg/3 Ml) 3 ml NEB QIDRT [facility] Last Admin: 11/04/17 09:08 Dose: 3 ml Artificial Tears (Isopto Tears 0.5% Ophth Soln) 0 ml EYEBOTH Q4H PRN PRN Reason: Dry Eyes Last Admin: 11/03/17 21:32 Dose: 1 drop Benzonatate (Tessalon Perles) 100 mg PO TID [facility] Last Admin: 11/04/17 14:35 Dose: 100 mg Budesonide (Pulmicort) 0.5 mg INH BIDRT [facility] Last Admin: 11/04/17 05:26 Dose: 0.5 mg Flunisolide (Nasalide Nasal [place]) 0 ml NASBOTH BID [facility] Last Admin: 11/04/17 10:41 Dose: 2 spray Furosemide (Lasix) 20 mg PO BIDDIURETIC [facility] Last Admin: 11/04/17 14:30 Dose: 20 mg Gabapentin (Neurontin) 1,800 mg PO BEDTIME [facility] Last Admin: 11/03/17 21:38 Dose: Not Given Guaifenesin (Robitussin) 200 mg PO Q4H PRN PRN Reason: Cough Last Admin: 11/01/17 03:32 Dose: 200 mg Guaifenesin (Mucinex) 600 mg PO BID PRN PRN Reason: Cough Hydralazine HCl (Apresoline) 10 mg IVPUSH Q6H PRN PRN Reason: Hypertension Last Admin: 11/02/17 18:05 Dose: 10 mg Piperacillin Sod/Tazobactam (Sod 4.5 gm/ Sodium Chloride) 100 mls @ 25 mls/hr IV Q8H [facility] Last Admin: 11/04/17 10:42 Dose: 25 mls/hr Levofloxacin/Dextrose 750 mg/ (Premix) 150 mls @ 100 mls/hr IV Q48H [facility] Stop: 11/04/17 16:00 Last Admin: 11/04/17 14:34 Dose: 100 mls/hr Levofloxacin (Levaquin) 750 mg PO Q48H [facility] Lorazepam (Ativan) 0.5 mg IVPUSH Q6H PRN PRN Reason: anxiety Last Admin: 11/03/17 13:52 Dose: 0.5 mg Methylprednisolone Sodium Succinate (Solu-Medrol) 125 mg IVPUSH Q6H [facility] Last Admin: 11/04/17 14:33 Dose: 125 mg Metoprolol Tartrate (Lopressor) 25 mg PO BID [facility] Last Admin: 11/04/17 10:37 Dose: 25 mg Metoprolol Tartrate (Lopressor) 5 mg IVPUSH Q4H PRN PRN Reason: Tachycardia Morphine Sulfate (Morphine) 1 mg IVPUSH Q4H PRN PRN Reason: Pain Last Admin: 11/04/17 13:14 Dose: 1 mg Nitroglycerin (Nitrostat) 0.4 mg SL Q5M PRN PRN Reason: Chest Pain Pantoprazole Sodium (Protonix) 40 mg PO DAILY@0700 [facility] Last Admin: 11/04/17 07:01 Dose: 40 mg Rivaroxaban (Xarelto) 20 mg PO BEDTIME [facility] Last Admin: 11/03/17 21:37 Dose: 20 mg Saccharomyces Boulardii (Florastor) 250 mg PO BID [facility] Last Admin: 11/04/17 10:41 Dose: 250 mg Simvastatin (Zocor) 10 mg PO BEDTIME [facility] Last Admin: 11/03/17 21:39 Dose: 10 mg Spironolactone (Aldactone) 25 mg PO DAILY [facility] Last Admin: 11/04/17 10:37 Dose: 25 mg Discontinued Medications Acetaminophen (Tylenol) 650 mg PO NOW ONE Stop: 10/29/17 12:28 Last Admin: 10/29/17 12:38 Dose: 650 mg Albuterol/Ipratropium (Duoneb 3.0-0.5 Mg/3 Ml) 3 ml NEB ONETIME ONE Stop: 10/29/17 13:03 Last Admin: 10/29/17 13:13 Dose: 3 ml Albuterol/Ipratropium (Duoneb 3.0-0.5 Mg/3 Ml) Confirm Administered Dose 9 ml .ROUTE .STK-MED ONE Stop: 10/29/17 16:59 Last Admin: 10/29/17 17:12 Dose: 6 ml Fentanyl (Sublimaze) 50 mcg IVPUSH ONETIME ONE Stop: 10/29/17 12:51 Last Admin: 10/29/17 13:05 Dose: 50 mcg Furosemide (Lasix) 40 mg IVPUSH NOW ONE Stop: 10/29/17 13:50 Last Admin: 10/29/17 13:55 Dose: 40 mg Furosemide (Lasix) 20 mg IVPUSH NOW ONE Stop: 11/01/17 14:46 Last Admin: 11/01/17 14:57 Dose: 20 mg Furosemide (Lasix) 20 mg IVPUSH NOW ONE Stop: 11/01/17 20:17 Last Admin: 11/01/17 21:04 Dose: 20 mg Furosemide (Lasix) 20 mg IVPUSH ONETIME ONE Stop: 11/02/17 08:01 Last Admin: 11/02/17 08:34 Dose: 20 mg Furosemide (Lasix) 20 mg IVPUSH NOW ONE Stop: 11/03/17 14:26 Last Admin: 11/03/17 17:27 Dose: Not Given Furosemide (Lasix) 20 mg IVPUSH ONETIME ONE Stop: 11/03/17 18:01 Last Admin: 11/03/17 17:18 Dose: 20 mg Heparin Sodium (Porcine) (Heparin Sodium) 5,000 units SUBCUT Q8H [facility] Last Admin: 11/02/17 19:55 Dose: 5,000 units Sodium Chloride (Normal Saline) 1,000 mls @ 75 mls/hr IV ASDIRECTED [facility] Last Admin: 11/01/17 16:50 Dose: 75 mls/hr Levofloxacin/Dextrose 750 mg/ (Premix) 150 mls @ 100 mls/hr IV ONETIME ONE Stop: 10/29/17 14:04 Last Admin: 10/29/17 13:19 Dose: 100 mls/hr Piperacillin Sod/Tazobactam (Sod 4.5 gm/ Sodium Chloride) 100 mls @ 200 mls/hr IV ONETIME ONE Stop: 10/29/17 17:29 Last Admin: 10/29/17 17:35 Dose: 200 mls/hr Magnesium Sulfate 2 gm/ Premix 50 mls @ 25 mls/hr IV ONETIME ONE Stop: 10/31/17 11:49 Last Admin: 10/31/17 10:23 Dose: 25 mls/hr Magnesium Sulfate 2 gm/ Premix 50 mls @ 25 mls/hr IV ONETIME ONE Stop: 11/01/17 20:47 Last Admin: 11/01/17 21:08 Dose: 25 mls/hr Ceftriaxone Sodium 2 gm/ (Sodium Chloride) 100 mls @ 200 mls/hr IV Q12H [facility] Last Admin: 11/02/17 22:24 Dose: 200 mls/hr Ceftriaxone Sodium 2 gm/ (Dextrose/Water) 100 mls @ 200 mls/hr IV Q12H [facility] Last Admin: 11/03/17 08:51 Dose: 200 mls/hr Lorazepam (Ativan) 0.5 mg IVPUSH ONETIME ONE Stop: 11/02/17 20:02 Last Admin: 11/02/17 20:28 Dose: 0.5 mg Losartan Potassium (Cozaar) 50 mg PO ONETIME ONE Stop: 10/29/17 13:04 Last Admin: 10/29/17 16:23 Dose: Not Given Losartan Potassium (Cozaar) 50 mg PO ONETIME ONE Stop: 10/30/17 13:32 Last Admin: 10/29/17 13:41 Dose: 50 mg Methylprednisolone Sodium Succinate (Solu-Medrol) 125 mg IVPUSH Q6H [facility] Last Admin: 11/01/17 10:05 Dose: 125 mg Methylprednisolone Sodium Succinate (Solu-Medrol) 125 mg IVPUSH Q12H [facility] Last Admin: 11/02/17 11:05 Dose: 125 mg Metoprolol Tartrate (Lopressor) 25 mg PO ONETIME ONE Stop: 10/29/17 13:04 Last Admin: 10/29/17 13:19 Dose: 25 mg Non-Formulary Medication (Rivaroxaban [Xarelto]) 20 mg PO BEDTIME [facility] Omeprazole (Omeprazole) 20 mg PO DAILY [facility] Potassium Chloride (Klor-Con M20) 40 meq PO BID [facility] Last Admin: 11/01/17 20:59 Dose: 40 meq - Exam Quality Assessment: Supplemental Oxygen, Urine Catheter (chronic ), DVT Prophylaxis General: Alert, Oriented, Cooperative, No Acute Distress HEENT: Pupils Equal, Pupils Reactive, EOMI, Mucous Membr. Moist/[place] Neck: Supple, Trachea Midline, No JVD, No Thyromegaly Lungs: Normal Respiratory Effort, Decreased Breath Sounds, Rhonchi, Wheezing Cardiovascular: Regular Rate, Irregular Rhythm GI/Abdominal Exam: Normal Bowel Sounds, Soft, Non-Tender, No Organomegaly, No Distention, No Abnormal Bruit, No Mass, Pelvis Stable (Male) Exam: Deferred Back Exam: Normal Inspection, Full Range of Motion Extremities: Normal Inspection, Normal Range of Motion, Non-Tender, Pedal Edema (trace to 1+) Peripheral Pulses: 1+: Posterior Tibial (L), Posterior Tibial (R), Dorsalis Pedis (L), Dorsalis Pedis (R), 2+: Radial (L), Radial (R) Skin: Warm, Dry, Intact Neurological: No New Focal Deficit Psy/Mental Status: Alert, Normal Affect, Normal Mood - Problem List & Annotations (1) Carcinoma of right lung SNOMED Code(s): 781813545 Code(s): C34.91 - MALIGNANT NEOPLASM OF UNSP PART OF RIGHT BRONCHUS OR LUNG Status: Chronic Priority: Low Current Visit: No (2) Chronic kidney disease, stage 3, mod decreased GFR SNOMED Code(s): 714875172 Code(s): N18.3 - CHRONIC KIDNEY DISEASE, STAGE 3 (MODERATE) Status: Chronic Priority: Medium Current Visit: Yes (3) Hypoxia SNOMED Code(s): 654194090 Code(s): R09.02 - HYPOXEMIA Status: Chronic Priority: High Current Visit: Yes (4) Pneumonia involving right lung SNOMED Code(s): 715168902 Code(s): J18.9 - PNEUMONIA, UNSPECIFIED ORGANISM Status: Acute Priority: High Current Visit: Yes Qualifiers: Pneumonia type: due to other aerobic Gram-negative bacteria Lung location: unspecified part of lung Qualified Code(s): J15.6 - Pneumonia due to other Gram-negative bacteria - Problem List Review Problem List Initiated/Reviewed/Updated: Yes - My Orders Last 24 Hours: My Active Orders 11/05/17 05:11 PRO B-TYPE NATRIUR PEPT,BNPPRO [CHEM] DAILY 11/06/17 05:11 PRO B-TYPE NATRIUR PEPT,BNPPRO [CHEM] DAILY 11/07/17 05:11 PRO B-TYPE NATRIUR PEPT,BNPPRO [CHEM] DAILY - Plan Plan:: Impression/Plan: Acute respiratory distress with hypoxia with a history of home O2-- 3L/NC is 99% . --Stable Right sided PNA with small pleural effusion on Xarelto - gram neg rods, Strep pneumo isolated in sputum culture; sensitivities show good coverage -Repeat CXR shows improvement - Repeat CXR shows stable findings -Labs slowly improving each day- CRP <0.2 today -WBC increased today however likely due to high dose steroids -RT/Nebs/FV/IS -Mucinex -Florastor -Cont Levaquin and Zosyn IV--> levaquin to PO tomorrow -Solumedrol 125mg Q6 Lung Carcinoma s/p right sided lobectomy Sepsis protocol initiated with CHF baseline History of CAD with CABG A fib on Xarelto; rate controlled; cont home meds -small effusion noted on CXR -Diurese, IV lasix daily-- now transitioned back to home lasix dose 20mg BID supplemented with IVP lasix -Locate most recent echo report Chronic Hx of colon polyps Hx of bladder Cancer Hx of Squamous Cell Cancer Family Hx of prostate/pancreatic/liver Ca. GERD HTN--stable cont home meds Other: Daily labs Home meds DVT/GI prophylaxis Resume Xarelto Consult CM/PT/OT DNR/DNI/Comfort measures; PCP Dr. Estrada LOS > 96 hr due to slow response to antibiotics, significant PNA, sepsis --- probable discharge Wednesday to SNF
[2017-11-04] MEDS ORDERED: Sodium Chloride 0.9% 1,000 ML IV SCH (16:15)
[2017-11-04] MEDS ORDERED: fentaNYL 12 MCG/HR Transdermal Patch TRDERM SCH (18:00)
[2017-11-04] MEDS: Rivaroxaban 10 MG Tab PO SCH (20:49)
[2017-11-04] MEDS: LORazepam 2 MG/ML MDV IVPUSH PRN (21:07)
[2017-11-04] MEDS: Gabapentin 600 MG Tab PO SCH (21:16)
[2017-11-04] MEDS: Simvastatin 10 MG Tab PO SCH (21:16)
[2017-11-05] MEDS: Piperacillin/Tazobactam 4.5 GM in Sodium Chloride 0.9% 100 ML IV SCH ×2 (01:40→08:30)
[2017-11-05] MEDS: methylPREDNISolone Sodium Succinate 125 MG/2 ML SDV IVPUSH SCH ×3 (02:42→20:21)
[2017-11-05] MEDS: Furosemide 20 MG Tab PO SCH ×2 (05:22→14:27)
[2017-11-05] MEDS: Pantoprazole 40 MG Tab.CR PO SCH ×2 (05:23→08:34)
[2017-11-05] MEDS: Morphine 2 MG/ML Syringe IVPUSH PRN ×3 (05:24→20:29)
[2017-11-05] MEDS: Albuterol/Ipratropium 3.0-0.5 MG/3 ML Neb Soln NEB SCH ×4 (05:35→21:08)
[2017-11-05] MEDS: Budesonide 0.5 MG/2 ML Neb Susp INH SCH ×2 (05:35→21:08)
[2017-11-05] MEDS: Saccharomyces Boulardii (Probiotic) 250 MG Cap PO SCH ×2 (08:30→20:20)
[2017-11-05] MEDS: Metoprolol Tartrate 25 MG Tab PO SCH ×2 (08:31→20:25)
[2017-11-05] MEDS: Spironolactone 25 MG Tab PO SCH (08:34)
[2017-11-05] MEDS: Benzonatate 100 MG Cap PO SCH ×3 (08:35→20:21)
[2017-11-05] MEDS ORDERED: fentaNYL 25 MCG/HR Transdermal Patch TRDERM SCH (15:00)
[2017-11-05] MEDS: Acetaminophen/HYDROcodone 325-5 MG Tab PO PRN (15:30)
--- NOTE | 2017-11-05 18:26 | PCM.PN ---
- General Info Date of Service: 11/05/17 Admission Dx/Problem (Free Text): Admission Diagnosis/Problem Admission Diagnosis/Problem Pneumonia Subjective Update: In to see Ed. He is sitting up in his chair. He looks good. He is joking with me. Vital signs have been stable. His steroid is decreased today and he has been switched to PO levaquin. Zosyn was discontinued. His CRP remains WNL. WBC elevated but likely due to steroids. He reports some arm and leg pain. Generalized pain all over, although it appears to be better than yesterday. I did increase his fentanyl patch today. Will also split his gabapentin to try and obtain more balanced control. He has had some difficulty with sleeping and anxiety at night. Will schedule Ativan to attempt to relieve this. He tells me today that he is scared but says he is ready to . He has had pastoral visits. Probable discharge Wednesday to SNF. Functional Status: Reports: Pain Controlled, Tolerating Diet, Ambulating, Urinating, Incentive Spirometry. Denies: New Symptoms - Review of Systems General: Reports: Weakness (improved ), Fatigue, Malaise, Appetite. Denies: Fever, Night Sweats HEENT: Reports: No Symptoms Pulmonary: Reports: Shortness of Breath, Cough, Wheezing Cardiovascular: Reports: Dyspnea on Exertion. Denies: Chest Pain Gastrointestinal: Reports: No Symptoms. Denies: Abdominal Pain, Constipation, Diarrhea, Nausea Genitourinary: Reports: No Symptoms Musculoskeletal: Reports: Hand Pain, Leg Pain, Foot Pain, Other (generalized pain) Skin: Reports: No Symptoms Neurological: Reports: No Symptoms Psychiatric: Reports: No Symptoms - Patient Data Vitals - Most Recent: Last Vital Signs Temp 97.3 F 11/05/17 15:48 Pulse 68 11/05/17 15:48 Resp 18 11/05/17 15:48 BP 123/76 11/05/17 15:48 Pulse Ox 95 11/05/17 16:28 Weight - Most Recent: 199 lb 11.2 oz I&O - Last 24 Hours: Intake & Output 11/05/17 11/05/17 11/05/17 06:59 14:59 22:59 Intake Total 1723 800 Output Total 500 600 Balance 1223 200 Lab Results Last 24 Hours: Laboratory Results - last 24 hr 11/05/17 11/05/17 11/05/17 Range/Units 05:40 05:40 05:40 WBC 15.32 H (4.23-9.07) K/mm3 RBC 4.06 L (4.63-6.08) M/mm3 Hgb 12.2 L (13.7-17.5) gm/L Hct 39.6 L (40.1-51.0) % MCV 97.5 H (79.0-92.2) fl MCH 30.0 (25.7-32.2) pg MCHC 30.8 L (32.2-35.5) g/dl RDW Std Deviation 60.8 H (35.1-43.9) fL Plt Count 200 (163-337) K/mm3 MPV 10.6 (9.4-12.3) fl Neut % (Auto) 91.7 H (34.0-67.9) % Lymph % (Auto) 1.5 L (21.8-53.1) % [place] % (Auto) 3.4 L (5.3-12.2) % Eos % (Auto) 0 L (0.8-7.0) Baso % (Auto) 0.1 (0.1-1.2) % Neut # (Auto) 14.05 H (1.78-5.38) K/mm3 Lymph # (Auto) 0.23 L (1.32-3.57) K/mm3 [place] # (Auto) 0.52 (0.30-0.82) K/mm3 Eos # (Auto) 0.00 L (0.04-0.54) K/mm3 Baso # (Auto) 0.01 (0.01-0.08) K/mm3 Manual Slide Review Abnormal smear Sodium 143 (136-145) mEq/L Potassium 3.6 (3.5-5.1) mEq/L Chloride 106 (98-107) mEq/L Carbon Dioxide 28 (21-32) mEq/L Anion Gap 12.6 (5-15) BUN 42 H (7-18) mg/dL Creatinine 1.6 H (0.7-1.3) mg/dL Est Cr Clr Drug Dosing 35.95 mL/min Estimated GFR (MDRD) 41 (>60) mL/min BUN/Creatinine Ratio 26.3 H (14-18) Glucose 205 H (83-115) mg/dL Calcium 9.1 (8.5-10.1) mg/dL Magnesium 2.3 (1.8-2.4) mg/dl C-Reactive Protein < 0.2 (<1.0) mg/dL NT-Pro-B Natriuret Pep 5609 H (0-450) pg/mL [place] Results Last 24 Hours: Microbiology 10/29/17 21:30 Aerobic Blood Culture - Preliminary Blood NO GROWTH AFTER 6 DAYS Anaerobic Blood Culture - Preliminary NO GROWTH AFTER 6 DAYS Med Orders - Current: Current Medications Hydrocodone Bitart/Acetaminophen ([place] 325-5 Mg) 1 tab PO Q4H PRN PRN Reason: Pain Last Admin: 11/05/17 15:30 Dose: 1 tab Albuterol (Proventil Neb Soln) 2.5 mg NEB Q4HRRT PRN PRN Reason: Shortness of Breath Last Admin: 11/02/17 18:34 Dose: 2.5 mg Albuterol/Ipratropium (Duoneb 3.0-0.5 Mg/3 Ml) 3 ml NEB QIDRT [facility] Last Admin: 11/05/17 16:28 Dose: 3 ml Artificial Tears (Isopto Tears 0.5% Ophth Soln) 0 ml EYEBOTH Q4H PRN PRN Reason: Dry Eyes Last Admin: 11/03/17 21:32 Dose: 1 drop Benzonatate (Tessalon Perles) 100 mg PO TID [facility] Last Admin: 11/05/17 14:27 Dose: 100 mg Budesonide (Pulmicort) 0.5 mg INH BIDRT [facility] Last Admin: 11/05/17 05:35 Dose: 0.5 mg Fentanyl (Duragesic) 25 mcg TRDERM Q72H [facility] Last Admin: 11/05/17 15:40 Dose: 25 mcg Flunisolide (Nasalide Nasal [place]) 0 ml NASBOTH BID [facility] Last Admin: 11/05/17 08:30 Dose: 2 spray Furosemide (Lasix) 20 mg PO BIDDIURETIC [facility] Last Admin: 11/05/17 14:27 Dose: 20 mg Gabapentin (Neurontin) 900 mg PO BID [facility] Guaifenesin (Robitussin) 200 mg PO Q4H PRN PRN Reason: Cough Last Admin: 11/01/17 03:32 Dose: 200 mg Guaifenesin (Mucinex) 600 mg PO BID PRN PRN Reason: Cough Hydralazine HCl (Apresoline) 10 mg IVPUSH Q6H PRN PRN Reason: Hypertension Last Admin: 11/02/17 18:05 Dose: 10 mg Levofloxacin (Levaquin) 750 mg PO Q48H [facility] Lorazepam (Ativan) 0.5 mg PO DAILY [facility] Methylprednisolone Sodium Succinate (Solu-Medrol) 125 mg IVPUSH Q12H [facility] Metoprolol Tartrate (Lopressor) 25 mg PO BID [facility] Last Admin: 11/05/17 08:31 Dose: 25 mg Metoprolol Tartrate (Lopressor) 5 mg IVPUSH Q4H PRN PRN Reason: Tachycardia Miscellaneous Information (Remove Patch) 1 ea TRDERM Q72H [facility] Last Admin: 11/05/17 15:41 Dose: 1 ea Morphine Sulfate (Morphine) 1 mg IVPUSH Q4H PRN PRN Reason: Pain Last Admin: 11/05/17 14:33 Dose: 1 mg Nitroglycerin (Nitrostat) 0.4 mg SL Q5M PRN PRN Reason: Chest Pain Pantoprazole Sodium (Protonix) 40 mg PO DAILY@0700 [facility] Last Admin: 11/05/17 08:34 Dose: Not Given Rivaroxaban (Xarelto) 20 mg PO BEDTIME [facility] Last Admin: 11/04/17 20:49 Dose: 20 mg Saccharomyces Boulardii (Florastor) 250 mg PO BID [facility] Last Admin: 11/05/17 08:30 Dose: 250 mg Simvastatin (Zocor) 10 mg PO BEDTIME [facility] Last Admin: 11/04/17 21:16 Dose: 10 mg Spironolactone (Aldactone) 25 mg PO DAILY [facility] Last Admin: 11/05/17 08:34 Dose: 25 mg Discontinued Medications Acetaminophen (Tylenol) 650 mg PO NOW ONE Stop: 10/29/17 12:28 Last Admin: 10/29/17 12:38 Dose: 650 mg Albuterol/Ipratropium (Duoneb 3.0-0.5 Mg/3 Ml) 3 ml NEB ONETIME ONE Stop: 10/29/17 13:03 Last Admin: 10/29/17 13:13 Dose: 3 ml Albuterol/Ipratropium (Duoneb 3.0-0.5 Mg/3 Ml) Confirm Administered Dose 9 ml .ROUTE .STK-MED ONE Stop: 10/29/17 16:59 Last Admin: 10/29/17 17:12 Dose: 6 ml Fentanyl (Sublimaze) 50 mcg IVPUSH ONETIME ONE Stop: 10/29/17 12:51 Last Admin: 10/29/17 13:05 Dose: 50 mcg Fentanyl (Duragesic) 12 mcg TRDERM Q72H [facility] Last Admin: 11/04/17 18:01 Dose: 12 mcg Furosemide (Lasix) 40 mg IVPUSH NOW ONE Stop: 10/29/17 13:50 Last Admin: 10/29/17 13:55 Dose: 40 mg Furosemide (Lasix) 20 mg IVPUSH NOW ONE Stop: 11/01/17 14:46 Last Admin: 11/01/17 14:57 Dose: 20 mg Furosemide (Lasix) 20 mg IVPUSH NOW ONE Stop: 11/01/17 20:17 Last Admin: 11/01/17 21:04 Dose: 20 mg Furosemide (Lasix) 20 mg IVPUSH ONETIME ONE Stop: 11/02/17 08:01 Last Admin: 11/02/17 08:34 Dose: 20 mg Furosemide (Lasix) 20 mg IVPUSH NOW ONE Stop: 11/03/17 14:26 Last Admin: 11/03/17 17:27 Dose: Not Given Furosemide (Lasix) 20 mg IVPUSH ONETIME ONE Stop: 11/03/17 18:01 Last Admin: 11/03/17 17:18 Dose: 20 mg Gabapentin (Neurontin) 1,800 mg PO BEDTIME [facility] Last Admin: 11/04/17 21:16 Dose: Not Given Heparin Sodium (Porcine) (Heparin Sodium) 5,000 units SUBCUT Q8H [facility] Last Admin: 11/02/17 19:55 Dose: 5,000 units Sodium Chloride (Normal Saline) 1,000 mls @ 75 mls/hr IV ASDIRECTED [facility] Last Admin: 11/01/17 16:50 Dose: 75 mls/hr Levofloxacin/Dextrose 750 mg/ (Premix) 150 mls @ 100 mls/hr IV ONETIME ONE Stop: 10/29/17 14:04 Last Admin: 10/29/17 13:19 Dose: 100 mls/hr Piperacillin Sod/Tazobactam (Sod 4.5 gm/ Sodium Chloride) 100 mls @ 200 mls/hr IV ONETIME ONE Stop: 10/29/17 17:29 Last Admin: 10/29/17 17:35 Dose: 200 mls/hr Piperacillin Sod/Tazobactam (Sod 4.5 gm/ Sodium Chloride) 100 mls @ 25 mls/hr IV Q8H [facility] Last Admin: 11/05/17 08:30 Dose: 25 mls/hr Levofloxacin/Dextrose 750 mg/ (Premix) 150 mls @ 100 mls/hr IV Q48H [facility] Stop: 11/04/17 16:00 Last Admin: 11/04/17 14:34 Dose: 100 mls/hr Magnesium Sulfate 2 gm/ Premix 50 mls @ 25 mls/hr IV ONETIME ONE Stop: 10/31/17 11:49 Last Admin: 10/31/17 10:23 Dose: 25 mls/hr Magnesium Sulfate 2 gm/ Premix 50 mls @ 25 mls/hr IV ONETIME ONE Stop: 11/01/17 20:47 Last Admin: 11/01/17 21:08 Dose: 25 mls/hr Ceftriaxone Sodium 2 gm/ (Sodium Chloride) 100 mls @ 200 mls/hr IV Q12H [facility] Last Admin: 11/02/17 22:24 Dose: 200 mls/hr Ceftriaxone Sodium 2 gm/ (Dextrose/Water) 100 mls @ 200 mls/hr IV Q12H [facility] Last Admin: 11/03/17 08:51 Dose: 200 mls/hr Sodium Chloride (Normal Saline) 1,000 mls @ 75 mls/hr IV ASDIRECTED [facility] Stop: 11/05/17 05:34 Last Admin: 11/04/17 18:15 Dose: 75 mls/hr Lorazepam (Ativan) 0.5 mg IVPUSH ONETIME ONE Stop: 11/02/17 20:02 Last Admin: 11/02/17 20:28 Dose: 0.5 mg Lorazepam (Ativan) 0.5 mg IVPUSH Q6H PRN PRN Reason: anxiety Last Admin: 11/04/17 21:07 Dose: 0.5 mg Losartan Potassium (Cozaar) 50 mg PO ONETIME ONE Stop: 10/29/17 13:04 Last Admin: 10/29/17 16:23 Dose: Not Given Losartan Potassium (Cozaar) 50 mg PO ONETIME ONE Stop: 10/30/17 13:32 Last Admin: 10/29/17 13:41 Dose: 50 mg Methylprednisolone Sodium Succinate (Solu-Medrol) 125 mg IVPUSH Q6H [facility] Last Admin: 11/01/17 10:05 Dose: 125 mg Methylprednisolone Sodium Succinate (Solu-Medrol) 125 mg IVPUSH Q12H [facility] Last Admin: 11/02/17 11:05 Dose: 125 mg Methylprednisolone Sodium Succinate (Solu-Medrol) 125 mg IVPUSH Q6H [facility] Last Admin: 11/05/17 08:30 Dose: 125 mg Metoprolol Tartrate (Lopressor) 25 mg PO ONETIME ONE Stop: 10/29/17 13:04 Last Admin: 10/29/17 13:19 Dose: 25 mg Non-Formulary Medication (Rivaroxaban [Xarelto]) 20 mg PO BEDTIME [facility] Omeprazole (Omeprazole) 20 mg PO DAILY [facility] Potassium Chloride (Klor-Con M20) 40 meq PO BID [facility] Last Admin: 11/01/17 20:59 Dose: 40 meq - Exam Quality Assessment: Supplemental Oxygen, Urine Catheter (chornic ), DVT Prophylaxis General: Alert, Oriented, Cooperative, No Acute Distress HEENT: Pupils Equal, Pupils Reactive, EOMI, Mucous Membr. Moist/[place] Neck: Supple, Trachea Midline, No JVD, No Thyromegaly Lungs: Normal Respiratory Effort, Decreased Breath Sounds, Wheezing Cardiovascular: Regular Rate, Irregular Rhythm GI/Abdominal Exam: Normal Bowel Sounds, Soft, Non-Tender, No Organomegaly, No Distention, No Abnormal Bruit, No Mass, Pelvis Stable (Male) Exam: Deferred Back Exam: Normal Inspection, Full Range of Motion Extremities: Normal Range of Motion, Non-Tender, Normal Capillary Refill, Pedal Edema Peripheral Pulses: 2+: Posterior Tibial (L), Posterior Tibial (R), Dorsalis Pedis (L), Dorsalis Pedis (R), 3+: Radial (L), Radial (R) Skin: Warm, Dry, Intact Neurological: No New Focal Deficit Psy/Mental Status: Alert, Normal Affect, Normal Mood, Anxious, Depressed - Problem List & Annotations (1) Carcinoma of right lung SNOMED Code(s): 350901932 Code(s): C34.91 - MALIGNANT NEOPLASM OF UNSP PART OF RIGHT BRONCHUS OR LUNG Status: Chronic Priority: Low Current Visit: No (2) Chronic kidney disease, stage 3, mod decreased GFR SNOMED Code(s): 021274362 Code(s): N18.3 - CHRONIC KIDNEY DISEASE, STAGE 3 (MODERATE) Status: Chronic Priority: Medium Current Visit: Yes (3) Hypoxia SNOMED Code(s): 826603359 Code(s): R09.02 - HYPOXEMIA Status: Chronic Priority: High Current Visit: Yes (4) Pneumonia involving right lung SNOMED Code(s): 809914240 Code(s): J18.9 - PNEUMONIA, UNSPECIFIED ORGANISM Status: Acute Priority: High Current Visit: Yes Qualifiers: Pneumonia type: due to other aerobic Gram-negative bacteria Lung location: unspecified part of lung Qualified Code(s): J15.6 - Pneumonia due to other Gram-negative bacteria - Problem List Review Problem List Initiated/Reviewed/Updated: Yes - My Orders Last 24 Hours: My Active Orders 11/05/17 15:00 fentaNYL [Duragesic] 25 mcg TRDERM Q72H 11/05/17 21:00 Gabapentin [Neurontin] 900 mg PO BID 11/06/17 05:11 PRO B-TYPE NATRIUR PEPT,BNPPRO [CHEM] DAILY 11/06/17 18:00 LORazepam [Ativan] 0.5 mg PO DAILY 11/07/17 05:11 PRO B-TYPE NATRIUR PEPT,BNPPRO [CHEM] DAILY 11/08/17 15:00 Remove Patch 1 ea TRDERM Q72H - Plan Plan:: Impression/Plan: Acute respiratory distress with hypoxia with a history of home O2-- 3L/NC is 95- 97%. --Stable Right sided PNA with small pleural effusion on Xarelto - gram neg rods, Strep pneumo isolated in sputum culture; sensitivities show good coverage -Repeat CXR shows improvement - Repeat CXR shows stable findings -Labs slowly improving each day- CRP <0.2 today -WBC increased last few days, however likely due to high dose steroids -RT/Nebs/FV/IS -Mucinex -Florastor -Cont Levaquin and Zosyn IV--> levaquin to PO today, stopped zosyn -Solumedrol 125mg Q6--> decrease to Q12 Lung Carcinoma s/p right sided lobectomy Sepsis protocol initiated with CHF baseline History of CAD with CABG A fib on Xarelto; rate controlled; cont home meds -small effusion noted on CXR -Diurese, IV lasix daily-- now transitioned back to home lasix dose 20mg BID supplemented with IVP lasix -Locate most recent echo report Chronic Hx of colon polyps Hx of bladder Cancer Hx of Squamous Cell Cancer Family Hx of prostate/pancreatic/liver Ca. GERD HTN--stable cont home meds Other: Daily labs Home meds DVT/GI prophylaxis Resume Xarelto Consult CM/PT/OT DNR/DNI/Comfort measures; PCP Dr. Estrada LOS > 96 hr due to slow response to antibiotics, significant PNA, sepsis --- probable discharge Wednesday to SNF
[2017-11-05] MEDS: Gabapentin 600 MG Tab PO SCH (20:19)
[2017-11-05] MEDS: Rivaroxaban 10 MG Tab PO SCH (20:22)
[2017-11-05] MEDS: Simvastatin 10 MG Tab PO SCH (20:22)
[2017-11-05] MEDS ORDERED: LORazepam 0.5 MG Tab PO PRN (20:25)
[2017-11-05] MEDS: busPIRone 5 MG Tab PO SCH (21:04)
[2017-11-06] MEDS: Hypromellose 0.5% Ophth Soln 15 ML Bottle EYEBOTH PRN ×2 (03:26→13:46)
[2017-11-06] MEDS: Pantoprazole 40 MG Tab.CR PO SCH (06:05)
[2017-11-06] MEDS: Furosemide 20 MG Tab PO SCH ×2 (06:05→13:29)
[2017-11-06] MEDS: Albuterol/Ipratropium 3.0-0.5 MG/3 ML Neb Soln NEB SCH ×4 (06:13→20:50)
[2017-11-06] MEDS: Budesonide 0.5 MG/2 ML Neb Susp INH SCH ×2 (06:13→20:50)
[2017-11-06] MEDS: Morphine 2 MG/ML Syringe IVPUSH PRN (08:29)
[2017-11-06] MEDS: Saccharomyces Boulardii (Probiotic) 250 MG Cap PO SCH ×2 (08:29→20:13)
[2017-11-06] MEDS: methylPREDNISolone Sodium Succinate 125 MG/2 ML SDV IVPUSH SCH ×2 (08:29→20:08)
[2017-11-06] MEDS: Benzonatate 100 MG Cap PO SCH ×4 (08:30→20:10)
[2017-11-06] MEDS: Metoprolol Tartrate 25 MG Tab PO SCH ×2 (08:30→20:12)
[2017-11-06] MEDS: busPIRone 5 MG Tab PO SCH ×2 (08:30→20:12)
[2017-11-06] MEDS: Spironolactone 25 MG Tab PO SCH (08:30)
[2017-11-06] MEDS: Gabapentin 600 MG Tab PO SCH ×2 (08:30→20:11)
[2017-11-06] MEDS ORDERED: Levofloxacin 750 MG Tab PO SCH (14:00)
[2017-11-06] MEDS ORDERED: hydrALAZINE 20 MG/ML SDV IVPUSH PRN (14:19)
--- NOTE | 2017-11-06 14:23 | PCM.PN ---
- General Info Date of Service: 11/06/17 Functional Status: Reports: Pain Controlled, Tolerating Diet, Ambulating, Urinating - Review of Systems General: Reports: Weakness HEENT: Reports: No Symptoms Pulmonary: Reports: No Symptoms Cardiovascular: Reports: No Symptoms Gastrointestinal: Reports: No Symptoms Genitourinary: Reports: No Symptoms Musculoskeletal: Reports: No Symptoms Skin: Reports: No Symptoms Neurological: Reports: No Symptoms Psychiatric: Reports: No Symptoms - Patient Data Vitals - Most Recent: Last Vital Signs Temp 36.2 C 11/06/17 08:32 Pulse 69 11/06/17 08:32 Resp 16 11/06/17 08:32 BP 142/90 H 11/06/17 08:32 Pulse Ox 98 11/06/17 09:22 Weight - Most Recent: 92.079 kg I&O - Last 24 Hours: Intake & Output 11/05/17 11/06/17 11/06/17 22:59 06:59 14:59 Intake Total 800 800 360 Output Total 600 825 Balance 200 -25 360 Lab Results Last 24 Hours: Laboratory Results - last 24 hr 11/06/17 11/06/17 11/06/17 Range/Units 05:40 05:40 05:40 WBC 13.61 H (4.23-9.07) K/mm3 RBC 3.98 L (4.63-6.08) M/mm3 Hgb 12.0 L (13.7-17.5) gm/L Hct 38.8 L (40.1-51.0) % MCV 97.5 H (79.0-92.2) fl MCH 30.2 (25.7-32.2) pg MCHC 30.9 L (32.2-35.5) g/dl RDW Std Deviation 59.3 H (35.1-43.9) fL Plt Count 196 (163-337) K/mm3 MPV 10.5 (9.4-12.3) fl Neut % (Auto) 90.2 H (34.0-67.9) % Lymph % (Auto) 1.5 L (21.8-53.1) % [place] % (Auto) 4.3 L (5.3-12.2) % Eos % (Auto) 0 L (0.8-7.0) Baso % (Auto) 0.1 (0.1-1.2) % Neut # (Auto) 12.27 H (1.78-5.38) K/mm3 Lymph # (Auto) 0.21 L (1.32-3.57) K/mm3 [place] # (Auto) 0.58 (0.30-0.82) K/mm3 Eos # (Auto) 0.00 L (0.04-0.54) K/mm3 Baso # (Auto) 0.02 (0.01-0.08) K/mm3 Manual Slide Review Abnormal smear Sodium 144 (136-145) mEq/L Potassium 3.6 (3.5-5.1) mEq/L Chloride 106 (98-107) mEq/L Carbon Dioxide 32 (21-32) mEq/L Anion Gap 9.6 (5-15) BUN 44 H (7-18) mg/dL Creatinine 1.5 H (0.7-1.3) mg/dL Est Cr Clr Drug Dosing 38.35 mL/min Estimated GFR (MDRD) 44 (>60) mL/min BUN/Creatinine Ratio 29.3 H (14-18) Glucose 209 H (83-115) mg/dL Calcium 9.0 (8.5-10.1) mg/dL Magnesium 2.3 (1.8-2.4) mg/dl C-Reactive Protein < 0.2 (<1.0) mg/dL NT-Pro-B Natriuret Pep 4465 H (0-450) pg/mL [place] Results Last 24 Hours: Microbiology 10/29/17 21:30 Aerobic Blood Culture - Final Blood NO GROWTH AFTER 7 DAYS Anaerobic Blood Culture - Final NO GROWTH AFTER 7 DAYS Med Orders - Current: Current Medications Hydrocodone Bitart/Acetaminophen (Sekiu 325-5 Mg) 1 tab PO Q4H PRN PRN Reason: Pain Last Admin: 11/05/17 15:30 Dose: 1 tab Albuterol (Proventil Neb Soln) 2.5 mg NEB Q4HRRT PRN PRN Reason: Shortness of Breath Last Admin: 11/02/17 18:34 Dose: 2.5 mg Albuterol/Ipratropium (Duoneb 3.0-0.5 Mg/3 Ml) 3 ml NEB QIDRT [facility] Last Admin: 11/06/17 09:21 Dose: 3 ml Artificial Tears (Isopto Tears 0.5% Ophth Soln) 0 ml EYEBOTH Q4H PRN PRN Reason: Dry Eyes Last Admin: 11/06/17 13:46 Dose: 1 drop Benzonatate (Tessalon Perles) 100 mg PO TID [facility] Last Admin: 11/06/17 13:29 Dose: 100 mg Budesonide (Pulmicort) 0.5 mg INH BIDRT [facility] Last Admin: 11/06/17 06:13 Dose: 0.5 mg Buspirone HCl (Buspar) 5 mg PO BID [facility] Last Admin: 11/06/17 08:30 Dose: 5 mg Fentanyl (Duragesic) 25 mcg TRDERM Q72H [facility] Last Admin: 11/05/17 15:40 Dose: 25 mcg Flunisolide (Nasalide Nasal [place]) 0 ml NASBOTH BID [facility] Last Admin: 11/06/17 09:59 Dose: 2 spray Furosemide (Lasix) 20 mg PO BIDDIURETIC [facility] Last Admin: 11/06/17 13:29 Dose: 20 mg Gabapentin (Neurontin) 900 mg PO BID [facility] Last Admin: 11/06/17 08:30 Dose: 900 mg Guaifenesin (Robitussin) 200 mg PO Q4H PRN PRN Reason: Cough Last Admin: 11/01/17 03:32 Dose: 200 mg Guaifenesin (Mucinex) 600 mg PO BID PRN PRN Reason: Cough Levofloxacin (Levaquin) 750 mg PO Q48H [facility] Last Admin: 11/06/17 13:34 Dose: 750 mg Lorazepam (Ativan) 0.5 mg PO BID PRN PRN Reason: Anxiety Metoprolol Tartrate (Lopressor) 25 mg PO BID [facility] Last Admin: 11/06/17 08:30 Dose: 25 mg Metoprolol Tartrate (Lopressor) 5 mg IVPUSH Q4H PRN PRN Reason: Tachycardia Miscellaneous Information (Remove Patch) 1 ea TRDERM Q72H [facility] Last Admin: 11/05/17 15:41 Dose: 1 ea Morphine Sulfate (Morphine) 1 mg IVPUSH Q4H PRN PRN Reason: Pain Last Admin: 11/06/17 08:29 Dose: 1 mg Nitroglycerin (Nitrostat) 0.4 mg SL Q5M PRN PRN Reason: Chest Pain Pantoprazole Sodium (Protonix) 40 mg PO DAILY@0700 [facility] Last Admin: 11/06/17 06:05 Dose: 40 mg Rivaroxaban (Xarelto) 20 mg PO BEDTIME [facility] Last Admin: 11/05/17 20:22 Dose: 20 mg Saccharomyces Boulardii (Florastor) 250 mg PO BID [facility] Last Admin: 11/06/17 08:29 Dose: 250 mg Simvastatin (Zocor) 10 mg PO BEDTIME [facility] Last Admin: 11/05/17 20:22 Dose: 10 mg Spironolactone (Aldactone) 25 mg PO DAILY [facility] Last Admin: 11/06/17 08:30 Dose: 25 mg Discontinued Medications Acetaminophen (Tylenol) 650 mg PO NOW ONE Stop: 10/29/17 12:28 Last Admin: 10/29/17 12:38 Dose: 650 mg Albuterol/Ipratropium (Duoneb 3.0-0.5 Mg/3 Ml) 3 ml NEB ONETIME ONE Stop: 10/29/17 13:03 Last Admin: 10/29/17 13:13 Dose: 3 ml Albuterol/Ipratropium (Duoneb 3.0-0.5 Mg/3 Ml) Confirm Administered Dose 9 ml .ROUTE .STK-MED ONE Stop: 10/29/17 16:59 Last Admin: 10/29/17 17:12 Dose: 6 ml Fentanyl (Sublimaze) 50 mcg IVPUSH ONETIME ONE Stop: 10/29/17 12:51 Last Admin: 10/29/17 13:05 Dose: 50 mcg Fentanyl (Duragesic) 12 mcg TRDERM Q72H [facility] Last Admin: 11/04/17 18:01 Dose: 12 mcg Furosemide (Lasix) 40 mg IVPUSH NOW ONE Stop: 10/29/17 13:50 Last Admin: 10/29/17 13:55 Dose: 40 mg Furosemide (Lasix) 20 mg IVPUSH NOW ONE Stop: 11/01/17 14:46 Last Admin: 11/01/17 14:57 Dose: 20 mg Furosemide (Lasix) 20 mg IVPUSH NOW ONE Stop: 11/01/17 20:17 Last Admin: 11/01/17 21:04 Dose: 20 mg Furosemide (Lasix) 20 mg IVPUSH ONETIME ONE Stop: 11/02/17 08:01 Last Admin: 11/02/17 08:34 Dose: 20 mg Furosemide (Lasix) 20 mg IVPUSH NOW ONE Stop: 11/03/17 14:26 Last Admin: 11/03/17 17:27 Dose: Not Given Furosemide (Lasix) 20 mg IVPUSH ONETIME ONE Stop: 11/03/17 18:01 Last Admin: 11/03/17 17:18 Dose: 20 mg Gabapentin (Neurontin) 1,800 mg PO BEDTIME [facility] Last Admin: 11/04/17 21:16 Dose: Not Given Heparin Sodium (Porcine) (Heparin Sodium) 5,000 units SUBCUT Q8H [facility] Last Admin: 11/02/17 19:55 Dose: 5,000 units Hydralazine HCl (Apresoline) 10 mg IVPUSH Q6H PRN PRN Reason: Hypertension Last Admin: 11/02/17 18:05 Dose: 10 mg Sodium Chloride (Normal Saline) 1,000 mls @ 75 mls/hr IV ASDIRECTED [facility] Last Admin: 11/01/17 16:50 Dose: 75 mls/hr Levofloxacin/Dextrose 750 mg/ (Premix) 150 mls @ 100 mls/hr IV ONETIME ONE Stop: 10/29/17 14:04 Last Admin: 10/29/17 13:19 Dose: 100 mls/hr Piperacillin Sod/Tazobactam (Sod 4.5 gm/ Sodium Chloride) 100 mls @ 200 mls/hr IV ONETIME ONE Stop: 10/29/17 17:29 Last Admin: 10/29/17 17:35 Dose: 200 mls/hr Piperacillin Sod/Tazobactam (Sod 4.5 gm/ Sodium Chloride) 100 mls @ 25 mls/hr IV Q8H [facility] Last Admin: 11/05/17 08:30 Dose: 25 mls/hr Levofloxacin/Dextrose 750 mg/ (Premix) 150 mls @ 100 mls/hr IV Q48H [facility] Stop: 11/04/17 16:00 Last Admin: 11/04/17 14:34 Dose: 100 mls/hr Magnesium Sulfate 2 gm/ Premix 50 mls @ 25 mls/hr IV ONETIME ONE Stop: 10/31/17 11:49 Last Admin: 10/31/17 10:23 Dose: 25 mls/hr Magnesium Sulfate 2 gm/ Premix 50 mls @ 25 mls/hr IV ONETIME ONE Stop: 11/01/17 20:47 Last Admin: 11/01/17 21:08 Dose: 25 mls/hr Ceftriaxone Sodium 2 gm/ (Sodium Chloride) 100 mls @ 200 mls/hr IV Q12H [facility] Last Admin: 11/02/17 22:24 Dose: 200 mls/hr Ceftriaxone Sodium 2 gm/ (Dextrose/Water) 100 mls @ 200 mls/hr IV Q12H [facility] Last Admin: 11/03/17 08:51 Dose: 200 mls/hr Sodium Chloride (Normal Saline) 1,000 mls @ 75 mls/hr IV ASDIRECTED [facility] Stop: 11/05/17 05:34 Last Admin: 11/04/17 18:15 Dose: 75 mls/hr Lorazepam (Ativan) 0.5 mg IVPUSH ONETIME ONE Stop: 11/02/17 20:02 Last Admin: 11/02/17 20:28 Dose: 0.5 mg Lorazepam (Ativan) 0.5 mg IVPUSH Q6H PRN PRN Reason: anxiety Last Admin: 11/04/17 21:07 Dose: 0.5 mg Lorazepam (Ativan) 0.5 mg PO DAILY [facility] Losartan Potassium (Cozaar) 50 mg PO ONETIME ONE Stop: 10/29/17 13:04 Last Admin: 10/29/17 16:23 Dose: Not Given Losartan Potassium (Cozaar) 50 mg PO ONETIME ONE Stop: 10/30/17 13:32 Last Admin: 10/29/17 13:41 Dose: 50 mg Methylprednisolone Sodium Succinate (Solu-Medrol) 125 mg IVPUSH Q6H [facility] Last Admin: 11/01/17 10:05 Dose: 125 mg Methylprednisolone Sodium Succinate (Solu-Medrol) 125 mg IVPUSH Q12H [facility] Last Admin: 11/02/17 11:05 Dose: 125 mg Methylprednisolone Sodium Succinate (Solu-Medrol) 125 mg IVPUSH Q6H [facility] Last Admin: 11/05/17 08:30 Dose: 125 mg Methylprednisolone Sodium Succinate (Solu-Medrol) 125 mg IVPUSH Q12H [facility] Last Admin: 11/06/17 08:29 Dose: 125 mg Metoprolol Tartrate (Lopressor) 25 mg PO ONETIME ONE Stop: 10/29/17 13:04 Last Admin: 10/29/17 13:19 Dose: 25 mg Non-Formulary Medication (Rivaroxaban [Xarelto]) 20 mg PO BEDTIME [facility] Omeprazole (Omeprazole) 20 mg PO DAILY [facility] Potassium Chloride (Klor-Con M20) 40 meq PO BID [facility] Last Admin: 11/01/17 20:59 Dose: 40 meq - Exam Quality Assessment: Supplemental Oxygen, DVT Prophylaxis General: Alert, Oriented, Cooperative, No Acute Distress HEENT: Pupils Equal, Pupils Reactive, EOMI Neck: Supple, Trachea Midline, No JVD Lungs: Normal Respiratory Effort, Decreased Breath Sounds (R>L) Cardiovascular: Regular Rate, Regular Rhythm GI/Abdominal Exam: Normal Bowel Sounds, Soft, Non-Tender, No Organomegaly, No Distention (Male) Exam: Deferred Back Exam: Normal Inspection Extremities: Normal Inspection, Non-Tender Skin: Warm Neurological: No New Focal Deficit, Normal Speech Psy/Mental Status: Alert, Normal Affect, Normal Mood - Problem List & Annotations (1) Pneumonia SNOMED Code(s): 056409605 Code(s): J18.9 - PNEUMONIA, UNSPECIFIED ORGANISM Status: Acute Current Visit: Yes (2) Hypoxia SNOMED Code(s): 494683847 Code(s): R09.02 - HYPOXEMIA Status: Chronic Priority: High Current Visit: Yes (3) Chronic kidney disease, stage 3, mod decreased GFR SNOMED Code(s): 871635268 Code(s): N18.3 - CHRONIC KIDNEY DISEASE, STAGE 3 (MODERATE) Status: Chronic Priority: Medium Current Visit: Yes (4) Carcinoma of right lung SNOMED Code(s): 791942363 Code(s): C34.91 - MALIGNANT NEOPLASM OF UNSP PART OF RIGHT BRONCHUS OR LUNG Status: Chronic Priority: Low Current Visit: No (5) Congestive heart failure SNOMED Code(s): 12206099 Code(s): I50.9 - HEART FAILURE, UNSPECIFIED Status: Chronic Priority: High Current Visit: Yes Qualifiers: Qualified Code(s): I50.33 - Acute on chronic diastolic (congestive) heart failure - Problem List Review Problem List Initiated/Reviewed/Updated: Yes - My Orders Last 24 Hours: My Active Orders 11/05/17 20:30 methylPREDNISolone Sod Succ [Solu-MEDROL] 125 mg IVPUSH Q12H 11/06/17 14:00 Levofloxacin [Levaquin] 750 mg PO Q48H 11/06/17 14:19 hydrALAZINE [Apresoline] 20 mg IVPUSH Q6H PRN 11/06/17 14:20 methylPREDNISolone Sod Succ [Solu-MEDROL] 80 mg IVPUSH Q12H 11/07/17 05:00 BMP [BASIC METABOLIC PANEL,BMP] [CHEM] DAILY CBC WITH AUTO DIFF [HEME] DAILY CRP [C-REACTIVE PROTEIN] [CHEM] DAILY MAGNESIUM [CHEM] DAILY 11/08/17 05:00 BMP [BASIC METABOLIC PANEL,BMP] [CHEM] DAILY CBC WITH AUTO DIFF [HEME] DAILY CRP [C-REACTIVE PROTEIN] [CHEM] DAILY MAGNESIUM [CHEM] DAILY 11/09/17 05:00 BMP [BASIC METABOLIC PANEL,BMP] [CHEM] DAILY CBC WITH AUTO DIFF [HEME] DAILY CRP [C-REACTIVE PROTEIN] [CHEM] DAILY MAGNESIUM [CHEM] DAILY - Plan Plan:: Impression/Plan: Acute respiratory distress with hypoxia with a history of home O2-- 3L/NC is 95- 97%. --Stable Right sided PNA with small pleural effusion on Xarelto - gram neg rods, Strep pneumo isolated in sputum culture; sensitivities show good coverage -Repeat CXR shows improvement - Repeat CXR shows stable findings -Labs slowly improving each day- CRP <0.2 today -WBC increased last few days, however likely due to high dose steroids -RT/Nebs/FV/IS -Mucinex -Florastor -Cont Levaquin and Zosyn IV--> levaquin to PO today, stopped zosyn -Solumedrol 125mg Q6--> decrease to Q12-->80 mg Q 12H Lung Carcinoma s/p right sided lobectomy Sepsis protocol initiated with CHF baseline History of CAD with CABG A fib on Xarelto; rate controlled; cont home meds -small effusion noted on CXR -Diurese, IV lasix daily-- now transitioned back to home lasix dose 20mg BID supplemented with IVP lasix -Locate most recent echo report Chronic Hx of colon polyps Hx of bladder Cancer Hx of Squamous Cell Cancer Family Hx of prostate/pancreatic/liver Ca. GERD HTN--stable cont home meds Other: Daily labs Home meds DVT/GI prophylaxis Resume Xarelto Consult CM/PT/OT DNR/DNI/Comfort measures; PCP Dr. Estrada LOS > 96 hr due to slow response to antibiotics, significant PNA, sepsis --- probable discharge Wednesday to SNF SNF for rehab-->home hospice after SNF
[2017-11-06] MEDS ORDERED: LORazepam 0.5 MG Tab PO SCH (18:00)
[2017-11-06] MEDS: Rivaroxaban 10 MG Tab PO SCH (20:11)
[2017-11-06] MEDS: Simvastatin 10 MG Tab PO SCH (20:12)
[2017-11-07] MEDS: Furosemide 20 MG Tab PO SCH ×2 (06:30→15:03)
[2017-11-07] MEDS: Pantoprazole 40 MG Tab.CR PO SCH (06:30)
[2017-11-07] MEDS: Albuterol/Ipratropium 3.0-0.5 MG/3 ML Neb Soln NEB SCH ×4 (06:56→20:13)
[2017-11-07] MEDS: Budesonide 0.5 MG/2 ML Neb Susp INH SCH ×2 (06:56→20:13)
[2017-11-07] MEDS: methylPREDNISolone Sodium Succinate 125 MG/2 ML SDV IVPUSH SCH (07:17)
--- NOTE | 2017-11-07 08:08 | PCM.PN ---
- General Info Date of Service: 11/07/17 Admission Dx/Problem (Free Text): Admission Diagnosis/Problem Admission Diagnosis/Problem Pneumonia Subjective Update: Follow Up Functional Status: Reports: Pain Controlled, Tolerating Diet, Ambulating, Urinating. Denies: New Symptoms - Review of Systems General: Denies: Fever, Weakness, Fatigue, Malaise, Chills HEENT: Reports: No Symptoms Pulmonary: Reports: Shortness of Breath, Cough, Sputum. Denies: Pleuritic Chest Pain, Hemoptysis, Wheezing Cardiovascular: Reports: Edema (chronic). Denies: Chest Pain, Palpitations, Dyspnea on Exertion, Lightheadedness Gastrointestinal: Denies: Abdominal Pain, Decreased Appetite, Difficulty Swallowing, Nausea, Vomiting Genitourinary: Reports: No Symptoms Musculoskeletal: Reports: No Symptoms Skin: Reports: Bruising. Denies: Cyanosis, Mottled, Pallor, Diaphoresis, Pruritis, Rash Neurological: Denies: Confusion, Difficulty Walking, Weakness, Gait Disturbance Psychiatric: Denies: Confusion, Depression, Mood Lability, Anxiety, Agitation, Hallucinations Systems Review Comment:: No overnight or acute issues. He slept pretty good last night and feels good this morning. He still coughs up phlegm but not much. He has no new complaints. - Patient Data Vitals - Most Recent: Last Vital Signs Temp 36.4 C 11/07/17 04:21 Pulse 64 11/07/17 04:21 Resp 14 11/07/17 04:21 BP 126/76 11/07/17 04:21 Pulse Ox 99 11/07/17 06:56 Weight - Most Recent: 93.213 kg I&O - Last 24 Hours: Intake & Output 11/06/17 11/07/17 11/07/17 22:59 06:59 14:59 Intake Total 1390 700 Output Total 550 700 Balance 840 0 Lab Results Last 24 Hours: Laboratory Results - last 24 hr 11/07/17 11/07/17 11/07/17 Range/Units 04:55 04:55 04:55 WBC 14.08 H (4.23-9.07) K/mm3 RBC 3.88 L (4.63-6.08) M/mm3 Hgb 11.9 L (13.7-17.5) gm/L Hct 37.8 L (40.1-51.0) % MCV 97.4 H (79.0-92.2) fl MCH 30.7 (25.7-32.2) pg MCHC 31.5 L (32.2-35.5) g/dl RDW Std Deviation 59.1 H (35.1-43.9) fL Plt Count 197 (163-337) K/mm3 MPV 10.5 (9.4-12.3) fl Neut % (Auto) 89.7 H (34.0-67.9) % Lymph % (Auto) 1.6 L (21.8-53.1) % [place] % (Auto) 4.4 L (5.3-12.2) % Eos % (Auto) 0 L (0.8-7.0) Baso % (Auto) 0.3 (0.1-1.2) % Neut # (Auto) 12.63 H (1.78-5.38) K/mm3 Lymph # (Auto) 0.22 L (1.32-3.57) K/mm3 [place] # (Auto) 0.62 (0.30-0.82) K/mm3 Eos # (Auto) 0.00 L (0.04-0.54) K/mm3 Baso # (Auto) 0.04 (0.01-0.08) K/mm3 Manual Slide Review Abnormal smear Sodium 140 (136-145) mEq/L Potassium 4.1 (3.5-5.1) mEq/L Chloride 103 (98-107) mEq/L Carbon Dioxide 30 (21-32) mEq/L Anion Gap 11.1 (5-15) BUN 45 H (7-18) mg/dL Creatinine 1.3 (0.7-1.3) mg/dL Est Cr Clr Drug Dosing 44.25 mL/min Estimated GFR (MDRD) 52 (>60) mL/min BUN/Creatinine Ratio 34.6 H (14-18) Glucose 208 H (83-115) mg/dL Calcium 9.2 (8.5-10.1) mg/dL Magnesium 2.3 (1.8-2.4) mg/dl C-Reactive Protein < 0.2 (<1.0) mg/dL NT-Pro-B Natriuret Pep 3028 H (0-450) pg/mL Med Orders - Current: Current Medications Hydrocodone Bitart/Acetaminophen ([place] 325-5 Mg) 1 tab PO Q4H PRN PRN Reason: Pain Last Admin: 11/05/17 15:30 Dose: 1 tab Albuterol (Proventil Neb Soln) 2.5 mg NEB Q4HRRT PRN PRN Reason: Shortness of Breath Last Admin: 11/02/17 18:34 Dose: 2.5 mg Albuterol/Ipratropium (Duoneb 3.0-0.5 Mg/3 Ml) 3 ml NEB QIDRT [facility] Last Admin: 11/07/17 06:56 Dose: 3 ml Artificial Tears (Isopto Tears 0.5% Ophth Soln) 0 ml EYEBOTH Q4H PRN PRN Reason: Dry Eyes Last Admin: 11/06/17 13:46 Dose: 1 drop Benzonatate (Tessalon Perles) 100 mg PO TID [facility] Last Admin: 11/06/17 20:10 Dose: 100 mg Budesonide (Pulmicort) 0.5 mg INH BIDRT [facility] Last Admin: 11/07/17 06:56 Dose: 0.5 mg Buspirone HCl (Buspar) 5 mg PO BID [facility] Last Admin: 11/06/17 20:12 Dose: 5 mg Fentanyl (Duragesic) 25 mcg TRDERM Q72H [facility] Last Admin: 11/05/17 15:40 Dose: 25 mcg Flunisolide (Nasalide Nasal [employer]) 0 ml NASBOTH BID [facility] Last Admin: 11/06/17 20:13 Dose: 2 spray Furosemide (Lasix) 20 mg PO BIDDIURETIC [facility] Last Admin: 11/07/17 06:30 Dose: 20 mg Gabapentin (Neurontin) 900 mg PO BID [facility] Last Admin: 11/06/17 20:11 Dose: 600 mg Guaifenesin (Robitussin) 200 mg PO Q4H PRN PRN Reason: Cough Last Admin: 11/01/17 03:32 Dose: 200 mg Guaifenesin (Mucinex) 600 mg PO BID PRN PRN Reason: Cough Hydralazine HCl (Apresoline) 20 mg IVPUSH Q6H PRN PRN Reason: Hypertension Levofloxacin (Levaquin) 750 mg PO Q48H [facility] Last Admin: 11/06/17 13:34 Dose: 750 mg Lorazepam (Ativan) 0.5 mg PO BID PRN PRN Reason: Anxiety Methylprednisolone Sodium Succinate (Solu-Medrol) 80 mg IVPUSH Q12H [facility] Last Admin: 11/07/17 07:17 Dose: 80 mg Metoprolol Tartrate (Lopressor) 25 mg PO BID [facility] Last Admin: 11/06/17 20:12 Dose: 25 mg Metoprolol Tartrate (Lopressor) 5 mg IVPUSH Q4H PRN PRN Reason: Tachycardia Miscellaneous Information (Remove Patch) 1 ea TRDERM Q72H [facility] Last Admin: 11/05/17 15:41 Dose: 1 ea Morphine Sulfate (Morphine) 1 mg IVPUSH Q4H PRN PRN Reason: Pain Last Admin: 11/06/17 08:29 Dose: 1 mg Nitroglycerin (Nitrostat) 0.4 mg SL Q5M PRN PRN Reason: Chest Pain Pantoprazole Sodium (Protonix) 40 mg PO DAILY@0700 [facility] Last Admin: 11/07/17 06:30 Dose: 40 mg Rivaroxaban (Xarelto) 20 mg PO BEDTIME [facility] Last Admin: 11/06/17 20:11 Dose: 20 mg Saccharomyces Boulardii (Florastor) 250 mg PO BID [facility] Last Admin: 11/06/17 20:13 Dose: 250 mg Simvastatin (Zocor) 10 mg PO BEDTIME [facility] Last Admin: 11/06/17 20:12 Dose: 10 mg Spironolactone (Aldactone) 25 mg PO DAILY [facility] Last Admin: 11/06/17 08:30 Dose: 25 mg Discontinued Medications Acetaminophen (Tylenol) 650 mg PO NOW ONE Stop: 10/29/17 12:28 Last Admin: 10/29/17 12:38 Dose: 650 mg Albuterol/Ipratropium (Duoneb 3.0-0.5 Mg/3 Ml) 3 ml NEB ONETIME ONE Stop: 10/29/17 13:03 Last Admin: 10/29/17 13:13 Dose: 3 ml Albuterol/Ipratropium (Duoneb 3.0-0.5 Mg/3 Ml) Confirm Administered Dose 9 ml .ROUTE .STK-MED ONE Stop: 10/29/17 16:59 Last Admin: 10/29/17 17:12 Dose: 6 ml Fentanyl (Sublimaze) 50 mcg IVPUSH ONETIME ONE Stop: 10/29/17 12:51 Last Admin: 10/29/17 13:05 Dose: 50 mcg Fentanyl (Duragesic) 12 mcg TRDERM Q72H [facility] Last Admin: 11/04/17 18:01 Dose: 12 mcg Furosemide (Lasix) 40 mg IVPUSH NOW ONE Stop: 10/29/17 13:50 Last Admin: 10/29/17 13:55 Dose: 40 mg Furosemide (Lasix) 20 mg IVPUSH NOW ONE Stop: 11/01/17 14:46 Last Admin: 11/01/17 14:57 Dose: 20 mg Furosemide (Lasix) 20 mg IVPUSH NOW ONE Stop: 11/01/17 20:17 Last Admin: 11/01/17 21:04 Dose: 20 mg Furosemide (Lasix) 20 mg IVPUSH ONETIME ONE Stop: 11/02/17 08:01 Last Admin: 11/02/17 08:34 Dose: 20 mg Furosemide (Lasix) 20 mg IVPUSH NOW ONE Stop: 11/03/17 14:26 Last Admin: 11/03/17 17:27 Dose: Not Given Furosemide (Lasix) 20 mg IVPUSH ONETIME ONE Stop: 11/03/17 18:01 Last Admin: 11/03/17 17:18 Dose: 20 mg Gabapentin (Neurontin) 1,800 mg PO BEDTIME [facility] Last Admin: 11/04/17 21:16 Dose: Not Given Heparin Sodium (Porcine) (Heparin Sodium) 5,000 units SUBCUT Q8H [facility] Last Admin: 11/02/17 19:55 Dose: 5,000 units Hydralazine HCl (Apresoline) 10 mg IVPUSH Q6H PRN PRN Reason: Hypertension Last Admin: 11/02/17 18:05 Dose: 10 mg Sodium Chloride (Normal Saline) 1,000 mls @ 75 mls/hr IV ASDIRECTED [facility] Last Admin: 11/01/17 16:50 Dose: 75 mls/hr Levofloxacin/Dextrose 750 mg/ (Premix) 150 mls @ 100 mls/hr IV ONETIME ONE Stop: 10/29/17 14:04 Last Admin: 10/29/17 13:19 Dose: 100 mls/hr Piperacillin Sod/Tazobactam (Sod 4.5 gm/ Sodium Chloride) 100 mls @ 200 mls/hr IV ONETIME ONE Stop: 10/29/17 17:29 Last Admin: 10/29/17 17:35 Dose: 200 mls/hr Piperacillin Sod/Tazobactam (Sod 4.5 gm/ Sodium Chloride) 100 mls @ 25 mls/hr IV Q8H [facility] Last Admin: 11/05/17 08:30 Dose: 25 mls/hr Levofloxacin/Dextrose 750 mg/ (Premix) 150 mls @ 100 mls/hr IV Q48H [facility] Stop: 11/04/17 16:00 Last Admin: 11/04/17 14:34 Dose: 100 mls/hr Magnesium Sulfate 2 gm/ Premix 50 mls @ 25 mls/hr IV ONETIME ONE Stop: 10/31/17 11:49 Last Admin: 10/31/17 10:23 Dose: 25 mls/hr Magnesium Sulfate 2 gm/ Premix 50 mls @ 25 mls/hr IV ONETIME ONE Stop: 11/01/17 20:47 Last Admin: 11/01/17 21:08 Dose: 25 mls/hr Ceftriaxone Sodium 2 gm/ (Sodium Chloride) 100 mls @ 200 mls/hr IV Q12H [facility] Last Admin: 11/02/17 22:24 Dose: 200 mls/hr Ceftriaxone Sodium 2 gm/ (Dextrose/Water) 100 mls @ 200 mls/hr IV Q12H [facility] Last Admin: 11/03/17 08:51 Dose: 200 mls/hr Sodium Chloride (Normal Saline) 1,000 mls @ 75 mls/hr IV ASDIRECTED [facility] Stop: 11/05/17 05:34 Last Admin: 11/04/17 18:15 Dose: 75 mls/hr Lorazepam (Ativan) 0.5 mg IVPUSH ONETIME ONE Stop: 11/02/17 20:02 Last Admin: 11/02/17 20:28 Dose: 0.5 mg Lorazepam (Ativan) 0.5 mg IVPUSH Q6H PRN PRN Reason: anxiety Last Admin: 11/04/17 21:07 Dose: 0.5 mg Lorazepam (Ativan) 0.5 mg PO DAILY [facility] Losartan Potassium (Cozaar) 50 mg PO ONETIME ONE Stop: 10/29/17 13:04 Last Admin: 10/29/17 16:23 Dose: Not Given Losartan Potassium (Cozaar) 50 mg PO ONETIME ONE Stop: 10/30/17 13:32 Last Admin: 10/29/17 13:41 Dose: 50 mg Methylprednisolone Sodium Succinate (Solu-Medrol) 125 mg IVPUSH Q6H [facility] Last Admin: 11/01/17 10:05 Dose: 125 mg Methylprednisolone Sodium Succinate (Solu-Medrol) 125 mg IVPUSH Q12H [facility] Last Admin: 11/02/17 11:05 Dose: 125 mg Methylprednisolone Sodium Succinate (Solu-Medrol) 125 mg IVPUSH Q6H [facility] Last Admin: 11/05/17 08:30 Dose: 125 mg Methylprednisolone Sodium Succinate (Solu-Medrol) 125 mg IVPUSH Q12H [facility] Last Admin: 11/06/17 08:29 Dose: 125 mg Metoprolol Tartrate (Lopressor) 25 mg PO ONETIME ONE Stop: 10/29/17 13:04 Last Admin: 10/29/17 13:19 Dose: 25 mg Non-Formulary Medication (Rivaroxaban [Xarelto]) 20 mg PO BEDTIME [facility] Omeprazole (Omeprazole) 20 mg PO DAILY [facility] Potassium Chloride (Klor-Con M20) 40 meq PO BID [facility] Last Admin: 11/01/17 20:59 Dose: 40 meq - Exam Quality Assessment: Supplemental Oxygen General: Alert, Oriented, Cooperative, No Acute Distress HEENT: Pupils Equal, Pupils Reactive, EOMI, Mucous Membr. 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 -Strep pneumoniae and Pseudomonas aeruginosa isolated in sputum culture; sensitivities show good coverage with Levaquin -Repeat CXR shows improvement - Repeat CXR shows stable findings -Labs slowly improving each day- CRP <0.2 today -WBC increased last few days, but slowly coming back down; steroids dose has been cut down -Continue RT/Nebs/FV/IS, Mucinex, and Florastor -Received Levaquin and Zosyn IV -Now only on oral Levaquin; stop after 7-10 day course (he is on Q48H) of treatment -Switched steroid to Prednisone 60 mg po daily Lung Carcinoma S/p Right Sided Lobectomy -With possible recurrence -4.5 mm nodule within the lingula not seen on prior chect CT of 08/04/2017 ( CT scan findings 10/29/2017) -Defer to Oncologist/Center Director Lead Teacher for further eval Small Loculated Right Sided Pleural Effusion -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 -Continue to monitor A-Fib on Xarelto; rate controlled -Continue home meds -On home lasix dose 20mg BID supplemented with IVP lasix -Locate most recent echo report--> 2D echo 07/17/16: LVEF est 53% w/o RWMA Resolved: S/p Acute respiratory distress with hypoxia with a history of home O2--> 3L/NC is 95-96% S/p Sepsis protocol initiated with CHF baseline Chronic Hx of colon polyps Hx of bladder Cancer Hx of Squamous Cell Cancer History of CAD with CABG Family Hx of prostate/pancreatic/liver Ca GERD HTN--stable cont home meds Other: He is clinically stable Continue current treatment Routine AM Labs DVT/GI prophylaxis Continue RT/PT/OT DNR/DNI/Comfort measures; PCP Dr. Estrada Possible d/c in AM pending placement
[2017-11-07] MEDS: Gabapentin 600 MG Tab PO SCH ×2 (08:26→20:06)
[2017-11-07] MEDS: Spironolactone 25 MG Tab PO SCH (08:28)
[2017-11-07] MEDS: Saccharomyces Boulardii (Probiotic) 250 MG Cap PO SCH ×2 (08:28→20:05)
[2017-11-07] MEDS: Metoprolol Tartrate 25 MG Tab PO SCH ×2 (08:28→20:09)
[2017-11-07] MEDS: Benzonatate 100 MG Cap PO SCH ×3 (08:29→20:09)
[2017-11-07] MEDS: busPIRone 5 MG Tab PO SCH ×2 (08:29→20:09)
[2017-11-07] MEDS ORDERED: predniSONE 20 MG Tab PO SCH (10:30)
[2017-11-07] MEDS: Rivaroxaban 10 MG Tab PO SCH (20:08)
[2017-11-07] MEDS: Simvastatin 10 MG Tab PO SCH (20:09)
[2017-11-08] MEDS: Pantoprazole 40 MG Tab.CR PO SCH (06:12)
[2017-11-08] MEDS: Furosemide 20 MG Tab PO SCH (06:12)
[2017-11-08] MEDS: Hypromellose 0.5% Ophth Soln 15 ML Bottle EYEBOTH PRN (06:27)
[2017-11-08] MEDS: Albuterol/Ipratropium 3.0-0.5 MG/3 ML Neb Soln NEB SCH ×2 (06:41→09:56)
[2017-11-08] MEDS: Budesonide 0.5 MG/2 ML Neb Susp INH SCH (06:41)
--- NOTE | 2017-11-08 06:42 | PCM.DCSUM1 ---
Discharge Summary - Hospital Course Free Text/Narrative:: 87-year-old male sent from his PCP with a fever and paroxysmal cough for the last 3 days. He has had a productive cough of yellowish green sputum. He has had chills but no fever. Denies nausea or vomiting. At baseline, home O2 requirements, 3 L/m. He was sent from the office requiring 4l/m after a documented O2 saturation at 86%. PMH includes right-sided lung cancer with right lower lobectomy, diagnosed 3-1/ 2 years ago. Chest x-ray prior to presenting to the ED documented completely white right sided lung field suggestive of pneumonia. A septic work up was started in the ED, the patient has had blood cultures drawn. Lactic acid was 2.[address] of the chest diffuse right perihilar infiltrate, right sided loculated pleural effusion; the mediastinum has changed with a right sided shift. There are small nodules noted measuring 4.5 mm, this was not present in July 2017. A discussion occurred regarding the advantages of a facility where a bronchoscopy could be performed happened in the ED by the provider with the patient and family. The patient and family have elected to stay in the community for treatment. He has a history of recurrent lung CA. He has declined medical treatment such as immunotherapy; prognosis is probable demise by the end of the year as understood by the patient and family. This prognosis was discussed with their oncologist after further treatment was declined. - Discharge Data Discharge Date: 11/08/17 (10/29/17) Discharge Disposition: DC/Tfer to SNF 03 Condition: Fair - Discharge Diagnosis/Problem(s) (1) Streptococcus pneumoniae pneumonia SNOMED Code(s): 061377437 ICD Code: J13 - PNEUMONIA DUE TO STREPTOCOCCUS PNEUMONIAE Status: Acute Priority: High Current Visit: Yes Qualifiers: Laterality: left (2) Hypoxia SNOMED Code(s): 562022010 ICD Code: R09.02 - HYPOXEMIA Status: Chronic Priority: High Current Visit: Yes (3) Chronic kidney disease, stage 3, mod decreased GFR SNOMED Code(s): 888394920 ICD Code: N18.3 - CHRONIC KIDNEY DISEASE, STAGE 3 (MODERATE) Status: Chronic Priority: Medium Current Visit: Yes (4) Hypomagnesemia SNOMED Code(s): 131962194 ICD Code: E83.42 - HYPOMAGNESEMIA Status: Resolved Priority: Medium Current Visit: Yes (5) TEREZA on CPAP SNOMED Code(s): 52101842 ICD Code: G47.33 - OBSTRUCTIVE SLEEP APNEA (ADULT) (PEDIATRIC) Status: Chronic Priority: Low Current Visit: No (6) Congestive heart failure SNOMED Code(s): 12153037 ICD Code: I50.9 - HEART FAILURE, UNSPECIFIED Status: Chronic Priority: Medium Current Visit: Yes (7) Chronic respiratory failure SNOMED Code(s): 58043257 ICD Code: J96.10 - CHRONIC RESPIRATORY FAILURE, UNSP W HYPOXIA OR HYPERCAPNIA Status: Chronic Priority: Medium Current Visit: Yes Problem Details: - Has COPD - Reduced Lung Mass 2/2 Lung Resection - 2L NC baseline home O2 Qualifiers: Respiratory failure complication: hypoxia and hypercapnia Qualified Code(s) : J96.11 - Chronic respiratory failure with hypoxia; J96.12 - Chronic respiratory failure with hypercapnia; J96.12 - Chronic respiratory failure with hypercapnia; J96.12 - Chronic respiratory failure with hypercapnia - Patient Summary/Data Operative Procedure(s) Performed: None Complications: None Consults: Consultations 11/02/17 21:26 Consult to Spiritual Care [CONS] Routine 11/03/17 08:50 OT Evaluation and Treatment [CONS] Routine PT Evaluation and Treatment [CONS] Routine Labs Pending at D/C: None Recommended Follow-up Testing/Procedures: Patient DC instructions: Physical and occupational therapy to evaluate and treat. Supplemental oxygen to maintain sats >90%. CPAP to be worn during sleep. Follow up with PCP, Dr. Estrada within one week of discharge. Discharge with code status of comfort care. Planned Operative Procedure(s) after DC: None Hospital Course: Impression/Plan: Acute: Right Sided PNA -Recurrent due to pulmonary insufficiency -Strep pneumoniae and Pseudomonas aeruginosa isolated in sputum culture; sensitivities show good coverage with Levaquin -Repeat CXR shows improvement - Repeat CXR shows stable findings -Labs slowly improving each day- CRP <0.2 today -WBC increased last few days, but slowly coming back down; steroids dose has been cut down -Continue RT/Nebs/FV/IS, Mucinex, and Florastor -Received Levaquin and Zosyn IV -Now only on oral Levaquin; stop after 7-10 day course (he is on Q48H) of treatment -Switched steroid to Prednisone 60 mg po daily Lung Carcinoma S/p Right Sided Lobectomy -With possible recurrence -4.5 mm nodule within the lingula not seen on prior chect CT of 08/04/2017 ( CT scan findings 10/29/2017) -Defer to Oncologist/Promotions Executive for further eval Small Loculated Right Sided Pleural Effusion -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 -Continue to monitor A-Fib on Xarelto; rate controlled -Continue home meds -On home lasix dose 20mg BID supplemented with IVP lasix -Locate most recent echo report--> 2D echo 07/17/16: LVEF est 53% w/o RWMA Resolved: S/p Acute respiratory distress with hypoxia with a history of home O2--> 3L/NC is 95-96% S/p Sepsis protocol initiated with CHF baseline Chronic Hx of colon polyps Hx of bladder Cancer Hx of Squamous Cell Cancer History of CAD with CABG Family Hx of prostate/pancreatic/liver Ca GERD HTN--stable cont home meds Other: He is clinically stable Continue current treatment Routine AM Labs DVT/GI prophylaxis Continue RT/PT/OT DNR/DNI/Comfort measures; PCP Dr. Sean HERR to [facility] today - Patient Instructions Diet: Heart Healthy Diet Activity: As Tolerated Driving: Do Not Drive Showering/Bathing: May Shower Notify Provider of: Fever, Increased Pain, Nausea and/or Vomiting - Discharge Plan Prescriptions/Med Rec: Acetaminophen/HYDROcodone [Sarepta 325-5 MG] 1 tab PO Q4H PRN #15 tablet PRN Reason: Pain Bifidobacter. Bifidum/B.Longum [Florajen Bifidoblend] 460 mg PO DAILY #30 capsule fentaNYL [Duragesic] 25 mcg TRDERM Q72H #1 box Levofloxacin [Levaquin] 500 mg PO DAILY #7 tab LORazepam [Ativan] 0.5 mg PO BID PRN #30 tablet PRN Reason: Anxiety Prednisone [IJD: predniSONE] 60 mg PO WITHBREAKFAST #20 tablet Home Medications: Home Meds Metoprolol Tartrate [Lopressor] 25 mg PO BID 09/30/14 [History] Furosemide [Lasix] 20 mg PO BID 09/27/15 [History] Rivaroxaban [Xarelto] 20 mg PO BEDTIME 01/04/17 [History] atorvaSTATin [Lipitor] 10 mg PO BEDTIME 01/04/17 [History] Omeprazole 20 mg PO DAILY 04/05/17 [History] Albuterol [Proventil HFA] 2 puff INH Q6HR PRN 08/04/17 [History] Budesonide [Pulmicort] 0.5 mg INH BID 08/04/17 [History] L Acidophil/B Lactis/B Longum [Florajen3] 1 tab PO BID 08/04/17 [History] Spironolactone [Aldactone] 25 mg PO DAILY #30 tablet 08/10/17 [Rx] Albuterol/Ipratropium [DuoNeb 3.0-0.5 MG/3 ML] 3 ml NEB BID 09/05/17 [History] Albuterol/Ipratropium [DuoNeb 3.0-0.5 MG/3 ML] 3 ml NEB Q4H PRN 09/05/17 [ History] Benzonatate [Tessalon Perles] 100 mg PO TID 10/29/17 [History] Fluticasone Propionate [Flonase] 1 spray NASBOTH BID 10/29/17 [History] Nitroglycerin 0.4 mg SL Q5M PRN 10/29/17 [History] guaiFENesin [Mucinex] 600 mg PO BID PRN 10/29/17 [History] guaiFENesin [Robitussin] 20 mg PO Q4H PRN 10/29/17 [History] Acetaminophen/HYDROcodone [Sarepta 325-5 MG] 1 tab PO Q4H PRN #15 tablet 11/08/17 [Rx] Bifidobacter. Bifidum/B.Longum [Florajen Bifidoblend] 460 mg PO DAILY #30 capsule 11/08/17 [Rx] Gabapentin [Neurontin] 900 mg PO BID #60 11/08/17 [Rx] LORazepam [Ativan] 0.5 mg PO BID PRN #30 tablet 11/08/17 [Rx] Levofloxacin [Levaquin] 500 mg PO DAILY #7 tab 11/08/17 [Rx] Prednisone [IJD: predniSONE] 60 mg PO WITHBREAKFAST #20 tablet 11/08/17 [Rx] fentaNYL [Duragesic] 25 mcg TRDERM Q72H #1 box 02/19/18 [Rx] Patient Handouts: Chronic Obstructive Pulmonary Disease, [id number], Chronic Kidney Disease, Adult, Zwan-[id number]-[id number], Heart Failure, [id number], Community- Acquired Pneumonia, Adult, [id number]-[id number] Forms: ED Department Discharge Referrals: Wolfgang Estrada MD [Primary Care Provider] - - Discharge Summary/Plan Comment DC Time >30 min.: Yes (45) - General Info Date of Service: 11/08/17 Admission Dx/Problem (Free Text: Admission Diagnosis/Problem Admission Diagnosis/Problem Pneumonia Doing well this morning; strength is improved; slept well. Eating, ambulating with assist, voiding. Plans DC to [facility] today. Functional Status: Reports: Pain Controlled, Tolerating Diet, Ambulating, Urinating, Incentive Spirometry - Review of Systems General: Reports: Weakness (improved), Fatigue. Denies: Fever HEENT: Reports: No Symptoms Pulmonary: Reports: Shortness of Breath, Cough (improved), Sputum (minimal) Cardiovascular: Reports: No Symptoms. Denies: Chest Pain, Palpitations Gastrointestinal: Reports: No Symptoms. Denies: Abdominal Pain, Diarrhea, Nausea, Vomiting Genitourinary: Reports: No Symptoms Musculoskeletal: Reports: Other (generalized joint and leg pain) Neurological: Reports: No Symptoms Psychiatric: Reports: No Symptoms - Patient Data Vitals - Most Recent: Last Vital Signs Temp 99.0 F 11/08/17 02:58 Pulse 83 11/08/17 02:58 Resp 20 11/08/17 02:58 BP 143/78 H 11/08/17 02:58 Pulse Ox 97 11/08/17 02:58 Weight - Most Recent: 205 lb 8 oz I&O - Last 24 hours: Intake & Output 11/07/17 11/07/17 11/08/17 14:59 22:59 06:59 Intake Total 540 960 425 Output Total 1075 350 Balance 540 -115 75 Lab Results - Last 24 hrs: Laboratory Results - last 24 hr 11/07/17 11/08/17 Range/Units 04:55 05:45 WBC 18.07 H (4.23-9.07) K/mm3 RBC 3.93 L (4.63-6.08) M/mm3 Hgb 11.9 L (13.7-17.5) gm/L Hct 38.6 L (40.1-51.0) % MCV 98.2 H (79.0-92.2) fl MCH 30.3 (25.7-32.2) pg MCHC 30.8 L (32.2-35.5) g/dl RDW Std Deviation 59.8 H (35.1-43.9) fL Plt Count 185 (163-337) K/mm3 MPV 10.5 (9.4-12.3) fl Neut % (Auto) 88.7 H (34.0-67.9) % Lymph % (Auto) 2.1 L (21.8-53.1) % [place] % (Auto) 6.4 (5.3-12.2) % Eos % (Auto) 0.4 L (0.8-7.0) Baso % (Auto) 0.2 (0.1-1.2) % Neut # (Auto) 16.04 H (1.78-5.38) K/mm3 Lymph # (Auto) 0.38 L (1.32-3.57) K/mm3 [place] # (Auto) 1.15 H (0.30-0.82) K/mm3 Eos # (Auto) 0.07 (0.04-0.54) K/mm3 Baso # (Auto) 0.04 (0.01-0.08) K/mm3 NT-Pro-B Natriuret Pep 3028 H (0-450) pg/mL Med Orders - Current: Current Medications Hydrocodone Bitart/Acetaminophen (Sarepta 325-5 Mg) 1 tab PO Q4H PRN PRN Reason: Pain Last Admin: 11/05/17 15:30 Dose: 1 tab Albuterol (Proventil Neb Soln) 2.5 mg NEB Q4HRRT PRN PRN Reason: Shortness of Breath Last Admin: 11/02/17 18:34 Dose: 2.5 mg Albuterol/Ipratropium (Duoneb 3.0-0.5 Mg/3 Ml) 3 ml NEB QIDRT NORMA Last Admin: 11/07/17 20:13 Dose: 3 ml Artificial Tears (Isopto Tears 0.5% Ophth Soln) 0 ml EYEBOTH Q4H PRN PRN Reason: Dry Eyes Last Admin: 11/08/17 06:27 Dose: 2 drop Benzonatate (Tessalon Perles) 100 mg PO TID [facility] Last Admin: 11/07/17 20:09 Dose: 100 mg Budesonide (Pulmicort) 0.5 mg INH BIDRT [facility] Last Admin: 11/07/17 20:13 Dose: 0.5 mg Buspirone HCl (Buspar) 5 mg PO BID [facility] Last Admin: 11/07/17 20:09 Dose: 5 mg Fentanyl (Duragesic) 25 mcg TRDERM Q72H [facility] Last Admin: 11/05/17 15:40 Dose: 25 mcg Flunisolide (Nasalide Nasal [place]) 0 ml NASBOTH BID [facility] Last Admin: 11/07/17 20:09 Dose: 2 spray Furosemide (Lasix) 20 mg PO BIDDIURETIC [facility] Last Admin: 11/08/17 06:12 Dose: 20 mg Gabapentin (Neurontin) 900 mg PO BID [facility] Last Admin: 11/07/17 20:06 Dose: 900 mg Guaifenesin (Robitussin) 200 mg PO Q4H PRN PRN Reason: Cough Last Admin: 11/01/17 03:32 Dose: 200 mg Guaifenesin (Mucinex) 600 mg PO BID PRN PRN Reason: Cough Hydralazine HCl (Apresoline) 20 mg IVPUSH Q6H PRN PRN Reason: Hypertension Levofloxacin (Levaquin) 750 mg PO Q48H [facility] Last Admin: 11/06/17 13:34 Dose: 750 mg Lorazepam (Ativan) 0.5 mg PO BID PRN PRN Reason: Anxiety Metoprolol Tartrate (Lopressor) 25 mg PO BID [facility] Last Admin: 11/07/17 20:09 Dose: 25 mg Metoprolol Tartrate (Lopressor) 5 mg IVPUSH Q4H PRN PRN Reason: Tachycardia Miscellaneous Information (Remove Patch) 1 ea TRDERM Q72H [facility] Last Admin: 11/05/17 15:41 Dose: 1 ea Morphine Sulfate (Morphine) 1 mg IVPUSH Q4H PRN PRN Reason: Pain Last Admin: 11/06/17 08:29 Dose: 1 mg Nitroglycerin (Nitrostat) 0.4 mg SL Q5M PRN PRN Reason: Chest Pain Pantoprazole Sodium (Protonix) 40 mg PO DAILY@0700 [facility] Last Admin: 11/08/17 06:12 Dose: 40 mg Prednisone (Prednisone) 60 mg PO DAILY [facility] Rivaroxaban (Xarelto) 20 mg PO BEDTIME [facility] Last Admin: 11/07/17 20:08 Dose: 20 mg Saccharomyces Boulardii (Florastor) 250 mg PO BID [facility] Last Admin: 11/07/17 20:05 Dose: 250 mg Simvastatin (Zocor) 10 mg PO BEDTIME [facility] Last Admin: 11/07/17 20:09 Dose: 10 mg Spironolactone (Aldactone) 25 mg PO DAILY [facility] Last Admin: 11/07/17 08:28 Dose: 25 mg Discontinued Medications Acetaminophen (Tylenol) 650 mg PO NOW ONE Stop: 10/29/17 12:28 Last Admin: 10/29/17 12:38 Dose: 650 mg Albuterol/Ipratropium (Duoneb 3.0-0.5 Mg/3 Ml) 3 ml NEB ONETIME ONE Stop: 10/29/17 13:03 Last Admin: 10/29/17 13:13 Dose: 3 ml Albuterol/Ipratropium (Duoneb 3.0-0.5 Mg/3 Ml) Confirm Administered Dose 9 ml .ROUTE .STK-MED ONE Stop: 10/29/17 16:59 Last Admin: 10/29/17 17:12 Dose: 6 ml Fentanyl (Sublimaze) 50 mcg IVPUSH ONETIME ONE Stop: 10/29/17 12:51 Last Admin: 10/29/17 13:05 Dose: 50 mcg Fentanyl (Duragesic) 12 mcg TRDERM Q72H [facility] Last Admin: 11/04/17 18:01 Dose: 12 mcg Furosemide (Lasix) 40 mg IVPUSH NOW ONE Stop: 10/29/17 13:50 Last Admin: 10/29/17 13:55 Dose: 40 mg Furosemide (Lasix) 20 mg IVPUSH NOW ONE Stop: 11/01/17 14:46 Last Admin: 11/01/17 14:57 Dose: 20 mg Furosemide (Lasix) 20 mg IVPUSH NOW ONE Stop: 11/01/17 20:17 Last Admin: 11/01/17 21:04 Dose: 20 mg Furosemide (Lasix) 20 mg IVPUSH ONETIME ONE Stop: 11/02/17 08:01 Last Admin: 11/02/17 08:34 Dose: 20 mg Furosemide (Lasix) 20 mg IVPUSH NOW ONE Stop: 11/03/17 14:26 Last Admin: 11/03/17 17:27 Dose: Not Given Furosemide (Lasix) 20 mg IVPUSH ONETIME ONE Stop: 11/03/17 18:01 Last Admin: 11/03/17 17:18 Dose: 20 mg Gabapentin (Neurontin) 1,800 mg PO BEDTIME [facility] Last Admin: 11/04/17 21:16 Dose: Not Given Heparin Sodium (Porcine) (Heparin Sodium) 5,000 units SUBCUT Q8H [facility] Last Admin: 11/02/17 19:55 Dose: 5,000 units Hydralazine HCl (Apresoline) 10 mg IVPUSH Q6H PRN PRN Reason: Hypertension Last Admin: 11/02/17 18:05 Dose: 10 mg Sodium Chloride (Normal Saline) 1,000 mls @ 75 mls/hr IV ASDIRECTED [facility] Last Admin: 11/01/17 16:50 Dose: 75 mls/hr Levofloxacin/Dextrose 750 mg/ (Premix) 150 mls @ 100 mls/hr IV ONETIME ONE Stop: 10/29/17 14:04 Last Admin: 10/29/17 13:19 Dose: 100 mls/hr Piperacillin Sod/Tazobactam (Sod 4.5 gm/ Sodium Chloride) 100 mls @ 200 mls/hr IV ONETIME ONE Stop: 10/29/17 17:29 Last Admin: 10/29/17 17:35 Dose: 200 mls/hr Piperacillin Sod/Tazobactam (Sod 4.5 gm/ Sodium Chloride) 100 mls @ 25 mls/hr IV Q8H [facility] Last Admin: 11/05/17 08:30 Dose: 25 mls/hr Levofloxacin/Dextrose 750 mg/ (Premix) 150 mls @ 100 mls/hr IV Q48H [facility] Stop: 11/04/17 16:00 Last Admin: 11/04/17 14:34 Dose: 100 mls/hr Magnesium Sulfate 2 gm/ Premix 50 mls @ 25 mls/hr IV ONETIME ONE Stop: 10/31/17 11:49 Last Admin: 10/31/17 10:23 Dose: 25 mls/hr Magnesium Sulfate 2 gm/ Premix 50 mls @ 25 mls/hr IV ONETIME ONE Stop: 11/01/17 20:47 Last Admin: 11/01/17 21:08 Dose: 25 mls/hr Ceftriaxone Sodium 2 gm/ (Sodium Chloride) 100 mls @ 200 mls/hr IV Q12H [facility] Last Admin: 11/02/17 22:24 Dose: 200 mls/hr Ceftriaxone Sodium 2 gm/ (Dextrose/Water) 100 mls @ 200 mls/hr IV Q12H [facility] Last Admin: 11/03/17 08:51 Dose: 200 mls/hr Sodium Chloride (Normal Saline) 1,000 mls @ 75 mls/hr IV ASDIRECTED [facility] Stop: 11/05/17 05:34 Last Admin: 11/04/17 18:15 Dose: 75 mls/hr Lorazepam (Ativan) 0.5 mg IVPUSH ONETIME ONE Stop: 11/02/17 20:02 Last Admin: 11/02/17 20:28 Dose: 0.5 mg Lorazepam (Ativan) 0.5 mg IVPUSH Q6H PRN PRN Reason: anxiety Last Admin: 11/04/17 21:07 Dose: 0.5 mg Lorazepam (Ativan) 0.5 mg PO DAILY [facility] Losartan Potassium (Cozaar) 50 mg PO ONETIME ONE Stop: 10/29/17 13:04 Last Admin: 10/29/17 16:23 Dose: Not Given Losartan Potassium (Cozaar) 50 mg PO ONETIME ONE Stop: 10/30/17 13:32 Last Admin: 10/29/17 13:41 Dose: 50 mg Methylprednisolone Sodium Succinate (Solu-Medrol) 125 mg IVPUSH Q6H [facility] Last Admin: 11/01/17 10:05 Dose: 125 mg Methylprednisolone Sodium Succinate (Solu-Medrol) 125 mg IVPUSH Q12H [facility] Last Admin: 11/02/17 11:05 Dose: 125 mg Methylprednisolone Sodium Succinate (Solu-Medrol) 125 mg IVPUSH Q6H [facility] Last Admin: 11/05/17 08:30 Dose: 125 mg Methylprednisolone Sodium Succinate (Solu-Medrol) 125 mg IVPUSH Q12H [facility] Last Admin: 11/06/17 08:29 Dose: 125 mg Methylprednisolone Sodium Succinate (Solu-Medrol) 80 mg IVPUSH Q12H [facility] Last Admin: 11/07/17 07:17 Dose: 80 mg Methylprednisolone Sodium Succinate (Solu-Medrol) 60 mg IVPUSH DAILY [facility] Metoprolol Tartrate (Lopressor) 25 mg PO ONETIME ONE Stop: 10/29/17 13:04 Last Admin: 10/29/17 13:19 Dose: 25 mg Non-Formulary Medication (Rivaroxaban [Xarelto]) 20 mg PO BEDTIME [place] Omeprazole (Omeprazole) 20 mg PO DAILY [facility] Potassium Chloride (Klor-Con M20) 40 meq PO BID [facility] Last Admin: 11/01/17 20:59 Dose: 40 meq Prednisone (Prednisone) 60 mg PO DAILY [facility] - Exam Quality Assessment: Reports: Supplemental Oxygen (3L/NC), DVT Prophylaxis General: Reports: Alert, Oriented, Cooperative, No Acute Distress HEENT: Reports: Pupils Equal, Pupils Reactive, Mucous Membr. Moist/[place] Neck: Reports: Supple Lungs: Reports: Normal Respiratory Effort, Decreased Breath Sounds, Rhonchi Cardiovascular: Reports: Regular Rate, Regular Rhythm GI/Abdominal Exam: Normal Bowel Sounds, Soft, Non-Tender (Male) Exam: Deferred Rectal (Males) Exam: Deferred Back Exam: Reports: Normal Inspection Extremities: Normal Capillary Refill, Other (trace to minimal pedal edema; upper extremities with deformities of hand) Neurological: Reports: No New Focal Deficit Psy/Mental Status: Reports: Alert, Normal Affect, Normal Mood *Q Meaningful Use (DIS) - VTE *Q VTE Criteria *Q: - Stroke *Q Stroke Criteria *Q: - AMI *Q AMI Criteria *Q:
[2017-11-08] MEDS ORDERED: methylPREDNISolone Sodium Succinate 40 MG/1 ML SDV IVPUSH SCH (09:00)
[2017-11-08] MEDS ORDERED: predniSONE 20 MG Tab PO SCH (09:00)
[2017-11-08] MEDS: Saccharomyces Boulardii (Probiotic) 250 MG Cap PO SCH (09:08)
[2017-11-08] MEDS: busPIRone 5 MG Tab PO SCH (09:08)
[2017-11-08] MEDS: Benzonatate 100 MG Cap PO SCH (09:08)
[2017-11-08] MEDS: Metoprolol Tartrate 25 MG Tab PO SCH (09:08)
[2017-11-08] MEDS: Gabapentin 600 MG Tab PO SCH (09:09)
[2017-11-08] MEDS: Spironolactone 25 MG Tab PO SCH (09:09)
[2017-11-08 11:58] VITALS: BP 126/54
[2017-11-08] MEDS ORDERED: Remove Patch*FENTANYL TRDERM SCH (15:00)
== END 2017-11-08 13:00 | DRG 193 ==
LOC: JD.ED 11:42 → UNDOADMIN 15:00 → JD.MS 15:00 → JD.ICU 17:40 → JD.MS 10-31 17:57
PROVIDERS: ADMIT Internal Medicine Cardiovascular Disease; ATTEND Internal Medicine Cardiovascular Disease
DX: J18.9 Pneumonia, unspecified organism (principal); J13 Pneumonia due to Streptococcus pneumoniae; I50.33 Acute on chronic diastolic (congestive) heart failure; N18.2 Chronic kidney disease, stage 2 (mild); I25.810 Atherosclerosis of coronary artery bypass graft(s) without angina pectoris; I13.0 Hypertensive heart and chronic kidney disease with heart failure and stage 1 through stage 4 chronic kidney disease, or unspecified chronic kidney disease; C34.91 Malignant neoplasm of unspecified part of right bronchus or lung; R06.03 Acute respiratory distress; R09.02 Hypoxemia; E83.42 Hypomagnesemia; N18.3 Chronic kidney disease, stage 3 (moderate); Z87.01 Personal history of pneumonia (recurrent); Z85.118 Personal history of other malignant neoplasm of bronchus and lung; Z85.51 Personal history of malignant neoplasm of bladder; Z93.50 Unspecified cystostomy status; I48.91 Unspecified atrial fibrillation; K21.9 Gastro-esophageal reflux disease without esophagitis; Z66 Do not resuscitate; G47.33 Obstructive sleep apnea (adult) (pediatric); F41.9 Anxiety disorder, unspecified; Z51.5 Encounter for palliative care; H54.7 Unspecified visual loss; I25.2 Old myocardial infarction; J44.9 Chronic obstructive pulmonary disease, unspecified; M19.90 Unspecified osteoarthritis, unspecified site; G89.29 Other chronic pain; M54.9 Dorsalgia, unspecified; F32.9 Major depressive disorder, single episode, unspecified; Z87.891 Personal history of nicotine dependence; Z88.8 Allergy status to other drugs, medicaments and biological substances; Z79.01 Long term (current) use of anticoagulants; Z79.899 Other long term (current) drug therapy
CPT/HCPCS: 36415; 71250; 80053; 81001; 83605; 83880; 84484; 85025; 85610; 85730; 86140; 87040 ×2; 87070; 87077 ×2; 87184; 87205; 93005; 94640; 96361; 96365; 96375; 99285; A9270 ×3; J1940; J1956; J3010; J7040; 36600; 71045; 71045-26; 71046; 71046-26; 80048; 82803; 83735; 87502; 87503; 93010; 94667; 94668; 94760; 94761; 97110-GO; 97110-GP; 97162-GP; 97167-GO; 97530-GO; 97530-GP; J0360; J0696; J1644; J2060; J2270; J2543; J2930; J3475; J7030; J7060